=== PATIENT | female | born 1940 | race Caucasian/White ===

== ENCOUNTER 2017-03-10 18:14 | Inpatient (IN) | payer MEDICARE, OTHER ==
[~2017-03-10] VITALS: Ht 149.9 cm; Wt 59.3 kg
[2017-03-10] MEDS ORDERED: SOD CHLORIDE 0.9% 1,000 ML IV STA ×2 (18:25→23:08)
--- NOTE | 2017-03-10 18:34 | ERA ---
ER Documentation Chief Complaint Date/Time DATE: 03/10/17 TIME: 18:29 Chief Complaint HPI This is a 76-year-old female, Togolese-speaking, that presents to the emergency department brought in from [facility] and rehab with a chief complaint of changes in her mental status. Her granddaughter, Charity, is present to provide history. She indicates that the patient has appeared more confused and lethargic which began on Tuesday, 4 days prior to arrival. The patient has not been eating and has had decreased urinary output. She also stated that she was complaining of difficulty swallowing. She has had no fevers no shaking or chills. She has had black stool which has been present for several weeks. She was evaluated for the black stool for possible rectal bleeding admission [facility] but her granddaughter states that she did not receive any diagnostic imaging or colonoscopy. The granddaughter also states that the patient is normally alert awake orientated 3 but over the past 4 days has been confused as she does not recognize her granddaughter or know where she is. She has not experienced any hemoptysis or hematemesis. The patient has not complained of any chest pain or pressure and has denied a headache. She has progressed Parkinson's and therefore has difficulty ambulating at baseline. The granddaughter also indicates that the patient has a remote history of stomach carcinoma diagnosed in 2005. She had a 10 pound malignant tumor removed at [facility]. She had initially been placed on chemotherapy prior to the surgery but indicates status post surgery there has been no chemotherapy or radiation that was required ROS All systems reviewed and are negative except as per history of present illness. Medications Home Meds Reported Medications Acetaminophen* (Tylenol*) 500 Mg Tab, 1000 MG PO Q4H Y for PAIN 4-6/10, TAB 03/10/17 Acetaminophen* (Tylenol*) 325 Mg Tablet, 650 MG PO Q4H Y for MILD PAIN LEVEL 1-3 , TAB FOR FEVER 100 AND ABOVE 03/10/17 Magaldrate/Simethicone* (Mag-Al Plus Suspension*) 30 Ml Oral.susp, 30 ML PO Q4H Y for GASTROINTESTINAL UPSET, ML 03/10/17 Na Phos,M-B/Na Phos,Di-Ba (Fleet Enema Extra) 230 Ml Enema, 230 ML RC Q2D Y for PRN, ENEMA 03/10/17 Bisacodyl* (Bisacodyl*) 10 Mg Supp, 10 MG WI DAILY Y for NEEDED, SUPP 03/10/17 Magnesium Hydroxide* (Milk Of Magnesia*) 400 Mg/5 Ml Oral.susp, 30 ML PO QHS, ML 03/10/17 Docusate Sodium* (Colace*) 100 Mg Capsule, 200 MG PO QHS, #30 CAP 03/10/17 Insulin Aspart* (Novolog Insulin Pen*) 100 Unit/Ml Soln, 0 SC .SLIDING SCALE AC , EA 150-199=1 UNITS,200-249=2 UNITS,250-299=3 UNITS, 300-349=4 UNITS,ABOVE 349=5 UNITS; ABOVE 400 OR BELOW 60 CALL MD 03/10/17 Cranberry Extract (Cranberry) 425 Mg Capsule, 425 MG PO DAILY, CAP 03/10/17 Lorazepam* (Lorazepam*) 0.5 Mg Tablet, 0.5 MG PO Q6 Y for ANXIETY, TAB 03/10/17 Zolpidem Tartrate* (Ambien*) 5 Mg Tablet, 5 MG PO QHS Y for INSOMNIA, #30 TAB 03/10/17 Pantoprazole* (Protonix*) 40 Mg Tablet.dr, 40 MG PO DAILY, TAB 03/10/17 Propranolol Hcl* (Propranolol Hcl*) 10 Mg Tablet, 10 MG PO BID, TAB 03/10/17 Atorvastatin Calcium (Atorvastatin Calcium) 10 Mg Tablet, 10 MG PO QHS, #30 TAB 03/10/17 Losartan Potassium* (Losartan Potassium*) 50 Mg Tablet, 50 MG PO BID, TAB 03/10/17 Pramipexole* (Mirapex*) 1.5 Mg Tablet, 1.5 MG PO Q8H, TAB 03/10/17 Entacapone* (Comtan*) 200 Mg Tab, 200 MG PO TID, TAB 03/10/17 Allergies Allergies: Coded Allergies: No Known Allergy (Unverified , 03/10/17) Physical Exam Vitals Vital Signs Date Time Temp Pulse Resp B/P Pulse Ox O2 Delivery O2 Flow Rate FiO2 03/10/17 22:07 100.4 82 18 112/92 96 Room Air 03/10/17 19:06 100.4 92 18 97/69 94 Room Air 03/10/17 18:43 100.4 92 18 97/69 94 Physical Exam Constitutional:Well-developed. HEENT:Normocephalic. Atraumatic.Pupils were equal round reactive to light. Very dry mucous membranes.No tonsillar exudates. Neck: No nuchal rigidity. No lymphadenopathy. No posterior cervical spine tenderness or step-offs. Respiratory: Not using accessory muscles of respiration.Lungs were clear to auscultation bilaterally. No rhonchi. No rales. No wheezing. Cardiovascular: Regular rate regular rhythm.No murmurs. No rubs were appreciated.S1, S2 normal. Distal pulses are palpable 2+ bilaterally. GI: Abdomen was soft. Left lower quadrant tenderness. Non Distended. No pulsatile abdominal masses or bruits. No rebound. No guarding. Bowel sounds were present and normal. Muscle skeletal: Full range of motion the left upper extremities. Abnormal lie to the humeral head on the right and patient was unable to AB duct the right upper extremity past 90 with minimal tenderness with palpation to the right shoulder. Muscular strength 3 out of 5 in the bilateral lower extremities. No asymmetrical swelling or calf tenderness in the lower extremities. Negative Homans sign. RECTAL: No gross blood per rectum. Fecal occult blood test positive. Skin: No petechia, no purpura. No lesions on the palms or the soles of the feet. No maculopapular rash. NEURO: Patient was alert to person but not to place or time. No slurred speech. Resting tremor. Patient unable to ambulate her gait was not observed Result Diagram: 03/10/17 1845 03/10/17 1845 Results 24 hrs Laboratory Tests Test 03/10/17 18:45 White Blood Count 13.110^3/ul Red Blood Count 3.4310^6/ul Hemoglobin 9.3g/dl Hematocrit 29.1% Mean Corpuscular Volume 84.8fl Mean Corpuscular Hemoglobin 27.1pg Mean Corpuscular Hemoglobin Concent 32.0g/dl Red Cell Distribution Width 16.4% Platelet Count 60038^3/UL Mean Platelet Volume 11.0fl Neutrophils % 86.8% Lymphocytes % 6.9% Monocytes % 4.6% Eosinophils % 0.8% Basophils % 0.2% Nucleated Red Blood Cells % 0.2/100WBC Neutrophils # 11.410^3/ul Lymphocytes # 0.910^3/ul Monocytes # 0.610^3/ul Eosinophils # 0.110^3/ul Basophils # 0.010^3/ul Nucleated Red Blood Cells # 0.010^3/ul Prothrombin Time 15.1Sec Prothrombin Time Ratio 1.2 INR International Normalized Ratio 1.18 Activated Partial Thromboplast Time 36.6Sec Sodium Level 133mmol/L Potassium Level 3.9mmol/L Chloride Level 103mmol/L Carbon Dioxide Level 23mmol/L Anion Gap 11 Blood Urea Nitrogen 27mg/dl Creatinine 0.70mg/dl Glucose Level 149mg/dl Lactic Acid Level 1.0mmol/L Calcium Level 9.0mg/dl Total Bilirubin 0.4mg/dl Direct Bilirubin 0.00mg/dl Indirect Bilirubin 0.4mg/dl Aspartate Amino Transf (AST/SGOT) 12IU/L Alanine Aminotransferase (ALT/SGPT) 30IU/L Alkaline Phosphatase 84IU/L Troponin I < 0.012ng/ml Total Protein 5.4g/dl Albumin 3.2g/dl Globulin 2.20g/dl Albumin/Globulin Ratio 1.45 Amylase Level 39U/L Lipase 29U/L Current Medications Medications (Trade) Dose Ordered Sig/Marci Route PRN Reason Start Time Stop Time Status Last Admin Dose Admin Sodium Chloride (NS) 1,000 ml @ 1,000 mls/hr Q1H STAT IV 03/10/17 18:25 03/10/17 19:24 DC 03/10/17 18:55 Acetaminophen (Tylenol Tab) 1,000 mg ONCE ONCE PO 03/10/17 19:35 03/10/17 21:08 DC IV Flush 10 ml 10 ml STK-MED ONCE .ROUTE 03/10/17 20:12 03/10/17 20:13 DC 03/10/17 20:36 Sodium Chloride (NS) 100 ml @ ud STK-MED ONCE .ROUTE 03/10/17 20:12 03/10/17 20:13 DC 03/10/17 20:36 Iohexol (Omnipaque 300mg/ ml) 150 ml STK-MED ONCE .ROUTE 03/10/17 20:12 03/10/17 20:13 DC 03/10/17 20:36 Ondansetron HCl 4 mg 4 mg ER BRIDGE PRN IV NAUSEA AND/OR VOMITING 03/10/17 22:30 03/11/17 22:29 Vancomycin HCl 250 ml @ 125 mls/hr ONCE ONCE IVPB 03/10/17 23:00 03/11/17 00:59 Piperacillin Sod/ Tazobactam Sod (Zosyn 3.375gm/ 100 ml (Pmx)) 100 ml @ 200 mls/hr ONCE STAT IVPB 03/10/17 22:50 03/10/17 23:19 03/10/17 22:57 Procedures/MDM The patient presented to the emergency department with an acute and persistent change in their mental status. The differential diagnosis is diverse however reversible causes such as hypoglycemia, opiate overdose, thiamine deficiency were immediately considered. The patient was placed on a senior business development analyst, continuous pulse oximetry and IV access was established. The patients airway was secure however hypoxic events such as anemia, shock, or severe pulmonary disease were all considered as etiologies in this patients presentation. Circulation assessed with good cap refill and did not require fluids or pressure support. Finger stick for rapid glucose determined to be normal. 12 Lead EKG tracing ordered and reviewed by myself showed: Normal sinus rhythm of 86 bpm and no arrhythmia. WI interval normal. QRS duration normal. No ST segment elevation No ST segment depression. No changes consistent with acute ischemia. Given that the patient was complaining of abdominal discomfort I did obtain a CT scan of the abdomen read by the radiologist and myself which indicated the followin. Diffuse thickening of the wall involving the sigmoid colon and rectum concerning for acute proctocolitis for which correlation to diarrhea clinically is suggested. 2. Additional diffuse thickening of the visualized distal esophagus consistent with esophagitis with a small sliding hiatal hernia. 3. Bibasilar subsegmental atelectasis and tiny pleural effusions with mild cardiac enlargement. 4. Cholelithiasis without evidence of cholecystitis. 5. Extensive postoperative findings of the pelvis consistent with hysterectomy and presumably lymphadenectomy as well as bilateral salpingo-oophorectomy. 6. Extensive atherosclerotic calcification of the aorta and iliac systems. 7. Degenerative disk disease and facet arthropathy at L4-5 and L5-S1 with associated anterolisthesis at these levels. The patient was started on antibiotics for the suspected acute proctocolitis which included vancomycin and Zosyn after blood cultures have been obtained. I did obtain a 2 view radiograph of the right shoulder which indicated there was an acute anterior dislocation of the shoulder. The patient's granddaughter Charity was at the bedside and indicated that this is been present for 2 years. She stated that the patient had a rotator cuff injury with a shoulder dislocation and had not been a surgical candidate according to her granddaughter. Therefore at this time given that this was chronic I did not attempt to reduce the shoulder but the patient will undergo an orthopedic consult for possible reduction in the OR. I informed Dr. Onofre of this finding and he stated he will kindly admit the patient to the telemetry service in serious condition with an anticipated stay of greater than 2 midnights. Departure Diagnosis: Primary Impression: Altered level of consciousness Additional Impressions: Chronic dislocation of right shoulder Proctocolitis with rectal bleeding Failure to thrive Qualified Code: R62.7 - Failure to thrive in adult Condition: Serious CIARRA SILVERIO Mar 10, 2017 18:34
[2017-03-10 18:43] VITALS: Ht 149.9 cm; Wt 59.3 kg
[2017-03-10 19:10] LABS: ADD SCAN DIFF NO
[2017-03-10 19:11] LABS: BASOPHILS % 0.2 % (0.0-2.0); EOSINOPHILS # 0.1 10^3/ul (0.0-0.5); EOSINOPHILS % 0.8 % (0.0-7.0); HEMATOCRIT 29.1 % (37.0-47.0); HEMOGLOBIN 9.3 g/dl (12.0-16.0); LYMPHOCYTES # 0.9 10^3/ul (0.8-2.9); LYMPHOCYTES % 6.9 % (15.0-51.0); MEAN CORPUSCULAR HEMOGLOBIN 27.1 pg (29.0-33.0); MEAN CORPUSCULAR VOLUME 84.8 fl (82.0-101.0); MONOCYTE # 0.6 10^3/ul (0.3-0.9); MONOCYTES % 4.6 % (0.0-11.0); NEUTROPHIL # 11.4 10^3/ul (1.6-7.5); NEUTROPHILS % 86.8 % (39.0-77.0); NUCLEATED RED BLOOD CELLS% 0.2 /100WBC (0.0-0.0); PLATELET COUNT 288 10^3/UL (140-415); RED BLOOD COUNT 3.43 10^6/ul (4.20-5.40); RED CELL DISTRIBUTION WIDTH 16.4 % (11.5-14.5); WHITE BLOOD COUNT 13.1 10^3/ul (4.8-10.8)
[2017-03-10 19:32] LABS: INR 1.18; PROTIME 15.1 Sec (12.2-14.2); PT RATIO 1.2
[2017-03-10 19:33] LABS: PARTIAL THROMBOPLASTIN TIME 36.6 Sec (25.0-35.0)
[2017-03-10 19:35] LABS: ALANINE AMINOTRANSFERASE 30 IU/L (13-69); ALBUMIN 3.2 g/dl (3.3-4.9); ALBUMIN/GLOBULIN RATIO 1.45; ALKALINE PHOSPHATASE 84 IU/L (42-121); AMYLASE 39 U/L (11-123); ANION GAP 11 (8-16); ASPARTATE AMINO TRANSFERASE 12 IU/L (15-46); BILIRUBIN,INDIRECT 0.4 mg/dl (0-1.1); BILIRUBIN,TOTAL 0.4 mg/dl (0.2-1.3); BLOOD UREA NITROGEN 27 mg/dl (7-20); CARBON DIOXIDE 23 mmol/L (21-31); CHLORIDE 103 mmol/L (97-110); GLUCOSE 149 mg/dl (70-220); POTASSIUM 3.9 mmol/L (3.5-5.1); SODIUM 133 mmol/L (135-144); TOTAL PROTEIN 5.4 g/dl (6.1-8.1)
[2017-03-10] MEDS ORDERED: ACETAMINOPHEN 500 MG TAB PO ONE (19:35)
--- NOTE | 2017-03-10 19:42 | RADRPT ---
PROCEDURE: XR Chest. CLINICAL INDICATION: Chest pain. Abdominal pain and weakness TECHNIQUE: Portable AP semi - supine view of the chest was obtained. COMPARISON: None available. FINDINGS: The cardiomediastinal silhouette is mildly enlarged. The lungs are clear. There is no evidence for pleural effusion, pneumothorax or pulmonary vascular congestion. Mild dextroscoliosis of the upper thoracic spine is noted without evidence of fracture. The right humeral head is in medial to the g lenoid portion of the scapula and cannot exclude anterior glenohumeral joint dislocation.. Calcifica tion of the aorta is present. RPTAT:HJJR IMPRESSION: 1. Mild cardiac silhouette enlargement without evidence for acute intrathoracic pathology. 2. Concern for anterior glenohumeral joint dislocation of the right shoulder. Consider dedicated r ight shoulder series for further evaluation. Physician Jayjay Date Time Electronically viewed and signed by Physician Jayjay on 03/10/2017 19:42 JR/
[2017-03-10 19:49] LABS: TROPONIN-I < 0.012 ng/ml (0.00-0.12)
[2017-03-10] MEDS ORDERED: SOD CHLORIDE 0.9% 100 ML ONE (20:12)
[2017-03-10] MEDS ORDERED: IOHEXOL 300MG/ML 150 ML BTL ONE (20:12)
[2017-03-10] MEDS ORDERED: ENTA200T16 PO (21:02)
[2017-03-10] MEDS ORDERED: PRAM1.5T8 PO (21:03)
[2017-03-10] MEDS ORDERED: LOSA50TA6 PO (21:03)
[2017-03-10] MEDS ORDERED: PROP10TA6 PO (21:04)
[2017-03-10] MEDS ORDERED: ATOR10TA65 PO (21:04)
[2017-03-10] MEDS ORDERED: PANT40TA3 PO (21:05)
[2017-03-10] MEDS ORDERED: ZOLP5TAB PO (21:05)
[2017-03-10] MEDS ORDERED: LORA0.5T PO (21:06)
[2017-03-10] MEDS ORDERED: CRAN425C PO (21:07)
[2017-03-10] MEDS ORDERED: NOVO3I SC (21:10)
[2017-03-10] MEDS ORDERED: MAGN400O4 PO (21:12)
[2017-03-10] MEDS ORDERED: DOCU-144 PO (21:12)
[2017-03-10] MEDS ORDERED: BISA10SU75 PR (21:13)
[2017-03-10] MEDS ORDERED: NA P230E RC (21:14)
[2017-03-10] MEDS ORDERED: UDMYL PO (21:15)
[2017-03-10] MEDS ORDERED: ACET325T33 PO (21:17)
[2017-03-10] MEDS ORDERED: TYL500 PO (21:17)
--- NOTE | 2017-03-10 21:21 | RADRPT ---
PROCEDURE: CT abdomen and pelvis with contrast. CLINICAL INDICATION: Abdominal pain. TECHNIQUE: CT scan of the abdomen and pelvis with contrast was performed. Coronal and sagittal im ages were also reformatted. 75 cc Omnipaque-300 intravenous contrast was administered without compl ication. Total exam CTDIvol = 17.87 mGy and DLP = 902.62 mGy-cm. COMPARISON: None available. FINDINGS: Visualized lower thorax: Bilateral dependent subsegmental atelectasis is present. The visualized he art is mildly enlarged. Tiny dependent bilateral pleural effusions are noted. Liver, gallbladder, pancreas and spleen: Normal hepatic contour, attenuation in size. There is no evidence for liver mass or ductal dilatation. Calcified gallstones are present without pericholecys tic inflammation to suggest acute cholecystitis, no gallbladder hydrops is seen. No common bile sahil t dilatation is evident. The pancreas is normal. The spleen is normal, not enlarged. Adrenal glands and genitourinary system: The adrenal glands are normal bilaterally. The kidneys ar e normal in size, contour and attenuation with no evidence for masses, calculi or hydronephrosis. Sy mmetric enhancement of the kidneys is present without evidence of pyelonephritis . The ureters are unremarkable. The urinary bladder shows no abnormality. The uterus is not visualized presumably mathur rgically removed, multiple clips are seen in the pelvis and retroperitoneum. Gastrointestinal system: The visualized distal esophagus shows diffuse thickening concerning for es ophagitis with a hiatal hernia. The stomach is contracted and otherwise grossly normal. A duodenal diverticulum is present. There is no evidence of small bowel obstruction or ileus. The appendix i s not visualized.. The proximal and mid colon are unremarkable however, the distal colon and rectum have diffuse thickening from the mid sigmoid to the rectum and findings are concerning for proctocol itis (series with 3 images 115 - 140). There is some stranding of the surrounding perirectal fat.. Peritoneum, retroperitoneum, vessels and lymph nodes: The abdominal aorta is normal in caliber. Th ere is severe aortic and iliac system atherosclerotic calcification. Inferior vena cava is normal i n caliber. There is no evidence for adenopathy. The peritoneal cavity is normal with no evidence f or ascites. No pneumoperitoneum is present Osseous structures and musculoskeletal system: There is no evidence for acute osseous abnormality o r muscular pathology. Facet arthropathy with degenerative anterolisthesis at L4-5 and L5-S1 is note d with severe degenerative disk narrowing at these levels. No subcutaneous abnormalities are presen t. RPTAT:HJJR IMPRESSION: 1. Diffuse thickening of the wall involving the sigmoid colon and rectum concerning for acute procto colitis for which correlation to diarrhea clinically is suggested. 2. Additional diffuse thickening of the visualized distal esophagus consistent with esophagitis wit h a small sliding hiatal hernia. 3. Bibasilar subsegmental atelectasis and tiny pleural effusions with mild cardiac enlargement. 4. Cholelithiasis without evidence of cholecystitis. 5. Extensive postoperative findings of the pelvis consistent with hysterectomy and presumably lymph adenectomy as well as bilateral salpingo-oophorectomy. 6. Extensive atherosclerotic calcification of the aorta and iliac systems. 7. Degenerative disk disease and facet arthropathy at L4-5 and L5-S1 with associated anterolisthesi s at these levels. Physician Jayjay Date Time Electronically viewed and signed by Physician Jayjay on 03/10/2017 21:20 JR/
[2017-03-10] MEDS ORDERED: ONDANSETRON 4 MG INJ IV PRN (22:30)
[2017-03-10] MEDS ORDERED: PIPER-TAZO 3.375 GM IV (PMX) 100 ML IVPB STA (22:50)
--- NOTE | 2017-03-10 22:59 | RADRPT ---
PROCEDURE: XR Right Shoulder. CLINICAL INDICATION: Right shoulder pain. TECHNIQUE: Two views. Frontal and scapular Y-view. COMPARISON: Chest radiograph done earlier the same day. FINDINGS: There is no fracture. There is an anterior dislocation of the glenohumeral joint. The soft tissues are normal. There are degenerative changes of the acromioclavicular joint with joint space narrowing and osteoph ytes. There is no lytic or blastic lesion. There is no radiopaque foreign body. IMPRESSION: 1. Anterior dislocation of the glenohumeral joint. 2. Degenerative changes of the acromioclavicular joint. 3. Otherwise normal images of the right shoulder. Call report: A call report of the findings was made to Dr. Tan on 03/10/2017 at 1050 hours. RPTAT: QQ .Hany Mishra MD, Date Time Electronically viewed and signed by .Hany Mishra MD, on 03/10/2017 22:58 .R/
[2017-03-10] MEDS ORDERED: VANCOMYCIN 1 GM (PMX) 250 ML IVPB ONE (23:00)
[2017-03-11] VITALS (7 sets, daily range): BP systolic 70–163; BP diastolic 57–80; PULSE 74–81; RESP 18–20; TEMP 99.8
[2017-03-11] MEDS: DEXTROSE 5%-0.45% NACL 1,000 ML IV SCH ×2 (07:11→19:34)
[2017-03-11] MEDS ORDERED: AL HYDROX/MG HYDROX/SIMETH 30 ML CUP PO PRN (07:30)
[2017-03-11] MEDS: PRAMIPEXOLE 1 MG TAB PO SCH ×3 (07:30→21:57)
[2017-03-11] MEDS ORDERED: ZOLPIDEM 5 MG TAB PO PRN (07:30)
[2017-03-11] MEDS ORDERED: BISACODYL 10 MG SUPP PR PRN (07:30)
[2017-03-11] MEDS ORDERED: ONDANSETRON 4 MG INJ IV PRN (07:30)
[2017-03-11] MEDS ORDERED: ACETAMINOPHEN 500 MG TAB PO PRN (07:30)
[2017-03-11] MEDS ORDERED: NACL 0.9% 3 ML SYG IV SCH (07:30)
[2017-03-11] MEDS ORDERED: ACETAMINOPHEN 325 MG TAB PO PRN ×2 (07:30)
[2017-03-11] MEDS ORDERED: LORAZEPAM 0.5 MG TAB PO PRN (07:30)
[2017-03-11] MEDS: ENTACAPONE 200 MG TAB PO SCH ×3 (09:00→21:13)
[2017-03-11] MEDS: PROPRANOLOL 10 MG TAB PO SCH ×2 (09:00→21:00)
[2017-03-11] MEDS ORDERED: LOSARTAN 50 MG TAB PO SCH (09:00)
[2017-03-11] MEDS ORDERED: LORAZEPAM 2 MG INJ IV ONE (10:00)
[2017-03-11] MEDS ORDERED: LORAZEPAM 2 MG INJ ONE (10:01)
[2017-03-11 10:46] LABS: ADD UMIC YES; UR ASCORBIC ACID NEGATIVE (NEGATIVE); UR BACTERIA FEW /HPF (NONE SEEN); UR BILIRUBIN (Dip) NEGATIVE (NEGATIVE); UR BLOOD (Dip) NEGATIVE (NEGATIVE); UR CLARITY CLEAR (CLEAR); UR COLOR YELLOW (YELLOW); UR GLUCOSE (Dip) NEGATIVE (NEGATIVE); UR KETONES (Dip) 1+ mg/dL (NEGATIVE); UR LEUKOCYTE ESTERASE (Dip) NEGATIVE Leu/ul (NEGATIVE); UR MUCUS FEW /HPF (NONE SEEN); UR NITRITE (Dip) POSITIVE (NEGATIVE); UR RBC 14 /HPF (0-5); UR SPECIFIC GRAVITY (Dip) > 1.060 (1.003-1.030); UR TOTAL PROTEIN (Dip) NEGATIVE (NEGATIVE); UR UROBILINOGEN (Dip) NEGATIVE (NEGATIVE)
--- NOTE | 2017-03-11 11:17 | HP ---
Date/Time of Note Date/Time of Note DATE: 03/11/17 TIME: 11:09 Assessment/Plan VTE Prophylaxis VTE Prophylaxis Intervention: SCD's Lines/Catheters Urinary Cath still in place: Yes Reason Cath still needed: urinary retention Assessment/Plan Chief Complaint/Hosp Course 1. ALOC 2. possible overdose sedative meds 3. ESRD 4. HS of stomach carcinoma removal 5. Hs right shoulder dislocation 6.Hypertension 7. dyslipidemia 8. Advanced PArkinson disease 9. Proctocolitis with rectal bleeding 10.Failure to thrive Problems: Assessment/Plan 1. aDMIT TELEMETRY 2. nEUROLOGY CONSULT DR Ramos 3. DVT and GI prophylaxis 4. Review meds HPI/ROS Admit Date/Time Admit Date/Time Hx of Present Illness This is well known to me 76-year-old female was presents to the emergency room on 03/10/2017. She is a resident of [facility] re[facility] . She has ALOC. Per ER md note known that pt granddaughter indicates that the "patient has appeared more confused and lethargic which began on Tuesday, 4 days prior to arrival. The patient has not been eating and has had decreased urinary output. She also stated that she was complaining of difficulty swallowing. She has had no fevers no shaking or chills. She has had black stool which has been present for several weeks". The granddaughter also states that the patient is normally alert awake orientated 3 but over the past 4 days has been confused as she does not recognize her granddaughter or know where she is. She has not experienced any hemoptysis or hematemesis. The patient had not complained of any chest pain or pressure and had denied a headache. She is unable to ambulate. ROS Subjective hx not possible: pt non-verbal PMH/Family/Social Past Medical History Medical History: cancer Past Surgical History Past Surgical Hx: other (s/p colom carcinoma removal) Family History Significant Family History: no pertinent family hx Social History Alcohol Use: none Smoking Status: Former smoker Drug Use: none Exam/Review of Systems Vital Signs Vitals Vital Signs Date Time Temp Pulse Resp B/P Pulse Ox O2 Delivery O2 Flow Rate FiO2 03/11/17 09:43 67 17 134/73 96 Room Air 03/11/17 05:46 99.8 Exam Exam pt is in ER , laying down oh gurney. Lethargic Constitutional: non-verbal Head: atraumatic, normocephalic Eyes: icteric, nl conjunctiva, No EOMI, No PERRL, No fundi, disc, No nl lids, No nl sclera, No other ENMT: nl external ears & nose, nl lips & teeth Neck: jvd, supple, No bruits, No masses, No non-tender, No nuchal rigidity, No other, No thyromegaly Respiratory: clear to auscultation, diminished breath sounds Cardiovascular: regular rate and rhythm Gastrointestinal: ascites, rebound or guarding, soft, surgical scars, No bowel sounds, No distended, No firm, No hepatomegaly, No mass, No nl liver , spleen, No non-tender, No other, No splenomegaly, No tender Genitourinary - Female: nl external genitalia Extremities: calf tenderness, edema, No clubbing, No cyanosis, No normal pulses, No other, No palpable cord, No pitting pedal edema, No tenderness Labs Result Diagram: 03/10/17184403/10/171844 Medications Medications Current Medications Acetaminophen (Tylenol Tab) 650 mg Q4H PRN PO MILD PAIN LEVEL 1-3; Start at 07:30 Acetaminophen (Tylenol Tab) 1,000 mg Q4H PRN PO PAIN 4-6/10; Start 03/11/17 at 07:30 Atorvastatin Calcium (Lipitor) 10 mg QHS PO ; Start 03/11/17 at 21:00 Bisacodyl (Dulcolax Supp) 10 mg DAILY PRN MN NEEDED; Start 03/11/17 at 07:30 Docusate Sodium (Colace) 200 mg QHS PO ; Start 03/11/17 at 21:00 Entacapone (Comtan) 200 mg TID PO ; Start 03/11/17 at 09:00 Lorazepam (Ativan) 0.5 mg Q6H PRN PO ANXIETY; Start 03/11/17 at 07:30 Al Hydrox/Mg Hydrox/Simethicone (Mag-Al Plus) 30 ml Q4H PRN PO GASTROINTESTINAL UPSET; Start 03/11/17 at 07:30 Magnesium Hydroxide (Milk Of Mag) 30 ml QHS PO ; Start 03/11/17 at 21:00 Pramipexole (Mirapex) 1.5 mg Q8 PO ; Start 03/11/17 at 07:30 Propranolol HCl (Inderal) 10 mg BID PO ; Start 03/11/17 at 09:00 Zolpidem Tartrate 5 mg 5 mg QHS PRN PO INSOMNIA; Start 03/11/17 at 07:30 Dextrose/Sodium Chloride (D5-1/2ns) 1,000 ml @ 50 mls/hr Q20H IV Last administered on 03/11/17t 07:11; Admin Dose 50 MLS/HR; Start 03/11/17 at 07:11 Ondansetron HCl (Zofran Inj) 4 mg Q6H PRN IV NAUSEA AND/OR VOMITING; Start at 07:30 Acetaminophen (Tylenol Tab) 650 mg Q6H PRN PO PAIN LEVEL 1-3 OR FEVER; Start at 07:30 Pantoprazole (Protonix Iv) 40 mg DAILY@06 IV ; Start 03/12/17 at 06:00 Losartan Potassium (Cozaar) 50 mg BID PO ; Start 03/11/17 at 21:00 BRAYDEN BARRERA Mar 11, 2017 11:17
--- NOTE | 2017-03-11 12:24 | RADRPT ---
PROCEDURE: CT Brain without contrast. CLINICAL INDICATION: 76-year-old female with altered level of consciousness. TECHNIQUE: A CT of the brain was performed on a [employer] LightSpeed CT scanner utilizing a low do se technique with axial imaging from the skull base through the vertex without IV contrast. Multipl lou reformatted images were made. Images were reviewed on a PACS workstation. The CTDIvol is 43 m Gy and the DLP is 720 mGycm. One or more of the following dose reduction techniques were used: - Automated exposure control. - Adjustment of the mA and/or kV according to patient size. Use of iterative reconstruction technique. COMPARISON: None FINDINGS: The fourth ventricle is normal in size. The third and lateral ventricles are normal in size and con figuration. There are chronic small vessel ischemic changes in the periventricular white matter trac ts adjacent to the lateral ventricles. There are vascular calcifications in the cavernous portions of the internal carotid arteries. The visible portions of the globes and extraocular muscles are normal. The paranasal sinuses are cl ear. The mastoid air cells and internal auditory canals are normal. The bony calvarium is intact. IMPRESSION: 1. There are chronic small vessel ischemic changes in the periventricular white matter tracts adjac ent to the lateral ventricles with atherosclerotic vascular calcifications in the cavernous portions of the internal carotid arteries. 2. No intracranial mass or intracranial hemorrhage is identified. 3. Otherwise, negative CT scan of the brain without contrast. RPTAT:AAJJ Physician Minor Date Time Electronically viewed and signed by Physician Minor on 03/11/2017 12:23 MARYLIN/
--- NOTE | 2017-03-11 17:53 | CONS ---
Date/Time of Note Date/Time of Note DATE: 03/11/17 TIME: 17:52 Consultation Date/Type/Reason Admit Date/Time Reason for Consultation This is Dr. Gibson dictating infectious consultation on She Thomas, date of admission 03/10/2017 date of consultation and dictation 03/11/2017, the reason for consultation is antibiotic management. Patient is a 76-year-old female who presented to the emergency room with altered level of consciousness. The patient has not been eating and has had decreased urinary output she denies fever or chills she has had black stools which have been present for several weeks. Past problems include: 1. End-stage renal disease 2. History of colon carcinoma status post resection 3 hypertension 4 dyslipidemia 5 advanced Parkinson's disease 6 proctocolitis with rectal bleeding 7 failure to thrive. On admission white count was 13.1 H&H 9.3 and 29.1 platelet count 288,000 BUN/ creatinine 27/0.7 chest x-ray shows no acute infiltrate. CT of abdomen and pelvis with contrast shows diffuse thickening of the wall involving the sigmoid colon and rectum consistent with acute proctocolitis for which correlation to diarrhea is suggested she has extensive postoperative findings of the pelvis consistent with hysterectomy and presumably lymphadenopathy as well as BSO. Past medical history as outlined Surgical history as outlined Family history is noncontributory Social history: She does not smoke drink or abuse drugs Allergy none to penicillin sulfa or foods Medications per chart Review of systems is noncontributory On physical examination the patient is nonverbal. Vital signs are stable, she is afebrile T-max 99.8. SHEENT within normal limits Neck is supple, lymph nodes nonpalpable Chest is clear to P&A Heart without murmur or gallop Abdomen is soft nontender without organosplenomegaly masses Extremities without cyanosis clubbing or edema Rectal genital exam: Deferred Neurological evaluation: No focal neurological abnormality Impression/plan: Patient presents with altered levels of consciousness and end- stage renal disease she also has urinary retention. Patient begun on vancomycin and Zosyn in the emergency room. Cultures are pending. I want to thank Dr. Castro for asking me to see this patient in consultation. Thank you for this city driver. Past Medical History Medical History: cancer Past Surgical History Past Surgical Hx: other (s/p colom carcinoma removal) Social History Alcohol Use: none Smoking Status: Former smoker Drug Use: none Exam/Review of Systems Vital Signs Vitals Vital Signs Date Time Temp Pulse Resp B/P Pulse Ox O2 Delivery O2 Flow Rate FiO2 03/11/17 16:00 74 03/11/17 15:12 16 110/54 100 Room Air 03/11/17 05:46 99.8 Results Result Diagram: 03/10/17 1845 03/10/17 1845 Results 24 hrs Laboratory Tests Test 03/10/17 18:45 03/11/17 10:05 White Blood Count 13.1 H Red Blood Count 3.43 L Hemoglobin 9.3 L Hematocrit 29.1 L Mean Corpuscular Volume 84.8 Mean Corpuscular Hemoglobin 27.1 L Mean Corpuscular Hemoglobin Concent 32.0 Red Cell Distribution Width 16.4 H Platelet Count 288 Mean Platelet Volume 11.0 H Neutrophils % 86.8 H Lymphocytes % 6.9 L Monocytes % 4.6 Eosinophils % 0.8 Basophils % 0.2 Nucleated Red Blood Cells % 0.2 H Neutrophils # 11.4 H Lymphocytes # 0.9 Monocytes # 0.6 Eosinophils # 0.1 Basophils # 0.0 Nucleated Red Blood Cells # 0.0 Prothrombin Time 15.1 H Prothrombin Time Ratio 1.2 INR International Normalized Ratio 1.18 Activated Partial Thromboplast Time 36.6 H Sodium Level 133 L Potassium Level 3.9 Chloride Level 103 Carbon Dioxide Level 23 Anion Gap 11 Blood Urea Nitrogen 27 H Creatinine 0.70 Glucose Level 149 Lactic Acid Level 1.0 Calcium Level 9.0 Total Bilirubin 0.4 Direct Bilirubin 0.00 Indirect Bilirubin 0.4 Aspartate Amino Transf (AST/SGOT) 12 L Alanine Aminotransferase (ALT/SGPT) 30 Alkaline Phosphatase 84 Troponin I < 0.012 Total Protein 5.4 L Albumin 3.2 L Globulin 2.20 Albumin/Globulin Ratio 1.45 Amylase Level 39 Lipase 29 Urine Color YELLOW Urine Clarity CLEAR Urine pH 5.0 Urine Specific Walker > 1.060 H Urine Ketones 1+ H Urine Nitrite POSITIVE A Urine Bilirubin NEGATIVE Urine Urobilinogen NEGATIVE Urine Leukocyte Esterase NEGATIVE Urine Microscopic RBC 14 H Urine Microscopic WBC 2 Urine Bacteria FEW A Urine Mucus FEW A Urine Hemoglobin NEGATIVE Urine Glucose NEGATIVE Urine Total Protein NEGATIVE Medications Medications Current Medications Acetaminophen (Tylenol Tab) 650 mg Q4H PRN PO MILD PAIN LEVEL 1-3; Start at 07:30 Acetaminophen (Tylenol Tab) 1,000 mg Q4H PRN PO PAIN 4-6/10; Start 03/11/17 at 07:30 Atorvastatin Calcium (Lipitor) 10 mg QHS PO ; Start 03/11/17 at 21:00 Bisacodyl (Dulcolax Supp) 10 mg DAILY PRN [place] NEEDED; Start 03/11/17 at 07:30 Docusate Sodium (Colace) 200 mg QHS PO ; Start 03/11/17 at 21:00 Entacapone (Comtan) 200 mg TID PO ; Start 03/11/17 at 09:00 Lorazepam (Ativan) 0.5 mg Q6H PRN PO ANXIETY; Start 03/11/17 at 07:30 Al Hydrox/Mg Hydrox/Simethicone (Mag-Al Plus) 30 ml Q4H PRN PO GASTROINTESTINAL UPSET; Start 03/11/17 at 07:30 Magnesium Hydroxide (Milk Of Mag) 30 ml QHS PO ; Start 03/11/17 at 21:00 Pramipexole (Mirapex) 1.5 mg Q8 PO ; Start 03/11/17 at 07:30 Propranolol HCl (Inderal) 10 mg BID PO ; Start 03/11/17 at 09:00 Zolpidem Tartrate 5 mg 5 mg QHS PRN PO INSOMNIA; Start 03/11/17 at 07:30 Dextrose/Sodium Chloride (D5-1/2ns) 1,000 ml @ 50 mls/hr Q20H IV Last administered on 03/11/17t 07:11; Admin Dose 50 MLS/HR; Start 03/11/17 at 07:11 Ondansetron HCl (Zofran Inj) 4 mg Q6H PRN IV NAUSEA AND/OR VOMITING; Start at 07:30 Acetaminophen (Tylenol Tab) 650 mg Q6H PRN PO PAIN LEVEL 1-3 OR FEVER; Start at 07:30 Pantoprazole (Protonix Iv) 40 mg DAILY@06 IV ; Start 03/12/17 at 06:00 Losartan Potassium (Cozaar) 50 mg BID PO ; Start 03/11/17 at 21:00 SHANNAN PAK MD Mar 11, 2017 17:52
--- NOTE | 2017-03-11 18:37 | CONS ---
Date/Time of Note Date/Time of Note DATE: 03/11/17 TIME: 18:31 Assessment/Plan Assessment/Plan Additional Assessment/Plan 1. Anemia 2. Melena 3. History of stomach cancer/colon cancer 4. End-stage renal disease 5. Altered level of consciousness, patient is very lethargic 6. Advanced Parkinson's disease Plan PPI Neurology consultation Monitor H&H and mental status If stable will proceed with EGD Patient may also need a colonoscopy since he has a thickening of the rectum and sigmoid colon based on CT scan findings Consultation Date/Type/Reason Admit Date/Time Hx of Present Illness Patient is a 76-year-old female with a history of end-stage renal disease admitted to the hospital for altered level of consciousness, dysphagia, passing black colored stool no chest pain or shortness of breath. 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 No fever no chills all the information gathered by reviewing the chart. Patient was not in a position to give any information. She was mentally obtunded. Past Medical History Medical History: cancer Past Surgical History Past Surgical Hx: other (s/p colom carcinoma removal, surgery for stomach cancer also) Family History Significant Family History: no pertinent family hx Social History Alcohol Use: none Smoking Status: Former smoker Drug Use: none Exam/Review of Systems Vital Signs Vitals Vital Signs Date Time Temp Pulse Resp B/P Pulse Ox O2 Delivery O2 Flow Rate FiO2 03/11/17 16:00 74 03/11/17 15:12 16 110/54 100 Room Air 03/11/17 05:46 99.8 Exam ENMT: nl external ears & nose, nl lips & teeth, nl nasal mucosa & septum Neck: non-tender, supple Respiratory: clear to auscultation, normal air movement Cardiovascular: nl pulses, regular rate and rhythm Gastrointestinal: nl liver, spleen, non-tender, soft Musculoskeletal: nl extremities to inspection, nl gait and stance Extremities: normal pulses Neurological: lethargic Results Result Diagram: 03/10/17184403/10/171844 Results 24 hrs Laboratory Tests Test 03/10/17 18:45 03/11/17 10:05 White Blood Count 13.1 H Red Blood Count 3.43 L Hemoglobin 9.3 L Hematocrit 29.1 L Mean Corpuscular Volume 84.8 Mean Corpuscular Hemoglobin 27.1 L Mean Corpuscular Hemoglobin Concent 32.0 Red Cell Distribution Width 16.4 H Platelet Count 288 Mean Platelet Volume 11.0 H Neutrophils % 86.8 H Lymphocytes % 6.9 L Monocytes % 4.6 Eosinophils % 0.8 Basophils % 0.2 Nucleated Red Blood Cells % 0.2 H Neutrophils # 11.4 H Lymphocytes # 0.9 Monocytes # 0.6 Eosinophils # 0.1 Basophils # 0.0 Nucleated Red Blood Cells # 0.0 Prothrombin Time 15.1 H Prothrombin Time Ratio 1.2 INR International Normalized Ratio 1.18 Activated Partial Thromboplast Time 36.6 H Sodium Level 133 L Potassium Level 3.9 Chloride Level 103 Carbon Dioxide Level 23 Anion Gap 11 Blood Urea Nitrogen 27 H Creatinine 0.70 Glucose Level 149 Lactic Acid Level 1.0 Calcium Level 9.0 Total Bilirubin 0.4 Direct Bilirubin 0.00 Indirect Bilirubin 0.4 Aspartate Amino Transf (AST/SGOT) 12 L Alanine Aminotransferase (ALT/SGPT) 30 Alkaline Phosphatase 84 Troponin I < 0.012 Total Protein 5.4 L Albumin 3.2 L Globulin 2.20 Albumin/Globulin Ratio 1.45 Amylase Level 39 Lipase 29 Urine Color YELLOW Urine Clarity CLEAR Urine pH 5.0 Urine Specific [place] > 1.060 H Urine Ketones 1+ H Urine Nitrite POSITIVE A Urine Bilirubin NEGATIVE Urine Urobilinogen NEGATIVE Urine Leukocyte Esterase NEGATIVE Urine Microscopic RBC 14 H Urine Microscopic WBC 2 Urine Bacteria FEW A Urine Mucus FEW A Urine Hemoglobin NEGATIVE Urine Glucose NEGATIVE Urine Total Protein NEGATIVE Medications Medications Current Medications Acetaminophen (Tylenol Tab) 650 mg Q4H PRN PO MILD PAIN LEVEL 1-3; Start at 07:30 Acetaminophen (Tylenol Tab) 1,000 mg Q4H PRN PO PAIN 4-6/10; Start 03/11/17 at 07:30 Atorvastatin Calcium (Lipitor) 10 mg QHS PO ; Start 03/11/17 at 21:00 Bisacodyl (Dulcolax Supp) 10 mg DAILY PRN [place] NEEDED; Start 03/11/17 at 07:30 Docusate Sodium (Colace) 200 mg QHS PO ; Start 03/11/17 at 21:00 Entacapone (Comtan) 200 mg TID PO ; Start 03/11/17 at 09:00 Lorazepam (Ativan) 0.5 mg Q6H PRN PO ANXIETY; Start 03/11/17 at 07:30 Al Hydrox/Mg Hydrox/Simethicone (Mag-Al Plus) 30 ml Q4H PRN PO GASTROINTESTINAL UPSET; Start 03/11/17 at 07:30 Magnesium Hydroxide (Milk Of Mag) 30 ml QHS PO ; Start 03/11/17 at 21:00 Pramipexole (Mirapex) 1.5 mg Q8 PO ; Start 03/11/17 at 07:30 Propranolol HCl (Inderal) 10 mg BID PO ; Start 03/11/17 at 09:00 Zolpidem Tartrate 5 mg 5 mg QHS PRN PO INSOMNIA; Start 03/11/17 at 07:30 Dextrose/Sodium Chloride (D5-1/2ns) 1,000 ml @ 50 mls/hr Q20H IV Last administered on 03/11/17t 07:11; Admin Dose 50 MLS/HR; Start 03/11/17 at 07:11 Ondansetron HCl (Zofran Inj) 4 mg Q6H PRN IV NAUSEA AND/OR VOMITING; Start at 07:30 Acetaminophen (Tylenol Tab) 650 mg Q6H PRN PO PAIN LEVEL 1-3 OR FEVER; Start at 07:30 Pantoprazole (Protonix Iv) 40 mg DAILY@06 IV ; Start 03/12/17 at 06:00 Losartan Potassium (Cozaar) 50 mg BID PO ; Start 03/11/17 at 21:00 ROXANNE MORALES MD Mar 11, 2017 18:36
[2017-03-11] MEDS: LOSARTAN 50 MG TAB PO SCH (21:00)
[2017-03-11] MEDS: DOCUSATE SODIUM 100 MG CAP PO SCH (21:00)
[2017-03-11] MEDS: MAGNESIUM HYDROXIDE 30ML CUP PO SCH (21:00)
[2017-03-11] MEDS: ATORVASTATIN 10 MG TAB PO SCH (21:00)
[2017-03-12] VITALS (12 sets, daily range): BP systolic 114–155; BP diastolic 56–69; PULSE 62–96; RESP 17–27
[2017-03-12] MEDS ORDERED: PANTOPRAZOLE 40 MG INJ IV SCH (06:00)
[2017-03-12] MEDS: PRAMIPEXOLE 1 MG TAB PO SCH ×3 (06:00→22:00)
[2017-03-12] MEDS: ENTACAPONE 200 MG TAB PO SCH ×3 (08:41→21:00)
[2017-03-12] MEDS: LOSARTAN 50 MG TAB PO SCH ×2 (08:41→21:00)
[2017-03-12] MEDS: PROPRANOLOL 10 MG TAB PO SCH ×2 (08:41→21:00)
[2017-03-12 11:34] LABS: ADD SCAN DIFF NO
[2017-03-12 11:48] LABS: BASOPHILS % 0.3 % (0.0-2.0); EOSINOPHILS # 0.2 10^3/ul (0.0-0.5); EOSINOPHILS % 3.1 % (0.0-7.0); HEMATOCRIT 25.7 % (37.0-47.0); LYMPHOCYTES # 0.7 10^3/ul (0.8-2.9); LYMPHOCYTES % 10.7 % (15.0-51.0); MEAN CORPUSCULAR HEMOGLOBIN 26.5 pg (29.0-33.0); MEAN CORPUSCULAR HGB CONC 31.1 g/dl (32.0-37.0); MEAN CORPUSCULAR VOLUME 85.1 fl (82.0-101.0); MEAN PLATELET VOLUME 11.1 fl (7.4-10.4); MONOCYTE # 0.3 10^3/ul (0.3-0.9); MONOCYTES % 4.9 % (0.0-11.0); NEUTROPHIL # 5.1 10^3/ul (1.6-7.5); NEUTROPHILS % 80.2 % (39.0-77.0); PLATELET COUNT 276 10^3/UL (140-415); RED BLOOD COUNT 3.02 10^6/ul (4.20-5.40); RED CELL DISTRIBUTION WIDTH 16.2 % (11.5-14.5); WHITE BLOOD COUNT 6.4 10^3/ul (4.8-10.8)
[2017-03-12 12:00] LABS: CALCIUM 8.7 mg/dl (8.4-10.2); CREATININE 0.48 mg/dl (0.44-1.00); POTASSIUM 3.7 mmol/L (3.5-5.1)
--- NOTE | 2017-03-12 12:25 | CONS ---
Date/Time of Note Date/Time of Note DATE: 03/12/17 TIME: 12:22 Assessment/Plan Assessment/Plan Chief Complaint/Hosp Course Patient is a 76-year-old female with a history of end-stage renal disease admitted to the hospital for altered level of consciousness, dysphagia, passing black colored stool no chest pain or shortness of breath. No or HOSPITAL AIDE problem. No fever no chills all the information gathered by reviewing the chart. Patient was not in a position to give any information. She was mentally obtunded. Problems: Additional Assessment/Plan Additional Assessment/Plan 1. Anemia 2. Melena 3. History of stomach cancer/colon cancer 4. End-stage renal disease 5. Altered level of consciousness, patient is very lethargic 6. Advanced Parkinson's disease Plan PPI Neurology consultation Monitor H&H and mental status If stable will proceed with EGD, patient hematocrit is dropping I just got the report. It is 25. We will proceed with EGD today Consultation Date/Type/Reason Admit Date/Time Mar 10, 2017 at 22:07 Initial Consult Date 24 HR Interval Summary Free Text/Dictation Patient is more awake Constitutional: improved, no complaints Exam/Review of Systems Vital Signs Vitals Vital Signs Date Time Temp Pulse Resp B/P Pulse Ox O2 Delivery O2 Flow Rate FiO2 03/12/17 11:54 97.9 80 18 138/69 95 03/11/17 15:12 Room Air Intake and Output 03/11/17 03/11/17 03/12/17 15:00 23:00 07:00 Output Total 800 ml Balance -800 ml Exam Constitutional: alert, oriented, well developed Psych: nl mood/affect, no complaints Head: atraumatic, normocephalic Eyes: EOMI, PERRL, nl conjunctiva, nl lids, nl sclera ENMT: nl external ears & nose, nl lips & teeth, nl nasal mucosa & septum Neck: non-tender, supple Respiratory: clear to auscultation, normal air movement Cardiovascular: nl pulses, regular rate and rhythm Gastrointestinal: nl liver, spleen, non-tender, soft Musculoskeletal: nl extremities to inspection, nl gait and stance Extremities: normal pulses Neurological: HOSPITAL AIDE II-XII intact, nl mental status, nl speech, nl strength Skin: nl turgor, No rash or lesions Lymph: nl lymph nodes Results Result Diagram: 03/12/17 1111 03/12/17 1111 Results 24 hrs Laboratory Tests Test 03/12/17 11:11 White Blood Count 6.4 # Red Blood Count 3.02 L Hemoglobin 8.0 L Hematocrit 25.7 L Mean Corpuscular Volume 85.1 Mean Corpuscular Hemoglobin 26.5 L Mean Corpuscular Hemoglobin Concent 31.1 L Red Cell Distribution Width 16.2 H Platelet Count 276 Mean Platelet Volume 11.1 H Neutrophils % 80.2 H Lymphocytes % 10.7 L Monocytes % 4.9 Eosinophils % 3.1 Basophils % 0.3 Nucleated Red Blood Cells % 0.0 Neutrophils # 5.1 Lymphocytes # 0.7 L Monocytes # 0.3 Eosinophils # 0.2 Basophils # 0.0 Nucleated Red Blood Cells # 0.0 Sodium Level 139 Potassium Level 3.7 Chloride Level 103 Carbon Dioxide Level 23 Anion Gap 17 H Blood Urea Nitrogen 12 # Creatinine 0.48 Glucose Level 118 Calcium Level 8.7 Medications Medications Current Medications Acetaminophen (Tylenol Tab) 650 mg Q4H PRN PO MILD PAIN LEVEL 1-3; Start at 07:30 Acetaminophen (Tylenol Tab) 1,000 mg Q4H PRN PO PAIN 4-6/10; Start 03/11/17 at 07:30 Atorvastatin Calcium (Lipitor) 10 mg QHS PO ; Start 03/11/17 at 21:00 Bisacodyl (Dulcolax Supp) 10 mg DAILY PRN [place] NEEDED; Start 03/11/17 at 07:30 Docusate Sodium (Colace) 200 mg QHS PO ; Start 03/11/17 at 21:00 Entacapone (Comtan) 200 mg TID PO ; Start 03/11/17 at 09:00 Lorazepam (Ativan) 0.5 mg Q6H PRN PO ANXIETY; Start 03/11/17 at 07:30 Al Hydrox/Mg Hydrox/Simethicone (Mag-Al Plus) 30 ml Q4H PRN PO GASTROINTESTINAL UPSET; Start 03/11/17 at 07:30 Magnesium Hydroxide (Milk Of Mag) 30 ml QHS PO ; Start 03/11/17 at 21:00 Pramipexole (Mirapex) 1.5 mg Q8 PO ; Start 03/11/17 at 07:30 Propranolol HCl (Inderal) 10 mg BID PO ; Start 03/11/17 at 09:00 Zolpidem Tartrate 5 mg 5 mg QHS PRN PO INSOMNIA; Start 03/11/17 at 07:30 Dextrose/Sodium Chloride (D5-1/2ns) 1,000 ml @ 50 mls/hr Q20H IV Last administered on 03/11/17 19:34; Admin Dose 50 MLS/HR; Start 03/11/17 at 07:11 Ondansetron HCl (Zofran Inj) 4 mg Q6H PRN IV NAUSEA AND/OR VOMITING; Start at 07:30 Acetaminophen (Tylenol Tab) 650 mg Q6H PRN PO PAIN LEVEL 1-3 OR FEVER; Start at 07:30 Pantoprazole (Protonix Iv) 40 mg DAILY@06 IV Last administered on 03/12/17 05: 18; Admin Dose 40 MG; Start 03/12/17 at 06:00 Losartan Potassium (Cozaar) 50 mg BID PO ; Start 03/11/17 at 21:00 ROXANNE MORALES MD Mar 12, 2017 12:25
--- NOTE | 2017-03-12 14:42 | PN ---
Date/Time of Note Date/Time of Note DATE: 03/12/17 TIME: 14:39 Assessment/Plan VTE Prophylaxis VTE Prophylaxis Intervention: SCD's Lines/Catheters IV Catheter Type (from Nrs): Peripheral IV Urinary Cath still in place: Yes Reason Cath still needed: urinary retention Assessment/Plan Chief Complaint/Hosp Course 1. ALOC 2. possible overdose sedative meds 3. ESRD 4. HS of stomach carcinoma removal 5. Hs right shoulder dislocation 6.Hypertension 7. dyslipidemia 8. Advanced PArkinson disease 9. Proctocolitis with rectal bleeding 10.Failure to thrive Problems: Assessment/Plan 1. Stat swallow evaluation Subjective 24 Hr Interval Summary Subjective hx not possible: other (incoherent, does not answer the question) Gastrointestinal: pain Exam/Review of Systems Vital Signs Vitals Vital Signs Date Time Temp Pulse Resp B/P Pulse Ox O2 Delivery O2 Flow Rate FiO2 03/12/17 12:15 78 03/12/17 11:54 97.9 18 138/69 95 03/11/17 15:12 Room Air Intake and Output 03/11/17 03/11/17 03/12/17 15:00 23:00 07:00 Output Total 800 ml Balance -800 ml Exam Constitutional: other (lethargic) ENMT: nl external ears & nose, nl lips & teeth Neck: supple Respiratory: clear to auscultation Cardiovascular: regular rate and rhythm Gastrointestinal: other (painful on palpation), soft, surgical scars Results Result Diagram: 03/12/17 1111 03/12/17 1111 Results 24 hrs Laboratory Tests Test 03/12/17 11:11 White Blood Count 6.4 # Red Blood Count 3.02 L Hemoglobin 8.0 L Hematocrit 25.7 L Mean Corpuscular Volume 85.1 Mean Corpuscular Hemoglobin 26.5 L Mean Corpuscular Hemoglobin Concent 31.1 L Red Cell Distribution Width 16.2 H Platelet Count 276 Mean Platelet Volume 11.1 H Neutrophils % 80.2 H Lymphocytes % 10.7 L Monocytes % 4.9 Eosinophils % 3.1 Basophils % 0.3 Nucleated Red Blood Cells % 0.0 Neutrophils # 5.1 Lymphocytes # 0.7 L Monocytes # 0.3 Eosinophils # 0.2 Basophils # 0.0 Nucleated Red Blood Cells # 0.0 Sodium Level 139 Potassium Level 3.7 Chloride Level 103 Carbon Dioxide Level 23 Anion Gap 17 H Blood Urea Nitrogen 12 # Creatinine 0.48 Glucose Level 118 Calcium Level 8.7 Medications Medications Current Medications Acetaminophen (Tylenol Tab) 650 mg Q4H PRN PO MILD PAIN LEVEL 1-3; Start at 07:30 Acetaminophen (Tylenol Tab) 1,000 mg Q4H PRN PO PAIN 4-6/10; Start 03/11/17 at 07:30 Atorvastatin Calcium (Lipitor) 10 mg QHS PO ; Start 03/11/17 at 21:00 Bisacodyl (Dulcolax Supp) 10 mg DAILY PRN [place] NEEDED; Start 03/11/17 at 07:30 Docusate Sodium (Colace) 200 mg QHS PO ; Start 03/11/17 at 21:00 Entacapone (Comtan) 200 mg TID PO ; Start 03/11/17 at 09:00 Lorazepam (Ativan) 0.5 mg Q6H PRN PO ANXIETY; Start 03/11/17 at 07:30 Al Hydrox/Mg Hydrox/Simethicone (Mag-Al Plus) 30 ml Q4H PRN PO GASTROINTESTINAL UPSET; Start 03/11/17 at 07:30 Magnesium Hydroxide (Milk Of Mag) 30 ml QHS PO ; Start 03/11/17 at 21:00 Pramipexole (Mirapex) 1.5 mg Q8 PO ; Start 03/11/17 at 07:30 Propranolol HCl (Inderal) 10 mg BID PO ; Start 03/11/17 at 09:00 Zolpidem Tartrate 5 mg 5 mg QHS PRN PO INSOMNIA; Start 03/11/17 at 07:30 Dextrose/Sodium Chloride (D5-1/2ns) 1,000 ml @ 50 mls/hr Q20H IV Last administered on 03/11/17 19:34; Admin Dose 50 MLS/HR; Start 03/11/17 at 07:11 Ondansetron HCl (Zofran Inj) 4 mg Q6H PRN IV NAUSEA AND/OR VOMITING; Start at 07:30 Acetaminophen (Tylenol Tab) 650 mg Q6H PRN PO PAIN LEVEL 1-3 OR FEVER; Start at 07:30 Pantoprazole (Protonix Iv) 40 mg DAILY@06 IV Last administered on 03/12/17 05: 18; Admin Dose 40 MG; Start 03/12/17 at 06:00 Losartan Potassium (Cozaar) 50 mg BID PO ; Start 03/11/17 at 21:00 BRAYDEN BARRERA Mar 12, 2017 14:41
[2017-03-12] MEDS ORDERED: PROPOFOL 20 ML ONE (15:37)
[2017-03-12] MEDS: PANTOPRAZOLE 40 MG INJ IV SCH (17:48)
[2017-03-12 19:25] LABS: ADD SCAN DIFF NO
[2017-03-12 19:27] LABS: BASOPHILS % 0.2 % (0.0-2.0); EOSINOPHILS # 0.1 10^3/ul (0.0-0.5); EOSINOPHILS % 0.6 % (0.0-7.0); HEMATOCRIT 27.6 % (37.0-47.0); HEMOGLOBIN 8.7 g/dl (12.0-16.0); LYMPHOCYTES # 0.7 10^3/ul (0.8-2.9); LYMPHOCYTES % 7.9 % (15.0-51.0); MEAN CORPUSCULAR HEMOGLOBIN 26.8 pg (29.0-33.0); MEAN CORPUSCULAR HGB CONC 31.5 g/dl (32.0-37.0); MEAN CORPUSCULAR VOLUME 84.9 fl (82.0-101.0); MONOCYTE # 0.6 10^3/ul (0.3-0.9); MONOCYTES % 6.1 % (0.0-11.0); NEUTROPHIL # 7.6 10^3/ul (1.6-7.5); NEUTROPHILS % 84.8 % (39.0-77.0); PLATELET COUNT 325 10^3/UL (140-415); RED BLOOD COUNT 3.25 10^6/ul (4.20-5.40); RED CELL DISTRIBUTION WIDTH 15.9 % (11.5-14.5)
--- NOTE | 2017-03-12 20:47 | CONS ---
Date/Time of Note Date/Time of Note DATE: 03/12/17 TIME: 20:29 Assessment/Plan Assessment/Plan Chief Complaint/Hosp Course ID PROGRESS NOTE 24H INTERVAL SUMMARY POD #0=> to GI lab today for EGD/[place]? reports pending CURRENT ABX: Start Flagyl IV + Diflucan + Vano Liq PO s/p Vanco IV + Zosyn * Lethargic, VSS, NAD, no fevers * CT head 03/12: small vessel disease-Otherwise, negative CT scan of the brain without contrast. * Chart reviewed MICRO: BCx (-), Urine (-)24H ID ASSESSMENT 76 yo F w/ Advanced Parkinson's disease admit with: 1. SIRS w/leukocytosis and ALOC = likely acute toxic metabolic encephalopathy vs possible overdose sedative meds 2. Proctocolitis with rectal bleeding as evidenced by melena * CT ABD/PELVIS * 1. Diffuse thickening of the wall involving the sigmoid colon and rectum concerning for acute proctocolitis for which correlation to diarrhea clinically is suggested. 3. Distal esophagus consistent with esophagitis with a small sliding hiatal hernia. 4. History of stomach cancer/colon cancer 5. End-stage renal disease 6. Anemia 7. Cholelithiasis without evidence of cholecystitis. 8. Extensive atherosclerotic calcification of the aorta and iliac systems. 9. Degenerative disk disease and facet arthropathy at L4-5 and L5-S1 with associated anterolisthesis at these levels. 10. Hx right shoulder dislocation 11. Hypertension 12. Dyslipidemia 13. Dysphagia 14. Debility w/Failure to thrive 15. Hx of prior hysterectomy and presumably lymphadenectomy as well as bilateral salpingo-oophorectomy. CURRENT ABX: Start Flagyl IV + Diflucan + Vano Liq PO s/p Vanco IV + Zosyn ID RECOMMENDATIONS/Plan Start Flagyl IV + Diflucan + Vano Liq PO => Cover concern for proctocolitis + esophagitis Follow recs per GI POD #0=> to GI lab today for EGD/[place]? reports pending . Problems: Consultation Date/Type/Reason Admit Date/Time Mar 10, 2017 at 22:07 Initial Consult Date Exam/Review of Systems Vital Signs Vitals Vital Signs Date Time Temp Pulse Resp B/P Pulse Ox O2 Delivery O2 Flow Rate FiO2 03/12/17 19:51 98.7 98 18 125/61 96 03/12/17 16:58 Room Air Intake and Output 03/11/17 03/11/17 03/12/17 15:00 23:00 07:00 Output Total 800 ml Balance -800 ml Results Result Diagram: 03/12/17 1850 03/12/17 1111 Results 24 hrs Laboratory Tests Test 03/12/17 11:11 03/12/17 18:50 White Blood Count 6.4 # 9.0 # Red Blood Count 3.02 L 3.25 L Hemoglobin 8.0 L 8.7 L Hematocrit 25.7 L 27.6 L Mean Corpuscular Volume 85.1 84.9 Mean Corpuscular Hemoglobin 26.5 L 26.8 L Mean Corpuscular Hemoglobin Concent 31.1 L 31.5 L Red Cell Distribution Width 16.2 H 15.9 H Platelet Count 276 325 Mean Platelet Volume 11.1 H 11.0 H Neutrophils % 80.2 H 84.8 H Lymphocytes % 10.7 L 7.9 L Monocytes % 4.9 6.1 Eosinophils % 3.1 0.6 Basophils % 0.3 0.2 Nucleated Red Blood Cells % 0.0 0.0 Neutrophils # 5.1 7.6 H Lymphocytes # 0.7 L 0.7 L Monocytes # 0.3 0.6 Eosinophils # 0.2 0.1 Basophils # 0.0 0.0 Nucleated Red Blood Cells # 0.0 0.0 Sodium Level 139 Potassium Level 3.7 Chloride Level 103 Carbon Dioxide Level 23 Anion Gap 17 H Blood Urea Nitrogen 12 # Creatinine 0.48 Glucose Level 118 Calcium Level 8.7 Medications Medications Current Medications Acetaminophen (Tylenol Tab) 650 mg Q4H PRN PO MILD PAIN LEVEL 1-3; Start at 07:30 Acetaminophen (Tylenol Tab) 1,000 mg Q4H PRN PO PAIN 4-6/10; Start 03/11/17 at 07:30 Atorvastatin Calcium (Lipitor) 10 mg QHS PO ; Start 03/11/17 at 21:00 Bisacodyl (Dulcolax Supp) 10 mg DAILY PRN [place] NEEDED; Start 03/11/17 at 07:30 Docusate Sodium (Colace) 200 mg QHS PO ; Start 03/11/17 at 21:00 Entacapone (Comtan) 200 mg TID PO ; Start 03/11/17 at 09:00 Lorazepam (Ativan) 0.5 mg Q6H PRN PO ANXIETY; Start 03/11/17 at 07:30 Al Hydrox/Mg Hydrox/Simethicone (Mag-Al Plus) 30 ml Q4H PRN PO GASTROINTESTINAL UPSET; Start 03/11/17 at 07:30 Magnesium Hydroxide (Milk Of Mag) 30 ml QHS PO ; Start 03/11/17 at 21:00 Pramipexole (Mirapex) 1.5 mg Q8 PO ; Start 03/11/17 at 07:30 Propranolol HCl (Inderal) 10 mg BID PO ; Start 03/11/17 at 09:00 Zolpidem Tartrate 5 mg 5 mg QHS PRN PO INSOMNIA; Start 03/11/17 at 07:30 Dextrose/Sodium Chloride (D5-1/2ns) 1,000 ml @ 50 mls/hr Q20H IV Last administered on 03/11/17 19:34; Admin Dose 50 MLS/HR; Start 03/11/17 at 07:11 Ondansetron HCl (Zofran Inj) 4 mg Q6H PRN IV NAUSEA AND/OR VOMITING; Start at 07:30 Acetaminophen (Tylenol Tab) 650 mg Q6H PRN PO PAIN LEVEL 1-3 OR FEVER; Start at 07:30 Losartan Potassium (Cozaar) 50 mg BID PO ; Start 03/11/17 at 21:00 Pantoprazole (Protonix Iv) 40 mg BID@06,18 IV Last administered on 03/12/17 17 :48; Admin Dose 40 MG; Start 03/12/17 at 18:00 BETY CERNA NP Mar 12, 2017 20:42
[2017-03-12] MEDS: DOCUSATE SODIUM 100 MG CAP PO SCH (21:00)
[2017-03-12] MEDS: ATORVASTATIN 10 MG TAB PO SCH (21:00)
[2017-03-12] MEDS: MAGNESIUM HYDROXIDE 30ML CUP PO SCH (21:00)
[2017-03-12] MEDS: metroNIDAZOLE 500 MG/NS (PMX) 100 ML IVPB SCH (21:12)
[2017-03-12] MEDS: VANCOMYCIN HCL 250 MG/5ML POSYG PO SCH (22:00)
[2017-03-12] MEDS: FLUCONAZOLE 100 MG/NS (PMX) 50 ML IVPB SCH (22:46)
[2017-03-12] MEDS: DEXTROSE 5%-0.45% NACL 1,000 ML IV SCH (23:11)
[2017-03-13] VITALS (13 sets, daily range): BP systolic 119–143; BP diastolic 59–76; PULSE 79–88; RESP 17–19
[2017-03-13] MEDS: metroNIDAZOLE 500 MG/NS (PMX) 100 ML IVPB SCH ×3 (05:49→20:45)
[2017-03-13] MEDS: PANTOPRAZOLE 40 MG INJ IV SCH ×2 (05:49→17:18)
[2017-03-13] MEDS: PRAMIPEXOLE 1 MG TAB PO SCH ×3 (05:53→22:00)
[2017-03-13] MEDS: VANCOMYCIN HCL 250 MG/5ML POSYG PO SCH ×3 (05:53→22:00)
[2017-03-13 08:07] LABS: ADD SCAN DIFF NO
[2017-03-13 08:44] LABS: BASOPHILS % 0.3 % (0.0-2.0); EOSINOPHILS % 0.6 % (0.0-7.0); HEMATOCRIT 24.6 % (37.0-47.0); HEMOGLOBIN 7.6 g/dl (12.0-16.0); LYMPHOCYTES # 0.6 10^3/ul (0.8-2.9); LYMPHOCYTES % 9.7 % (15.0-51.0); MEAN CORPUSCULAR HEMOGLOBIN 25.9 pg (29.0-33.0); MEAN CORPUSCULAR HGB CONC 30.9 g/dl (32.0-37.0); MEAN CORPUSCULAR VOLUME 83.7 fl (82.0-101.0); MONOCYTE # 0.4 10^3/ul (0.3-0.9); MONOCYTES % 6.2 % (0.0-11.0); NEUTROPHIL # 5.4 10^3/ul (1.6-7.5); NEUTROPHILS % 82.6 % (39.0-77.0); PLATELET COUNT 296 10^3/UL (140-415); RED BLOOD COUNT 2.94 10^6/ul (4.20-5.40); RED CELL DISTRIBUTION WIDTH 16.1 % (11.5-14.5); WHITE BLOOD COUNT 6.6 10^3/ul (4.8-10.8)
[2017-03-13] MEDS: PROPRANOLOL 10 MG TAB PO SCH ×2 (09:00→21:00)
[2017-03-13] MEDS: ENTACAPONE 200 MG TAB PO SCH ×3 (09:00→21:00)
[2017-03-13] MEDS: LOSARTAN 50 MG TAB PO SCH ×2 (09:00→21:00)
[2017-03-13 09:06] LABS: CALCIUM 8.7 mg/dl (8.4-10.2); CREATININE 0.48 mg/dl (0.44-1.00); POTASSIUM 3.5 mmol/L (3.5-5.1)
--- NOTE | 2017-03-13 14:01 | CONS ---
Date/Time of Note Date/Time of Note DATE: 03/13/17 TIME: 13:59 Assessment/Plan Assessment/Plan Chief Complaint/Hosp Course Patient is a 76-year-old female with a history of end-stage renal disease admitted to the hospital for altered level of consciousness, dysphagia, passing black colored stool no chest pain or shortness of breath. 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 No fever no chills all the information gathered by reviewing the chart. Patient was not in a position to give any information. She was mentally obtunded. Problems: Additional Assessment/Plan Additional Assessment/Plan 1. Anemia 2. Melena 3. History of stomach cancer/colon cancer 4. End-stage renal disease 5. Altered level of consciousness, patient is very lethargic 6. Advanced Parkinson's disease 7. Patient had upper endoscopy yesterday which showed extensive ulceration of distal part of the esophagus Plan Continue with her double dose of PPI Monitor H and H Consultation Date/Type/Reason Admit Date/Time Mar 10, 2017 at 22:07 24 HR Interval Summary Free Text/Dictation Patient is more awake and communicating No GI bleeding Constitutional: improved, no complaints Exam/Review of Systems Vital Signs Vitals Vital Signs Date Time Temp Pulse Resp B/P Pulse Ox O2 Delivery O2 Flow Rate FiO2 03/13/17 12:16 84 03/13/17 11:41 98.7 18 128/76 96 03/12/17 16:58 Room Air Intake and Output 03/12/17 03/12/17 03/13/17 15:00 23:00 07:00 Intake Total 500 ml 150 ml Output Total 7000 ml Balance 500 ml -6850 ml Exam Constitutional: alert, oriented, well developed Psych: nl mood/affect, no complaints Head: atraumatic, normocephalic Eyes: EOMI, PERRL, nl conjunctiva, nl lids, nl sclera ENMT: nl external ears & nose, nl lips & teeth, nl nasal mucosa & septum Neck: non-tender, supple Respiratory: clear to auscultation, normal air movement Cardiovascular: nl pulses, regular rate and rhythm Gastrointestinal: nl liver, spleen, non-tender, soft Musculoskeletal: nl extremities to inspection, nl gait and stance Extremities: normal pulses Neurological: MOLDING PRESS OPERATOR II-XII intact, nl mental status, nl speech, nl strength Skin: nl turgor, No rash or lesions Lymph: nl lymph nodes Results Result Diagram: 03/13/17 0746 03/13/17 0746 Results 24 hrs Laboratory Tests Test 03/12/17 18:50 03/13/17 07:46 White Blood Count 9.0 # 6.6 # Red Blood Count 3.25 L 2.94 L Hemoglobin 8.7 L 7.6 L Hematocrit 27.6 L 24.6 L Mean Corpuscular Volume 84.9 83.7 Mean Corpuscular Hemoglobin 26.8 L 25.9 L Mean Corpuscular Hemoglobin Concent 31.5 L 30.9 L Red Cell Distribution Width 15.9 H 16.1 H Platelet Count 325 296 Mean Platelet Volume 11.0 H 11.0 H Neutrophils % 84.8 H 82.6 H Lymphocytes % 7.9 L 9.7 L Monocytes % 6.1 6.2 Eosinophils % 0.6 0.6 Basophils % 0.2 0.3 Nucleated Red Blood Cells % 0.0 0.0 Neutrophils # 7.6 H 5.4 Lymphocytes # 0.7 L 0.6 L Monocytes # 0.6 0.4 Eosinophils # 0.1 0.0 Basophils # 0.0 0.0 Nucleated Red Blood Cells # 0.0 0.0 Sodium Level 138 Potassium Level 3.5 Chloride Level 103 Carbon Dioxide Level 23 Anion Gap 16 Blood Urea Nitrogen 10 Creatinine 0.48 Glucose Level 135 Calcium Level 8.7 Medications Medications Current Medications Acetaminophen (Tylenol Tab) 650 mg Q4H PRN PO MILD PAIN LEVEL 1-3; Start at 07:30 Acetaminophen (Tylenol Tab) 1,000 mg Q4H PRN PO PAIN 4-6/10; Start 03/11/17 at 07:30 Atorvastatin Calcium (Lipitor) 10 mg QHS PO ; Start 03/11/17 at 21:00 Bisacodyl (Dulcolax Supp) 10 mg DAILY PRN [place] NEEDED; Start 03/11/17 at 07:30 Docusate Sodium (Colace) 200 mg QHS PO ; Start 03/11/17 at 21:00 Entacapone (Comtan) 200 mg TID PO ; Start 03/11/17 at 09:00 Lorazepam (Ativan) 0.5 mg Q6H PRN PO ANXIETY; Start 03/11/17 at 07:30 Al Hydrox/Mg Hydrox/Simethicone (Mag-Al Plus) 30 ml Q4H PRN PO GASTROINTESTINAL UPSET; Start 03/11/17 at 07:30 Magnesium Hydroxide (Milk Of Mag) 30 ml QHS PO ; Start 03/11/17 at 21:00 Pramipexole (Mirapex) 1.5 mg Q8 PO ; Start 03/11/17 at 07:30 Propranolol HCl (Inderal) 10 mg BID PO ; Start 03/11/17 at 09:00 Zolpidem Tartrate 5 mg 5 mg QHS PRN PO INSOMNIA; Start 03/11/17 at 07:30 Dextrose/Sodium Chloride (D5-1/2ns) 1,000 ml @ 50 mls/hr Q20H IV Last administered on 03/11/17 19:34; Admin Dose 50 MLS/HR; Start 03/11/17 at 07:11 Ondansetron HCl (Zofran Inj) 4 mg Q6H PRN IV NAUSEA AND/OR VOMITING; Start at 07:30 Acetaminophen (Tylenol Tab) 650 mg Q6H PRN PO PAIN LEVEL 1-3 OR FEVER; Start at 07:30 Losartan Potassium (Cozaar) 50 mg BID PO ; Start 03/11/17 at 21:00 Pantoprazole 40 mg 40 mg BID@06,18 IV Last administered on 03/13/17 05:49; Admin Dose 40 MG; Start 03/12/17 at 18:00 Metronidazole 100 ml @ 100 mls/hr Q8 IVPB Last administered on 03/13/17 05:49 ; Admin Dose 100 MLS/HR; Start 03/12/17 at 22:00 Fluconazole/ Sodium Chloride (Diflucan 100 Mg/ NS (Pmx)) 50 ml @ 50 mls/hr Q24H IVPB Last administered on 03/12/17 22:46; Admin Dose 50 MLS/HR; Start at 21:00 Vancomycin HCl (Vancomycin Oral Syringe) 125 mg Q8 PO ; Start 03/12/17 at 22:00 ROXANNE MORALES MD Mar 13, 2017 14:00
[2017-03-13] MEDS: DEXTROSE 5%-0.45% NACL 1,000 ML IV SCH (15:35)
--- NOTE | 2017-03-13 17:54 | PN ---
Date/Time of Note Date/Time of Note DATE: 03/13/17 TIME: 17:52 Assessment/Plan VTE Prophylaxis VTE Prophylaxis Intervention: other Lines/Catheters IV Catheter Type (from Nrs): Peripheral IV Urinary Cath still in place: Yes Reason Cath still needed: other (indicate) Assessment/Plan Chief Complaint/Hosp Course anemia shoulder dislocation chronic dr napier called gi bleed plan per gi Problems: Subjective 24 Hr Interval Summary Subjective hx not possible: other (anemia+) Exam/Review of Systems Vital Signs Vitals Vital Signs Date Time Temp Pulse Resp B/P Pulse Ox O2 Delivery O2 Flow Rate FiO2 03/13/17 16:10 79 03/13/17 15:55 99.4 18 143/68 95 03/12/17 16:58 Room Air Intake and Output 03/12/17 03/12/17 03/13/17 15:00 23:00 07:00 Intake Total 500 ml 150 ml Output Total 7000 ml Balance 500 ml -6850 ml Exam Neck: supple Respiratory: clear to auscultation Cardiovascular: regular rate and rhythm Gastrointestinal: soft Musculoskeletal: nl extremities to inspection Extremities: normal pulses Results Result Diagram: 03/13/17 0746 03/13/17 0746 Results 24 hrs Laboratory Tests Test 03/12/17 18:50 03/13/17 07:46 White Blood Count 9.0 # 6.6 # Red Blood Count 3.25 L 2.94 L Hemoglobin 8.7 L 7.6 L Hematocrit 27.6 L 24.6 L Mean Corpuscular Volume 84.9 83.7 Mean Corpuscular Hemoglobin 26.8 L 25.9 L Mean Corpuscular Hemoglobin Concent 31.5 L 30.9 L Red Cell Distribution Width 15.9 H 16.1 H Platelet Count 325 296 Mean Platelet Volume 11.0 H 11.0 H Neutrophils % 84.8 H 82.6 H Lymphocytes % 7.9 L 9.7 L Monocytes % 6.1 6.2 Eosinophils % 0.6 0.6 Basophils % 0.2 0.3 Nucleated Red Blood Cells % 0.0 0.0 Neutrophils # 7.6 H 5.4 Lymphocytes # 0.7 L 0.6 L Monocytes # 0.6 0.4 Eosinophils # 0.1 0.0 Basophils # 0.0 0.0 Nucleated Red Blood Cells # 0.0 0.0 Sodium Level 138 Potassium Level 3.5 Chloride Level 103 Carbon Dioxide Level 23 Anion Gap 16 Blood Urea Nitrogen 10 Creatinine 0.48 Glucose Level 135 Calcium Level 8.7 Medications Medications Current Medications Acetaminophen (Tylenol Tab) 650 mg Q4H PRN PO MILD PAIN LEVEL 1-3; Start at 07:30 Acetaminophen (Tylenol Tab) 1,000 mg Q4H PRN PO PAIN 4-6/10; Start 03/11/17 at 07:30 Atorvastatin Calcium (Lipitor) 10 mg QHS PO ; Start 03/11/17 at 21:00 Bisacodyl (Dulcolax Supp) 10 mg DAILY PRN [place] NEEDED; Start 03/11/17 at 07:30 Docusate Sodium (Colace) 200 mg QHS PO ; Start 03/11/17 at 21:00 Entacapone (Comtan) 200 mg TID PO ; Start 03/11/17 at 09:00 Lorazepam (Ativan) 0.5 mg Q6H PRN PO ANXIETY; Start 03/11/17 at 07:30 Al Hydrox/Mg Hydrox/Simethicone (Mag-Al Plus) 30 ml Q4H PRN PO GASTROINTESTINAL UPSET; Start 03/11/17 at 07:30 Magnesium Hydroxide (Milk Of Mag) 30 ml QHS PO ; Start 03/11/17 at 21:00 Pramipexole (Mirapex) 1.5 mg Q8 PO ; Start 03/11/17 at 07:30 Propranolol HCl (Inderal) 10 mg BID PO ; Start 03/11/17 at 09:00 Zolpidem Tartrate 5 mg 5 mg QHS PRN PO INSOMNIA; Start 03/11/17 at 07:30 Dextrose/Sodium Chloride (D5-1/2ns) 1,000 ml @ 50 mls/hr Q20H IV Last administered on 03/13/17t 15:35; Admin Dose 50 MLS/HR; Start 03/11/17 at 07:11 Ondansetron HCl (Zofran Inj) 4 mg Q6H PRN IV NAUSEA AND/OR VOMITING; Start at 07:30 Acetaminophen (Tylenol Tab) 650 mg Q6H PRN PO PAIN LEVEL 1-3 OR FEVER; Start at 07:30 Losartan Potassium (Cozaar) 50 mg BID PO ; Start 03/11/17 at 21:00 Pantoprazole 40 mg 40 mg BID@06,18 IV Last administered on 03/13/17 17:18; Admin Dose 40 MG; Start 03/12/17 at 18:00 Metronidazole 100 ml @ 100 mls/hr Q8 IVPB Last administered on 03/13/17 15:35 ; Admin Dose 100 MLS/HR; Start 03/12/17 at 22:00 Fluconazole/ Sodium Chloride (Diflucan 100 Mg/ NS (Pmx)) 50 ml @ 50 mls/hr Q24H IVPB Last administered on 03/12/17 22:46; Admin Dose 50 MLS/HR; Start at 21:00 Vancomycin HCl (Vancomycin Oral Syringe) 125 mg Q8 PO ; Start 03/12/17 at 22:00 SHANNEN VALLEJO MD Mar 13, 2017 17:54
--- NOTE | 2017-03-13 18:18 | CONS ---
Date/Time of Note Date/Time of Note DATE: 03/13/17 TIME: 18:11 Assessment/Plan Assessment/Plan Chief Complaint/Hosp Course ID PROGRESS NOTE CURRENT ABX: Flagyl IV #2 + Diflucan + Vano Liq PO s/p Vanco IV + Zosyn 24H INTERVAL SUMMARY POD #1 =>03/12/17 EGD showed extensive ulceration of distal part of the esophagus * Resting, low grade Tmax 99.+ , WBC down, VSS, NAD * Started on Flagyl IV + Vanco Liq PO for proctocolitis * Started on Diflucan for Esophagitis concern - EGD revealed esophageal ulcer * CT head 03/12: small vessel disease-Otherwise, negative CT scan of the brain without contrast. * Chart reviewed MICRO: BCx (-), Urine (-)24H ID ASSESSMENT 76 yo F w/ Advanced Parkinson's disease admit with: 1. SIRS w/leukocytosis and ALOC = likely acute toxic metabolic encephalopathy vs possible overdose sedative meds 2. Proctocolitis with rectal bleeding as evidenced by melena * CT ABD/PELVIS * 1. Diffuse thickening of the wall involving the sigmoid colon and rectum concerning for acute proctocolitis for which correlation to diarrhea clinically is suggested. 3. Distal esophagus consistent with esophagitis with a small sliding hiatal hernia. * POD #1 =>03/12/17 EGD showed extensive ulceration of distal part of the esophagus 4. History of stomach cancer/colon cancer 5. End-stage renal disease 6. Anemia 7. Cholelithiasis without evidence of cholecystitis. 8. Extensive atherosclerotic calcification of the aorta and iliac systems. 9. Degenerative disk disease and facet arthropathy at L4-5 and L5-S1 with associated anterolisthesis at these levels. 10. Right shoulder dislocation 11. Hypertension 12. Dyslipidemia 13. Dysphagia 14. Debility w/Failure to thrive 15. Hx of prior hysterectomy and presumably lymphadenectomy as well as bilateral salpingo-oophorectomy. CURRENT ABX: Flagyl IV #2 + Diflucan#2 + Vanco Liq PO s/p Vanco IV + Zosyn ID RECOMMENDATIONS/Plan Continue current ABX Await EGD biopsy r/o H.Pylori Aspiration precautions Per notes: Dr. Dye, Ortho, called for Right shoulder dislocation . Problems: Consultation Date/Type/Reason Admit Date/Time Mar 10, 2017 at 22:07 Exam/Review of Systems Vital Signs Vitals Vital Signs Date Time Temp Pulse Resp B/P Pulse Ox O2 Delivery O2 Flow Rate FiO2 03/13/17 16:10 79 03/13/17 15:55 99.4 18 143/68 95 03/12/17 16:58 Room Air Intake and Output 03/12/17 03/12/17 03/13/17 15:00 23:00 07:00 Intake Total 500 ml 150 ml Output Total 7000 ml Balance 500 ml -6850 ml Results Result Diagram: 03/13/17 0746 03/13/17 0746 Results 24 hrs Laboratory Tests Test 03/12/17 18:50 03/13/17 07:46 White Blood Count 9.0 # 6.6 # Red Blood Count 3.25 L 2.94 L Hemoglobin 8.7 L 7.6 L Hematocrit 27.6 L 24.6 L Mean Corpuscular Volume 84.9 83.7 Mean Corpuscular Hemoglobin 26.8 L 25.9 L Mean Corpuscular Hemoglobin Concent 31.5 L 30.9 L Red Cell Distribution Width 15.9 H 16.1 H Platelet Count 325 296 Mean Platelet Volume 11.0 H 11.0 H Neutrophils % 84.8 H 82.6 H Lymphocytes % 7.9 L 9.7 L Monocytes % 6.1 6.2 Eosinophils % 0.6 0.6 Basophils % 0.2 0.3 Nucleated Red Blood Cells % 0.0 0.0 Neutrophils # 7.6 H 5.4 Lymphocytes # 0.7 L 0.6 L Monocytes # 0.6 0.4 Eosinophils # 0.1 0.0 Basophils # 0.0 0.0 Nucleated Red Blood Cells # 0.0 0.0 Sodium Level 138 Potassium Level 3.5 Chloride Level 103 Carbon Dioxide Level 23 Anion Gap 16 Blood Urea Nitrogen 10 Creatinine 0.48 Glucose Level 135 Calcium Level 8.7 Medications Medications Current Medications Acetaminophen (Tylenol Tab) 650 mg Q4H PRN PO MILD PAIN LEVEL 1-3; Start at 07:30 Acetaminophen (Tylenol Tab) 1,000 mg Q4H PRN PO PAIN 4-6/10; Start 03/11/17 at 07:30 Atorvastatin Calcium (Lipitor) 10 mg QHS PO ; Start 03/11/17 at 21:00 Bisacodyl (Dulcolax Supp) 10 mg DAILY PRN [place] NEEDED; Start 03/11/17 at 07:30 Docusate Sodium (Colace) 200 mg QHS PO ; Start 03/11/17 at 21:00 Entacapone (Comtan) 200 mg TID PO ; Start 03/11/17 at 09:00 Lorazepam (Ativan) 0.5 mg Q6H PRN PO ANXIETY; Start 03/11/17 at 07:30 Al Hydrox/Mg Hydrox/Simethicone (Mag-Al Plus) 30 ml Q4H PRN PO GASTROINTESTINAL UPSET; Start 03/11/17 at 07:30 Magnesium Hydroxide (Milk Of Mag) 30 ml QHS PO ; Start 03/11/17 at 21:00 Pramipexole (Mirapex) 1.5 mg Q8 PO ; Start 03/11/17 at 07:30 Propranolol HCl (Inderal) 10 mg BID PO ; Start 03/11/17 at 09:00 Zolpidem Tartrate 5 mg 5 mg QHS PRN PO INSOMNIA; Start 03/11/17 at 07:30 Dextrose/Sodium Chloride (D5-1/2ns) 1,000 ml @ 50 mls/hr Q20H IV Last administered on 03/13/17 15:35; Admin Dose 50 MLS/HR; Start 03/11/17 at 07:11 Ondansetron HCl (Zofran Inj) 4 mg Q6H PRN IV NAUSEA AND/OR VOMITING; Start at 07:30 Acetaminophen (Tylenol Tab) 650 mg Q6H PRN PO PAIN LEVEL 1-3 OR FEVER; Start at 07:30 Losartan Potassium (Cozaar) 50 mg BID PO ; Start 03/11/17 at 21:00 Pantoprazole 40 mg 40 mg BID@06,18 IV Last administered on 03/13/17 17:18; Admin Dose 40 MG; Start 03/12/17 at 18:00 Metronidazole 100 ml @ 100 mls/hr Q8 IVPB Last administered on 03/13/17 15:35 ; Admin Dose 100 MLS/HR; Start 03/12/17 at 22:00 Fluconazole/ Sodium Chloride (Diflucan 100 Mg/ NS (Pmx)) 50 ml @ 50 mls/hr Q24H IVPB Last administered on 03/12/17t 22:46; Admin Dose 50 MLS/HR; Start at 21:00 Vancomycin HCl (Vancomycin Oral Syringe) 125 mg Q8 PO ; Start 03/12/17 at 22:00 BETY CERNA NP Mar 13, 2017 18:18
[2017-03-13] MEDS: FLUCONAZOLE 100 MG/NS (PMX) 50 ML IVPB SCH (20:45)
[2017-03-13] MEDS: MAGNESIUM HYDROXIDE 30ML CUP PO SCH (21:00)
[2017-03-13] MEDS: DOCUSATE SODIUM 100 MG CAP PO SCH (21:00)
[2017-03-13] MEDS: ATORVASTATIN 10 MG TAB PO SCH (21:00)
[2017-03-14] VITALS (11 sets, daily range): BP systolic 121–155; BP diastolic 60–84; PULSE 72–83; RESP 18–19
--- NOTE | 2017-03-14 04:09 | RADRPT ---
PROCEDURE: Chest. CLINICAL INDICATION: Chest pain. TECHNIQUE: Single frontal view of the chest was obtained. COMPARISON: 03/10/2017. FINDINGS: There is a nasogastric tube extending to the stomach. The cardiac silhouette is enlarged. The aort ic arch is calcified. There is mild bibasilar atelectasis. There is no focal consolidation, vascul ar congestion or pleural effusion. There is no pneumothorax. IMPRESSION: Nasogastric tube in place. Cardiomegaly and aortic atherosclerosis. Mild bibasilar atelectasis. .Artemio Schaefer MD, Date Time Electronically viewed and signed by .Artemio Schaefer MD, MD on 03/14/2017 04:08 .T/
[2017-03-14] MEDS: PRAMIPEXOLE 1 MG TAB PO SCH ×3 (07:04→22:00)
[2017-03-14] MEDS: metroNIDAZOLE 500 MG/NS (PMX) 100 ML IVPB SCH ×3 (07:04→22:16)
[2017-03-14] MEDS: PANTOPRAZOLE 40 MG INJ IV SCH ×2 (07:04→17:16)
[2017-03-14] MEDS: VANCOMYCIN HCL 250 MG/5ML POSYG PO SCH ×2 (07:05→14:16)
[2017-03-14] MEDS: LOSARTAN 50 MG TAB PO SCH ×2 (08:56→21:00)
[2017-03-14] MEDS: ENTACAPONE 200 MG TAB PO SCH ×3 (08:56→21:00)
[2017-03-14] MEDS: PROPRANOLOL 10 MG TAB PO SCH ×2 (08:56→21:00)
[2017-03-14 10:24] LABS: ADD SCAN DIFF NO
[2017-03-14 10:34] LABS: BASOPHILS % 0.3 % (0.0-2.0); EOSINOPHILS # 0.1 10^3/ul (0.0-0.5); EOSINOPHILS % 1.6 % (0.0-7.0); HEMOGLOBIN 9.2 g/dl (12.0-16.0); LYMPHOCYTES # 0.7 10^3/ul (0.8-2.9); LYMPHOCYTES % 11.5 % (15.0-51.0); MEAN CORPUSCULAR HEMOGLOBIN 25.6 pg (29.0-33.0); MEAN CORPUSCULAR HGB CONC 30.7 g/dl (32.0-37.0); MEAN CORPUSCULAR VOLUME 83.6 fl (82.0-101.0); MEAN PLATELET VOLUME 10.9 fl (7.4-10.4); MONOCYTE # 0.5 10^3/ul (0.3-0.9); MONOCYTES % 7.5 % (0.0-11.0); NEUTROPHIL # 4.8 10^3/ul (1.6-7.5); PLATELET COUNT 301 10^3/UL (140-415); RED BLOOD COUNT 3.59 10^6/ul (4.20-5.40); RED CELL DISTRIBUTION WIDTH 16.1 % (11.5-14.5); WHITE BLOOD COUNT 6.1 10^3/ul (4.8-10.8)
[2017-03-14] MEDS: DEXTROSE 5%-0.45% NACL 1,000 ML IV SCH (14:22)
--- NOTE | 2017-03-14 15:18 | CONS ---
Date/Time of Note Date/Time of Note DATE: 03/14/17 TIME: 15:16 Assessment/Plan Assessment/Plan Chief Complaint/Hosp Course No acute changes patient is lethargic looks comfortable. She pulled NG tube early this morning pending GI evaluation WBC 6.1 H&H 9.2 and 30 platelets 301 neutrophils 78 BUN 10 creatinine 0.48 Chest x-ray revealed mild bibasilar atelectasis Antimicrobials: Vancomycin fluconazole Flagyl Physical examination: Fragile elderly woman who is in no distress. Head atraumatic, normocephalic. Sclera nonicteric. Bugle mucosa dry. Neck is supple, trachea midline. Chest rise symmetrical, breath sounds diminished basis. Heart, S1-S2 abdomen soft bowel tones present extremities no cyanosis assessment: 1. Systemic inflammatory response syndrome with low-grade fevers and leukocytosis on admission 2. Acute proctocolitis per CT of the abdomen 3. Cholelithiasis without evidence of cholecystitis 4. Dysphagia 5. Failure to thrive 6. Encephalopathy 7. History of stomach cancer Plan: Clinically stable, DC oral Vanco, continue Flagyl and fluconazole for concern of Sidra esophagitis, follow GI recommendations, follow pathology report Discussed with staff Problems: Consultation Date/Type/Reason Admit Date/Time Mar 10, 2017 at 22:07 Initial Consult Date Type of Consultation: ID Exam/Review of Systems Vital Signs Vitals Vital Signs Date Time Temp Pulse Resp B/P Pulse Ox O2 Delivery O2 Flow Rate FiO2 03/14/17 12:21 74 03/14/17 11:55 97.9 18 130/77 95 03/12/17 16:58 Room Air Intake and Output 03/13/17 03/13/17 03/14/17 15:00 23:00 07:00 Output Total 800 ml Balance -800 ml Results Result Diagram: 03/14/17 0708 03/13/17 0746 Results 24 hrs Laboratory Tests Test 03/14/17 07:08 White Blood Count 6.1 Red Blood Count 3.59 #L Hemoglobin 9.2 #L Hematocrit 30.0 #L Mean Corpuscular Volume 83.6 Mean Corpuscular Hemoglobin 25.6 L Mean Corpuscular Hemoglobin Concent 30.7 L Red Cell Distribution Width 16.1 H Platelet Count 301 Mean Platelet Volume 10.9 H Neutrophils % 78.0 H Lymphocytes % 11.5 L Monocytes % 7.5 Eosinophils % 1.6 Basophils % 0.3 Nucleated Red Blood Cells % 0.0 Neutrophils # 4.8 Lymphocytes # 0.7 L Monocytes # 0.5 Eosinophils # 0.1 Basophils # 0.0 Nucleated Red Blood Cells # 0.0 Medications Medications Current Medications Acetaminophen (Tylenol Tab) 650 mg Q4H PRN PO MILD PAIN LEVEL 1-3; Start at 07:30 Acetaminophen (Tylenol Tab) 1,000 mg Q4H PRN PO PAIN 4-6/10; Start 03/11/17 at 07:30 Atorvastatin Calcium (Lipitor) 10 mg QHS PO ; Start 03/11/17 at 21:00 Bisacodyl (Dulcolax Supp) 10 mg DAILY PRN [place] NEEDED; Start 03/11/17 at 07:30 Docusate Sodium (Colace) 200 mg QHS PO ; Start 03/11/17 at 21:00 Entacapone (Comtan) 200 mg TID PO Last administered on 03/14/17 08:56; Admin Dose 200 MG; Start 03/11/17 at 09:00 Lorazepam (Ativan) 0.5 mg Q6H PRN PO ANXIETY; Start 03/11/17 at 07:30 Al Hydrox/Mg Hydrox/Simethicone (Mag-Al Plus) 30 ml Q4H PRN PO GASTROINTESTINAL UPSET; Start 03/11/17 at 07:30 Magnesium Hydroxide (Milk Of Mag) 30 ml QHS PO ; Start 03/11/17 at 21:00 Pramipexole (Mirapex) 1.5 mg Q8 PO Last administered on 03/14/17 07:04; Admin Dose 1.5 MG; Start 03/11/17 at 07:30 Propranolol HCl (Inderal) 10 mg BID PO Last administered on 03/14/17 08:56; Admin Dose 10 MG; Start 03/11/17 at 09:00 Zolpidem Tartrate 5 mg 5 mg QHS PRN PO INSOMNIA; Start 03/11/17 at 07:30 Dextrose/Sodium Chloride (D5-1/2ns) 1,000 ml @ 50 mls/hr Q20H IV Last administered on 03/14/17 14:22; Admin Dose 50 MLS/HR; Start 03/11/17 at 07:11 Ondansetron HCl (Zofran Inj) 4 mg Q6H PRN IV NAUSEA AND/OR VOMITING; Start at 07:30 Acetaminophen (Tylenol Tab) 650 mg Q6H PRN PO PAIN LEVEL 1-3 OR FEVER; Start at 07:30 Losartan Potassium (Cozaar) 50 mg BID PO Last administered on 03/14/17 08:56; Admin Dose 50 MG; Start 03/11/17 at 21:00 Pantoprazole 40 mg 40 mg BID@06,18 IV Last administered on 03/14/17 07:04; Admin Dose 40 MG; Start 03/12/17 at 18:00 Metronidazole 100 ml @ 100 mls/hr Q8 IVPB Last administered on 03/14/17 13:07 ; Admin Dose 100 MLS/HR; Start 03/12/17 at 22:00 Fluconazole/ Sodium Chloride (Diflucan 100 Mg/ NS (Pmx)) 50 ml @ 50 mls/hr Q24H IVPB Last administered on 03/13/17 20:45; Admin Dose 50 MLS/HR; Start at 21:00 Vancomycin HCl (Vancomycin Oral Syringe) 125 mg Q8 PO Last administered on 03/14 14:16; Admin Dose 125 MG; Start 03/12/17 at 22:00 YASHIRA TONEY NP Mar 14, 2017 15:18
--- NOTE | 2017-03-14 18:20 | CONS ---
Date/Time of Note Date/Time of Note DATE: 03/14/17 TIME: 18:19 Assessment/Plan Assessment/Plan Chief Complaint/Hosp Course Patient is a 76-year-old female with a history of end-stage renal disease admitted to the hospital for altered level of consciousness, dysphagia, passing black colored stool no chest pain or shortness of breath. No or APPROVER problem. No fever no chills all the information gathered by reviewing the chart. Patient was not in a position to give any information. She was mentally obtunded. Problems: Additional Assessment/Plan She was mentally obtunded. Problems: Additional Assessment/Plan Additional Assessment/Plan 1. Anemia 2. Melena 3. History of stomach cancer/colon cancer 4. End-stage renal disease 5. Altered level of consciousness, patient is very lethargic 6. Advanced Parkinson's disease 7. Patient had upper endoscopy yesterday which showed extensive ulceration of distal part of the esophagus 8. Dysphagia patient failed swallow study Plan Continue with her double dose of PPI Monitor H and H PEG if family agrees. Discussed with the staff Consultation Date/Type/Reason Admit Date/Time Mar 10, 2017 at 22:07 Type of Consultation: ID [id number] HR Interval Summary Subjective hx not possible: pt non-verbal Constitutional: poor po Exam/Review of Systems Vital Signs Vitals Vital Signs Date Time Temp Pulse Resp B/P Pulse Ox O2 Delivery O2 Flow Rate FiO2 03/14/17 16:19 78 03/14/17 15:37 97.9 19 139/67 94 03/12/17 16:58 Room Air Intake and Output 03/13/17 03/13/17 03/14/17 15:00 23:00 07:00 Output Total 800 ml Balance -800 ml Exam Constitutional: alert, oriented, well developed Psych: nl mood/affect, no complaints Head: atraumatic, normocephalic Eyes: EOMI, PERRL, nl conjunctiva, nl lids, nl sclera ENMT: nl external ears & nose, nl lips & teeth, nl nasal mucosa & septum Neck: non-tender, supple Respiratory: clear to auscultation, normal air movement Cardiovascular: nl pulses, regular rate and rhythm Gastrointestinal: nl liver, spleen, non-tender, soft Musculoskeletal: nl extremities to inspection, nl gait and stance Extremities: normal pulses Neurological: APPROVER II-XII intact, nl mental status, nl speech, nl strength Skin: nl turgor, No rash or lesions Lymph: nl lymph nodes Results Result Diagram: 03/14/17 0708 03/13/17 0746 Results 24 hrs Laboratory Tests Test 03/14/17 07:08 White Blood Count 6.1 Red Blood Count 3.59 #L Hemoglobin 9.2 #L Hematocrit 30.0 #L Mean Corpuscular Volume 83.6 Mean Corpuscular Hemoglobin 25.6 L Mean Corpuscular Hemoglobin Concent 30.7 L Red Cell Distribution Width 16.1 H Platelet Count 301 Mean Platelet Volume 10.9 H Neutrophils % 78.0 H Lymphocytes % 11.5 L Monocytes % 7.5 Eosinophils % 1.6 Basophils % 0.3 Nucleated Red Blood Cells % 0.0 Neutrophils # 4.8 Lymphocytes # 0.7 L Monocytes # 0.5 Eosinophils # 0.1 Basophils # 0.0 Nucleated Red Blood Cells # 0.0 Medications Medications Current Medications Acetaminophen (Tylenol Tab) 650 mg Q4H PRN PO MILD PAIN LEVEL 1-3; Start at 07:30 Acetaminophen (Tylenol Tab) 1,000 mg Q4H PRN PO PAIN 4-6/10; Start 03/11/17 at 07:30 Atorvastatin Calcium (Lipitor) 10 mg QHS PO ; Start 03/11/17 at 21:00 Bisacodyl (Dulcolax Supp) 10 mg DAILY PRN [place] NEEDED; Start 03/11/17 at 07:30 Docusate Sodium (Colace) 200 mg QHS PO ; Start 03/11/17 at 21:00 Entacapone (Comtan) 200 mg TID PO Last administered on 03/14/17t 08:56; Admin Dose 200 MG; Start 03/11/17 at 09:00 Lorazepam (Ativan) 0.5 mg Q6H PRN PO ANXIETY; Start 03/11/17 at 07:30 Al Hydrox/Mg Hydrox/Simethicone (Mag-Al Plus) 30 ml Q4H PRN PO GASTROINTESTINAL UPSET; Start 03/11/17 at 07:30 Magnesium Hydroxide (Milk Of Mag) 30 ml QHS PO ; Start 03/11/17 at 21:00 Pramipexole (Mirapex) 1.5 mg Q8 PO Last administered on 03/14/17t 07:04; Admin Dose 1.5 MG; Start 03/11/17 at 07:30 Propranolol HCl (Inderal) 10 mg BID PO Last administered on 03/14/17 08:56; Admin Dose 10 MG; Start 03/11/17 at 09:00 Zolpidem Tartrate 5 mg 5 mg QHS PRN PO INSOMNIA; Start 03/11/17 at 07:30 Dextrose/Sodium Chloride (D5-1/2ns) 1,000 ml @ 50 mls/hr Q20H IV Last administered on 03/14/17 14:22; Admin Dose 50 MLS/HR; Start 03/11/17 at 07:11 Ondansetron HCl (Zofran Inj) 4 mg Q6H PRN IV NAUSEA AND/OR VOMITING; Start at 07:30 Acetaminophen (Tylenol Tab) 650 mg Q6H PRN PO PAIN LEVEL 1-3 OR FEVER; Start at 07:30 Losartan Potassium (Cozaar) 50 mg BID PO Last administered on 03/14/17 08:56; Admin Dose 50 MG; Start 03/11/17 at 21:00 Pantoprazole 40 mg 40 mg BID@06,18 IV Last administered on 03/14/17 17:16; Admin Dose 40 MG; Start 03/12/17 at 18:00 Metronidazole 100 ml @ 100 mls/hr Q8 IVPB Last administered on 03/14/17 13:07 ; Admin Dose 100 MLS/HR; Start 03/12/17 at 22:00 Fluconazole/ Sodium Chloride (Diflucan 100 Mg/ NS (Pmx)) 50 ml @ 50 mls/hr Q24H IVPB Last administered on 03/13/17 20:45; Admin Dose 50 MLS/HR; Start at 21:00 ROXANNE MORALES MD Mar 14, 2017 18:20
[2017-03-14] MEDS: ATORVASTATIN 10 MG TAB PO SCH (21:00)
[2017-03-14] MEDS: MAGNESIUM HYDROXIDE 30ML CUP PO SCH (21:00)
[2017-03-14] MEDS: DOCUSATE SODIUM 100 MG CAP PO SCH (21:00)
--- NOTE | 2017-03-14 21:11 | PN ---
Date/Time of Note Date/Time of Note DATE: 03/14/17 TIME: 21:09 Assessment/Plan VTE Prophylaxis VTE Prophylaxis Intervention: other Lines/Catheters IV Catheter Type (from Nrsg): Saline Lock Urinary Cath still in place: Yes Reason Cath still needed: other (indicate) Assessment/Plan Chief Complaint/Hosp Course anemia shoulder dislocation chronic dr napier called aware gi bleed better poor po intake plan per gi peg soon Problems: Subjective 24 Hr Interval Summary Subjective hx not possible: other (poor po intake will need peg) Cardiovascular: no complaints Gastrointestinal: no complaints Exam/Review of Systems Vital Signs Vitals Vital Signs Date Time Temp Pulse Resp B/P Pulse Ox O2 Delivery O2 Flow Rate FiO2 03/14/17 20:42 98.3 77 18 136/60 96 03/12/17 16:58 Room Air Intake and Output 03/13/17 03/13/17 03/14/17 15:00 23:00 07:00 Output Total 800 ml Balance -800 ml Exam Respiratory: clear to auscultation Cardiovascular: regular rate and rhythm Gastrointestinal: soft Musculoskeletal: nl extremities to inspection Results Result Diagram: 03/14/17 0708 03/13/17 0746 Results 24 hrs Laboratory Tests Test 03/14/17 07:08 03/14/17 20:23 White Blood Count 6.1 Red Blood Count 3.59 #L Hemoglobin 9.2 #L Hematocrit 30.0 #L Mean Corpuscular Volume 83.6 Mean Corpuscular Hemoglobin 25.6 L Mean Corpuscular Hemoglobin Concent 30.7 L Red Cell Distribution Width 16.1 H Platelet Count 301 Mean Platelet Volume 10.9 H Neutrophils % 78.0 H Lymphocytes % 11.5 L Monocytes % 7.5 Eosinophils % 1.6 Basophils % 0.3 Nucleated Red Blood Cells % 0.0 Neutrophils # 4.8 Lymphocytes # 0.7 L Monocytes # 0.5 Eosinophils # 0.1 Basophils # 0.0 Nucleated Red Blood Cells # 0.0 Bedside Glucose 147 Medications Medications Current Medications Acetaminophen (Tylenol Tab) 650 mg Q4H PRN PO MILD PAIN LEVEL 1-3; Start at 07:30 Acetaminophen (Tylenol Tab) 1,000 mg Q4H PRN PO PAIN 4-6/10; Start 03/11/17 at 07:30 Atorvastatin Calcium (Lipitor) 10 mg QHS PO ; Start 03/11/17 at 21:00 Bisacodyl (Dulcolax Supp) 10 mg DAILY PRN [place] NEEDED; Start 03/11/17 at 07:30 Docusate Sodium (Colace) 200 mg QHS PO ; Start 03/11/17 at 21:00 Entacapone (Comtan) 200 mg TID PO Last administered on 03/14/17 08:56; Admin Dose 200 MG; Start 03/11/17 at 09:00 Lorazepam (Ativan) 0.5 mg Q6H PRN PO ANXIETY; Start 03/11/17 at 07:30 Al Hydrox/Mg Hydrox/Simethicone (Mag-Al Plus) 30 ml Q4H PRN PO GASTROINTESTINAL UPSET; Start 03/11/17 at 07:30 Magnesium Hydroxide (Milk Of Mag) 30 ml QHS PO ; Start 03/11/17 at 21:00 Pramipexole (Mirapex) 1.5 mg Q8 PO Last administered on 03/14/17 07:04; Admin Dose 1.5 MG; Start 03/11/17 at 07:30 Propranolol HCl (Inderal) 10 mg BID PO Last administered on 03/14/17 08:56; Admin Dose 10 MG; Start 03/11/17 at 09:00 Zolpidem Tartrate 5 mg 5 mg QHS PRN PO INSOMNIA; Start 03/11/17 at 07:30 Dextrose/Sodium Chloride (D5-1/2ns) 1,000 ml @ 50 mls/hr Q20H IV Last administered on 03/14/17 14:22; Admin Dose 50 MLS/HR; Start 03/11/17 at 07:11 Ondansetron HCl (Zofran Inj) 4 mg Q6H PRN IV NAUSEA AND/OR VOMITING; Start at 07:30 Acetaminophen (Tylenol Tab) 650 mg Q6H PRN PO PAIN LEVEL 1-3 OR FEVER; Start at 07:30 Losartan Potassium (Cozaar) 50 mg BID PO Last administered on 03/14/17 08:56; Admin Dose 50 MG; Start 03/11/17 at 21:00 Pantoprazole 40 mg 40 mg BID@06,18 IV Last administered on 03/14/17 17:16; Admin Dose 40 MG; Start 03/12/17 at 18:00 Metronidazole 100 ml @ 100 mls/hr Q8 IVPB Last administered on 03/14/17 13:07 ; Admin Dose 100 MLS/HR; Start 03/12/17 at 22:00 Fluconazole/ Sodium Chloride (Diflucan 100 Mg/ NS (Pmx)) 50 ml @ 50 mls/hr Q24H IVPB Last administered on 03/13/17 20:45; Admin Dose 50 MLS/HR; Start at 21:00 SHANNEN VALLEJO MD Mar 14, 2017 21:11
[2017-03-14] MEDS: FLUCONAZOLE 100 MG/NS (PMX) 50 ML IVPB SCH (22:16)
[2017-03-15] VITALS (13 sets, daily range): BP systolic 126–152; BP diastolic 59–70; PULSE 72–83; RESP 16–19
[2017-03-15] MEDS: PRAMIPEXOLE 1 MG TAB PO SCH ×3 (06:00→22:00)
[2017-03-15] MEDS: PANTOPRAZOLE 40 MG INJ IV SCH ×2 (06:52→18:16)
[2017-03-15] MEDS: metroNIDAZOLE 500 MG/NS (PMX) 100 ML IVPB SCH ×3 (06:52→23:17)
[2017-03-15] MEDS: PROPRANOLOL 10 MG TAB PO SCH ×2 (08:48→21:50)
[2017-03-15] MEDS: LOSARTAN 50 MG TAB PO SCH ×2 (08:48→21:50)
[2017-03-15] MEDS: ENTACAPONE 200 MG TAB PO SCH ×3 (08:48→21:50)
[2017-03-15] MEDS: DEXTROSE 5%-0.45% NACL 1,000 ML IV SCH (14:11)
--- NOTE | 2017-03-15 17:13 | CONS ---
Date/Time of Note Date/Time of Note DATE: 03/15/17 TIME: 17:11 Assessment/Plan Assessment/Plan Chief Complaint/Hosp Course No acute changes patient is lethargic looks comfortable. No fevers Antimicrobials: fluconazole Flagyl Physical examination: Fragile elderly woman who is in no distress. Head atraumatic, normocephalic. Sclera nonicteric. Bugle mucosa dry. Neck is supple, trachea midline. Chest rise symmetrical, breath sounds diminished basis. Heart, S1-S2 abdomen soft bowel tones present extremities no cyanosis assessment: 1. Systemic inflammatory response syndrome with low-grade fevers and leukocytosis on admission 2. Acute proctocolitis per CT of the abdomen 3. Cholelithiasis without evidence of cholecystitis 4. Dysphagia 5. Failure to thrive 6. Encephalopathy 7. History of stomach cancer Plan: Clinically stable, continue Flagyl and fluconazole for concern of Sidra esophagitis, follow GI recommendations, follow pathology report, pending PEG if family agrees Discussed with staff Problems: Consultation Date/Type/Reason Admit Date/Time Mar 10, 2017 at 22:07 Type of Consultation: ID Exam/Review of Systems Vital Signs Vitals Vital Signs Date Time Temp Pulse Resp B/P Pulse Ox O2 Delivery O2 Flow Rate FiO2 03/15/17 16:42 83 03/15/17 15:30 97.9 18 131/64 96 03/12/17 16:58 Room Air Intake and Output 03/14/17 03/14/17 03/15/17 15:00 23:00 07:00 Intake Total 100 ml 200 ml 1050 ml Output Total 1100 ml Balance 100 ml -900 ml 1050 ml Results Result Diagram: 03/14/17 0708 03/13/17 0746 Results 24 hrs Laboratory Tests Test 03/14/17 20:23 03/15/17 04:08 03/15/17 06:43 Bedside Glucose 147 120 Lab Scanned Report BLOOD TRANSFUSION Medications Medications Current Medications Acetaminophen (Tylenol Tab) 650 mg Q4H PRN PO MILD PAIN LEVEL 1-3; Start at 07:30 Acetaminophen (Tylenol Tab) 1,000 mg Q4H PRN PO PAIN 4-6/10; Start 03/11/17 at 07:30 Atorvastatin Calcium (Lipitor) 10 mg QHS PO ; Start 03/11/17 at 21:00 Bisacodyl (Dulcolax Supp) 10 mg DAILY PRN [place] NEEDED; Start 03/11/17 at 07:30 Docusate Sodium (Colace) 200 mg QHS PO ; Start 03/11/17 at 21:00 Entacapone (Comtan) 200 mg TID PO Last administered on 03/14/17 08:56; Admin Dose 200 MG; Start 03/11/17 at 09:00 Lorazepam (Ativan) 0.5 mg Q6H PRN PO ANXIETY; Start 03/11/17 at 07:30 Al Hydrox/Mg Hydrox/Simethicone (Mag-Al Plus) 30 ml Q4H PRN PO GASTROINTESTINAL UPSET; Start 03/11/17 at 07:30 Magnesium Hydroxide (Milk Of Mag) 30 ml QHS PO ; Start 03/11/17 at 21:00 Pramipexole (Mirapex) 1.5 mg Q8 PO Last administered on 03/14/17 07:04; Admin Dose 1.5 MG; Start 03/11/17 at 07:30 Propranolol HCl (Inderal) 10 mg BID PO Last administered on 03/14/17 08:56; Admin Dose 10 MG; Start 03/11/17 at 09:00 Zolpidem Tartrate 5 mg 5 mg QHS PRN PO INSOMNIA; Start 03/11/17 at 07:30 Dextrose/Sodium Chloride (D5-1/2ns) 1,000 ml @ 50 mls/hr Q20H IV Last administered on 03/15/17 14:11; Admin Dose 50 MLS/HR; Start 03/11/17 at 07:11 Ondansetron HCl (Zofran Inj) 4 mg Q6H PRN IV NAUSEA AND/OR VOMITING; Start at 07:30 Acetaminophen (Tylenol Tab) 650 mg Q6H PRN PO PAIN LEVEL 1-3 OR FEVER; Start at 07:30 Losartan Potassium (Cozaar) 50 mg BID PO Last administered on 03/14/17 08:56; Admin Dose 50 MG; Start 03/11/17 at 21:00 Pantoprazole 40 mg 40 mg BID@06,18 IV Last administered on 03/15/17 06:52; Admin Dose 40 MG; Start 03/12/17 at 18:00 Metronidazole 100 ml @ 100 mls/hr Q8 IVPB Last administered on 03/15/17 14:10 ; Admin Dose 100 MLS/HR; Start 03/12/17 at 22:00 Fluconazole/ Sodium Chloride (Diflucan 100 Mg/ NS (Pmx)) 50 ml @ 50 mls/hr Q24H IVPB Last administered on 03/14/17 22:16; Admin Dose 50 MLS/HR; Start at 21:00 YASHIRA TONYE NP Mar 15, 2017 17:12
--- NOTE | 2017-03-15 18:58 | CONS ---
Date/Time of Note Date/Time of Note DATE: 03/15/17 TIME: 18:57 Assessment/Plan Assessment/Plan Chief Complaint/Hosp Course Patient is a 76-year-old female with a history of end-stage renal disease admitted to the hospital for altered level of consciousness, dysphagia, passing black colored stool no chest pain or shortness of breath. No or INSTRUCTIONAL DESIGN TECHNOLOGIST problem. No fever no chills all the information gathered by reviewing the chart. Patient was not in a position to give any information. She was mentally obtunded. Problems: Additional Assessment/Plan Additional Assessment/Plan 1. Anemia 2. Melena 3. History of stomach cancer/colon cancer 4. End-stage renal disease 5. Altered level of consciousness, patient is very lethargic 6. Advanced Parkinson's disease 7. Patient had upper endoscopy yesterday which showed extensive ulceration of distal part of the esophagus 8. Dysphagia patient failed swallow study Plan Continue with her double dose of PPI Monitor H and H Patient passed a swallow study the resume feeding as per the speech therapist Consultation Date/Type/Reason Admit Date/Time Mar 10, 2017 at 22:07 Type of Consultation: ID [id number] HR Interval Summary Constitutional: improved Exam/Review of Systems Vital Signs Vitals Vital Signs Date Time Temp Pulse Resp B/P Pulse Ox O2 Delivery O2 Flow Rate FiO2 03/15/17 16:42 83 03/15/17 15:30 97.9 18 131/64 96 03/12/17 16:58 Room Air Intake and Output 03/14/17 03/14/17 03/15/17 15:00 23:00 07:00 Intake Total 100 ml 200 ml 1050 ml Output Total 1100 ml Balance 100 ml -900 ml 1050 ml Exam Constitutional: alert, oriented, well developed Psych: nl mood/affect, no complaints Head: atraumatic, normocephalic Eyes: EOMI, PERRL, nl conjunctiva, nl lids, nl sclera ENMT: nl external ears & nose, nl lips & teeth, nl nasal mucosa & septum Neck: non-tender, supple Respiratory: clear to auscultation, normal air movement Cardiovascular: nl pulses, regular rate and rhythm Gastrointestinal: nl liver, spleen, non-tender, soft Musculoskeletal: nl extremities to inspection, nl gait and stance Extremities: normal pulses Neurological: INSTRUCTIONAL DESIGN TECHNOLOGIST II-XII intact, nl mental status, nl speech, nl strength Skin: nl turgor, No rash or lesions Lymph: nl lymph nodes Results Result Diagram: 03/14/17 0708 03/13/17 0746 Results 24 hrs Laboratory Tests Test 03/14/17 20:23 03/15/17 04:08 03/15/17 06:43 Bedside Glucose 147 120 Lab Scanned Report BLOOD TRANSFUSION Medications Medications Current Medications Acetaminophen (Tylenol Tab) 650 mg Q4H PRN PO MILD PAIN LEVEL 1-3; Start at 07:30 Acetaminophen (Tylenol Tab) 1,000 mg Q4H PRN PO PAIN 4-6/10; Start 03/11/17 at 07:30 Atorvastatin Calcium (Lipitor) 10 mg QHS PO ; Start 03/11/17 at 21:00 Bisacodyl (Dulcolax Supp) 10 mg DAILY PRN [place] NEEDED; Start 03/11/17 at 07:30 Docusate Sodium (Colace) 200 mg QHS PO ; Start 03/11/17 at 21:00 Entacapone (Comtan) 200 mg TID PO Last administered on 03/14/17 08:56; Admin Dose 200 MG; Start 03/11/17 at 09:00 Lorazepam (Ativan) 0.5 mg Q6H PRN PO ANXIETY; Start 03/11/17 at 07:30 Al Hydrox/Mg Hydrox/Simethicone (Mag-Al Plus) 30 ml Q4H PRN PO GASTROINTESTINAL UPSET; Start 03/11/17 at 07:30 Magnesium Hydroxide (Milk Of Mag) 30 ml QHS PO ; Start 03/11/17 at 21:00 Pramipexole (Mirapex) 1.5 mg Q8 PO Last administered on 03/14/17 07:04; Admin Dose 1.5 MG; Start 03/11/17 at 07:30 Propranolol HCl (Inderal) 10 mg BID PO Last administered on 03/14/17 08:56; Admin Dose 10 MG; Start 03/11/17 at 09:00 Zolpidem Tartrate 5 mg 5 mg QHS PRN PO INSOMNIA; Start 03/11/17 at 07:30 Dextrose/Sodium Chloride (D5-1/2ns) 1,000 ml @ 50 mls/hr Q20H IV Last administered on 03/15/17 14:11; Admin Dose 50 MLS/HR; Start 03/11/17 at 07:11 Ondansetron HCl (Zofran Inj) 4 mg Q6H PRN IV NAUSEA AND/OR VOMITING; Start at 07:30 Acetaminophen (Tylenol Tab) 650 mg Q6H PRN PO PAIN LEVEL 1-3 OR FEVER; Start at 07:30 Losartan Potassium (Cozaar) 50 mg BID PO Last administered on 03/14/17 08:56; Admin Dose 50 MG; Start 03/11/17 at 21:00 Pantoprazole 40 mg 40 mg BID@06,18 IV Last administered on 03/15/17 18:16; Admin Dose 40 MG; Start 03/12/17 at 18:00 Metronidazole 100 ml @ 100 mls/hr Q8 IVPB Last administered on 03/15/17 14:10 ; Admin Dose 100 MLS/HR; Start 03/12/17 at 22:00 Fluconazole/ Sodium Chloride (Diflucan 100 Mg/ NS (Pmx)) 50 ml @ 50 mls/hr Q24H IVPB Last administered on 03/14/17 22:16; Admin Dose 50 MLS/HR; Start at 21:00 ROXANNE MORALES MD Mar 15, 2017 18:58
[2017-03-15] MEDS: FLUCONAZOLE 100 MG/NS (PMX) 50 ML IVPB SCH ×2 (21:00→22:23)
[2017-03-15] MEDS: MAGNESIUM HYDROXIDE 30ML CUP PO SCH (21:50)
[2017-03-15] MEDS: ATORVASTATIN 10 MG TAB PO SCH (21:50)
[2017-03-15] MEDS: DOCUSATE SODIUM 100 MG CAP PO SCH (21:50)
--- NOTE | 2017-03-15 23:13 | PN ---
Date/Time of Note Date/Time of Note DATE: 03/15/17 TIME: 23:12 Assessment/Plan VTE Prophylaxis VTE Prophylaxis Intervention: other Lines/Catheters IV Catheter Type (from Nrsg): Peripheral IV Urinary Cath still in place: Yes Reason Cath still needed: other (indicate) Assessment/Plan Chief Complaint/Hosp Course anemia shoulder dislocation chronic dr napier called aware gi bleed better poor po intake plan per gi peg soon ? Problems: Subjective 24 Hr Interval Summary Subjective hx not possible: other (no gi bleed) Exam/Review of Systems Vital Signs Vitals Vital Signs Date Time Temp Pulse Resp B/P Pulse Ox O2 Delivery O2 Flow Rate FiO2 03/15/17 20:17 80 03/15/17 19:47 98.0 19 126/59 93 03/12/17 16:58 Room Air Intake and Output 03/14/17 03/14/17 03/15/17 15:00 23:00 07:00 Intake Total 100 ml 200 ml 1050 ml Output Total 1100 ml Balance 100 ml -900 ml 1050 ml Exam Respiratory: clear to auscultation Cardiovascular: regular rate and rhythm Gastrointestinal: soft Musculoskeletal: nl extremities to inspection Results Result Diagram: 03/14/17 0708 03/13/17 0746 Results 24 hrs Laboratory Tests Test 03/15/17 04:08 03/15/17 06:43 Bedside Glucose 120 Lab Scanned Report BLOOD TRANSFUSION Medications Medications Current Medications Acetaminophen (Tylenol Tab) 650 mg Q4H PRN PO MILD PAIN LEVEL 1-3; Start at 07:30 Acetaminophen (Tylenol Tab) 1,000 mg Q4H PRN PO PAIN 4-6/10; Start 03/11/17 at 07:30 Atorvastatin Calcium (Lipitor) 10 mg QHS PO ; Start 03/11/17 at 21:00 Bisacodyl (Dulcolax Supp) 10 mg DAILY PRN [place] NEEDED; Start 03/11/17 at 07:30 Docusate Sodium (Colace) 200 mg QHS PO ; Start 03/11/17 at 21:00 Entacapone (Comtan) 200 mg TID PO Last administered on 03/14/17t 08:56; Admin Dose 200 MG; Start 03/11/17 at 09:00 Lorazepam (Ativan) 0.5 mg Q6H PRN PO ANXIETY; Start 03/11/17 at 07:30 Al Hydrox/Mg Hydrox/Simethicone (Mag-Al Plus) 30 ml Q4H PRN PO GASTROINTESTINAL UPSET; Start 03/11/17 at 07:30 Magnesium Hydroxide (Milk Of Mag) 30 ml QHS PO ; Start 03/11/17 at 21:00 Pramipexole (Mirapex) 1.5 mg Q8 PO Last administered on 03/14/17 07:04; Admin Dose 1.5 MG; Start 03/11/17 at 07:30 Propranolol HCl (Inderal) 10 mg BID PO Last administered on 03/14/17 08:56; Admin Dose 10 MG; Start 03/11/17 at 09:00 Zolpidem Tartrate 5 mg 5 mg QHS PRN PO INSOMNIA; Start 03/11/17 at 07:30 Dextrose/Sodium Chloride (D5-1/2ns) 1,000 ml @ 50 mls/hr Q20H IV Last administered on 03/15/17 14:11; Admin Dose 50 MLS/HR; Start 03/11/17 at 07:11 Ondansetron HCl (Zofran Inj) 4 mg Q6H PRN IV NAUSEA AND/OR VOMITING; Start at 07:30 Acetaminophen (Tylenol Tab) 650 mg Q6H PRN PO PAIN LEVEL 1-3 OR FEVER; Start at 07:30 Losartan Potassium (Cozaar) 50 mg BID PO Last administered on 03/14/17 08:56; Admin Dose 50 MG; Start 03/11/17 at 21:00 Pantoprazole 40 mg 40 mg BID@06,18 IV Last administered on 03/15/17 18:16; Admin Dose 40 MG; Start 03/12/17 at 18:00 Metronidazole 100 ml @ 100 mls/hr Q8 IVPB Last administered on 03/15/17 14:10 ; Admin Dose 100 MLS/HR; Start 03/12/17 at 22:00 Fluconazole/ Sodium Chloride (Diflucan 100 Mg/ NS (Pmx)) 50 ml @ 50 mls/hr Q24H IVPB Last administered on 03/15/17 22:23; Admin Dose 50 MLS/HR; Start at 21:00 SHANNEN VALLEJO MD Mar 15, 2017 23:13
[2017-03-16] VITALS (11 sets, daily range): BP systolic 105–143; BP diastolic 55–70; PULSE 66–80; RESP 18–20
[2017-03-16] MEDS: metroNIDAZOLE 500 MG/NS (PMX) 100 ML IVPB SCH ×3 (05:40→21:18)
[2017-03-16] MEDS: PRAMIPEXOLE 1 MG TAB PO SCH ×3 (05:40→21:18)
[2017-03-16] MEDS: DEXTROSE 5%-0.45% NACL 1,000 ML IV SCH (05:40)
[2017-03-16] MEDS: PANTOPRAZOLE 40 MG INJ IV SCH ×2 (05:40→17:56)
[2017-03-16] MEDS: ENTACAPONE 200 MG TAB PO SCH ×3 (08:52→21:03)
[2017-03-16] MEDS: PROPRANOLOL 10 MG TAB PO SCH ×2 (08:52→21:05)
[2017-03-16] MEDS: LOSARTAN 50 MG TAB PO SCH ×2 (08:52→21:04)
--- NOTE | 2017-03-16 11:55 | PQ ---
Date/Time of Note Date/Time of Note DATE: 03/16/17 TIME: 11:50 Physician Query Documentation Clarification Dear Dr. Last, A review of the medical record found a need for documentation clarification. progress note 03/15 1. Anemia 2. Melena 7. Patient had upper endoscopy yesterday which showed extensive ulceration of distal part of the esophagus Please clarify a relationship exist between ulcer of the esophagus & melena. To facilitate accurate and complete coding, please anel ( x ) the suspected diagnosis that apply: ( ) Ulcer of esophagus with bleeding ( ) Ulcer of esophagus without bleeding ( ) Others Please provide your response by clicking edit document, making your choice ( x ), click ok/save and finally click sign. You may also document your response on your progress notes. Thank you for your time. With appreciation, Aurelio Laureano RN, BSN, CCS, CCDS Clinical Special Education Resource Room Teacher Health Information Management, CDI and Coding Services [phone] Room # [id number] - [address]~ [id number] AURELIO LAUREANO Mar 16, 2017 11:55
--- NOTE | 2017-03-16 13:14 | CONS ---
Date/Time of Note Date/Time of Note DATE: 03/16/17 TIME: 13:13 Assessment/Plan Assessment/Plan Chief Complaint/Hosp Course No acute changes, more awake, looks comfortable. No fevers Antimicrobials: fluconazole Flagyl Physical examination: Fragile elderly woman who is in no distress. Head atraumatic, normocephalic. Sclera nonicteric. Bugle mucosa dry. Neck is supple, trachea midline. Chest rise symmetrical, breath sounds diminished basis. Heart, S1-S2 abdomen soft bowel tones present extremities no cyanosis assessment: 1. Systemic inflammatory response syndrome with low-grade fevers and leukocytosis on admission 2. Acute proctocolitis per CT of the abdomen 3. Cholelithiasis without evidence of cholecystitis 4. Dysphagia 5. Failure to thrive 6. Encephalopathy 7. History of stomach cancer Plan: Clinically stable, past swallow evaluation, continue Flagyl and fluconazole, follow GI recommendations, aspiration precautions Discussed with staff Problems: Consultation Date/Type/Reason Admit Date/Time Mar 10, 2017 at 22:07 Type of Consultation: ID Exam/Review of Systems Vital Signs Vitals Vital Signs Date Time Temp Pulse Resp B/P Pulse Ox O2 Delivery O2 Flow Rate FiO2 03/16/17 12:43 66 03/16/17 11:50 97.2 20 105/55 94 03/12/17 16:58 Room Air Intake and Output 03/15/17 03/15/17 03/16/17 15:00 23:00 07:00 Intake Total 950 ml 1100 ml 270 ml Output Total 450 ml 1100 ml 950 ml Balance 500 ml 0 ml -680 ml Results Result Diagram: 03/14/17 0708 03/13/17 0746 Medications Medications Current Medications Acetaminophen (Tylenol Tab) 650 mg Q4H PRN PO MILD PAIN LEVEL 1-3; Start at 07:30 Acetaminophen (Tylenol Tab) 1,000 mg Q4H PRN PO PAIN 4-6/10; Start 03/11/17 at 07:30 Atorvastatin Calcium (Lipitor) 10 mg QHS PO ; Start 03/11/17 at 21:00 Bisacodyl (Dulcolax Supp) 10 mg DAILY PRN [place] NEEDED; Start 03/11/17 at 07:30 Docusate Sodium (Colace) 200 mg QHS PO ; Start 03/11/17 at 21:00 Entacapone (Comtan) 200 mg TID PO Last administered on 03/16/17 08:52; Admin Dose 200 MG; Start 03/11/17 at 09:00 Lorazepam (Ativan) 0.5 mg Q6H PRN PO ANXIETY; Start 03/11/17 at 07:30 Al Hydrox/Mg Hydrox/Simethicone (Mag-Al Plus) 30 ml Q4H PRN PO GASTROINTESTINAL UPSET; Start 03/11/17 at 07:30 Magnesium Hydroxide (Milk Of Mag) 30 ml QHS PO ; Start 03/11/17 at 21:00 Pramipexole (Mirapex) 1.5 mg Q8 PO Last administered on 03/16/17 05:40; Admin Dose 1.5 MG; Start 03/11/17 at 07:30 Propranolol HCl (Inderal) 10 mg BID PO Last administered on 03/16/17 08:52; Admin Dose 10 MG; Start 03/11/17 at 09:00 Zolpidem Tartrate 5 mg 5 mg QHS PRN PO INSOMNIA; Start 03/11/17 at 07:30 Dextrose/Sodium Chloride (D5-1/2ns) 1,000 ml @ 50 mls/hr Q20H IV Last administered on 03/15/17 14:11; Admin Dose 50 MLS/HR; Start 03/11/17 at 07:11 Ondansetron HCl (Zofran Inj) 4 mg Q6H PRN IV NAUSEA AND/OR VOMITING; Start at 07:30 Acetaminophen (Tylenol Tab) 650 mg Q6H PRN PO PAIN LEVEL 1-3 OR FEVER; Start at 07:30 Losartan Potassium (Cozaar) 50 mg BID PO Last administered on 03/16/17 08:52; Admin Dose 50 MG; Start 03/11/17 at 21:00 Pantoprazole 40 mg 40 mg BID@06,18 IV Last administered on 03/16/17 05:40; Admin Dose 40 MG; Start 03/12/17 at 18:00 Metronidazole 100 ml @ 100 mls/hr Q8 IVPB Last administered on 03/16/17 05:40 ; Admin Dose 100 MLS/HR; Start 03/12/17 at 22:00 Fluconazole/ Sodium Chloride (Diflucan 100 Mg/ NS (Pmx)) 50 ml @ 50 mls/hr Q24H IVPB Last administered on 03/15/17t 22:23; Admin Dose 50 MLS/HR; Start at 21:00 YASHIRA TONEY NP Mar 16, 2017 13:14
--- NOTE | 2017-03-16 18:04 | CONS ---
Date/Time of Note Date/Time of Note DATE: 03/16/17 TIME: 18:03 Assessment/Plan Assessment/Plan Chief Complaint/Hosp Course Patient is a 76-year-old female with a history of end-stage renal disease admitted to the hospital for altered level of consciousness, dysphagia, passing black colored stool no chest pain or shortness of breath. 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 No fever no chills all the information gathered by reviewing the chart. Patient was not in a position to give any information. She was mentally obtunded. Problems: Additional Assessment/Plan Problems: Additional Assessment/Plan Additional Assessment/Plan 1. Anemia 2. Melena 3. History of stomach cancer/colon cancer 4. End-stage renal disease 5. Altered level of consciousness, patient is very lethargic 6. Advanced Parkinson's disease 7. Patient had upper endoscopy yesterday which showed extensive ulceration of distal part of the esophagus 8. Dysphagia patient failed swallow study Plan Continue with her double dose of PPI Monitor H and H Patient passed a swallow study the resume feeding as per the speech therapist Aspiration precaution Consultation Date/Type/Reason Admit Date/Time Mar 10, 2017 at 22:07 Type of Consultation: ID [id number] HR Interval Summary Constitutional: improved, no complaints Exam/Review of Systems Vital Signs Vitals Vital Signs Date Time Temp Pulse Resp B/P Pulse Ox O2 Delivery O2 Flow Rate FiO2 03/16/17 16:30 73 03/16/17 15:53 98.3 20 129/60 95 03/12/17 16:58 Room Air Intake and Output 03/15/17 03/15/17 03/16/17 15:00 23:00 07:00 Intake Total 950 ml 1100 ml 270 ml Output Total 450 ml 1100 ml 950 ml Balance 500 ml 0 ml -680 ml Exam Constitutional: alert, oriented, well developed Psych: nl mood/affect, no complaints Head: atraumatic, normocephalic Eyes: EOMI, PERRL, nl conjunctiva, nl lids, nl sclera ENMT: nl external ears & nose, nl lips & teeth, nl nasal mucosa & septum Neck: non-tender, supple Respiratory: clear to auscultation, normal air movement Cardiovascular: nl pulses, regular rate and rhythm Gastrointestinal: nl liver, spleen, non-tender, soft Musculoskeletal: nl extremities to inspection, nl gait and stance Extremities: normal pulses Neurological: TENNIS BALL COVER CEMENTER II-XII intact, nl mental status, nl speech, nl strength Skin: nl turgor, No rash or lesions Lymph: nl lymph nodes Results Result Diagram: 03/14/1708 03/13/17 0746 Medications Medications Current Medications Acetaminophen (Tylenol Tab) 650 mg Q4H PRN PO MILD PAIN LEVEL 1-3; Start at 07:30 Acetaminophen (Tylenol Tab) 1,000 mg Q4H PRN PO PAIN 4-6/10; Start 03/11/17 at 07:30 Atorvastatin Calcium (Lipitor) 10 mg QHS PO ; Start 03/11/17 at 21:00 Bisacodyl (Dulcolax Supp) 10 mg DAILY PRN [place] NEEDED; Start 03/11/17 at 07:30 Docusate Sodium (Colace) 200 mg QHS PO ; Start 03/11/17 at 21:00 Entacapone (Comtan) 200 mg TID PO Last administered on 03/16/17 13:10; Admin Dose 200 MG; Start 03/11/17 at 09:00 Lorazepam (Ativan) 0.5 mg Q6H PRN PO ANXIETY; Start 03/11/17 at 07:30 Al Hydrox/Mg Hydrox/Simethicone (Mag-Al Plus) 30 ml Q4H PRN PO GASTROINTESTINAL UPSET; Start 03/11/17 at 07:30 Magnesium Hydroxide (Milk Of Mag) 30 ml QHS PO ; Start 03/11/17 at 21:00 Pramipexole (Mirapex) 1.5 mg Q8 PO Last administered on 03/16/17 13:17; Admin Dose 1.5 MG; Start 03/11/17 at 07:30 Propranolol HCl (Inderal) 10 mg BID PO Last administered on 03/16/17 08:52; Admin Dose 10 MG; Start 03/11/17 at 09:00 Zolpidem Tartrate 5 mg 5 mg QHS PRN PO INSOMNIA; Start 03/11/17 at 07:30 Dextrose/Sodium Chloride (D5-1/2ns) 1,000 ml @ 50 mls/hr Q20H IV Last administered on 03/15/17 14:11; Admin Dose 50 MLS/HR; Start 03/11/17 at 07:11 Ondansetron HCl (Zofran Inj) 4 mg Q6H PRN IV NAUSEA AND/OR VOMITING; Start at 07:30 Acetaminophen (Tylenol Tab) 650 mg Q6H PRN PO PAIN LEVEL 1-3 OR FEVER; Start at 07:30 Losartan Potassium (Cozaar) 50 mg BID PO Last administered on 03/16/17 08:52; Admin Dose 50 MG; Start 03/11/17 at 21:00 Pantoprazole 40 mg 40 mg BID@06,18 IV Last administered on 03/16/17 17:56; Admin Dose 40 MG; Start 03/12/17 at 18:00 Metronidazole 100 ml @ 100 mls/hr Q8 IVPB Last administered on 03/16/17 13:17 ; Admin Dose 100 MLS/HR; Start 03/12/17 at 22:00 Fluconazole/ Sodium Chloride (Diflucan 100 Mg/ NS (Pmx)) 50 ml @ 50 mls/hr Q24H IVPB Last administered on 03/15/17 22:23; Admin Dose 50 MLS/HR; Start at 21:00 ROXANNE MORALES MD Mar 16, 2017 18:04
[2017-03-16] MEDS: DOCUSATE SODIUM 100 MG CAP PO SCH (21:03)
[2017-03-16] MEDS: MAGNESIUM HYDROXIDE 30ML CUP PO SCH (21:03)
[2017-03-16] MEDS: ATORVASTATIN 10 MG TAB PO SCH (21:04)
[2017-03-16] MEDS: FLUCONAZOLE 100 MG/NS (PMX) 50 ML IVPB SCH (21:12)
--- NOTE | 2017-03-16 22:44 | PN ---
Date/Time of Note Date/Time of Note DATE: 03/16/17 TIME: 22:43 Assessment/Plan VTE Prophylaxis VTE Prophylaxis Intervention: other Lines/Catheters IV Catheter Type (from Nrsg): Peripheral IV Urinary Cath still in place: Yes Reason Cath still needed: other (indicate) Assessment/Plan Chief Complaint/Hosp Course anemia shoulder dislocation chronic dr napier called aware gi bleed better poor po intake plan per gi po diet Problems: Subjective 24 Hr Interval Summary Gastrointestinal: no complaints Genitourinary: no complaints Exam/Review of Systems Vital Signs Vitals Vital Signs Date Time Temp Pulse Resp B/P Pulse Ox O2 Delivery O2 Flow Rate FiO2 03/16/17 20:19 75 03/16/17 19:33 97.9 18 135/63 95 03/12/17 16:58 Room Air Intake and Output 03/15/17 03/15/17 03/16/17 15:00 23:00 07:00 Intake Total 950 ml 1100 ml 270 ml Output Total 450 ml 1100 ml 950 ml Balance 500 ml 0 ml -680 ml Exam Respiratory: clear to auscultation Cardiovascular: regular rate and rhythm Gastrointestinal: soft Genitourinary - Female: nl adnexae Results Result Diagram: 03/14/17 0708 03/13/17 0746 Medications Medications Current Medications Acetaminophen (Tylenol Tab) 650 mg Q4H PRN PO MILD PAIN LEVEL 1-3; Start at 07:30 Acetaminophen (Tylenol Tab) 1,000 mg Q4H PRN PO PAIN 4-6/10; Start 03/11/17 at 07:30 Atorvastatin Calcium (Lipitor) 10 mg QHS PO Last administered on 03/16/17 21: 04; Admin Dose 10 MG; Start 03/11/17 at 21:00 Bisacodyl (Dulcolax Supp) 10 mg DAILY PRN [place] NEEDED; Start 03/11/17 at 07:30 Docusate Sodium (Colace) 200 mg QHS PO Last administered on 03/16/17 21:03; Admin Dose 200 MG; Start 03/11/17 at 21:00 Entacapone (Comtan) 200 mg TID PO Last administered on 03/16/17 21:03; Admin Dose 200 MG; Start 03/11/17 at 09:00 Lorazepam (Ativan) 0.5 mg Q6H PRN PO ANXIETY; Start 03/11/17 at 07:30 Al Hydrox/Mg Hydrox/Simethicone (Mag-Al Plus) 30 ml Q4H PRN PO GASTROINTESTINAL UPSET; Start 03/11/17 at 07:30 Magnesium Hydroxide (Milk Of Mag) 30 ml QHS PO Last administered on 03/16/17 21:03; Admin Dose 30 ML; Start 03/11/17 at 21:00 Pramipexole (Mirapex) 1.5 mg Q8 PO Last administered on 03/16/17 21:18; Admin Dose 1.5 MG; Start 03/11/17 at 07:30 Propranolol HCl (Inderal) 10 mg BID PO Last administered on 03/16/17 21:05; Admin Dose 10 MG; Start 03/11/17 at 09:00 Zolpidem Tartrate 5 mg 5 mg QHS PRN PO INSOMNIA; Start 03/11/17 at 07:30 Dextrose/Sodium Chloride (D5-1/2ns) 1,000 ml @ 50 mls/hr Q20H IV Last administered on 03/15/17 14:11; Admin Dose 50 MLS/HR; Start 03/11/17 at 07:11 Ondansetron HCl (Zofran Inj) 4 mg Q6H PRN IV NAUSEA AND/OR VOMITING; Start at 07:30 Acetaminophen (Tylenol Tab) 650 mg Q6H PRN PO PAIN LEVEL 1-3 OR FEVER; Start at 07:30 Losartan Potassium (Cozaar) 50 mg BID PO Last administered on 03/16/17 21:04; Admin Dose 50 MG; Start 03/11/17 at 21:00 Pantoprazole 40 mg 40 mg BID@06,18 IV Last administered on 03/16/17 17:56; Admin Dose 40 MG; Start 03/12/17 at 18:00 Metronidazole 100 ml @ 100 mls/hr Q8 IVPB Last administered on 03/16/17 21:18 ; Admin Dose 100 MLS/HR; Start 03/12/17 at 22:00 Fluconazole/ Sodium Chloride (Diflucan 100 Mg/ NS (Pmx)) 50 ml @ 50 mls/hr Q24H IVPB Last administered on 03/16/17 21:12; Admin Dose 50 MLS/HR; Start at 21:00 SHANNEN VALLEJO MD Mar 16, 2017 22:44
[2017-03-17] VITALS (13 sets, daily range): BP systolic 106–146; BP diastolic 52–74; PULSE 55–67; RESP 17–19
[2017-03-17] MEDS: DEXTROSE 5%-0.45% NACL 1,000 ML IV SCH ×2 (03:11→05:26)
[2017-03-17] MEDS: PRAMIPEXOLE 1 MG TAB PO SCH ×3 (05:23→21:33)
[2017-03-17] MEDS: PANTOPRAZOLE 40 MG INJ IV SCH ×2 (05:23→17:42)
[2017-03-17] MEDS: metroNIDAZOLE 500 MG/NS (PMX) 100 ML IVPB SCH ×3 (05:23→21:33)
[2017-03-17] MEDS: PROPRANOLOL 10 MG TAB PO SCH ×2 (09:00→21:00)
[2017-03-17] MEDS: ENTACAPONE 200 MG TAB PO SCH ×3 (09:05→20:14)
[2017-03-17] MEDS: LOSARTAN 50 MG TAB PO SCH ×2 (09:05→21:30)
--- NOTE | 2017-03-17 15:19 | CONS ---
Date/Time of Note Date/Time of Note DATE: 03/17/17 TIME: 15:18 Assessment/Plan Assessment/Plan Chief Complaint/Hosp Course No acute changes, looks comfortable. No fevers Antimicrobials: fluconazole Flagyl Physical examination: Fragile elderly woman who is in no distress. Head atraumatic, normocephalic. Sclera nonicteric. Bugle mucosa dry. Neck is supple, trachea midline. Chest rise symmetrical, breath sounds diminished basis. Heart, S1-S2 abdomen soft bowel tones present extremities no cyanosis assessment: 1. Systemic inflammatory response syndrome with low-grade fevers and leukocytosis on admission 2. Acute proctocolitis per CT of the abdomen 3. Cholelithiasis without evidence of cholecystitis 4. Dysphagia 5. Failure to thrive 6. Encephalopathy 7. History of stomach cancer Plan: Clinically stable, pathology revealed chronic gastritis, dc Diflucan, Flagyl for couple more days, follow GI recommendations, aspiration precautions Discussed with staff Problems: Consultation Date/Type/Reason Admit Date/Time Mar 10, 2017 at 22:07 Type of Consultation: ID Exam/Review of Systems Vital Signs Vitals Vital Signs Date Time Temp Pulse Resp B/P Pulse Ox O2 Delivery O2 Flow Rate FiO2 03/17/17 12:38 55 03/17/17 12:01 97.8 18 125/68 96 Intake and Output 03/16/17 03/16/17 03/17/17 15:00 23:00 07:00 Intake Total 1450 ml 80 ml Output Total 880 ml 400 ml Balance 570 ml -320 ml Results Result Diagram: 03/14/17 0708 03/13/17 0746 Medications Medications Current Medications Acetaminophen (Tylenol Tab) 650 mg Q4H PRN PO MILD PAIN LEVEL 1-3; Start at 07:30 Acetaminophen (Tylenol Tab) 1,000 mg Q4H PRN PO PAIN 4-6/10; Start 03/11/17 at 07:30 Atorvastatin Calcium (Lipitor) 10 mg QHS PO Last administered on 03/16/17 21: 04; Admin Dose 10 MG; Start 03/11/17 at 21:00 Bisacodyl (Dulcolax Supp) 10 mg DAILY PRN [place] NEEDED; Start 03/11/17 at 07:30 Docusate Sodium (Colace) 200 mg QHS PO Last administered on 03/16/17 21:03; Admin Dose 200 MG; Start 03/11/17 at 21:00 Entacapone (Comtan) 200 mg TID PO Last administered on 03/17/17 09:05; Admin Dose 200 MG; Start 03/11/17 at 09:00 Lorazepam (Ativan) 0.5 mg Q6H PRN PO ANXIETY; Start 03/11/17 at 07:30 Al Hydrox/Mg Hydrox/Simethicone (Mag-Al Plus) 30 ml Q4H PRN PO GASTROINTESTINAL UPSET; Start 03/11/17 at 07:30 Magnesium Hydroxide (Milk Of Mag) 30 ml QHS PO Last administered on 03/16/17 21:03; Admin Dose 30 ML; Start 03/11/17 at 21:00 Pramipexole (Mirapex) 1.5 mg Q8 PO Last administered on 03/17/17 05:23; Admin Dose 1.5 MG; Start 03/11/17 at 07:30 Propranolol HCl (Inderal) 10 mg BID PO Last administered on 03/16/17 21:05; Admin Dose 10 MG; Start 03/11/17 at 09:00 Zolpidem Tartrate 5 mg 5 mg QHS PRN PO INSOMNIA; Start 03/11/17 at 07:30 Dextrose/Sodium Chloride (D5-1/2ns) 1,000 ml @ 50 mls/hr Q20H IV Last administered on 03/17/17 05:26; Admin Dose 50 MLS/HR; Start 03/11/17 at 07:11 Ondansetron HCl (Zofran Inj) 4 mg Q6H PRN IV NAUSEA AND/OR VOMITING; Start at 07:30 Acetaminophen (Tylenol Tab) 650 mg Q6H PRN PO PAIN LEVEL 1-3 OR FEVER; Start at 07:30 Losartan Potassium (Cozaar) 50 mg BID PO Last administered on 03/17/17 09:05; Admin Dose 50 MG; Start 03/11/17 at 21:00 Pantoprazole 40 mg 40 mg BID@06,18 IV Last administered on 03/17/17 05:23; Admin Dose 40 MG; Start 03/12/17 at 18:00 Metronidazole 100 ml @ 100 mls/hr Q8 IVPB Last administered on 03/17/17 05:23 ; Admin Dose 100 MLS/HR; Start 03/12/17 at 22:00 Fluconazole/ Sodium Chloride (Diflucan 100 Mg/ NS (Pmx)) 50 ml @ 50 mls/hr Q24H IVPB Last administered on 03/16/17 21:12; Admin Dose 50 MLS/HR; Start at 21:00 YASHIRA TONEY NP Mar 17, 2017 15:19
--- NOTE | 2017-03-17 19:03 | CONS ---
Date/Time of Note Date/Time of Note DATE: 03/17/17 TIME: 19:03 Assessment/Plan Assessment/Plan Chief Complaint/Hosp Course Patient is a 76-year-old female with a history of end-stage renal disease admitted to the hospital for altered level of consciousness, dysphagia, passing black colored stool no chest pain or shortness of breath. No or OFFAL TRIMMER problem. No fever no chills all the information gathered by reviewing the chart. Patient was not in a position to give any information. She was mentally obtunded. Problems: Additional Assessment/Plan 1. Anemia 2. Melena 3. History of stomach cancer/colon cancer 4. End-stage renal disease 5. Altered level of consciousness, patient is very lethargic 6. Advanced Parkinson's disease 7. Patient had upper endoscopy yesterday which showed extensive ulceration of distal part of the esophagus 8. Dysphagia patient failed swallow study Plan Continue with her double dose of PPI Monitor H and H Patient passed a swallow study the resume feeding as per the speech therapist Aspiration precaution Consultation Date/Type/Reason Admit Date/Time Mar 10, 2017 at 22:07 Type of Consultation: ID 24 HR Interval Summary Constitutional: no complaints Exam/Review of Systems Vital Signs Vitals Vital Signs Date Time Temp Pulse Resp B/P Pulse Ox O2 Delivery O2 Flow Rate FiO2 03/17/17 16:54 63 03/17/17 16:00 98.6 18 137/74 100 Intake and Output 03/16/17 03/16/17 03/17/17 15:00 23:00 07:00 Intake Total 1450 ml 80 ml Output Total 880 ml 400 ml Balance 570 ml -320 ml Exam Constitutional: alert, oriented, well developed Psych: nl mood/affect, no complaints Head: atraumatic, normocephalic Eyes: EOMI, PERRL, nl conjunctiva, nl lids, nl sclera ENMT: nl external ears & nose, nl lips & teeth, nl nasal mucosa & septum Neck: non-tender, supple Respiratory: clear to auscultation, normal air movement Cardiovascular: nl pulses, regular rate and rhythm Gastrointestinal: nl liver, spleen, non-tender, soft Musculoskeletal: nl extremities to inspection, nl gait and stance Extremities: normal pulses Neurological: OFFAL TRIMMER II-XII intact, nl mental status, nl speech, nl strength Skin: nl turgor, No rash or lesions Lymph: nl lymph nodes Results Result Diagram: 03/14/17 0708 03/13/17 0746 Medications Medications Current Medications Acetaminophen (Tylenol Tab) 650 mg Q4H PRN PO MILD PAIN LEVEL 1-3; Start at 07:30 Acetaminophen (Tylenol Tab) 1,000 mg Q4H PRN PO PAIN 4-6/10; Start 03/11/17 at 07:30 Atorvastatin Calcium (Lipitor) 10 mg QHS PO Last administered on 03/16/17 21: 04; Admin Dose 10 MG; Start 03/11/17 at 21:00 Bisacodyl (Dulcolax Supp) 10 mg DAILY PRN [place] NEEDED; Start 03/11/17 at 07:30 Docusate Sodium (Colace) 200 mg QHS PO Last administered on 03/16/17 21:03; Admin Dose 200 MG; Start 03/11/17 at 21:00 Entacapone (Comtan) 200 mg TID PO Last administered on 03/17/17 15:34; Admin Dose 200 MG; Start 03/11/17 at 09:00 Lorazepam (Ativan) 0.5 mg Q6H PRN PO ANXIETY; Start 03/11/17 at 07:30 Al Hydrox/Mg Hydrox/Simethicone (Mag-Al Plus) 30 ml Q4H PRN PO GASTROINTESTINAL UPSET; Start 03/11/17 at 07:30 Magnesium Hydroxide (Milk Of Mag) 30 ml QHS PO Last administered on 03/16/17 21:03; Admin Dose 30 ML; Start 03/11/17 at 21:00 Pramipexole (Mirapex) 1.5 mg Q8 PO Last administered on 03/17/17 15:34; Admin Dose 1.5 MG; Start 03/11/17 at 07:30 Propranolol HCl (Inderal) 10 mg BID PO Last administered on 03/16/17 21:05; Admin Dose 10 MG; Start 03/11/17 at 09:00 Zolpidem Tartrate 5 mg 5 mg QHS PRN PO INSOMNIA; Start 03/11/17 at 07:30 Dextrose/Sodium Chloride (D5-1/2ns) 1,000 ml @ 50 mls/hr Q20H IV Last administered on 03/17/17 05:26; Admin Dose 50 MLS/HR; Start 03/11/17 at 07:11 Ondansetron HCl (Zofran Inj) 4 mg Q6H PRN IV NAUSEA AND/OR VOMITING; Start at 07:30 Acetaminophen (Tylenol Tab) 650 mg Q6H PRN PO PAIN LEVEL 1-3 OR FEVER; Start at 07:30 Losartan Potassium (Cozaar) 50 mg BID PO Last administered on 03/17/17 09:05; Admin Dose 50 MG; Start 03/11/17 at 21:00 Pantoprazole 40 mg 40 mg BID@06,18 IV Last administered on 03/17/17 17:42; Admin Dose 40 MG; Start 03/12/17 at 18:00 Metronidazole (Flagyl 500 Mg (Pmx)) 100 ml @ 100 mls/hr Q8 IVPB Last administered on 03/17/17 15:35; Admin Dose 100 MLS/HR; Start 03/12/17 at 22:00 ROXANNE MORALES MD Mar 17, 2017 19:03
[2017-03-17] MEDS: ATORVASTATIN 10 MG TAB PO SCH (20:14)
[2017-03-17] MEDS: DOCUSATE SODIUM 100 MG CAP PO SCH (20:14)
[2017-03-17] MEDS: MAGNESIUM HYDROXIDE 30ML CUP PO SCH (20:15)
--- NOTE | 2017-03-17 22:42 | PN ---
Date/Time of Note Date/Time of Note DATE: 03/17/17 TIME: 22:41 Assessment/Plan VTE Prophylaxis VTE Prophylaxis Intervention: other Lines/Catheters IV Catheter Type (from Nrsg): Peripheral IV Urinary Cath still in place: Yes Reason Cath still needed: other (indicate) Assessment/Plan Chief Complaint/Hosp Course anemia shoulder dislocation chronic dr napier called aware gi bleed better S/P EGD poor po intake plan per gi po diet Problems: Subjective 24 Hr Interval Summary Subjective hx not possible: other (POOR PO INTAKE BUT BETTER) Cardiovascular: no complaints Gastrointestinal: no complaints Genitourinary: no complaints Exam/Review of Systems Vital Signs Vitals Vital Signs Date Time Temp Pulse Resp B/P Pulse Ox O2 Delivery O2 Flow Rate FiO2 03/17/17 20:01 98.0 66 18 109/52 93 Intake and Output 03/16/17 03/16/17 03/17/17 15:00 23:00 07:00 Intake Total 1450 ml 80 ml Output Total 880 ml 400 ml Balance 570 ml -320 ml Exam Respiratory: clear to auscultation Cardiovascular: regular rate and rhythm Gastrointestinal: soft Musculoskeletal: nl extremities to inspection Extremities: normal pulses Results Result Diagram: 03/14/17 0708 03/13/17 0746 Medications Medications Current Medications Acetaminophen (Tylenol Tab) 650 mg Q4H PRN PO MILD PAIN LEVEL 1-3; Start at 07:30 Acetaminophen (Tylenol Tab) 1,000 mg Q4H PRN PO PAIN 4-6/10; Start 03/11/17 at 07:30 Atorvastatin Calcium (Lipitor) 10 mg QHS PO Last administered on 03/17/17 20: 14; Admin Dose 10 MG; Start 03/11/17 at 21:00 Bisacodyl (Dulcolax Supp) 10 mg DAILY PRN [place] NEEDED; Start 03/11/17 at 07:30 Docusate Sodium (Colace) 200 mg QHS PO Last administered on 03/17/17 20:14; Admin Dose 200 MG; Start 03/11/17 at 21:00 Entacapone (Comtan) 200 mg TID PO Last administered on 03/17/17 20:14; Admin Dose 200 MG; Start 03/11/17 at 09:00 Lorazepam (Ativan) 0.5 mg Q6H PRN PO ANXIETY; Start 03/11/17 at 07:30 Al Hydrox/Mg Hydrox/Simethicone (Mag-Al Plus) 30 ml Q4H PRN PO GASTROINTESTINAL UPSET; Start 03/11/17 at 07:30 Magnesium Hydroxide (Milk Of Mag) 30 ml QHS PO Last administered on 03/17/17 20:15; Admin Dose 30 ML; Start 03/11/17 at 21:00 Pramipexole (Mirapex) 1.5 mg Q8 PO Last administered on 03/17/17 21:33; Admin Dose 1.5 MG; Start 03/11/17 at 07:30 Propranolol HCl (Inderal) 10 mg BID PO Last administered on 03/16/17 21:05; Admin Dose 10 MG; Start 03/11/17 at 09:00 Zolpidem Tartrate 5 mg 5 mg QHS PRN PO INSOMNIA; Start 03/11/17 at 07:30 Dextrose/Sodium Chloride (D5-1/2ns) 1,000 ml @ 50 mls/hr Q20H IV Last administered on 03/17/17 05:26; Admin Dose 50 MLS/HR; Start 03/11/17 at 07:11 Ondansetron HCl (Zofran Inj) 4 mg Q6H PRN IV NAUSEA AND/OR VOMITING; Start at 07:30 Acetaminophen (Tylenol Tab) 650 mg Q6H PRN PO PAIN LEVEL 1-3 OR FEVER; Start at 07:30 Losartan Potassium (Cozaar) 50 mg BID PO Last administered on 03/17/17 21:30; Admin Dose 50 MG; Start 03/11/17 at 21:00 Pantoprazole 40 mg 40 mg BID@06,18 IV Last administered on 03/17/17 17:42; Admin Dose 40 MG; Start 03/12/17 at 18:00 Metronidazole (Flagyl 500 Mg (Pmx)) 100 ml @ 100 mls/hr Q8 IVPB Last administered on 03/17/17 21:33; Admin Dose 100 MLS/HR; Start 03/12/17 at 22:00 SHANNEN VALLEJO MD Mar 17, 2017 22:42
[2017-03-18] VITALS (7 sets, daily range): BP systolic 141–165; BP diastolic 66–67; PULSE 63–76; RESP 17–18
[2017-03-18] MEDS: DEXTROSE 5%-0.45% NACL 1,000 ML IV SCH (05:25)
[2017-03-18] MEDS: PRAMIPEXOLE 1 MG TAB PO SCH ×2 (05:26→14:00)
[2017-03-18] MEDS: metroNIDAZOLE 500 MG/NS (PMX) 100 ML IVPB SCH ×2 (05:26→14:00)
[2017-03-18] MEDS: PANTOPRAZOLE 40 MG INJ IV SCH (05:26)
--- NOTE | 2017-03-18 05:27 | GILP ---
DATE OF PROCEDURE: 03/10/2017 PROCEDURE PERFORMED: Esophagogastroduodenoscopy with biopsy. PROCEDURE PERFORMED: Kana Last MD INDICATION: A 76-year-old female undergoing this procedure for GI bleeding manifested in the form of melanotic stools. Also, drop in hematocrit with hematocrit of 40 and dropped down to 30, and now 25. The risks of the procedure, related complications, anesthetic risks and alternatives were discussed and informed consent was obtained. DESCRIPTION OF PROCEDURE: The patient was brought to the GI lab and sedated by the anesthesiologist. After optimal sedation, the scope was passed into the esophagus. The entire distal third of the esophagus was circumferentially ulcerated and had multiple capillary spots. It was not acutely bleeding. The scope was advanced further down into the stomach. The patient had a hiatal hernia about 4-5 cm. She also had a barcenas gastritis and 2 biopsies obtained to rule out H. pylori infection. The duodenum first and second part were within normal limits. Retroflexion was then done and hiatal hernia confirmed. The scope was straightened out and removed with good patient tolerance. IMPRESSION: 1. Extensive esophageal ulceration. 2. Hiatal hernia 5 cm. 3. Barcenas gastritis. 4. Normal duodenum. PLAN: Review histopathology. In the interim, double the dose of PPI, and the patient should be started on erythromycin and not Reglan given the history of Parkinson's disease. Dictated By: Kana Last MD /cassandra/marc /Document#: [id number]
[2017-03-18] MEDS: LOSARTAN 50 MG TAB PO SCH (09:25)
[2017-03-18] MEDS: ENTACAPONE 200 MG TAB PO SCH ×2 (09:26→13:00)
[2017-03-18] MEDS: PROPRANOLOL 10 MG TAB PO SCH (09:27)
--- NOTE | 2017-03-18 10:49 | PN ---
Date/Time of Note Date/Time of Note DATE: 03/18/17 TIME: 10:47 Assessment/Plan VTE Prophylaxis VTE Prophylaxis Intervention: SCD's Lines/Catheters IV Catheter Type (from Nrsg): Peripheral IV Urinary Cath still in place: Yes Reason Cath still needed: urinary retention Assessment/Plan Chief Complaint/Hosp Course 1. ALOC, better 2. Failure to thrive 3. ESRD 4. HS of stomach carcinoma removal 5. Hs right shoulder dislocation 6.Hypertension 7. dyslipidemia 8. Advanced PArkinson disease 9. Proctocolitis with rectal bleeding Problems: Assessment/Plan 1. Continue current regime 2. Discharge pending Subjective 24 Hr Interval Summary Constitutional: improved Gastrointestinal: other (hungry) Exam/Review of Systems Vital Signs Vitals Vital Signs Date Time Temp Pulse Resp B/P Pulse Ox O2 Delivery O2 Flow Rate FiO2 03/18/17 08:00 66 03/18/17 07:51 98.1 18 141/66 97 Intake and Output 03/17/17 03/17/17 03/18/17 15:00 23:00 07:00 Intake Total 220 ml 180 ml Output Total 250 ml 400 ml Balance -30 ml -220 ml Exam Constitutional: alert, oriented (name) Eyes: other (when speak does not open her eyes) ENMT: nl external ears & nose Neck: supple Results Result Diagram: 03/14/17 0708 Medications Medications Current Medications Acetaminophen (Tylenol Tab) 650 mg Q4H PRN PO MILD PAIN LEVEL 1-3 Last administered on 03/18/17 05:25; Admin Dose 650 MG; Start 03/11/17 at 07:30 Acetaminophen (Tylenol Tab) 1,000 mg Q4H PRN PO PAIN 4-6/10; Start 03/11/17 at 07:30 Atorvastatin Calcium (Lipitor) 10 mg QHS PO Last administered on 03/17/17 20: 14; Admin Dose 10 MG; Start 03/11/17 at 21:00 Bisacodyl (Dulcolax Supp) 10 mg DAILY PRN [place] NEEDED; Start 03/11/17 at 07:30 Docusate Sodium (Colace) 200 mg QHS PO Last administered on 03/17/17 20:14; Admin Dose 200 MG; Start 03/11/17 at 21:00 Entacapone (Comtan) 200 mg TID PO Last administered on 03/18/17 09:26; Admin Dose 200 MG; Start 03/11/17 at 09:00 Lorazepam (Ativan) 0.5 mg Q6H PRN PO ANXIETY; Start 03/11/17 at 07:30 Al Hydrox/Mg Hydrox/Simethicone (Mag-Al Plus) 30 ml Q4H PRN PO GASTROINTESTINAL UPSET; Start 03/11/17 at 07:30 Magnesium Hydroxide (Milk Of Mag) 30 ml QHS PO Last administered on 03/17/17 20:15; Admin Dose 30 ML; Start 03/11/17 at 21:00 Pramipexole (Mirapex) 1.5 mg Q8 PO Last administered on 03/17/17 21:33; Admin Dose 1.5 MG; Start 03/11/17 at 07:30 Propranolol HCl (Inderal) 10 mg BID PO Last administered on 03/18/17 09:27; Admin Dose 10 MG; Start 03/11/17 at 09:00 Zolpidem Tartrate 5 mg 5 mg QHS PRN PO INSOMNIA; Start 03/11/17 at 07:30 Dextrose/Sodium Chloride (D5-1/2ns) 1,000 ml @ 50 mls/hr Q20H IV Last administered on 03/18/17 05:25; Admin Dose 50 MLS/HR; Start 03/11/17 at 07:11 Ondansetron HCl (Zofran Inj) 4 mg Q6H PRN IV NAUSEA AND/OR VOMITING; Start at 07:30 Acetaminophen (Tylenol Tab) 650 mg Q6H PRN PO PAIN LEVEL 1-3 OR FEVER; Start at 07:30 Losartan Potassium (Cozaar) 50 mg BID PO Last administered on 03/18/17 09:25; Admin Dose 50 MG; Start 03/11/17 at 21:00 Pantoprazole 40 mg 40 mg BID@06,18 IV Last administered on 03/18/17 05:26; Admin Dose 40 MG; Start 03/12/17 at 18:00 Metronidazole (Flagyl 500 Mg (Pmx)) 100 ml @ 100 mls/hr Q8 IVPB Last administered on 03/18/17 05:26; Admin Dose 100 MLS/HR; Start 7/15/17 at 22:00 BRAYDEN BARRERA Mar 18, 2017 10:49
--- NOTE | 2017-03-18 11:33 | PDOCDIS ---
Discharge Instructions CONDITION Patient Condition: Stable HOME CARE INSTRUCTIONS: Diet Instructions: honey thickSpecial Diet: Pureed ACTIVITY: Activity Restrictions: Slowly Increase Activity BRAYDEN BARRERA Mar 18, 2017 11:33
--- NOTE | 2017-03-18 15:22 | CONS ---
Date/Time of Note Date/Time of Note DATE: 03/18/17 TIME: 15:22 Assessment/Plan Assessment/Plan Chief Complaint/Hosp Course No acute changes, looks comfortable. No fevers Antimicrobials: Flagyl Physical examination: Fragile elderly woman who is in no distress. Head atraumatic, normocephalic. Sclera nonicteric. Bugle mucosa dry. Neck is supple, trachea midline. Chest rise symmetrical, breath sounds diminished basis. Heart, S1-S2 abdomen soft bowel tones present extremities no cyanosis assessment: 1. Systemic inflammatory response syndrome with low-grade fevers and leukocytosis on admission 2. Acute proctocolitis per CT of the abdomen 3. Cholelithiasis without evidence of cholecystitis 4. Dysphagia 5. Failure to thrive 6. Encephalopathy 7. History of stomach cancer Plan: Clinically stable, continue Flagyl for couple more days, follow GI recommendations, aspiration precautions Discussed with staff Problems: Consultation Date/Type/Reason Admit Date/Time Mar 10, 2017 at 22:07 Type of Consultation: ID Exam/Review of Systems Vital Signs Vitals Vital Signs Date Time Temp Pulse Resp B/P Pulse Ox O2 Delivery O2 Flow Rate FiO2 03/18/17 12:29 98.1 55 18 165/66 96 Intake and Output 03/17/17 03/17/17 03/18/17 15:00 23:00 07:00 Intake Total 220 ml 180 ml Output Total 250 ml 400 ml Balance -30 ml -220 ml Results Result Diagram: 03/14/17 0708 Medications Medications Current Medications Acetaminophen (Tylenol Tab) 650 mg Q4H PRN PO MILD PAIN LEVEL 1-3 Last administered on 03/18/17 05:25; Admin Dose 650 MG; Start 03/11/17 at 07:30 Acetaminophen (Tylenol Tab) 1,000 mg Q4H PRN PO PAIN 4-6/10; Start 03/11/17 at 07:30 Atorvastatin Calcium (Lipitor) 10 mg QHS PO Last administered on 03/17/17 20: 14; Admin Dose 10 MG; Start 03/11/17 at 21:00 Bisacodyl (Dulcolax Supp) 10 mg DAILY PRN HI NEEDED; Start 03/11/17 at 07:30 Docusate Sodium (Colace) 200 mg QHS PO Last administered on 03/17/17 20:14; Admin Dose 200 MG; Start 03/11/17 at 21:00 Entacapone (Comtan) 200 mg TID PO Last administered on 03/18/17 09:26; Admin Dose 200 MG; Start 03/11/17 at 09:00 Lorazepam (Ativan) 0.5 mg Q6H PRN PO ANXIETY; Start 03/11/17 at 07:30 Al Hydrox/Mg Hydrox/Simethicone (Mag-Al Plus) 30 ml Q4H PRN PO GASTROINTESTINAL UPSET; Start 03/11/17 at 07:30 Magnesium Hydroxide (Milk Of Mag) 30 ml QHS PO Last administered on 03/17/17 20:15; Admin Dose 30 ML; Start 03/11/17 at 21:00 Pramipexole (Mirapex) 1.5 mg Q8 PO Last administered on 03/17/17 21:33; Admin Dose 1.5 MG; Start 03/11/17 at 07:30 Propranolol HCl (Inderal) 10 mg BID PO Last administered on 03/18/17 09:27; Admin Dose 10 MG; Start 03/11/17 at 09:00 Zolpidem Tartrate 5 mg 5 mg QHS PRN PO INSOMNIA; Start 03/11/17 at 07:30 Dextrose/Sodium Chloride (D5-1/2ns) 1,000 ml @ 50 mls/hr Q20H IV Last administered on 03/18/17 05:25; Admin Dose 50 MLS/HR; Start 03/11/17 at 07:11 Ondansetron HCl (Zofran Inj) 4 mg Q6H PRN IV NAUSEA AND/OR VOMITING; Start at 07:30 Acetaminophen (Tylenol Tab) 650 mg Q6H PRN PO PAIN LEVEL 1-3 OR FEVER; Start at 07:30 Losartan Potassium (Cozaar) 50 mg BID PO Last administered on 03/18/17 09:25; Admin Dose 50 MG; Start 03/11/17 at 21:00 Pantoprazole 40 mg 40 mg BID@06,18 IV Last administered on 03/18/17 05:26; Admin Dose 40 MG; Start 03/12/17 at 18:00 Metronidazole (Flagyl 500 Mg (Pmx)) 100 ml @ 100 mls/hr Q8 IVPB Last administered on 03/18/17t 05:26; Admin Dose 100 MLS/HR; Start 03/12/17 at 22:00 Hydralazine HCl (Apresoline) 10 mg Q6H PRN PO SBP above 160; Start 03/18/17 at 15:30 YASHIRA TONEY NP Mar 18, 2017 15:22
--- NOTE | 2017-03-18 17:43 | DS ---
Date/Time of Note Date/Time of Note DATE: 03/18/17 TIME: 17:39 Discharge Summary Admission/Discharge Info Admit Date/Time Mar 10, 2017 at 22:07 Discharge Date/Time Mar 18, 2017 at 15:25 Discharge Diagnosis ALOC, improvement. Gastritis, esophageal varices Patient Condition: Serious Consults Dr Last Procedures EGD Hx of Present Illness This is well known to me 76-year-old female was presents to the emergency room on 03/10/2017. She is a resident of [facility] . She has ALOC. Per ER md note known that pt granddaughter indicates that the "patient has appeared more confused and lethargic which began on Tuesday, 4 days prior to arrival. The patient has not been eating and has had decreased urinary output. She also stated that she was complaining of difficulty swallowing. She has had no fevers no shaking or chills. She has had black stool which has been present for several weeks". The granddaughter also states that the patient is normally alert awake orientated 3 but over the past 4 days has been confused as she does not recognize her granddaughter or know where she is. She has not experienced any hemoptysis or hematemesis. The patient had not complained of any chest pain or pressure and had denied a headache. She is unable to ambulate. Hospital Course No acute changes, looks comfortable. No fevers Antimicrobials: Flagyl Physical examination: Fragile elderly woman who is in no distress. Head atraumatic, normocephalic. Sclera nonicteric. Bugle mucosa dry. Neck is supple, trachea midline. Chest rise symmetrical, breath sounds diminished basis. Heart, S1-S2 abdomen soft bowel tones present extremities no cyanosis assessment: 1. Systemic inflammatory response syndrome with low-grade fevers and leukocytosis on admission 2. Acute proctocolitis per CT of the abdomen 3. Cholelithiasis without evidence of cholecystitis 4. Dysphagia 5. Failure to thrive 6. Encephalopathy 7. History of stomach cancer Plan: Clinically stable, continue Flagyl for couple more days, follow GI recommendations, aspiration precautions Discussed with staff Home Meds Reported Medications Acetaminophen* (Tylenol*) 500 Mg Tab, 1000 MG PO Q4H Y for PAIN 4-02/05, TAB 03/10/17 Acetaminophen* (Tylenol*) 325 Mg Tablet, 650 MG PO Q4H Y for MILD PAIN LEVEL 1-3 , TAB FOR FEVER 100 AND ABOVE 03/10/17 Magaldrate/Simethicone* (Mag-Al Plus Suspension*) 30 Ml Oral.susp, 30 ML PO Q4H Y for GASTROINTESTINAL UPSET, ML 03/10/17 Na Phos,M-B/Na Phos,Di-Ba (Fleet Enema Extra) 230 Ml Enema, 230 ML RC Q2D Y for PRN, ENEMA 03/10/17 Bisacodyl* (Bisacodyl*) 10 Mg Supp, 10 MG ME DAILY Y for NEEDED, SUPP 03/10/17 Magnesium Hydroxide* (Milk Of Magnesia*) 400 Mg/5 Ml Oral.susp, 30 ML PO QHS, ML 03/10/17 Docusate Sodium* (Colace*) 100 Mg Capsule, 200 MG PO QHS, #30 CAP 03/10/17 Insulin Aspart* (Novolog Insulin Pen*) 100 Unit/Ml Soln, 0 SC .SLIDING SCALE AC , EA 150-199=1 UNITS,200-249=2 UNITS,250-299=3 UNITS, 300-349=4 UNITS,ABOVE 349=5 UNITS; ABOVE 400 OR BELOW 60 CALL MD 03/10/17 Cranberry Extract (Cranberry) 425 Mg Capsule, 425 MG PO DAILY, CAP 03/10/17 Lorazepam* (Lorazepam*) 0.5 Mg Tablet, 0.5 MG PO Q6 Y for ANXIETY, TAB 03/10/17 Zolpidem Tartrate* (Ambien*) 5 Mg Tablet, 5 MG PO QHS Y for INSOMNIA, #30 TAB 03/10/17 Pantoprazole* (Protonix*) 40 Mg Tablet.dr, 40 MG PO DAILY, TAB 03/10/17 Propranolol Hcl* (Propranolol Hcl*) 10 Mg Tablet, 10 MG PO BID, TAB 03/10/17 Atorvastatin Calcium (Atorvastatin Calcium) 10 Mg Tablet, 10 MG PO QHS, #30 TAB 03/10/17 Losartan Potassium* (Losartan Potassium*) 50 Mg Tablet, 50 MG PO BID, TAB 03/10/17 Pramipexole* (Mirapex*) 1.5 Mg Tablet, 1.5 MG PO Q8H, TAB 03/10/17 Entacapone* (Comtan*) 200 Mg Tab, 200 MG PO TID, TAB 03/10/17 Primary Care Provider MD HOLLY Persaud ANNA Mar 18, 2017 17:43
== END 2017-03-18 15:25 | DRG 91 ==
LOC: E/R 18:14 → MS3 22:07 → MS4 03-11 18:45
PROVIDERS: ADMIT Internal Medicine Nephrology; ATTEND Internal Medicine Nephrology
PROC: 0DB68ZX Excision of Stomach, Via Natural or Artificial Opening Endoscopic, Diagnostic (ICD-10-PCS; principal; 2017-03-12 15:30)
PROC: 30233N1 Transfusion of Nonautologous Red Blood Cells into Peripheral Vein, Percutaneous Approach (ICD-10-PCS; 2017-03-14)
DX: G92 Toxic encephalopathy (principal); N18.6 End stage renal disease; I12.0 Hypertensive chronic kidney disease with stage 5 chronic kidney disease or end stage renal disease; R65.10 Systemic inflammatory response syndrome (SIRS) of non-infectious origin without acute organ dysfunction; I85.00 Esophageal varices without bleeding; K22.10 Ulcer of esophagus without bleeding; K62.5 Hemorrhage of anus and rectum; K92.1 Melena; G20 Parkinson's disease; Z85.028 Personal history of other malignant neoplasm of stomach; M24.411 Recurrent dislocation, right shoulder; K52.9 Noninfective gastroenteritis and colitis, unspecified; E78.5 Hyperlipidemia, unspecified; R13.10 Dysphagia, unspecified; Z85.038 Personal history of other malignant neoplasm of large intestine; D64.9 Anemia, unspecified; K29.70 Gastritis, unspecified, without bleeding; K44.9 Diaphragmatic hernia without obstruction or gangrene; T42.71XA Poisoning by unspecified antiepileptic and sedative-hypnotic drugs, accidental (unintentional), initial encounter; Y92.9 Unspecified place or not applicable; K80.20 Calculus of gallbladder without cholecystitis without obstruction
CPT/HCPCS: 36430; 70450; 71010; 74177; 80048; 80053; 81001; 82150; 82962; 83605; 83690; 84484; 85025; 85610; 85730; 86850; 86900; 86901; 86920; 87040; 87086; 88305; 88312; 92526; 92610; 93005; 96374; 96375; C9113; J1450; J2060; J2543; J3370; J7030; J7042; P9016; Q9967

== ENCOUNTER 2017-04-07 11:39 | Inpatient (IN) | payer MEDICARE, OTHER ==
[~2017-04-07] VITALS: Ht 142.2 cm; Wt 56.2 kg
[~2017-04-07 11:39] MED LIST: ACET325T33 PO; ATOR10TA65 PO; BISA10SU75 PR; CRAN425C PO; DOCU-144 PO; ENTA200T16 PO; LORA0.5T PO; LOSA50TA6 PO; MAGN400O4 PO; NA P230E RC; NOVO3I SC; PANT40TA3 PO; PRAM1.5T8 PO; PROP10TA6 PO; TYL500 PO; UDMYL PO; ZOLP5TAB PO
[2017-04-07] MEDS ORDERED: SOD CHLORIDE 0.9% 1,000 ML IV STA (12:09)
[2017-04-07 12:28] LABS: ABNORMAL IP MESSAGE 1; BASOPHILS % 0.2 % (0.0-2.0); EOSINOPHILS # 0.1 10^3/ul (0.0-0.5); EOSINOPHILS % 0.7 % (0.0-7.0); HEMATOCRIT 36.3 % (37.0-47.0); HEMOGLOBIN 11.7 g/dl (12.0-16.0); LYMPHOCYTES # 1.7 10^3/ul (0.8-2.9); LYMPHOCYTES % 11.4 % (15.0-51.0); MEAN CORPUSCULAR HEMOGLOBIN 26.5 pg (29.0-33.0); MEAN CORPUSCULAR HGB CONC 32.2 g/dl (32.0-37.0); MEAN CORPUSCULAR VOLUME 82.3 fl (82.0-101.0); MONOCYTE # 0.7 10^3/ul (0.3-0.9); MONOCYTES % 4.6 % (0.0-11.0); NEUTROPHILS % 82.5 % (39.0-77.0); PLATELET COUNT 276 10^3/UL (140-415); RED BLOOD COUNT 4.41 10^6/ul (4.20-5.40); RED CELL DISTRIBUTION WIDTH 17.5 % (11.5-14.5); WHITE BLOOD COUNT 14.5 10^3/ul (4.8-10.8)
[2017-04-07 12:31] LABS: MEAN PLATELET VOLUME 13.2 fl (7.4-10.4); POSITIVE DIFF @See below
[2017-04-07] MEDS ORDERED: SODIUM CHLORIDE 0.9% 1L BAG IV* STA (13:22)
[2017-04-07 13:36] LABS: ADD UMIC YES; UR ASCORBIC ACID NEGATIVE (NEGATIVE); UR BACTERIA MANY /HPF (NONE SEEN); UR BILIRUBIN (Dip) NEGATIVE (NEGATIVE); UR BLOOD (Dip) 1+ mg/dL (NEGATIVE); UR CLARITY SLIGHTLY CLOUDY (CLEAR); UR COLOR AMBER (YELLOW); UR GLUCOSE (Dip) NEGATIVE (NEGATIVE); UR KETONES (Dip) 2+ mg/dL (NEGATIVE); UR LEUKOCYTE ESTERASE (Dip) TRACE Leu/ul (NEGATIVE); UR MUCUS MANY /HPF (NONE SEEN); UR NITRITE (Dip) POSITIVE (NEGATIVE); UR RBC 1 /HPF (0-5); UR SPECIFIC GRAVITY (Dip) 1.028 (1.003-1.030); UR TOTAL PROTEIN (Dip) 1+ mg/dl (NEGATIVE); UR UROBILINOGEN (Dip) NEGATIVE (NEGATIVE)
--- NOTE | 2017-04-07 13:40 | RADRPT ---
PROCEDURE: CT Abdomen and Pelvis without contrast. CLINICAL INDICATION: Black stools. Decreased appetite. TECHNIQUE: CT scan of the abdomen and pelvis without contrast was performed on a multidetector hig h-resolution CT scanner. The patient was scanned without intravenous contrast. Coronal and sagittal reformatted images were obtained from the axial source images. Images were reviewed on a high-resol [employer] PACS workstation. The total exam CTDI equals 7.78 mGy and the total exam DLP equals 402.02 mGy -cm. One or more of the following dose reduction techniques were used: Automated exposure control. Adjustment of the mA and/or kV according to patient size. Use of iterative reconstruction technique. COMPARISON: CT abdomen and pelvis 03/10/2017 FINDINGS: CT abdomen: The lung bases are remarkable for bibasilar atelectasis and minimal linear pleuroparenchymal scarrin g. The heart size is enlarged without pericardial thickening or effusion. The liver is normal in size and density without focal mass or intrahepatic biliary dilatation. The spleen is normal in size and homogeneous in density. There is small to moderate hiatal hernia. The s tomach is partially collapsed, but is grossly unremarkable. The pancreas as visualized is normal. The gallbladder is remarkable for multiple calcified gallstones. There is no evidence for biliary di latation. The adrenal glands are symmetric and normal. The kidneys are symmetrically unremarkable as well. No renal calculus or obstructive uropathy or mass lesion is seen. The aorta is of normal caliber. Aortic vascular calcifications are present. There is no retroperit bailey lymphadenopathy. The hussain hepatis region is clear. The bowel and mesentery, as visualized, are equally unremarkable. CT pelvis: The small bowel loops situated within the pelvis are unremarkable. The uterus is absent. There are postsurgical changes of pelvic lymphadenectomy. The pelvic sidewalls and inguinal regions are clear . The sigmoid colon and rectum are remarkable for sigmoid diverticulosis. No mass, lymphadenopathy , or free fluid is seen. No acute inflammation is seen. The surrounding osseous structures are rem arkable for degenerative spondylosis of the spine. There is grade 1 anterolisthesis of L4 on L5 and L5 on S1 related to facet arthropathy. No osteolytic or osteoblastic lesion is detected. IMPRESSION: The evaluation of the bowel is limited due to absence of IV and oral contrast. 1. No mass, lymphadenopathy, or focal acute inflammatory process is identified. 2. Cholelithiasis without evidence of acute cholecystitis. 3. Small moderate hiatal hernia. 4. Aortoiliac atherosclerosis. 5. Hysterectomy and pelvic lymphadenectomy. 6. Cardiomegaly. RPTAT: BB .Scott Alvarado MD, Date Time Electronically viewed and signed by .Scott Alvarado MD, on 04/07/2017 13:40 .O/
[2017-04-07 13:42] LABS: INR 1.06; PROTIME 13.8 Sec (12.2-14.2); PT RATIO 1.1
[2017-04-07 13:43] LABS: PARTIAL THROMBOPLASTIN TIME 33.7 Sec (25.0-35.0)
[2017-04-07 13:46] LABS: ALANINE AMINOTRANSFERASE 21 IU/L (13-69); ALBUMIN 3.7 g/dl (3.3-4.9); ALBUMIN/GLOBULIN RATIO 1.12; ALKALINE PHOSPHATASE 114 IU/L (42-121); ANION GAP 23 (8-16); ASPARTATE AMINO TRANSFERASE 24 IU/L (15-46); BILIRUBIN,INDIRECT 0.6 mg/dl (0-1.1); BILIRUBIN,TOTAL 0.6 mg/dl (0.2-1.3); BLOOD UREA NITROGEN 25 mg/dl (7-20); CALCIUM 9.7 mg/dl (8.4-10.2); CARBON DIOXIDE 21 mmol/L (21-31); CHLORIDE 108 mmol/L (97-110); CREATININE 0.56 mg/dl (0.44-1.00); GLUCOSE 93 mg/dl (70-220); POTASSIUM 3.6 mmol/L (3.5-5.1); SODIUM 148 mmol/L (135-144)
[2017-04-07] MEDS ORDERED: CEFTRIAXONE 1 GM/50 ML (PMX) 50 ML IVPB ONE (14:00)
[2017-04-07 14:03] LABS: TROPONIN-I < 0.012 ng/ml (0.00-0.12)
--- NOTE | 2017-04-07 14:18 | ERA ---
ER Documentation Chief Complaint Date/Time DATE: 04/07/17 TIME: 14:10 Chief Complaint BLACK STOOLS AND DECREASED APPETITE FOR THE PAST 2 DAYS. NO VOMITING. HPI 76-year-old female, Azerbaijani-speaking history of severe dementia who presents with decreased appetite for the past several days. Patient presents from assisted living facility. She is full code. EMS reports that the facility noted black stools. Decreased appetite for at least 48 hours. No vomiting. The patient does have a history of diverticulosis. Remainder of HPI is dramatically limited. ROS All systems reviewed and are negative except as per history of present illness. Medications Home Meds Reported Medications Acetaminophen* (Tylenol*) 500 Mg Tab, 1000 MG PO Q4H Y for PAIN 4-02/05, TAB 03/10/17 Acetaminophen* (Tylenol*) 325 Mg Tablet, 650 MG PO Q4H Y for MILD PAIN LEVEL 1-3 , TAB FOR FEVER 100 AND ABOVE 03/10/17 Magaldrate/Simethicone* (Mag-Al Plus Suspension*) 30 Ml Oral.susp, 30 ML PO Q4H Y for GASTROINTESTINAL UPSET, ML 03/10/17 Na Phos,M-B/Na Phos,Di-Ba (Fleet Enema Extra) 230 Ml Enema, 230 ML RC Q2D Y for PRN, ENEMA 03/10/17 Bisacodyl* (Bisacodyl*) 10 Mg Supp, 10 MG VT DAILY Y for NEEDED, SUPP 03/10/17 Magnesium Hydroxide* (Milk Of Magnesia*) 400 Mg/5 Ml Oral.susp, 30 ML PO QHS, ML 03/10/17 Docusate Sodium* (Colace*) 100 Mg Capsule, 200 MG PO QHS, #30 CAP 03/10/17 Insulin Aspart* (Novolog Insulin Pen*) 100 Unit/Ml Soln, 0 SC .SLIDING SCALE AC , EA 150-199=1 UNITS,200-249=2 UNITS,250-299=3 UNITS, 300-349=4 UNITS,ABOVE 349=5 UNITS; ABOVE 400 OR BELOW 60 CALL 03/10/17 Cranberry Extract (Cranberry) 425 Mg Capsule, 425 MG PO DAILY, CAP 03/10/17 Lorazepam* (Lorazepam*) 0.5 Mg Tablet, 0.5 MG PO Q6 Y for ANXIETY, TAB 03/10/17 Zolpidem Tartrate* (Ambien*) 5 Mg Tablet, 5 MG PO QHS Y for INSOMNIA, #30 TAB 03/10/17 Pantoprazole* (Protonix*) 40 Mg Tablet.dr, 40 MG PO DAILY, TAB 03/10/17 Propranolol Hcl* (Propranolol Hcl*) 10 Mg Tablet, 10 MG PO BID, TAB 03/10/17 Atorvastatin Calcium (Atorvastatin Calcium) 10 Mg Tablet, 10 MG PO QHS, #30 TAB 03/10/17 Losartan Potassium* (Losartan Potassium*) 50 Mg Tablet, 50 MG PO BID, TAB 03/10/17 Pramipexole* (Mirapex*) 1.5 Mg Tablet, 1.5 MG PO Q8H, TAB 03/10/17 Entacapone* (Comtan*) 200 Mg Tab, 200 MG PO TID, TAB 03/10/17 Allergies Allergies: Coded Allergies: No Known Allergy (Unverified , 04/07/17) PMhx/Soc History of Surgery: Yes (COLON CA REMOVAL) Anesthesia Reaction: No (UNK) Hx Neurological Disorder: No Hx Respiratory Disorders: No Hx Cardiac Disorders: Yes (HTN, HYPERLIPIDEMIA) Hx Psychiatric Problems: Yes (ANXIETY) Hx Miscellaneous Medical Probl: Yes Hx Alcohol Use: No Hx Substance Use: No Hx Tobacco Use: No FmHx Family History: No diabetes Physical Exam Vitals Vital Signs Date Time Temp Pulse Resp B/P Pulse Ox O2 Delivery O2 Flow Rate FiO2 04/07/17 11:51 99.4 92 20 120/76 98 Physical Exam General: No significant distress Head: Normocephalic, atraumatic. Eyes: Pupils equally reactive, EOM intact ENT: Moist mucous membranes Neck: Supple, no lymphadenopathy Respiratory: Lungs clear bilaterally, no distress Cardiovascular: RRR, no murmurs, rubs, or gallops Abdominal: Soft, non-tender, non-distended, no peritoneal signs : Brown stool no melena MSK: Limited movement of all 4 extremities, no bony abnormalities Neurologic: Limited exam, and encephalopathic, limited movement of all 4 extremities Skin: No rash, no significant breakdown Psych: Unable to assess const: [] Head: Atraumatic Eyes: Normal Conjunctiva ENT: Normal External Ears, Nose and Mouth. Neck: Full range of motion..~ No meningismus. Resp: Clear to auscultation bilaterally Cardio: Regular rate and rhythm, no murmurs Abd: Soft, non tender, non distended. Normal bowel sounds Skin: No petechiae or rashes Back: No midline or flank tenderness Ext: No cyanosis, or edema Neur: Awake and alert Psych: Normal Mood and Affect Result Diagram: 04/07/17 1210 04/07/17 1245 Results 24 hrs Laboratory Tests Test 04/07/17 12:10 04/07/17 12:45 04/07/17 13:00 White Blood Count 14.510^3/ul Red Blood Count 4.4110^6/ul Hemoglobin 11.7g/dl Hematocrit 36.3% Mean Corpuscular Volume 82.3fl Mean Corpuscular Hemoglobin 26.5pg Mean Corpuscular Hemoglobin Concent 32.2g/dl Red Cell Distribution Width 17.5% Platelet Count 87445^3/UL Mean Platelet Volume 13.2fl Neutrophils % 82.5% Lymphocytes % 11.4% Monocytes % 4.6% Eosinophils % 0.7% Basophils % 0.2% Nucleated Red Blood Cells % 0.0/100WBC Neutrophils # 12.010^3/ul Lymphocytes # 1.710^3/ul Monocytes # 0.710^3/ul Eosinophils # 0.110^3/ul Basophils # 0.010^3/ul Nucleated Red Blood Cells # 0.010^3/ul Prothrombin Time 13.8Sec Prothrombin Time Ratio 1.1 INR International Normalized Ratio 1.06 Activated Partial Thromboplast Time 33.7Sec Sodium Level 148mmol/L Potassium Level 3.6mmol/L Chloride Level 108mmol/L Carbon Dioxide Level 21mmol/L Anion Gap 23 Blood Urea Nitrogen 25mg/dl Creatinine 0.56mg/dl Glucose Level 93mg/dl Calcium Level 9.7mg/dl Total Bilirubin 0.6mg/dl Direct Bilirubin 0.00mg/dl Indirect Bilirubin 0.6mg/dl Aspartate Amino Transf (AST/SGOT) 24IU/L Alanine Aminotransferase (ALT/SGPT) 21IU/L Alkaline Phosphatase 114IU/L Troponin I < 0.012ng/ml Total Protein 7.0g/dl Albumin 3.7g/dl Globulin 3.30g/dl Albumin/Globulin Ratio 1.12 Lipase 16U/L Urine Color LAITH Urine Clarity SLIGHTLY CLOUDY Urine pH 6.0 Urine Specific [place] 1.028 Urine Ketones 2+mg/dL Urine Nitrite POSITIVEmg/dL Urine Bilirubin NEGATIVEmg/dL Urine Urobilinogen NEGATIVEmg/dL Urine Leukocyte Esterase TRACELeu/ul Urine Microscopic RBC 1/HPF Urine Microscopic WBC 10/HPF Urine Bacteria MANY/HPF Urine Mucus MANY/HPF Urine Hemoglobin 1+mg/dL Urine Glucose NEGATIVEmg/dL Urine Total Protein 1+mg/dl Current Medications Medications (Trade) Dose Ordered Sig/Marci Route PRN Reason Start Time Stop Time Status Last Admin Dose Admin Sodium Chloride (NS) 1,000 ml @ 1,000 mls/hr Q1H STAT IV 04/07/17 12:09 04/07/17 13:08 DC 04/07/17 12:38 Sodium Chloride 920 ml 920 ml BOLUS OVER 2 HOURS STAT IV* 04/07/17 13:22 04/07/17 13:24 DC Ceftriaxone Sodium (Rocephin) 50 ml @ 100 mls/hr ONCE ONCE IVPB 04/07/17 14:00 04/07/17 14:29 Procedures/MDM EKG, MONITORS, & DIAGNOSTIC IMAGING: EKG: I reviewed and interpreted a 12-lead EKG. Rhythm: Normal sinus rhythm Ectopy: None Intervals: No abnormalities ST segments: No elevations or depressions T waves: No contiguous inversions Chest x-ray: I reviewed and interpreted a 1 view of the chest Mediastinum: No enlargement Cardiac silhouette: No cardiomegaly Airspace: Clear lung murphy bilaterally without evidence of pneumothorax Bones: No evidence of fracture CT abdomen and pelvis: IMPRESSION: The evaluation of the bowel is limited due to absence of IV and oral contrast. 1. No mass, lymphadenopathy, or focal acute inflammatory process is identified. 2. Cholelithiasis without evidence of acute cholecystitis. 3. Small moderate hiatal hernia. 4. Aortoiliac atherosclerosis. 5. Hysterectomy and pelvic lymphadenectomy. 6. Cardiomegaly. LAB INTERPRETATION: Leukocytosis, lactic acid pending. Urinary tract infection noted. MEDICAL DECISION MAKING: The patient presents with generalized weakness, decreased oral intake, report of black stool. However, clinical exam the patient does not have evidence of melena. Low concern for GI bleed. Benign abdominal exam. However, given the patient's age, comorbidities, limited history broad workup was initiated. ER COURSE: The patient technically has Sirs criteria with a urinary tract infection consistent with sepsis. No evidence of septic shock. 30 cc/kg bolus of saline provided. Ceftriaxone provided to treat urinary tract infection and given after blood cultures taken. The patient is stable, no indication for central line, pressors, intubation. Again, low clinical concern for GI bleed. Hemoglobin stable. I kept the patient and/or family informed of laboratory and diagnostic imaging results throughout the emergency room course. DISPOSITION PLAN: Medical surgical admission for management of sepsis, urinary tract infection CONSULTATION: Accepting care team and consultations: I discussed the current laboratory data, diagnostic imaging and emergency care provided. Admitting team: Dr. Onofre Admitting team indication: Insurance directed, primary care physician Consulting services: None required Sepsis Documentation: Patient's infectious symptoms have not stabilized and the patient is at risk of rapid decompensation. The patient will be admitted for careful hydration, antibiotic therapy, and infectious source control. SEVERE SEPSIS CRITERIA: Infectious source: Urinary tract infection End organ damage indicated by: No evidence of endorgan damage. SEPSIS MANAGEMENT Time of recognition of severe sepsis/septic shock: Patient has not met criteria for severe sepsis or septic shock at this point. 3 HOUR BUNDLE Blood cultures x 2 before broad-spectrum antibiotics: Yes 30 ml/kg NS bolus Completed Initial lactate pending Repeat lactate pending SEPTIC SHOCK ASSESSMENT: No lactic acid > 4.0 No persistent hypotension (SBP < 90 or 40 mmHg drop, MAP < 65) despite 30 mL/kg IV fluid bolus VOLUME REASSESSMENT FOR SEPTIC SHOCK: Reevaluation Time: 2:16 PM. Temperature afebrile see EMR, heart rate 87, respiratory rate 18, blood pressure 135/77, pulse ox 98 on room air Heart Regular rate & rhythm Lungs No crackles Skin Warm & dry Cap Refill Less than 2 seconds Peripheral pulses Radially present PERSISTENT HYPOTENSION TREATMENT: Comfort care No Central line Not Required Vasopressor started Not required I considered further perfusion assessment with CVP measurement, SCVO2, bedside ultrasound volume assessment, passive leg raise, trial of further fluid bolus. And proceeded with 30 ml/kg fluid bolus of NSS, broad spectrum antbiotics, and admission. CRITICAL CARE Critical care time 35 minutes Emergent fluid management while maintaining close respiratory support. Provision of immediate and broad-spectrum antibiotic therapy. Simultaneous assessment for possible sources in order to direct targeted therapy. Consideration for invasive and chemical support to prevent cardiopulmonary collapse. Critical care time is independent of procedures performed. Departure Diagnosis: Primary Impression: Sepsis Qualified Code: A41.9 - Sepsis, due to unspecified organism Additional Impressions: Urinary tract infection Qualified Code: N30.00 - Acute cystitis without hematuria Encephalopathy chronic Condition: Stable CONTRERAS TIERNEY MD Apr 07, 2017 14:18
[2017-04-07 14:19] VITALS: TEMP 98.3
[2017-04-07] MEDS ORDERED: ACETAMINOPHEN 325 MG TAB PO PRN ×2 (14:30→16:00)
[2017-04-07] MEDS ORDERED: ONDANSETRON 4 MG INJ IV PRN ×2 (14:30→16:00)
--- NOTE | 2017-04-07 15:00 | RADRPT ---
PROCEDURE: XR Chest. CLINICAL INDICATION: Abdominal Pain TECHNIQUE: Single frontal view of the chest was obtained COMPARISON: Chest x-ray 03/14/[address] abdomen/pelvis 03/10/2017 FINDINGS: The cardiac silhouette is mildly enlarged. There are atherosclerotic calcifications of the aorta. There is improved aeration of both lung bases. No pneumothorax, pleural effusion, or consolidation is identified. There is no evidence of pulmonary vascular congestion. There is S-shaped thoracolumbar scoliosis. Degenerative change of the spine are also noted. There is 1 cm rounded density projecting over the left eighth rib, not definitely seen on prior stud ies. IMPRESSION: 1. Rounded density measuring approximate 1 cm projecting over the left eighth rib, not definitely se en on prior studies. A new sclerotic rib metastasis is not excluded. Suggest dedicated left-sided ri b series for definitive localization and further characterization. 2. Decreased bibasilar atelectasis. 3. Mild cardiomegaly 4. Thoracic aortic atherosclerotic disease. 5. S-shaped thoracolumbar scoliosis. RPTAT: EE Physician Nahomi Date Time Electronically viewed and signed by Physician Nahomi on 04/07/2017 14:59 /
[2017-04-07 16:00] VITALS: BP 151/63; PULSE 85; RESP 18
[2017-04-07] MEDS ORDERED: MAGNESIUM HYDROXIDE 30ML CUP PO PRN (16:00)
[2017-04-07] MEDS ORDERED: METOCLOPRAMIDE 10 MG INJ IV PRN (16:00)
[2017-04-07] MEDS ORDERED: DOCUSATE SODIUM 100 MG CAP PO PRN (16:00)
[2017-04-07] MEDS ORDERED: NACL 0.9% 3 ML SYG IV SCH (16:00)
[2017-04-07] MEDS ORDERED: ACETAMINOPHEN 650 MG SUPP PR PRN (16:00)
[2017-04-07] MEDS ORDERED: HYDROCODONE/APAP (5/325) TAB PO PRN (16:00)
[2017-04-07 16:15] VITALS: Ht 142.2 cm; Wt 56.2 kg
[2017-04-07 19:55] VITALS: BP 134/63; RESP 18
[2017-04-07] MEDS: DEXTROSE 5%-0.45% NACL 1,000 ML IV SCH (19:57)
[2017-04-07 21:16] LABS: BASOPHILS % 0.2 % (0.0-2.0); EOSINOPHILS # 0.1 10^3/ul (0.0-0.5); EOSINOPHILS % 1.2 % (0.0-7.0); HEMOGLOBIN 10.7 g/dl (12.0-16.0); LYMPHOCYTES # 1.3 10^3/ul (0.8-2.9); LYMPHOCYTES % 10.4 % (15.0-51.0); MEAN CORPUSCULAR HEMOGLOBIN 26.2 pg (29.0-33.0); MEAN CORPUSCULAR HGB CONC 31.5 g/dl (32.0-37.0); MEAN CORPUSCULAR VOLUME 83.1 fl (82.0-101.0); MONOCYTE # 0.8 10^3/ul (0.3-0.9); MONOCYTES % 6.2 % (0.0-11.0); NEUTROPHIL # 9.8 10^3/ul (1.6-7.5); NEUTROPHILS % 81.3 % (39.0-77.0); PLATELET COUNT 248 10^3/UL (140-415); RED BLOOD COUNT 4.09 10^6/ul (4.20-5.40); RED CELL DISTRIBUTION WIDTH 17.4 % (11.5-14.5)
[2017-04-07] MEDS: DOCUSATE SODIUM 100 MG CAP PO SCH (21:30)
[2017-04-07] MEDS: ATORVASTATIN 10 MG TAB PO SCH (21:30)
[2017-04-07] MEDS: PROPRANOLOL 10 MG TAB PO SCH (22:30)
[2017-04-07] MEDS: PRAMIPEXOLE 1 MG TAB PO SCH (22:30)
[2017-04-07] MEDS: ENTACAPONE 200 MG TAB PO SCH (22:30)
[2017-04-08 02:27] VITALS: BP 111/57; RESP 18
--- NOTE | 2017-04-08 05:04 | HP ---
DATE OF ADMISSION: 04/07/2017 REASON FOR ADMISSION: 1. Black stool. 2. Failure to thrive. HISTORY OF PRESENT ILLNESS: This is a 76-year-old woman, who is a resident at [facility] with a past medical history of stomach carcinoma, history of shoulder dislocation, Parkinson's, hypertension, dyslipidemia, bronchiolitis with rectal bleeding, was sent in from [facility] for failure to thrive, black stools by the nursing staff. The patient was found to have black stools for the past 2 to 3 days. She was found to have occult blood positive. The patient was noted to have decreased p.o. intake for the last 2 days and was also noted with failure to thrive by her family members. They wanted patient to have G-tube placement and was seen by Dr. Onofre and was sent to [facility] ER. The patient is very confused on examination and does not answer appropriately. Do not know if that is the patient's baseline. In the ER the patient was found to have a heart rate of 55, afebrile, respirations 18, blood pressure 165/66. White count 14.5, hemoglobin 11.7. Sodium 148, potassium 3.6, chloride 108, BUN 25, creatinine 0.56. Urinalysis was positive for nitrites, also many bacteria, and was given a dose of Rocephin, and we were called for further management. PAST MEDICAL HISTORY: 1. History of advanced Parkinson's disease. 2. History of stomach carcinoma. 3. History of bronchiolitis. 4. Rectal bleeding. 5. Hypertension. 6. Dyslipidemia. 7. Failure to thrive. 8. Colon carcinoma. PAST SURGICAL HISTORY: None. FAMILY HISTORY: Alcohol. SOCIAL HISTORY: Alcohol none. Former smoker. Drug use none. REVIEW OF SYSTEMS: Cannot be obtained since the patient is altered. PHYSICAL EXAMINATION: VITAL SIGNS: Temperature 98.1, heart rate 55, respirations 18, blood pressure 165/66, saturation 96 percent. GENERAL: The patient is awake, however, very disoriented. Does not follow any commands. HEENT: Pupils equal, round, and reactive to light. NECK: Supple. No JVD. HEART: Regular rate. LUNGS: Clear to auscultation bilaterally. ABDOMEN: Soft, nontender. EXTREMITIES: No clubbing, cyanosis, or edema. LABORATORY DATA: White count 14.5, hemoglobin 11.7, platelet count 276. Sodium 148, potassium 3.6, bicarbonate 21, BUN 25, creatinine 0.56. MEDICATIONS: Sodium chloride 900, Rocephin 100. DIAGNOSTIC IMAGING: CT of the abdomen and pelvis. Chest x-ray, no enlargement, no cardiomegaly. EKG, no ST elevation, normal sinus rhythm. CT abdomen and pelvis, no , no acute inflammatory process, cholelithiasis without cholecystitis, moderate hiatal hernia, hysterectomy, pelvic lymphadenectomy and cardiomegaly. Urinalysis, significant and nitrate and bacteria. ASSESSMENT: This is a 76-year-old woman presenting with, 1. Black colored stool with gastrointestinal bleed. 2. Failure to thrive. 3. Dysphagia. 4. Urinary tract infection. 5. Advanced Parkinson's disease. 6. Dyslipidemia. 7. Hypertension. 8. Hyperlipidemia. PLAN: At this period of time, the patient is admitted to medical/surgical unit. The patient had no black. Hemoglobin and hematocrit seems stable. Will check serum hemoglobin and hematocrit, start the patient on Protonix. I spoke to regarding the patient's course. It was discussed with Dr. Onofre to start the patient on G-tube for feeding. It will be addressed in the morning. Will also start the patient on gentle hydration. Will start IV Rocephin for the UTI. Urine cultures will be sent. The patient can be on DVT prophylaxis due to GI bleeding, SCDs in place. The rest of the treatment will depend on the patient's hospitalization course. Dictated By: MD HALIMA Singh/cassandra/jude /Document#: [id number]
[2017-04-08] MEDS: PANTOPRAZOLE 40 MG INJ IV SCH (05:58)
[2017-04-08 06:38] LABS: BASOPHILS % 0.2 % (0.0-2.0); EOSINOPHILS # 0.2 10^3/ul (0.0-0.5); EOSINOPHILS % 1.3 % (0.0-7.0); HEMATOCRIT 31.2 % (37.0-47.0); HEMOGLOBIN 9.8 g/dl (12.0-16.0); LYMPHOCYTES # 1.3 10^3/ul (0.8-2.9); LYMPHOCYTES % 11.4 % (15.0-51.0); MEAN CORPUSCULAR HEMOGLOBIN 26.1 pg (29.0-33.0); MEAN CORPUSCULAR HGB CONC 31.4 g/dl (32.0-37.0); MEAN CORPUSCULAR VOLUME 83.2 fl (82.0-101.0); MONOCYTE # 0.7 10^3/ul (0.3-0.9); MONOCYTES % 6.4 % (0.0-11.0); NEUTROPHIL # 9.1 10^3/ul (1.6-7.5); NEUTROPHILS % 79.8 % (39.0-77.0); PLATELET COUNT 238 10^3/UL (140-415); RED BLOOD COUNT 3.75 10^6/ul (4.20-5.40); RED CELL DISTRIBUTION WIDTH 17.5 % (11.5-14.5); WHITE BLOOD COUNT 11.5 10^3/ul (4.8-10.8)
[2017-04-08 07:21] LABS: ALBUMIN 2.5 g/dl (3.3-4.9); ALBUMIN/GLOBULIN RATIO 0.89; BILIRUBIN,INDIRECT 0.3 mg/dl (0-1.1); BILIRUBIN,TOTAL 0.3 mg/dl (0.2-1.3); CALCIUM 8.7 mg/dl (8.4-10.2); CREATININE 0.48 mg/dl (0.44-1.00); TOTAL PROTEIN 5.3 g/dl (6.1-8.1)
[2017-04-08 07:41] LABS: POTASSIUM 2.9 mmol/L (3.5-5.1)
[2017-04-08 08:00] VITALS: BP 132/60; RESP 16
[2017-04-08] MEDS: PROPRANOLOL 10 MG TAB PO SCH ×2 (08:04→21:00)
[2017-04-08] MEDS: ENTACAPONE 200 MG TAB PO SCH ×3 (08:04→21:00)
[2017-04-08] MEDS: PRAMIPEXOLE 1 MG TAB PO SCH ×3 (08:05→21:00)
[2017-04-08] MEDS ORDERED: CEFTRIAXONE 1 GM INJ IVPB ONE (09:00)
[2017-04-08] MEDS: POTASSIUM CHLORIDE 250 ML IVPB SCH ×2 (09:59→14:10)
[2017-04-08] MEDS ORDERED: POTASSIUM CHLORIDE 250 ML IVPB SCH (10:00)
[2017-04-08] MEDS: DEXTROSE 5%-0.45% NACL 1,000 ML IV SCH ×2 (10:00→22:06)
--- NOTE | 2017-04-08 10:57 | PN ---
Date/Time of Note Date/Time of Note DATE: 04/08/17 TIME: 10:55 Assessment/Plan VTE Prophylaxis VTE Prophylaxis Intervention: SCD's Lines/Catheters IV Catheter Type (from Nrs): Peripheral IV Assessment/Plan Chief Complaint/Hosp Course 1. SIRS 2. History of stomach carcinoma. 3. History of bronchiolitis. 4. Rectal bleeding. 5. Hypertension, controlled. 6. Dyslipidemia. 7. Failure to thrive. 8. Colon carcinoma. 9. Advanced Parkinson's disease. 10. Anemia 11. electrolyte imbalance Problems: Assessment/Plan 1. GI consultation 2. electrolyte replacement Subjective 24 Hr Interval Summary Constitutional: no complaints, poor po Cardiovascular: no complaints Gastrointestinal: pain Exam/Review of Systems Vital Signs Vitals Vital Signs Date Time Temp Pulse Resp B/P Pulse Ox O2 Delivery O2 Flow Rate FiO2 04/08/17 08:00 97.5 85 16 132/60 97 04/07/17 16:00 Room Air Intake and Output 04/07/17 04/07/17 04/08/17 15:00 23:00 07:00 Intake Total 0 ml 630 ml Balance 0 ml 630 ml Exam closed eyes Constitutional: alert Neck: supple Respiratory: clear to auscultation Gastrointestinal: rebound or guarding Results Result Diagram: 04/08/17 0548 04/08/17 0548 Results 24 hrs Laboratory Tests Test 04/07/17 12:10 04/07/17 12:45 04/07/17 13:00 04/07/17 13:50 White Blood Count 14.5 #H Red Blood Count 4.41 # Hemoglobin 11.7 #L Hematocrit 36.3 #L Mean Corpuscular Volume 82.3 Mean Corpuscular Hemoglobin 26.5 L Mean Corpuscular Hemoglobin Concent 32.2 Red Cell Distribution Width 17.5 H Platelet Count 276 Mean Platelet Volume 13.2 #H Neutrophils % 82.5 H Lymphocytes % 11.4 L Monocytes % 4.6 Eosinophils % 0.7 Basophils % 0.2 Nucleated Red Blood Cells % 0.0 Neutrophils # 12.0 H Lymphocytes # 1.7 Monocytes # 0.7 Eosinophils # 0.1 Basophils # 0.0 Nucleated Red Blood Cells # 0.0 Prothrombin Time 13.8 Prothrombin Time Ratio 1.1 INR International Normalized Ratio 1.06 Activated Partial Thromboplast Time 33.7 Sodium Level 148 H Potassium Level 3.6 Chloride Level 108 Carbon Dioxide Level 21 Anion Gap 23 H Blood Urea Nitrogen 25 H Creatinine 0.56 Glucose Level 93 Calcium Level 9.7 Total Bilirubin 0.6 Direct Bilirubin 0.00 Indirect Bilirubin 0.6 Aspartate Amino Transf (AST/SGOT) 24 Alanine Aminotransferase (ALT/SGPT) 21 Alkaline Phosphatase 114 Troponin I < 0.012 Total Protein 7.0 Albumin 3.7 Globulin 3.30 H Albumin/Globulin Ratio 1.12 Lipase 16 L Urine Color LAITH Urine Clarity SLIGHTLY CLOUDY A Urine pH 6.0 Urine Specific [place] 1.028 Urine Ketones 2+ H Urine Nitrite POSITIVE A Urine Bilirubin NEGATIVE Urine Urobilinogen NEGATIVE Urine Leukocyte Esterase TRACE A Urine Microscopic RBC 1 Urine Microscopic WBC 10 H Urine Bacteria MANY A Urine Mucus MANY A Urine Hemoglobin 1+ H Urine Glucose NEGATIVE Urine Total Protein 1+ H Lactic Acid Level 1.1 Test 04/07/17 15:22 04/07/17 17:10 04/07/17 21:10 04/08/17 05:48 Lactic Acid Level 1.1 0.8 White Blood Count 12.0 H 11.5 H Red Blood Count 4.09 L 3.75 L Hemoglobin 10.7 L 9.8 L Hematocrit 34.0 L 31.2 L Mean Corpuscular Volume 83.1 83.2 Mean Corpuscular Hemoglobin 26.2 L 26.1 L Mean Corpuscular Hemoglobin Concent 31.5 L 31.4 L Red Cell Distribution Width 17.4 H 17.5 H Platelet Count 248 238 Mean Platelet Volume 12.0 H 13.0 H Neutrophils % 81.3 H 79.8 H Lymphocytes % 10.4 L 11.4 L Monocytes % 6.2 6.4 Eosinophils % 1.2 1.3 Basophils % 0.2 0.2 Nucleated Red Blood Cells % 0.0 0.0 Neutrophils # 9.8 H 9.1 H Lymphocytes # 1.3 1.3 Monocytes # 0.8 0.7 Eosinophils # 0.1 0.2 Basophils # 0.0 0.0 Nucleated Red Blood Cells # 0.0 0.0 Sodium Level 144 Potassium Level 2.9 *L Chloride Level 108 Carbon Dioxide Level 25 Anion Gap 14 # Blood Urea Nitrogen 15 # Creatinine 0.48 Glucose Level 154 Calcium Level 8.7 Total Bilirubin 0.3 Direct Bilirubin 0.00 Indirect Bilirubin 0.3 Aspartate Amino Transf (AST/SGOT) 12 L Alanine Aminotransferase (ALT/SGPT) 21 Alkaline Phosphatase 79 Total Protein 5.3 #L Albumin 2.5 #L Globulin 2.80 Albumin/Globulin Ratio 0.89 Medications Medications Current Medications Dextrose/Sodium Chloride (D5-1/2ns) 1,000 ml @ 70 mls/hr [id number] IV Last administered on 04/08/17t 10:00; Admin Dose 70 MLS/HR; Start 04/07/17 at 17:30 Ondansetron HCl (Zofran Inj) 4 mg Q6H PRN IV NAUSEA AND/OR VOMITING; Start 06/14 at 16:00 Metoclopramide HCl (Reglan) 10 mg Q6H PRN IV NAUSEA AND/OR VOMITING; Start 06/14 at 16:00 Acetaminophen (Tylenol Tab) 650 mg Q6H PRN PO PAIN LEVEL 1-3 OR FEVER; Start at 16:00 Acetaminophen (Tylenol Supp) 650 mg Q6H PRN [place] PAIN LEVEL 1-3 OR FEVER; Start 04/07/17 at 16:00 Acetaminophen/ Hydrocodone Bitart ([place] (5/325)) 1 tab Q6H PRN PO MODERATE PAIN LEVEL 4-6; Start 04/07/17 at 16:00 Magnesium Hydroxide (Milk Of Mag) 30 ml DAILY PRN PO CONSTIPATION; Start at 16:00 Pantoprazole 40 mg 40 mg DAILY@06 IV Last administered on 04/08/17t 05:58; Admin Dose 40 MG; Start 04/08/17 at 06:00 Ceftriaxone Sodium (Rocephin) 50 ml @ 100 mls/hr Q24H IVPB ; Start 04/08/17 at 14:00 Atorvastatin Calcium (Lipitor) 10 mg QHS PO ; Start 04/07/17 at 21:30 Docusate Sodium (Colace) 200 mg QHS PO ; Start 04/07/17 at 21:30 Entacapone (Comtan) 200 mg TID PO ; Start 04/07/17 at 22:30 Pramipexole (Mirapex) 1.5 mg TID PO ; Start 04/07/17 at 22:30 Propranolol HCl 10 mg 10 mg BID PO ; Start 04/07/17 at 22:30 Potassium Chloride (KCl 40 MEQ/250 ML NS) 250 ml @ 62.5 mls/hr Q4H IVPB Last administered on 04/08/17t 09:59; Admin Dose 62.5 MLS/HR; Start 04/08/17 at 10:30 ; Stop 04/08/17 at 18:29 BRAYDEN BARRERA Apr 08, 2017 10:57
[2017-04-08 12:19] LABS: BASOPHILS % 0.3 % (0.0-2.0); EOSINOPHILS # 0.1 10^3/ul (0.0-0.5); EOSINOPHILS % 1.3 % (0.0-7.0); HEMATOCRIT 32.2 % (37.0-47.0); HEMOGLOBIN 10.1 g/dl (12.0-16.0); LYMPHOCYTES % 9.4 % (15.0-51.0); MEAN CORPUSCULAR HEMOGLOBIN 26.1 pg (29.0-33.0); MEAN CORPUSCULAR HGB CONC 31.4 g/dl (32.0-37.0); MEAN CORPUSCULAR VOLUME 83.2 fl (82.0-101.0); MEAN PLATELET VOLUME 11.7 fl (7.4-10.4); MONOCYTE # 0.5 10^3/ul (0.3-0.9); MONOCYTES % 5.1 % (0.0-11.0); NEUTROPHIL # 8.7 10^3/ul (1.6-7.5); PLATELET COUNT 240 10^3/UL (140-415); RED BLOOD COUNT 3.87 10^6/ul (4.20-5.40); RED CELL DISTRIBUTION WIDTH 17.5 % (11.5-14.5); WHITE BLOOD COUNT 10.5 10^3/ul (4.8-10.8)
--- NOTE | 2017-04-08 12:47 | CONS ---
Date/Time of Note Date/Time of Note DATE: 04/08/17 TIME: 12:46 Consultation Date/Type/Reason Admit Date/Time Apr 07, 2017 at 14:26 Date of Consultation: Apr 08, 2017 Type of Consultation: ID Reason for Consultation Antibiotic management Constitutional: no complaints, poor po Cardiovascular: no complaints Gastrointestinal: pain Past Surgical History Past Surgical Hx: other Social History Smoking Status: Never smoker Exam/Review of Systems Vital Signs Vitals Vital Signs Date Time Temp Pulse Resp B/P Pulse Ox O2 Delivery O2 Flow Rate FiO2 04/08/17 08:00 97.5 85 16 132/60 97 04/07/17 16:00 Room Air Intake and Output 04/07/17 04/07/17 04/08/17 15:00 23:00 07:00 Intake Total 0 ml 630 ml Balance 0 ml 630 ml Results Result Diagram: 04/08/17 1205 04/08/17 0548 Results 24 hrs Laboratory Tests Test 04/07/17 13:00 04/07/17 13:50 04/07/17 15:22 04/07/17 17:10 Urine Color LAITH Urine Clarity SLIGHTLY CLOUDY A Urine pH 6.0 Urine Specific [place] 1.028 Urine Ketones 2+ H Urine Nitrite POSITIVE A Urine Bilirubin NEGATIVE Urine Urobilinogen NEGATIVE Urine Leukocyte Esterase TRACE A Urine Microscopic RBC 1 Urine Microscopic WBC 10 H Urine Bacteria MANY A Urine Mucus MANY A Urine Hemoglobin 1+ H Urine Glucose NEGATIVE Urine Total Protein 1+ H Lactic Acid Level 1.1 1.1 0.8 Test 04/07/17 21:10 04/08/17 05:48 04/08/17 12:05 White Blood Count 12.0 H 11.5 H 10.5 Red Blood Count 4.09 L 3.75 L 3.87 L Hemoglobin 10.7 L 9.8 L 10.1 L Hematocrit 34.0 L 31.2 L 32.2 L Mean Corpuscular Volume 83.1 83.2 83.2 Mean Corpuscular Hemoglobin 26.2 L 26.1 L 26.1 L Mean Corpuscular Hemoglobin Concent 31.5 L 31.4 L 31.4 L Red Cell Distribution Width 17.4 H 17.5 H 17.5 H Platelet Count 248 238 240 Mean Platelet Volume 12.0 H 13.0 H 11.7 H Neutrophils % 81.3 H 79.8 H 83.0 H Lymphocytes % 10.4 L 11.4 L 9.4 L Monocytes % 6.2 6.4 5.1 Eosinophils % 1.2 1.3 1.3 Basophils % 0.2 0.2 0.3 Nucleated Red Blood Cells % 0.0 0.0 0.0 Neutrophils # 9.8 H 9.1 H 8.7 H Lymphocytes # 1.3 1.3 1.0 Monocytes # 0.8 0.7 0.5 Eosinophils # 0.1 0.2 0.1 Basophils # 0.0 0.0 0.0 Nucleated Red Blood Cells # 0.0 0.0 0.0 Sodium Level 144 Potassium Level 2.9 *L Chloride Level 108 Carbon Dioxide Level 25 Anion Gap 14 # Blood Urea Nitrogen 15 # Creatinine 0.48 Glucose Level 154 Calcium Level 8.7 Total Bilirubin 0.3 Direct Bilirubin 0.00 Indirect Bilirubin 0.3 Aspartate Amino Transf (AST/SGOT) 12 L Alanine Aminotransferase (ALT/SGPT) 21 Alkaline Phosphatase 79 Total Protein 5.3 #L Albumin 2.5 #L Globulin 2.80 Albumin/Globulin Ratio 0.89 Medications Medications Current Medications Dextrose/Sodium Chloride (D5-1/2ns) 1,000 ml @ 70 mls/hr [id number] IV Last administered on 04/08/17t 10:00; Admin Dose 70 MLS/HR; Start 04/07/17 at 17:30 Ondansetron HCl (Zofran Inj) 4 mg Q6H PRN IV NAUSEA AND/OR VOMITING; Start 06/14 at 16:00 Metoclopramide HCl (Reglan) 10 mg Q6H PRN IV NAUSEA AND/OR VOMITING; Start 06/14 at 16:00 Acetaminophen (Tylenol Tab) 650 mg Q6H PRN PO PAIN LEVEL 1-3 OR FEVER; Start at 16:00 Acetaminophen (Tylenol Supp) 650 mg Q6H PRN [place] PAIN LEVEL 1-3 OR FEVER; Start 04/07/17 at 16:00 Acetaminophen/ Hydrocodone Bitart ([place] (5/325)) 1 tab Q6H PRN PO MODERATE PAIN LEVEL 4-6; Start 04/07/17 at 16:00 Magnesium Hydroxide (Milk Of Mag) 30 ml DAILY PRN PO CONSTIPATION; Start at 16:00 Pantoprazole 40 mg 40 mg DAILY@06 IV Last administered on 04/08/17 05:58; Admin Dose 40 MG; Start 04/08/17 at 06:00 Ceftriaxone Sodium (Rocephin) 50 ml @ 100 mls/hr Q24H IVPB ; Start 04/08/17 at 14:00 Atorvastatin Calcium (Lipitor) 10 mg QHS PO ; Start 04/07/17 at 21:30 Docusate Sodium (Colace) 200 mg QHS PO ; Start 04/07/17 at 21:30 Entacapone (Comtan) 200 mg TID PO ; Start 04/07/17 at 22:30 Pramipexole (Mirapex) 1.5 mg TID PO ; Start 04/07/17 at 22:30 Propranolol HCl 10 mg 10 mg BID PO ; Start 04/07/17 at 22:30 Potassium Chloride (KCl 40 MEQ/250 ML NS) 250 ml @ 62.5 mls/hr Q4H IVPB Last administered on 04/08/17 09:59; Admin Dose 62.5 MLS/HR; Start 04/08/17 at 10:30 ; Stop 04/08/17 at 18:29 SHANNAN PAK MD Apr 08, 2017 12:47
[2017-04-08] MEDS ORDERED: VANCOMYCIN 1 GM in NS 250 ML IVPB SCH (13:30)
[2017-04-08] MEDS ORDERED: VANCOMYCIN IV PER PHARMACY XX SCH (13:30)
[2017-04-08] MEDS ORDERED: CEFTRIAXONE 1 GM/NS 50 ML IVPB SCH (14:00)
[2017-04-08 14:22] VITALS: BP 136/68; RESP 16
[2017-04-08] MEDS: CEFEPIME 1GM/50 ML (PMX) 50 ML IVPB SCH (16:43)
[2017-04-08] MEDS: metroNIDAZOLE 500 MG/NS (PMX) 100 ML IVPB SCH ×2 (17:43→23:46)
[2017-04-08] MEDS: VANCOMYCIN HCL 250 MG/5ML POSYG PO SCH ×2 (17:47→23:02)
[2017-04-08 20:00] VITALS: BP 123/90; RESP 18
[2017-04-08] MEDS: DOCUSATE SODIUM 100 MG CAP PO SCH (21:00)
[2017-04-08] MEDS: ATORVASTATIN 10 MG TAB PO SCH (21:00)
--- NOTE | 2017-04-08 21:38 | CONS ---
Date/Time of Note Date/Time of Note DATE: 04/08/17 TIME: 21:35 Assessment/Plan Assessment/Plan Additional Assessment/Plan 1. History of advanced Parkinson's disease. 2. History of stomach carcinoma. 3. History of bronchiolitis. 4. Rectal bleeding. 5. Hypertension. 6. Dyslipidemia. 7. Failure to thrive. 8. Colon carcinoma 9.c difficile colitis 10 UTI 11.encephalopathy Plan Po Vancomycin PPI EGD and PEG ON Tuesday Consultation Date/Type/Reason Admit Date/Time Apr 07, 2017 at 14:26 Initial Consult Date 04/08/17 Type of Consultation: ID [id number] HR Interval Summary Constitutional: no complaints Exam/Review of Systems Vital Signs Vitals Vital Signs Date Time Temp Pulse Resp B/P Pulse Ox O2 Delivery O2 Flow Rate FiO2 04/08/17 14:22 97.7 86 16 136/68 96 04/07/17 16:00 Room Air Intake and Output 04/07/17 04/07/17 04/08/17 15:00 23:00 07:00 Intake Total 0 ml 630 ml Balance 0 ml 630 ml Exam Constitutional: alert, oriented, well developed Psych: nl mood/affect, no complaints Head: atraumatic, normocephalic Eyes: EOMI, PERRL, nl conjunctiva, nl lids, nl sclera ENMT: nl external ears & nose, nl lips & teeth, nl nasal mucosa & septum Neck: non-tender, supple Respiratory: clear to auscultation, normal air movement Cardiovascular: nl pulses, regular rate and rhythm Gastrointestinal: nl liver, spleen, non-tender, soft Musculoskeletal: nl extremities to inspection, nl gait and stance Extremities: normal pulses Neurological: PAVER LAYER II-XII intact, nl mental status, nl speech, nl strength Skin: nl turgor, No rash or lesions Lymph: nl lymph nodes Results Result Diagram: 04/08/17 1205 04/08/17 0548 Results 24 hrs Laboratory Tests Test 04/08/17 05:48 04/08/17 12:05 White Blood Count 11.5 H 10.5 Red Blood Count 3.75 L 3.87 L Hemoglobin 9.8 L 10.1 L Hematocrit 31.2 L 32.2 L Mean Corpuscular Volume 83.2 83.2 Mean Corpuscular Hemoglobin 26.1 L 26.1 L Mean Corpuscular Hemoglobin Concent 31.4 L 31.4 L Red Cell Distribution Width 17.5 H 17.5 H Platelet Count 238 240 Mean Platelet Volume 13.0 H 11.7 H Neutrophils % 79.8 H 83.0 H Lymphocytes % 11.4 L 9.4 L Monocytes % 6.4 5.1 Eosinophils % 1.3 1.3 Basophils % 0.2 0.3 Nucleated Red Blood Cells % 0.0 0.0 Neutrophils # 9.1 H 8.7 H Lymphocytes # 1.3 1.0 Monocytes # 0.7 0.5 Eosinophils # 0.2 0.1 Basophils # 0.0 0.0 Nucleated Red Blood Cells # 0.0 0.0 Sodium Level 144 Potassium Level 2.9 *L Chloride Level 108 Carbon Dioxide Level 25 Anion Gap 14 # Blood Urea Nitrogen 15 # Creatinine 0.48 Glucose Level 154 Calcium Level 8.7 Total Bilirubin 0.3 Direct Bilirubin 0.00 Indirect Bilirubin 0.3 Aspartate Amino Transf (AST/SGOT) 12 L Alanine Aminotransferase (ALT/SGPT) 21 Alkaline Phosphatase 79 Total Protein 5.3 #L Albumin 2.5 #L Globulin 2.80 Albumin/Globulin Ratio 0.89 Medications Medications Current Medications Dextrose/Sodium Chloride (D5-1/2ns) 1,000 ml @ 70 mls/hr [id number] IV Last administered on 04/08/17t 10:00; Admin Dose 70 MLS/HR; Start 04/07/17 at 17:30 Ondansetron HCl (Zofran Inj) 4 mg Q6H PRN IV NAUSEA AND/OR VOMITING; Start 06/14 at 16:00 Metoclopramide HCl (Reglan) 10 mg Q6H PRN IV NAUSEA AND/OR VOMITING; Start 06/14 at 16:00 Acetaminophen (Tylenol Tab) 650 mg Q6H PRN PO PAIN LEVEL 1-3 OR FEVER; Start at 16:00 Acetaminophen (Tylenol Supp) 650 mg Q6H PRN [place] PAIN LEVEL 1-3 OR FEVER; Start 04/07/17 at 16:00 Acetaminophen/ Hydrocodone Bitart ([place] (5/325)) 1 tab Q6H PRN PO MODERATE PAIN LEVEL 4-6; Start 04/07/17 at 16:00 Magnesium Hydroxide (Milk Of Mag) 30 ml DAILY PRN PO CONSTIPATION; Start at 16:00 Pantoprazole (Protonix Iv) 40 mg DAILY@06 IV Last administered on 04/08/17 05: 58; Admin Dose 40 MG; Start 04/08/17 at 06:00 Atorvastatin Calcium (Lipitor) 10 mg QHS PO ; Start 04/07/17 at 21:30 Docusate Sodium (Colace) 200 mg QHS PO ; Start 04/07/17 at 21:30 Entacapone (Comtan) 200 mg TID PO ; Start 04/07/17 at 22:30 Pramipexole (Mirapex) 1.5 mg TID PO ; Start 04/07/17 at 22:30 Propranolol HCl 10 mg 10 mg BID PO ; Start 04/07/17 at 22:30 Cefepime HCl 50 ml @ 100 mls/hr Q12H IVPB Last administered on 04/08/17 16:43 ; Admin Dose 100 MLS/HR; Start 04/08/17 at 14:00 Vancomycin HCl 100 ml @ 100 mls/hr Q12H IVPB ; Start 04/09/17 at 03:00 Metronidazole (Flagyl 500 Mg (Pmx)) 100 ml @ 100 mls/hr Q8 IVPB Last administered on 04/08/17 17:43; Admin Dose 100 MLS/HR; Start 04/08/17 at 15:00 Vancomycin HCl (Vancomycin Oral Syringe) 125 mg Q6 PO ; Start 04/08/17 at 18:00 ROXANNE MORALES MD Apr 08, 2017 21:38
--- NOTE | 2017-04-08 22:36 | CONS ---
DATE OF ADMISSION: 04/07/2017 DATE OF CONSULTATION: 04/08/2017 REASON FOR CONSULTATION: Antibiotic management. HISTORY OF PRESENT ILLNESS: She Thomas is a 76-year-old female, who comes in with black tarry stools and decreased appetite. PROBLEMS: 1. Severe dementia. 2. Diverticulosis. 3. GI bleed. 4. History of colon cancer, status post surgery with removal of the cancer. 5. Hypertension. 6. Hyperlipidemia. 7. Anxiety. LABORATORY AND DIAGNOSTIC STUDIES: On admission, white count was 14.5, H and H 11.7 and 36.3, and platelet count 276,000. Today, white count is 10.5. BUN and creatinine is 15/0.48. Potassium is low at 2.9. Her urine positive for nitrite, trace leukocyte esterase, 10 white cells per high-powered field. Chest x-ray shows a rounded density measuring approximately 1 cm projecting over the left 8th rib. New sclerotic rib metastasis is not excluded. Suggest dedicated left-sided rib series for definitive localization and further characterization. Decreased bibasilar atelectasis, mild cardiomegaly, thoracic aortic atherosclerotic disease, and S shaped thoracolumbar scoliosis. CT scan of the abdomen and pelvis shows no mass, lymphadenopathy or focal acute inflammatory process. Cholelithiasis without evidence of acute cholecystitis. Small moderate hiatal hernia. Hysterectomy and pelvic lymphadenectomy. Cardiomegaly. Her urine shows greater than 10 gram-negative rods. Patient is currently on ceftriaxone. PAST MEDICAL HISTORY: Operations as outlined. FAMILY HISTORY: Noncontributory. SOCIAL HISTORY: She does not smoke, drink, or abuse drugs. ALLERGIES: NONE TO PENICILLIN, SULFA, OR FOODS. MEDICATION: Per chart. REVIEW OF SYSTEMS: As per HPI. PHYSICAL EXAMINATION: GENERAL APPEARANCE: The patient is an elderly appearing female with advanced Parkinson disease and dementia. SKIN: Without generalized rash. HEENT: Within normal limits. NECK: Supple. Lymph nodes nonpalpable. CHEST: Decreased breath sounds at the bases. HEART: Without murmur or gallop. ABDOMEN: Soft, nontender, without organosplenomegaly or masses. EXTREMITIES: Without cyanosis, clubbing, or edema. RECTAL AND GENITAL: Exam is deferred. NEUROLOGICAL: Patient has dementia and Parkinson disease. IMPRESSION AND PLAN: Patient with urinary tract infection. We should change the ceftriaxone to cefepime. I will dictate my findings to Dr. Onofre. Dictated By: Arthur Naranjo MD JD/cassandra/niurka /Document#: [id number]
[2017-04-09] MEDS: CEFEPIME 1GM/50 ML (PMX) 50 ML IVPB SCH ×2 (02:28→14:11)
[2017-04-09] MEDS: VANCOMYCIN 500MG/NS (PMX) 100 ML IVPB SCH ×2 (03:27→16:24)
[2017-04-09] MEDS: metroNIDAZOLE 500 MG/NS (PMX) 100 ML IVPB SCH ×3 (05:43→21:11)
[2017-04-09] MEDS: PANTOPRAZOLE 40 MG INJ IV SCH (05:44)
[2017-04-09] MEDS: DEXTROSE 5%-0.45% NACL 1,000 ML IV SCH (05:48)
[2017-04-09] MEDS: VANCOMYCIN HCL 250 MG/5ML POSYG PO SCH ×3 (05:50→17:17)
[2017-04-09 07:02] LABS: CALCIUM 8.8 mg/dl (8.4-10.2); CREATININE 0.42 mg/dl (0.44-1.00); POTASSIUM 3.8 mmol/L (3.5-5.1)
[2017-04-09 08:00] VITALS: BP 136/59; RESP 20
[2017-04-09] MEDS: PRAMIPEXOLE 1 MG TAB PO SCH ×3 (08:36→21:00)
[2017-04-09] MEDS: ENTACAPONE 200 MG TAB PO SCH ×3 (08:36→21:00)
[2017-04-09] MEDS: PROPRANOLOL 10 MG TAB PO SCH ×2 (08:36→21:00)
--- NOTE | 2017-04-09 10:32 | PN ---
Date/Time of Note Date/Time of Note DATE: 04/09/17 TIME: 10:31 Assessment/Plan VTE Prophylaxis VTE Prophylaxis Intervention: SCD's Lines/Catheters IV Catheter Type (from Nrs): Peripheral IV Assessment/Plan Chief Complaint/Hosp Course 1. SIRS 2. History of stomach carcinoma. 3. History of bronchiolitis. 4. Rectal bleeding. 5. Hypertension, controlled. 6. Dyslipidemia. 7. Failure to thrive. 8. Colon carcinoma. 9. Advanced Parkinson's disease. 10. Anemia 11. electrolyte imbalance Problems: Assessment/Plan 1. continue tube feeding 2. per GI further work up Subjective 24 Hr Interval Summary Constitutional: poor po Respiratory: no complaints Cardiovascular: no complaints Gastrointestinal: blood, constipation, decreased appetite, diarrhea, flatus, nausea, no complaints, other, pain, passing stool, vomiting Musculoskeletal: back pain Exam/Review of Systems Vital Signs Vitals Vital Signs Date Time Temp Pulse Resp B/P Pulse Ox O2 Delivery O2 Flow Rate FiO2 04/09/17 08:00 97.6 76 20 136/59 99 04/07/17 16:00 Room Air Intake and Output 04/08/17 04/08/17 04/09/17 15:00 23:00 07:00 Intake Total 600 ml 587.5 ml 1350 ml Balance 600 ml 587.5 ml 1350 ml Exam with the closed eyes Constitutional: alert ENMT: nl external ears & nose Neck: supple Respiratory: diminished breath sounds Gastrointestinal: other (gt), soft Results Result Diagram: 04/08/17 1205 04/09/17 0550 Results 24 hrs Laboratory Tests Test 04/08/17 12:05 04/09/17 05:50 White Blood Count 10.5 Red Blood Count 3.87 L Hemoglobin 10.1 L Hematocrit 32.2 L Mean Corpuscular Volume 83.2 Mean Corpuscular Hemoglobin 26.1 L Mean Corpuscular Hemoglobin Concent 31.4 L Red Cell Distribution Width 17.5 H Platelet Count 240 Mean Platelet Volume 11.7 H Neutrophils % 83.0 H Lymphocytes % 9.4 L Monocytes % 5.1 Eosinophils % 1.3 Basophils % 0.3 Nucleated Red Blood Cells % 0.0 Neutrophils # 8.7 H Lymphocytes # 1.0 Monocytes # 0.5 Eosinophils # 0.1 Basophils # 0.0 Nucleated Red Blood Cells # 0.0 Sodium Level 143 Potassium Level 3.8 Chloride Level 108 Carbon Dioxide Level 23 Anion Gap 16 Blood Urea Nitrogen 5 #L Creatinine 0.42 L Glucose Level 122 Calcium Level 8.8 Medications Medications Current Medications Dextrose/Sodium Chloride (D5-1/2ns) 1,000 ml @ 70 mls/hr [id number] IV Last administered on 04/09/17 05:48; Admin Dose 70 MLS/HR; Start 04/07/17 at 17:30 Ondansetron HCl (Zofran Inj) 4 mg Q6H PRN IV NAUSEA AND/OR VOMITING; Start 06/14 at 16:00 Metoclopramide HCl (Reglan) 10 mg Q6H PRN IV NAUSEA AND/OR VOMITING; Start 06/14 at 16:00 Acetaminophen (Tylenol Tab) 650 mg Q6H PRN PO PAIN LEVEL 1-3 OR FEVER; Start at 16:00 Acetaminophen (Tylenol Supp) 650 mg Q6H PRN [place] PAIN LEVEL 1-3 OR FEVER; Start 04/07/17 at 16:00 Acetaminophen/ Hydrocodone Bitart ([place] (5/325)) 1 tab Q6H PRN PO MODERATE PAIN LEVEL 4-6; Start 04/07/17 at 16:00 Magnesium Hydroxide (Milk Of Mag) 30 ml DAILY PRN PO CONSTIPATION; Start at 16:00 Pantoprazole (Protonix Iv) 40 mg DAILY@06 IV Last administered on 04/09/17 05: 44; Admin Dose 40 MG; Start 04/08/17 at 06:00 Atorvastatin Calcium (Lipitor) 10 mg QHS PO ; Start 04/07/17 at 21:30 Docusate Sodium (Colace) 200 mg QHS PO ; Start 04/07/17 at 21:30 Entacapone (Comtan) 200 mg TID PO ; Start 04/07/17 at 22:30 Pramipexole (Mirapex) 1.5 mg TID PO ; Start 04/07/17 at 22:30 Propranolol HCl 10 mg 10 mg BID PO ; Start 04/07/17 at 22:30 Cefepime HCl 50 ml @ 100 mls/hr Q12H IVPB Last administered on 04/09/17 02:28 ; Admin Dose 100 MLS/HR; Start 04/08/17 at 14:00 Vancomycin HCl 100 ml @ 100 mls/hr Q12H IVPB Last administered on 04/09/17 03 :27; Admin Dose 100 MLS/HR; Start 04/09/17 at 03:00 Metronidazole (Flagyl 500 Mg (Pmx)) 100 ml @ 100 mls/hr Q8 IVPB Last administered on 04/09/17 05:43; Admin Dose 100 MLS/HR; Start 04/08/17 at 15:00 Vancomycin HCl (Vancomycin Oral Syringe) 125 mg Q6 PO ; Start 04/08/17 at 18:00 Miscellaneous Information (*Rx Drug Level Order Reminder*) VANCOMYCIN TROUGH AT 0200 ONCE ONCE XX ; Start 04/10/17 at 02:00; Stop 04/10/17 at 02:01 BRAYDEN BARRERA Apr 09, 2017 10:32
[2017-04-09 14:00] VITALS: BP 131/69; RESP 19
[2017-04-09 20:45] VITALS: BP 131/73; RESP 19
[2017-04-09] MEDS: DOCUSATE SODIUM 100 MG CAP PO SCH (21:00)
[2017-04-09] MEDS: ATORVASTATIN 10 MG TAB PO SCH (21:00)
--- NOTE | 2017-04-09 23:19 | CONS ---
Date/Time of Note Date/Time of Note DATE: 04/09/17 TIME: 23:14 Assessment/Plan Assessment/Plan Chief Complaint/Hosp Course Impression 1. History of advanced Parkinson's disease. 2. History of stomach carcinoma. 3. History of bronchiolitis. 4. Rectal bleeding. 5. Hypertension. 6. Dyslipidemia. 7. Failure to thrive. 8. Colon carcinoma 9.c difficile colitis 10 UTI 11.encephalopathy Plan Po Vancomycin PPI EGD and PEG ON Tuesday Problems: Consultation Date/Type/Reason Admit Date/Time Apr 07, 2017 at 14:26 Initial Consult Date 04/08/17 Type of Consultation: GI 24 HR Interval Summary Free Text/Dictation reduced appetite, no n/v Exam/Review of Systems Vital Signs Vitals Vital Signs Date Time Temp Pulse Resp B/P Pulse Ox O2 Delivery O2 Flow Rate FiO2 04/09/17 20:45 98.7 86 19 131/73 97 04/07/17 16:00 Room Air Intake and Output 04/08/17 04/08/17 04/09/17 15:00 23:00 07:00 Intake Total 600 ml 650.0 ml 1350 ml Balance 600 ml 650.0 ml 1350 ml Exam Head: atraumatic, normocephalic Eyes: EOMI, nl conjunctiva, nl lids ENMT: nl external ears & nose, nl lips & teeth, nl nasal mucosa & septum Neck: non-tender, supple Respiratory: clear to auscultation Cardiovascular: nl pulses, regular rate and rhythm Gastrointestinal: bowel sounds, non-tender, soft Results Result Diagram: 04/08/17 1205 04/09/17 0550 Results 24 hrs Laboratory Tests Test 04/09/17 05:50 Sodium Level 143 Potassium Level 3.8 Chloride Level 108 Carbon Dioxide Level 23 Anion Gap 16 Blood Urea Nitrogen 5 #L Creatinine 0.42 L Glucose Level 122 Calcium Level 8.8 Medications Medications Current Medications Dextrose/Sodium Chloride (D5-1/2ns) 1,000 ml @ 70 mls/hr [id number] IV Last administered on 04/09/17t 05:48; Admin Dose 70 MLS/HR; Start 04/07/17 at 17:30 Ondansetron HCl (Zofran Inj) 4 mg Q6H PRN IV NAUSEA AND/OR VOMITING; Start 06/14 at 16:00 Metoclopramide HCl (Reglan) 10 mg Q6H PRN IV NAUSEA AND/OR VOMITING; Start 06/14 at 16:00 Acetaminophen (Tylenol Tab) 650 mg Q6H PRN PO PAIN LEVEL 1-3 OR FEVER; Start at 16:00 Acetaminophen (Tylenol Supp) 650 mg Q6H PRN [place] PAIN LEVEL 1-3 OR FEVER; Start 04/07/17 at 16:00 Acetaminophen/ Hydrocodone Bitart ([place] (5/325)) 1 tab Q6H PRN PO MODERATE PAIN LEVEL 4-6; Start 04/07/17 at 16:00 Magnesium Hydroxide (Milk Of Mag) 30 ml DAILY PRN PO CONSTIPATION; Start at 16:00 Pantoprazole (Protonix Iv) 40 mg DAILY@06 IV Last administered on 04/09/17 05: 44; Admin Dose 40 MG; Start 04/08/17 at 06:00 Atorvastatin Calcium (Lipitor) 10 mg QHS PO ; Start 04/07/17 at 21:30 Docusate Sodium (Colace) 200 mg QHS PO ; Start 04/07/17 at 21:30 Entacapone (Comtan) 200 mg TID PO ; Start 04/07/17 at 22:30 Pramipexole (Mirapex) 1.5 mg TID PO ; Start 04/07/17 at 22:30 Propranolol HCl 10 mg 10 mg BID PO ; Start 04/07/17 at 22:30 Cefepime HCl 50 ml @ 100 mls/hr Q12H IVPB Last administered on 04/09/17 14:11 ; Admin Dose 100 MLS/HR; Start 04/08/17 at 14:00 Vancomycin HCl 100 ml @ 100 mls/hr Q12H IVPB Last administered on 04/09/17 16 :24; Admin Dose 100 MLS/HR; Start 04/09/17 at 03:00 Metronidazole (Flagyl 500 Mg (Pmx)) 100 ml @ 100 mls/hr Q8 IVPB Last administered on 04/09/17 21:11; Admin Dose 100 MLS/HR; Start 04/08/17 at 15:00 Vancomycin HCl (Vancomycin Oral Syringe) 125 mg Q6 PO ; Start 04/08/17 at 18:00 Miscellaneous Information (*Rx Drug Level Order Reminder*) VANCOMYCIN TROUGH AT 0200 ONCE ONCE XX ; Start 04/10/17 at 02:00; Stop 04/10/17 at 02:01 TAMIA MIRANDA MD Apr 09, 2017 23:19
--- NOTE | 2017-04-10 01:29 | PN ---
DATE: 04/09/2017 SUBJECTIVE DATA: No acute events overnight. Patient is lethargic, lying comfortably in bed. Afebrile. LABORATORY AND DIAGNOSTIC DATA: No CBC today. BUN 5, creatinine 0.42. MICROBIOLOGY: Stool for C diff on admission came back positive, blood culture growing gram-positive cocci in pairs and clusters on April 07, repeat blood cultures negative. Urine culture growing E coli. ANTIMICROBIALS: IV oral vancomycin, Flagyl, cefepime. OBJECTIVE DATA: GENERAL: This is a fragile, chronically ill-appearing, elderly woman who is in no distress. HEENT: Head is atraumatic, normocephalic. Sclerae anicteric. Buccal mucosa dry. NECK: Supple. RESPIRATORY: Chest rise symmetrical. Breath sounds diminished at the bases. HEART: S1, S2. ABDOMEN: Soft. Bowel sounds present. EXTREMITIES: Without cyanosis. ASSESSMENT: 1. Clostridium difficile colitis. 2. Urinary tract infection. 3. Bacteremia, rule out contaminated specimen. 4. Severe dementia. 5. History of colon cancer, status post surgical intervention with a questionable radiographic finding of metastasis as per chest x-ray that revealed a rounded density over the left 8th rib. 6. Failure to thrive. PLAN: The patient remains on appropriate antimicrobials. She is being seen by Gastroenterology. Plan for PEG tube placement. We will follow up final cultures. Dictated By: Naty Elaine NP /[email or web address] /Document#: [id number]
[2017-04-10] MEDS: CEFEPIME 1GM/50 ML (PMX) 50 ML IVPB SCH ×2 (01:55→13:14)
[2017-04-10] MEDS: DEXTROSE 5%-0.45% NACL 1,000 ML IV SCH ×2 (01:55→17:00)
[2017-04-10 02:00] VITALS: BP 137/77; RESP 19
[2017-04-10] MEDS: VANCOMYCIN 500MG/NS (PMX) 100 ML IVPB SCH (03:13)
[2017-04-10] MEDS: VANCOMYCIN HCL 250 MG/5ML POSYG PO SCH ×4 (05:07→17:43)
[2017-04-10] MEDS: metroNIDAZOLE 500 MG/NS (PMX) 100 ML IVPB SCH ×3 (05:15→21:59)
[2017-04-10] MEDS: PANTOPRAZOLE 40 MG INJ IV SCH (05:15)
[2017-04-10] MEDS: ENTACAPONE 200 MG TAB PO SCH ×4 (08:13→21:58)
[2017-04-10] MEDS: PRAMIPEXOLE 1 MG TAB PO SCH ×4 (08:13→21:58)
[2017-04-10] MEDS: PROPRANOLOL 10 MG TAB PO SCH ×3 (08:13→21:59)
[2017-04-10 09:06] VITALS: BP 145/72; RESP 18
[2017-04-10 10:21] LABS: HEMATOCRIT 32.5 % (37.0-47.0); HEMOGLOBIN 10.4 g/dl (12.0-16.0)
[2017-04-10] MEDS: morphine 2 MG INJ IV PRN ×2 (11:49→18:32)
[2017-04-10 15:04] VITALS: BP 130/63; RESP 20
--- NOTE | 2017-04-10 15:28 | CONS ---
Date/Time of Note Date/Time of Note DATE: 04/10/17 TIME: 15:27 Assessment/Plan Assessment/Plan Chief Complaint/Hosp Course Impression 1. History of advanced Parkinson's disease. 2. History of stomach carcinoma. 3. History of bronchiolitis. 4. Rectal bleeding. 5. Hypertension. 6. Dyslipidemia. 7. Failure to thrive. 8. Colon carcinoma 9. c difficile colitis 10 UTI 11.encephalopathy Plan Po Vancomycin PPI EGD and PEG ON Tuesday to be done by Dr. Last Problems: Consultation Date/Type/Reason Admit Date/Time Apr 07, 2017 at 14:26 Initial Consult Date 04/08/17 Type of Consultation: GI 24 HR Interval Summary Free Text/Dictation appears comfortable, no n/v Exam/Review of Systems Vital Signs Vitals Vital Signs Date Time Temp Pulse Resp B/P Pulse Ox O2 Delivery O2 Flow Rate FiO2 04/10/17 15:04 97.9 87 20 130/63 95 04/07/17 16:00 Room Air Intake and Output 04/09/17 04/09/17 04/10/17 15:00 23:00 07:00 Intake Total 50 ml 850 ml 100 ml Balance 50 ml 850 ml 100 ml Exam Psych: nl mood/affect, no complaints Head: atraumatic, normocephalic Eyes: EOMI, nl conjunctiva, nl lids ENMT: nl external ears & nose, nl lips & teeth, nl nasal mucosa & septum Neck: non-tender, supple Respiratory: clear to auscultation, normal air movement Cardiovascular: nl pulses, regular rate and rhythm Gastrointestinal: bowel sounds, non-tender, soft Results Result Diagram: 04/10/17 0957 04/09/17 0550 Results 24 hrs Laboratory Tests Test 04/10/17 01:50 04/10/17 09:57 Vancomycin Level Trough 7.5 L Hemoglobin 10.4 L Hematocrit 32.5 L Medications Medications Current Medications Dextrose/Sodium Chloride (D5-1/2ns) 1,000 ml @ 70 mls/hr [id number] IV Last administered on 04/10/17t 01:55; Admin Dose 70 MLS/HR; Start 04/07/17 at 17:30 Ondansetron HCl (Zofran Inj) 4 mg Q6H PRN IV NAUSEA AND/OR VOMITING; Start 06/14 at 16:00 Metoclopramide HCl (Reglan) 10 mg Q6H PRN IV NAUSEA AND/OR VOMITING; Start 06/14 at 16:00 Acetaminophen (Tylenol Tab) 650 mg Q6H PRN PO PAIN LEVEL 1-3 OR FEVER; Start at 16:00 Acetaminophen (Tylenol Supp) 650 mg Q6H PRN [place] PAIN LEVEL 1-3 OR FEVER; Start 04/07/17 at 16:00 Acetaminophen/ Hydrocodone Bitart ([place] (5/325)) 1 tab Q6H PRN PO MODERATE PAIN LEVEL 4-6; Start 04/07/17 at 16:00 Magnesium Hydroxide (Milk Of Mag) 30 ml DAILY PRN PO CONSTIPATION; Start at 16:00 Pantoprazole (Protonix Iv) 40 mg DAILY@06 IV Last administered on 04/10/17 05: 15; Admin Dose 40 MG; Start 04/08/17 at 06:00 Atorvastatin Calcium (Lipitor) 10 mg QHS PO ; Start 04/07/17 at 21:30 Docusate Sodium (Colace) 200 mg QHS PO ; Start 04/07/17 at 21:30 Entacapone (Comtan) 200 mg TID PO ; Start 04/07/17 at 22:30 Pramipexole (Mirapex) 1.5 mg TID PO ; Start 04/07/17 at 22:30 Propranolol HCl 10 mg 10 mg BID PO ; Start 04/07/17 at 22:30 Cefepime HCl 50 ml @ 100 mls/hr Q12H IVPB Last administered on 04/10/17 13:14 ; Admin Dose 100 MLS/HR; Start 04/08/17 at 14:00 Metronidazole (Flagyl 500 Mg (Pmx)) 100 ml @ 100 mls/hr Q8 IVPB Last administered on 04/10/17 14:07; Admin Dose 100 MLS/HR; Start 04/08/17 at 15:00 Vancomycin HCl 125 mg 125 mg Q6 PO ; Start 04/08/17 at 18:00 Vancomycin HCl/ Sodium Chloride (Vancocin/NS) 150 ml @ 75 mls/hr Q12H IVPB ; Start 04/10/17 at 15:00 Morphine Sulfate (morphine) 1 mg Q4H PRN IV PAIN Last administered on 11:49; Admin Dose 1 MG; Start 04/10/17 at 10:00 TAMIA MIRANDA MD Apr 10, 2017 15:28
[2017-04-10] MEDS ORDERED: CEFAZOLIN 1 GM/50 ML (PMX) 50 ML IVPB SCH (15:30)
[2017-04-10] MEDS: VANCOMYCIN 750 MG in SOD CHLORIDE 0.9% 150 ML IVPB SCH (15:37)
--- NOTE | 2017-04-10 17:09 | PN ---
Date/Time of Note Date/Time of Note DATE: 04/10/17 TIME: 17:07 Assessment/Plan VTE Prophylaxis VTE Prophylaxis Intervention: other Lines/Catheters IV Catheter Type (from Nrsg): Peripheral IV Assessment/Plan Chief Complaint/Hosp Course SEPSIS CDIFF ANEMIA PARKINSON DIS GI BLEED HX CAD PLAN PER ID ANTIBIOTIC Problems: Subjective 24 Hr Interval Summary Respiratory: no complaints Cardiovascular: no complaints Gastrointestinal: No diarrhea Exam/Review of Systems Vital Signs Vitals Vital Signs Date Time Temp Pulse Resp B/P Pulse Ox O2 Delivery O2 Flow Rate FiO2 04/10/17 15:04 97.9 87 20 130/63 95 04/07/17 16:00 Room Air Intake and Output 04/09/17 04/09/17 04/10/17 15:00 23:00 07:00 Intake Total 50 ml 850 ml 100 ml Balance 50 ml 850 ml 100 ml Exam Neck: supple Respiratory: clear to auscultation Cardiovascular: regular rate and rhythm Gastrointestinal: bowel sounds (+), soft Musculoskeletal: nl extremities to inspection Extremities: normal pulses Results Result Diagram: 04/10/17 0957 04/09/17 0550 Results 24 hrs Laboratory Tests Test 04/10/17 01:50 04/10/17 09:57 Vancomycin Level Trough 7.5 L Hemoglobin 10.4 L Hematocrit 32.5 L Medications Medications Current Medications Dextrose/Sodium Chloride (D5-1/2ns) 1,000 ml @ 70 mls/hr [id number] IV Last administered on 04/10/17t 01:55; Admin Dose 70 MLS/HR; Start 04/07/17 at 17:30 Ondansetron HCl (Zofran Inj) 4 mg Q6H PRN IV NAUSEA AND/OR VOMITING; Start 06/14 at 16:00 Metoclopramide HCl (Reglan) 10 mg Q6H PRN IV NAUSEA AND/OR VOMITING; Start 06/14 at 16:00 Acetaminophen (Tylenol Tab) 650 mg Q6H PRN PO PAIN LEVEL 1-3 OR FEVER; Start at 16:00 Acetaminophen (Tylenol Supp) 650 mg Q6H PRN [place] PAIN LEVEL 1-3 OR FEVER; Start 04/07/17 at 16:00 Acetaminophen/ Hydrocodone Bitart ([place] (5/325)) 1 tab Q6H PRN PO MODERATE PAIN LEVEL 4-6; Start 04/07/17 at 16:00 Magnesium Hydroxide (Milk Of Mag) 30 ml DAILY PRN PO CONSTIPATION; Start at 16:00 Pantoprazole (Protonix Iv) 40 mg DAILY@06 IV Last administered on 04/10/17 05: 15; Admin Dose 40 MG; Start 04/08/17 at 06:00 Atorvastatin Calcium (Lipitor) 10 mg QHS PO ; Start 04/07/17 at 21:30 Docusate Sodium (Colace) 200 mg QHS PO ; Start 04/07/17 at 21:30 Entacapone (Comtan) 200 mg TID PO ; Start 04/07/17 at 22:30 Pramipexole (Mirapex) 1.5 mg TID PO ; Start 04/07/17 at 22:30 Propranolol HCl 10 mg 10 mg BID PO ; Start 04/07/17 at 22:30 Cefepime HCl 50 ml @ 100 mls/hr Q12H IVPB Last administered on 04/10/17 13:14 ; Admin Dose 100 MLS/HR; Start 04/08/17 at 14:00 Metronidazole (Flagyl 500 Mg (Pmx)) 100 ml @ 100 mls/hr Q8 IVPB Last administered on 04/10/17 14:07; Admin Dose 100 MLS/HR; Start 04/08/17 at 15:00 Vancomycin HCl 125 mg 125 mg Q6 PO ; Start 04/08/17 at 18:00 Vancomycin HCl/ Sodium Chloride (Vancocin/NS) 150 ml @ 75 mls/hr Q12H IVPB Last administered on 04/10/17 15:37; Admin Dose 75 MLS/HR; Start 04/10/17 at 15 :00 Morphine Sulfate (morphine) 1 mg Q4H PRN IV PAIN Last administered on 11:49; Admin Dose 1 MG; Start 04/10/17 at 10:00 SHANNEN VALLEJO MD Apr 10, 2017 17:08
[2017-04-10] MEDS: CEFTRIAXONE 1 GM/50 ML (PMX) 50 ML IVPB SCH (17:43)
[2017-04-10 20:45] VITALS: BP 145/77; RESP 18
[2017-04-10] MEDS: DOCUSATE SODIUM 100 MG CAP PO SCH ×2 (21:00→21:58)
[2017-04-10] MEDS: ATORVASTATIN 10 MG TAB PO SCH ×2 (21:00→21:58)
[2017-04-11] MEDS: DEXTROSE 5%-0.45% NACL 1,000 ML IV SCH (01:15)
[2017-04-11] MEDS: VANCOMYCIN 750 MG in SOD CHLORIDE 0.9% 150 ML IVPB SCH ×2 (02:46→16:31)
[2017-04-11 03:03] VITALS: BP 140/74; RESP 18
[2017-04-11 05:37] LABS: BASOPHILS % 0.4 % (0.0-2.0); EOSINOPHILS # 0.1 10^3/ul (0.0-0.5); HEMOGLOBIN 10.5 g/dl (12.0-16.0); LYMPHOCYTES # 0.6 10^3/ul (0.8-2.9); LYMPHOCYTES % 12.5 % (15.0-51.0); MEAN CORPUSCULAR HEMOGLOBIN 25.5 pg (29.0-33.0); MEAN CORPUSCULAR HGB CONC 31.8 g/dl (32.0-37.0); MEAN CORPUSCULAR VOLUME 80.1 fl (82.0-101.0); MEAN PLATELET VOLUME 12.4 fl (7.4-10.4); MONOCYTE # 0.4 10^3/ul (0.3-0.9); MONOCYTES % 8.6 % (0.0-11.0); NEUTROPHIL # 3.9 10^3/ul (1.6-7.5); NEUTROPHILS % 75.9 % (39.0-77.0); PLATELET COUNT 277 10^3/UL (140-415); RED BLOOD COUNT 4.12 10^6/ul (4.20-5.40); RED CELL DISTRIBUTION WIDTH 17.1 % (11.5-14.5); WHITE BLOOD COUNT 5.1 10^3/ul (4.8-10.8)
[2017-04-11] MEDS: metroNIDAZOLE 500 MG/NS (PMX) 100 ML IVPB SCH ×3 (05:45→22:05)
[2017-04-11] MEDS: PANTOPRAZOLE 40 MG INJ IV SCH (05:45)
[2017-04-11 05:55] LABS: INR 1.3; PROTIME 16.3 Sec (12.2-14.2); PT RATIO 1.3
[2017-04-11 05:59] LABS: CREATININE 0.46 mg/dl (0.44-1.00)
[2017-04-11] MEDS: VANCOMYCIN HCL 250 MG/5ML POSYG PO SCH ×5 (06:00→23:32)
[2017-04-11 08:23] VITALS: BP 119/65; RESP 19
[2017-04-11] MEDS: PRAMIPEXOLE 1 MG TAB PO SCH ×3 (09:00→21:00)
[2017-04-11] MEDS: PROPRANOLOL 10 MG TAB PO SCH ×2 (09:00→21:00)
[2017-04-11] MEDS: ENTACAPONE 200 MG TAB PO SCH ×3 (09:00→21:00)
[2017-04-11 10:26] LABS: HEMATOCRIT 32.4 % (37.0-47.0); HEMOGLOBIN 10.5 g/dl (12.0-16.0)
[2017-04-11] MEDS: LORAZEPAM 2 MG INJ IV PRN (11:50)
[2017-04-11 14:28] VITALS: BP 95/40; RESP 19
--- NOTE | 2017-04-11 15:39 | CONS ---
Date/Time of Note Date/Time of Note DATE: 04/11/17 TIME: 15:38 Assessment/Plan Assessment/Plan Additional Assessment/Plan Chief Complaint/Hosp Course Impression 1. History of advanced Parkinson's disease. 2. History of stomach carcinoma. 3. History of bronchiolitis. 4. Rectal bleeding. 5. Hypertension. 6. Dyslipidemia. 7. Failure to thrive. 8. Colon carcinoma 9. c difficile colitis 10 UTI 11.encephalopathy Plan Po Vancomycin PPI EGD and PEG ON Tuesday, GI lab could not accommodate today Patient is scheduled for PEG tomorrow Consultation Date/Type/Reason Admit Date/Time Apr 07, 2017 at 14:26 Initial Consult Date 04/08/17 Type of Consultation: GI 24 HR Interval Summary Subjective hx not possible: pt non-verbal Exam/Review of Systems Vital Signs Vitals Vital Signs Date Time Temp Pulse Resp B/P Pulse Ox O2 Delivery O2 Flow Rate FiO2 04/11/17 14:28 99.1 69 19 95/40 97 04/07/17 16:00 Room Air Intake and Output 04/10/17 04/10/17 04/11/17 15:00 23:00 07:00 Intake Total 50 ml 400 ml 1460 ml Balance 50 ml 400 ml 1460 ml Exam Constitutional: alert, oriented, well developed Psych: nl mood/affect, no complaints Head: atraumatic, normocephalic Eyes: EOMI, PERRL, nl conjunctiva, nl lids, nl sclera ENMT: nl external ears & nose, nl lips & teeth, nl nasal mucosa & septum Neck: non-tender, supple Respiratory: clear to auscultation, normal air movement Cardiovascular: nl pulses, regular rate and rhythm Gastrointestinal: nl liver, spleen, non-tender, soft Musculoskeletal: nl extremities to inspection, nl gait and stance Extremities: normal pulses Neurological: [employer] II-XII intact, nl mental status, nl speech, nl strength Skin: nl turgor, No rash or lesions Lymph: nl lymph nodes Results Result Diagram: 04/11/17 0925 04/11/17 0435 Results 24 hrs Laboratory Tests Test 04/11/17 04:35 04/11/17 04:36 04/11/17 09:25 White Blood Count 5.1 # Red Blood Count 4.12 L Hemoglobin 10.5 L 10.5 L Hematocrit 33.0 L 32.4 L Mean Corpuscular Volume 80.1 L Mean Corpuscular Hemoglobin 25.5 L Mean Corpuscular Hemoglobin Concent 31.8 L Red Cell Distribution Width 17.1 H Platelet Count 277 Mean Platelet Volume 12.4 H Neutrophils % 75.9 Lymphocytes % 12.5 L Monocytes % 8.6 Eosinophils % 1.0 Basophils % 0.4 Nucleated Red Blood Cells % 0.0 Neutrophils # 3.9 Lymphocytes # 0.6 L Monocytes # 0.4 Eosinophils # 0.1 Basophils # 0.0 Nucleated Red Blood Cells # 0.0 Blood Urea Nitrogen 2 L Creatinine 0.46 Prothrombin Time 16.3 H Prothrombin Time Ratio 1.3 INR International Normalized Ratio 1.30 Activated Partial Thromboplast Time 33.0 Medications Medications Current Medications Dextrose/Sodium Chloride (D5-1/2ns) 1,000 ml @ 70 mls/hr [id number] IV Last administered on 04/11/17 01:15; Admin Dose 70 MLS/HR; Start 04/07/17 at 17:30 Ondansetron HCl (Zofran Inj) 4 mg Q6H PRN IV NAUSEA AND/OR VOMITING; Start 06/14 at 16:00 Metoclopramide HCl (Reglan) 10 mg Q6H PRN IV NAUSEA AND/OR VOMITING; Start 06/14 at 16:00 Acetaminophen (Tylenol Tab) 650 mg Q6H PRN PO PAIN LEVEL 1-3 OR FEVER; Start at 16:00 Acetaminophen (Tylenol Supp) 650 mg Q6H PRN [place] PAIN LEVEL 1-3 OR FEVER; Start 04/07/17 at 16:00 Acetaminophen/ Hydrocodone Bitart ([place] (5/325)) 1 tab Q6H PRN PO MODERATE PAIN LEVEL 4-6; Start 04/07/17 at 16:00 Magnesium Hydroxide (Milk Of Mag) 30 ml DAILY PRN PO CONSTIPATION; Start at 16:00 Pantoprazole (Protonix Iv) 40 mg DAILY@06 IV Last administered on 04/11/17 05: 45; Admin Dose 40 MG; Start 04/08/17 at 06:00 Atorvastatin Calcium (Lipitor) 10 mg QHS PO ; Start 04/07/17 at 21:30 Docusate Sodium (Colace) 200 mg QHS PO ; Start 04/07/17 at 21:30 Entacapone (Comtan) 200 mg TID PO ; Start 04/07/17 at 22:30 Pramipexole (Mirapex) 1.5 mg TID PO ; Start 04/07/17 at 22:30 Propranolol HCl 10 mg 10 mg BID PO ; Start 04/07/17 at 22:30 Metronidazole (Flagyl 500 Mg (Pmx)) 100 ml @ 100 mls/hr Q8 IVPB Last administered on 04/11/17 15:05; Admin Dose 100 MLS/HR; Start 04/08/17 at 15:00 Vancomycin HCl 125 mg 125 mg Q6 PO ; Start 04/08/17 at 18:00 Vancomycin HCl/ Sodium Chloride (Vancocin/NS) 150 ml @ 75 mls/hr Q12H IVPB Last administered on 04/11/17 02:46; Admin Dose 75 MLS/HR; Start 04/10/17 at 15 :00 Morphine Sulfate 1 mg 1 mg Q4H PRN IV PAIN Last administered on 04/10/17 18:32 ; Admin Dose 1 MG; Start 04/10/17 at 10:00 Ceftriaxone Sodium (Rocephin) 50 ml @ 100 mls/hr Q24H IVPB Last administered on 04/10/17 17:43; Admin Dose 100 MLS/HR; Start 04/10/17 at 17:30 Lorazepam (Ativan) 0.5 mg BID PRN IV anxiety Last administered on 04/11/17 11: 50; Admin Dose 0.5 MG; Start 04/11/17 at 12:00 Miscellaneous Information (*Rx Drug Level Order Reminder*) ONCE ONCE XX ; Start 04/12/17 at 14:00; Stop 04/12/17 at 14:01 ROXANNE MORALES MD Apr 11, 2017 15:39
[2017-04-11] MEDS: CEFTRIAXONE 1 GM/50 ML (PMX) 50 ML IVPB SCH (18:40)
--- NOTE | 2017-04-11 19:25 | PN ---
Date/Time of Note Date/Time of Note DATE: 04/11/17 TIME: 19:24 Assessment/Plan VTE Prophylaxis VTE Prophylaxis Intervention: other Lines/Catheters IV Catheter Type (from Nrs): Peripheral IV Assessment/Plan Chief Complaint/Hosp Course SEPSIS CDIFF ANEMIA PARKINSON DIS uti GI BLEED HX CAD PLAN PER ID ANTIBIOTIC peg soon ppn Problems: Subjective 24 Hr Interval Summary Cardiovascular: no complaints Gastrointestinal: no complaints, No diarrhea Exam/Review of Systems Vital Signs Vitals Vital Signs Date Time Temp Pulse Resp B/P Pulse Ox O2 Delivery O2 Flow Rate FiO2 04/11/17 14:28 99.1 69 19 95/40 97 04/07/17 16:00 Room Air Intake and Output 04/10/17 04/10/17 04/11/17 15:00 23:00 07:00 Intake Total 50 ml 400 ml 1460 ml Balance 50 ml 400 ml 1460 ml Exam Respiratory: clear to auscultation Cardiovascular: regular rate and rhythm Gastrointestinal: soft Musculoskeletal: nl extremities to inspection Extremities: normal pulses Results Result Diagram: 04/11/17 0925 04/11/17 0435 Results 24 hrs Laboratory Tests Test 04/11/17 04:35 04/11/17 04:36 04/11/17 09:25 White Blood Count 5.1 # Red Blood Count 4.12 L Hemoglobin 10.5 L 10.5 L Hematocrit 33.0 L 32.4 L Mean Corpuscular Volume 80.1 L Mean Corpuscular Hemoglobin 25.5 L Mean Corpuscular Hemoglobin Concent 31.8 L Red Cell Distribution Width 17.1 H Platelet Count 277 Mean Platelet Volume 12.4 H Neutrophils % 75.9 Lymphocytes % 12.5 L Monocytes % 8.6 Eosinophils % 1.0 Basophils % 0.4 Nucleated Red Blood Cells % 0.0 Neutrophils # 3.9 Lymphocytes # 0.6 L Monocytes # 0.4 Eosinophils # 0.1 Basophils # 0.0 Nucleated Red Blood Cells # 0.0 Blood Urea Nitrogen 2 L Creatinine 0.46 Prothrombin Time 16.3 H Prothrombin Time Ratio 1.3 INR International Normalized Ratio 1.30 Activated Partial Thromboplast Time 33.0 Medications Medications Current Medications Dextrose/Sodium Chloride (D5-1/2ns) 1,000 ml @ 70 mls/hr [id number] IV Last administered on 04/11/17t 01:15; Admin Dose 70 MLS/HR; Start 04/07/17 at 17:30 Ondansetron HCl (Zofran Inj) 4 mg Q6H PRN IV NAUSEA AND/OR VOMITING; Start 06/14 at 16:00 Metoclopramide HCl (Reglan) 10 mg Q6H PRN IV NAUSEA AND/OR VOMITING; Start 06/14 at 16:00 Acetaminophen (Tylenol Tab) 650 mg Q6H PRN PO PAIN LEVEL 1-3 OR FEVER; Start at 16:00 Acetaminophen (Tylenol Supp) 650 mg Q6H PRN [place] PAIN LEVEL 1-3 OR FEVER; Start 04/07/17 at 16:00 Acetaminophen/ Hydrocodone Bitart ([place] (5/325)) 1 tab Q6H PRN PO MODERATE PAIN LEVEL 4-6; Start 04/07/17 at 16:00 Magnesium Hydroxide (Milk Of Mag) 30 ml DAILY PRN PO CONSTIPATION; Start at 16:00 Pantoprazole (Protonix Iv) 40 mg DAILY@06 IV Last administered on 04/11/17 05: 45; Admin Dose 40 MG; Start 04/08/17 at 06:00 Atorvastatin Calcium (Lipitor) 10 mg QHS PO ; Start 04/07/17 at 21:30 Docusate Sodium (Colace) 200 mg QHS PO ; Start 04/07/17 at 21:30 Entacapone (Comtan) 200 mg TID PO ; Start 04/07/17 at 22:30 Pramipexole (Mirapex) 1.5 mg TID PO ; Start 04/07/17 at 22:30 Propranolol HCl 10 mg 10 mg BID PO ; Start 04/07/17 at 22:30 Metronidazole (Flagyl 500 Mg (Pmx)) 100 ml @ 100 mls/hr Q8 IVPB Last administered on 04/11/17 15:05; Admin Dose 100 MLS/HR; Start 04/08/17 at 15:00 Vancomycin HCl 125 mg 125 mg Q6 PO ; Start 04/08/17 at 18:00 Vancomycin HCl/ Sodium Chloride (Vancocin/NS) 150 ml @ 75 mls/hr Q12H IVPB Last administered on 04/11/17 16:31; Admin Dose 75 MLS/HR; Start 04/10/17 at 15 :00 Morphine Sulfate 1 mg 1 mg Q4H PRN IV PAIN Last administered on 04/10/17 18:32 ; Admin Dose 1 MG; Start 04/10/17 at 10:00 Ceftriaxone Sodium (Rocephin) 50 ml @ 100 mls/hr Q24H IVPB Last administered on 04/11/17 18:40; Admin Dose 100 MLS/HR; Start 04/10/17 at 17:30 Lorazepam (Ativan) 0.5 mg BID PRN IV anxiety Last administered on 04/11/17 11: 50; Admin Dose 0.5 MG; Start 04/11/17 at 12:00 Miscellaneous Information (*Rx Drug Level Order Reminder*) ONCE ONCE XX ; Start 04/12/17 at 14:00; Stop 04/12/17 at 14:01 SHANNEN VALLEJO MD Apr 11, 2017 19:25
[2017-04-11] MEDS: ACCU-CHEK XX SCH (21:00)
[2017-04-11] MEDS: ATORVASTATIN 10 MG TAB PO SCH (21:00)
[2017-04-11] MEDS: DOCUSATE SODIUM 100 MG CAP PO SCH (21:00)
[2017-04-11 21:07] VITALS: BP 148/64; RESP 22
[2017-04-11] MEDS: TPN 1,000 ML IV SCH (23:01)
[2017-04-11] MEDS: FAT EMULSION 20% 500 ML IV SCH (23:02)
[2017-04-12] VITALS (11 sets, daily range): BP systolic 108–148; BP diastolic 42–75; PULSE 17–72; RESP 15–23
[2017-04-12] MEDS: ACCU-CHEK XX SCH ×6 (01:00→21:00)
--- NOTE | 2017-04-12 04:16 | PN ---
DATE: 04/11/2017 INFECTIOUS DISEASE PROGRESS NOTE SUBJECTIVE DATA: No acute events overnight per report. The patient is sleeping, arousable. She is confused. She is in no distress. No fevers. LABORATORY AND DIAGNOSTIC DATA: WBC 5.1, hemoglobin 10.5, hematocrit 32.4, platelets 277; no shift, no bounce. BUN 5, creatinine 0.42. Blood culture on admission grew coag-negative staph species. Repeat blood culture negative. Nares swab negative. Urine culture grew E coli, susceptible to all antibiotics. ANTIMICROBIALS: Ceftriaxone, vancomycin, Flagyl, oral vancomycin. OBJECTIVE DATA: GENERAL: Fragile elderly woman in no distress. HEENT: Head atraumatic, normocephalic. Sclerae anicteric. Buccal mucosa dry. NECK: Supple. CHEST: Rise symmetrical. Breath sounds diminished at the bases. HEART: S1, S2. ABDOMEN: Soft. Bowel sounds present. EXTREMITIES: Without cyanosis. ASSESSMENT: 1. Clostridium difficile colitis. 2. Coagulase-negative staphylococcal bacteremia. Possible contaminant. 3. Urinary tract infection. 4. History of colon cancer. 5. Failure to thrive. PLAN: The patient remains stable. Pending PEG placement. Continue present care, antibiotics, anti-aspiration measures. Anticipate discharge on oral vancomycin for 2 weeks and Levaquin for 5 more days. Dictated By: Hira Elaine NP /cassandra/mando /Document#: [id number]
[2017-04-12] MEDS: VANCOMYCIN 750 MG in SOD CHLORIDE 0.9% 150 ML IVPB SCH ×2 (04:18→16:09)
[2017-04-12] MEDS: VANCOMYCIN HCL 250 MG/5ML POSYG PO SCH ×4 (05:24→23:26)
[2017-04-12] MEDS: PANTOPRAZOLE 40 MG INJ IV SCH ×2 (05:50→21:24)
[2017-04-12] MEDS: metroNIDAZOLE 500 MG/NS (PMX) 100 ML IVPB SCH ×3 (06:56→21:22)
[2017-04-12 07:03] LABS: HEMOGLOBIN 10.6 g/dl (12.0-16.0)
[2017-04-12 07:22] LABS: CALCIUM 8.9 mg/dl (8.4-10.2); CREATININE 0.5 mg/dl (0.44-1.00); MAGNESIUM 1.6 mg/dl (1.7-2.5); PHOSPHORUS 2.4 mg/dl (2.5-4.9); POTASSIUM 3.7 mmol/L (3.5-5.1)
--- NOTE | 2017-04-12 07:59 | PQ ---
Date/Time of Note Date/Time of Note DATE: 04/12/17 TIME: 07:[address] Onofre, Please clarify if the following diagnosis: ----------->Sepsis ( documented in progress note 04/10 & ER note) + WBC = 14.5 (adm) w/ UTI Was: ( ) Present on admission ( ) Not present on admission ( ) Clinically undetermined Please provide your response by clicking edit document, making your choice ( x ), click ok/save and finally click sign. You may also document your response on your progress notes. Thank you for your time. Aurelio Laureano RN, BSN, CCS, CCDS Clinical [employer] Health Information Management, CDI and Coding Services [phone] Room # 1525 - Coding [address]~ [address] AURELIO LAUREANO Apr 12, 2017 07:59
--- NOTE | 2017-04-12 08:09 | PQ ---
Date/Time of Note Date/Time of Note DATE: 04/12/17 TIME: 08:[address] Cooper, A review of the medical record found a need for documentation clarification. Encephalopathy -- documented in progress note & ER note + UTI ( & sepsis documented in ER/ attending) Please specify the diagnosis being treated. To facilitate accurate and complete coding, please anel ( x ) the suspected diagnosis that apply: ( ) metabolic encephalopathy ( ) toxic encephalopathy ( ) Others Please provide your response by clicking edit document, making your choice ( x ), click ok/save and finally click sign. You may also document your response on your progress notes. Thank you for your time. With appreciation, Aurelio Laureano RN, BSN, CCS, CCDS Clinical Quantitative Consultant Health Information Management, CDI and Coding Services [phone] Room # 1525 - Coding [address]~ [address] AURELIO LAUREANO Apr 12, 2017 08:09
[2017-04-12] MEDS: PROPRANOLOL 10 MG TAB PO SCH ×2 (08:47→21:00)
[2017-04-12] MEDS: ENTACAPONE 200 MG TAB PO SCH ×3 (08:47→21:00)
[2017-04-12] MEDS: PRAMIPEXOLE 1 MG TAB PO SCH ×3 (08:47→21:00)
--- NOTE | 2017-04-12 09:02 | PN ---
DATE: 04/10/2017 SUBJECTIVE DATA: No acute changes. The patient is lying comfortably in bed. She is minimally communicative and afebrile. Blood culture on admission grew coag-negative staph species. Repeat blood cultures negative. Urine culture grew E coli. Antimicrobials: IV vancomycin, oral vancomycin, Flagyl and cefepime. PHYSICAL EXAMINATION: Well-developed, fragile, chronically ill- appearing, elderly woman who is in no distress. HEENT: Head atraumatic, normocephalic. Sclerae anicteric. Buccal mucosa dry. NECK: Supple. Trachea midline. CHEST: Chest rise symmetric. Breath sounds diminished at the bases. HEART: S1, S2. ABDOMEN: Soft, bowel sounds present. EXTREMITIES: Without cyanosis. ASSESSMENT: 1. Escherichia coli urinary tract infection. 2. Coag-negative Staphylococcus bacteremia, likely contaminated specimen. 3. Clostridium difficile colitis. 4. History of colon cancer. 5. Failure to thrive. 6. Encephalopathy. PLAN: The patient remains stable. We are going to change cefepime to Rocephin. Continue vancomycin for now. Continue management as per primary team and consultants. Pending EGD with PEG placement tomorrow. Dictated By: Hira Elaine NP /cassandra/ellis /Document#: [id number]
[2017-04-12] MEDS ORDERED: PROPOFOL 40 ML ONE (11:10)
[2017-04-12] MEDS ORDERED: LIDOCAINE 2% (SDV) 5 ML INJ ONE (11:10)
[2017-04-12] MEDS ORDERED: CEFAZOLIN 1 GM/50 ML (PMX) 50 ML IVPB ONE (11:10)
--- NOTE | 2017-04-12 12:28 | OPPN ---
Date/Time of Note Date/Time of Note DATE: 04/12/17 TIME: 12:27 Operative Report Preoperative Diagnosis Dysphagia, GI bleeding Postoperative Diagnosis Dysphagia GI bleeding Operation/Procedure Performed PEG Provider: ROXANNE MORALES MD Estimated blood loss: 0 - 10 ml's Transfusion Required: no Specimen: none Grafts/Implants: none Complications: no ROXANNE MORALES MD Apr 12, 2017 12:28
--- NOTE | 2017-04-12 12:36 | GILP ---
DATE OF PROCEDURE: 04/12/2017 PROCEDURE PERFORMED: EGD with PEG tube. INDICATION FOR PROCEDURE: The patient is a 70-year-old female with a history of Parkinson's disease failed swallow study. She also had melanotic stool. The purpose is to evaluate the upper GI tract to find out the source of bleeding. I also performed a PEG at the same time. The risks of the procedure related complications, anesthetic risk and alternatives was understood by the granddaughter and informed consent was obtained. DESCRIPTION OF PROCEDURE: The patient was brought to the GI lab and placed in a supine position. She was given Ancef prior to the procedure. After optimal sedation the scope was passed with much ease into the esophagus. The entire distal and midportion of the esophagus was ulcerated circumferentially. This was an extensive ulceration with a friable mucosa. The scope was advanced further down into duodenum, the 1st and 2nd part appeared normal. No ulcer was seen. No ulcer or bleeding point was identified in the stomach. By transillumination and digital palpation technique the appropriate site was chosen on the anterior abdominal wall. The site was sterilized with chlorhexidine solution, 2 percent xylocaine instilled by safe method. A small incision was made and through that incision a trocar and stylet was placed into stomach. The stylet was removed. Through the hollow tip of the catheter a blue string was passed which was made with transendoscopically passed snare and pulled out through the mouth, and the procedure was completed by modified Ponsky technique. The patient was rescoped, there was bleeding from the esophageal ulcer due to the bumper rubbing against it. We waited for 5 minute and the bleeding had stopped. The patient may have lost 5 to 10 mL of blood. On retro the hiatal hernia also was confirmed. The scope was straightened out and removed with good patient tolerance. IMPRESSION: 1. Extensive esophageal ulceration involving the distal 1/3 of the esophagus and also part of the midportion of the esophagus. 2. PEG done successfully. PLAN: Double the dose of PPI for esophageal ulceration, abdominal binder and will resume feeding after 6 hours. Dictated By: Kana Last MD /cassandra/dc /Document#: [id number] CC: Kana Last MD; Declan Onofre MD;*End*
[2017-04-12] MEDS: TPN 1,000 ML IV SCH (14:21)
--- NOTE | 2017-04-12 16:56 | CONS ---
Date/Time of Note Date/Time of Note DATE: 04/12/17 TIME: 16:54 Assessment/Plan Assessment/Plan Chief Complaint/Hosp Course SUBJECTIVE DATA: No acute changes. No fevers. Blood culture on admission grew coag-negative staph species. Repeat blood cultures negative. Urine culture grew E coli. Antimicrobials: IV vancomycin, oral vancomycin, Flagyl and Rocephin PHYSICAL EXAMINATION: Well-developed, fragile, chronically ill- appearing, elderly woman who is in no distress. HEENT: Head atraumatic, normocephalic. Sclerae anicteric. Buccal mucosa dry. NECK: Supple. Trachea midline. CHEST: Chest rise symmetric. Breath sounds diminished at the bases. HEART: S1, S2. ABDOMEN: Soft, bowel sounds present. EXTREMITIES: Without cyanosis. ASSESSMENT: 1. Escherichia coli urinary tract infection. 2. Coag-negative Staphylococcus bacteremia, likely contaminated specimen. 3. Clostridium difficile colitis. 4. History of colon cancer. 5. Failure to thrive. 6. Encephalopathy. PLAN: The patient remains stable. Continue abx, pending PEG Problems: Consultation Date/Type/Reason Admit Date/Time Apr 07, 2017 at 14:26 Initial Consult Date 04/08/17 Type of Consultation: ID Exam/Review of Systems Vital Signs Vitals Vital Signs Date Time Temp Pulse Resp B/P Pulse Ox O2 Delivery O2 Flow Rate FiO2 04/12/17 12:13 72 21 148/61 100 Nasal Cannula 04/12/17 11:50 97.8 04/12/17 11:48 2.0 Intake and Output 04/11/17 04/11/17 04/12/17 14:59 22:59 06:59 Intake Total 300 ml 796 ml Balance 300 ml 796 ml Results Result Diagram: 04/12/17 0549 04/12/17 0549 Results 24 hrs Laboratory Tests Test 04/12/17 02:21 04/12/17 05:49 04/12/17 05:56 04/12/17 08:56 Bedside Glucose 145 164 161 Hemoglobin 10.6 L Hematocrit 33.0 L Sodium Level 137 Potassium Level 3.7 Chloride Level 107 Carbon Dioxide Level 24 Anion Gap 10 Blood Urea Nitrogen 5 L Creatinine 0.50 Glucose Level 277 H Calcium Level 8.9 Phosphorus Level 2.4 L Magnesium Level 1.6 L Test 04/12/17 13:50 04/12/17 13:51 Bedside Glucose 165 Vancomycin Level Trough 10.8 Medications Medications Current Medications Ondansetron HCl (Zofran Inj) 4 mg Q6H PRN IV NAUSEA AND/OR VOMITING; Start 06/14 at 16:00 Metoclopramide HCl (Reglan) 10 mg Q6H PRN IV NAUSEA AND/OR VOMITING; Start 06/14 at 16:00 Acetaminophen (Tylenol Tab) 650 mg Q6H PRN [place] PAIN LEVEL 1-3 OR FEVER; Start at 16:00 Acetaminophen (Tylenol Supp) 650 mg Q6H PRN [place] PAIN LEVEL 1-3 OR FEVER; Start 04/07/17 at 16:00 Acetaminophen/ Hydrocodone Bitart ([place] (5/325)) 1 tab Q6H PRN PO MODERATE PAIN LEVEL 4-6; Start 04/07/17 at 16:00 Magnesium Hydroxide (Milk Of Mag) 30 ml DAILY PRN PO CONSTIPATION; Start at 16:00 Atorvastatin Calcium (Lipitor) 10 mg QHS PO ; Start 04/07/17 at 21:30 Docusate Sodium (Colace) 200 mg QHS PO ; Start 04/07/17 at 21:30 Entacapone (Comtan) 200 mg TID PO ; Start 04/07/17 at 22:30 Pramipexole (Mirapex) 1.5 mg TID PO ; Start 04/07/17 at 22:30 Propranolol HCl 10 mg 10 mg BID PO ; Start 04/07/17 at 22:30 Metronidazole (Flagyl 500 Mg (Pmx)) 100 ml @ 100 mls/hr Q8 IVPB Last administered on 04/12/17 14:21; Admin Dose 100 MLS/HR; Start 04/08/17 at 15:00 Vancomycin HCl 125 mg 125 mg Q6 PO ; Start 04/08/17 at 18:00 Vancomycin HCl/ Sodium Chloride (Vancocin/NS) 150 ml @ 75 mls/hr Q12H IVPB Last administered on 04/12/17 16:09; Admin Dose 75 MLS/HR; Start 04/10/17 at 15 :00 Morphine Sulfate 1 mg 1 mg Q4H PRN IV PAIN Last administered on 04/10/17 18:32 ; Admin Dose 1 MG; Start 04/10/17 at 10:00 Ceftriaxone Sodium (Rocephin) 50 ml @ 100 mls/hr Q24H IVPB Last administered on 04/11/17 18:40; Admin Dose 100 MLS/HR; Start 04/10/17 at 17:30 Lorazepam (Ativan) 0.5 mg BID PRN IV anxiety Last administered on 04/11/17 11: 50; Admin Dose 0.5 MG; Start 04/11/17 at 12:00 Diagnostic Test (Pha) 1 ea 1 ea Q4 XX Last administered on 04/12/17 09:01; Admin Dose 1 EA; Start 04/11/17 at 21:00 Total Parenteral Nutrition 1,000 ml @ 70 mls/hr [id number] IV Last administered on 04/12/17 14:21; Admin Dose 70 MLS/HR; Start 04/11/17 at 21:00 Fat Emulsion Intravenous (Liposyn Ii 20%) 500 ml @ 21 mls/hr [id number] IV Last administered on 04/11/17 23:02; Admin Dose 21 MLS/HR; Start 04/11/17 at 21:00 Pantoprazole (Protonix Iv) 40 mg BID IV ; Start 04/12/17 at 21:00 YASHIRA TONEY NP Apr 12, 2017 16:56
[2017-04-12] MEDS: CEFTRIAXONE 1 GM/50 ML (PMX) 50 ML IVPB SCH (18:29)
[2017-04-12] MEDS: ATORVASTATIN 10 MG TAB PO SCH (21:00)
[2017-04-12] MEDS: DOCUSATE SODIUM 100 MG CAP PO SCH (21:00)
--- NOTE | 2017-04-12 23:19 | PN ---
Date/Time of Note Date/Time of Note DATE: 04/12/17 TIME: 23:18 Assessment/Plan VTE Prophylaxis VTE Prophylaxis Intervention: other Lines/Catheters IV Catheter Type (from Nrsg): Peripheral IV Assessment/Plan Chief Complaint/Hosp Course SEPSIS CDIFF ANEMIA PARKINSON DIS uti GI BLEED HX CAD PLAN PER ID ANTIBIOTIC peg soon ppn po diet Problems: Subjective 24 Hr Interval Summary Respiratory: No pleuritic pain, No shortness of breath Gastrointestinal: no complaints Genitourinary: no complaints Exam/Review of Systems Vital Signs Vitals Vital Signs Date Time Temp Pulse Resp B/P Pulse Ox O2 Delivery O2 Flow Rate FiO2 04/12/17 20:01 98.2 79 22 143/75 99 04/12/17 12:13 Nasal Cannula 04/12/17 11:48 2.0 Intake and Output 04/11/17 04/11/17 04/12/17 15:00 23:00 07:00 Intake Total 400 ml 696 ml Balance 400 ml 696 ml Exam Eyes: nl conjunctiva Neck: supple Respiratory: clear to auscultation Cardiovascular: regular rate and rhythm Musculoskeletal: nl extremities to inspection Extremities: normal pulses Results Result Diagram: 04/12/17 0549 04/12/17 0549 Results 24 hrs Laboratory Tests Test 04/12/17 02:21 04/12/17 05:49 04/12/17 05:56 04/12/17 08:56 Bedside Glucose 145 164 161 Hemoglobin 10.6 L Hematocrit 33.0 L Sodium Level 137 Potassium Level 3.7 Chloride Level 107 Carbon Dioxide Level 24 Anion Gap 10 Blood Urea Nitrogen 5 L Creatinine 0.50 Glucose Level 277 H Calcium Level 8.9 Phosphorus Level 2.4 L Magnesium Level 1.6 L Test 04/12/17 13:50 04/12/17 13:51 04/12/17 17:21 04/12/17 21:28 Bedside Glucose 165 188 186 Vancomycin Level Trough 10.8 Medications Medications Current Medications Ondansetron HCl (Zofran Inj) 4 mg Q6H PRN IV NAUSEA AND/OR VOMITING; Start 06/14 at 16:00 Metoclopramide HCl (Reglan) 10 mg Q6H PRN IV NAUSEA AND/OR VOMITING; Start 06/14 at 16:00 Acetaminophen (Tylenol Tab) 650 mg Q6H PRN PO PAIN LEVEL 1-3 OR FEVER; Start at 16:00 Acetaminophen (Tylenol Supp) 650 mg Q6H PRN [place] PAIN LEVEL 1-3 OR FEVER; Start 04/07/17 at 16:00 Acetaminophen/ Hydrocodone Bitart ([place] (5/325)) 1 tab Q6H PRN PO MODERATE PAIN LEVEL 4-6; Start 04/07/17 at 16:00 Magnesium Hydroxide (Milk Of Mag) 30 ml DAILY PRN PO CONSTIPATION; Start at 16:00 Atorvastatin Calcium (Lipitor) 10 mg QHS PO ; Start 04/07/17 at 21:30 Docusate Sodium (Colace) 200 mg QHS PO ; Start 04/07/17 at 21:30 Entacapone (Comtan) 200 mg TID PO ; Start 04/07/17 at 22:30 Pramipexole (Mirapex) 1.5 mg TID PO ; Start 04/07/17 at 22:30 Propranolol HCl 10 mg 10 mg BID PO ; Start 04/07/17 at 22:30 Metronidazole (Flagyl 500 Mg (Pmx)) 100 ml @ 100 mls/hr Q8 IVPB Last administered on 04/12/17 21:22; Admin Dose 100 MLS/HR; Start 04/08/17 at 15:00 Vancomycin HCl 125 mg 125 mg Q6 PO ; Start 04/08/17 at 18:00 Vancomycin HCl/ Sodium Chloride (Vancocin/NS) 150 ml @ 75 mls/hr Q12H IVPB Last administered on 04/12/17 16:09; Admin Dose 75 MLS/HR; Start 04/10/17 at 15 :00 Morphine Sulfate 1 mg 1 mg Q4H PRN IV PAIN Last administered on 04/10/17 18:32 ; Admin Dose 1 MG; Start 04/10/17 at 10:00 Ceftriaxone Sodium (Rocephin) 50 ml @ 100 mls/hr Q24H IVPB Last administered on 04/12/17 18:29; Admin Dose 100 MLS/HR; Start 04/10/17 at 17:30 Lorazepam (Ativan) 0.5 mg BID PRN IV anxiety Last administered on 04/11/17 11: 50; Admin Dose 0.5 MG; Start 04/11/17 at 12:00 Diagnostic Test (Pha) 1 ea 1 ea Q4 XX Last administered on 04/12/17 17:23; Admin Dose 1 EA; Start 04/11/17 at 21:00 Total Parenteral Nutrition 1,000 ml @ 70 mls/hr [id number] IV Last administered on 04/12/17 14:21; Admin Dose 70 MLS/HR; Start 04/11/17 at 21:00 Fat Emulsion Intravenous (Liposyn Ii 20%) 500 ml @ 21 mls/hr [id number] IV Last administered on 04/11/17 23:02; Admin Dose 21 MLS/HR; Start 04/11/17 at 21:00 Pantoprazole (Protonix Iv) 40 mg BID IV Last administered on 04/12/17 21:24; Admin Dose 40 MG; Start 04/12/17 at 21:00 SHANNEN VALLEJO MD Apr 12, 2017 23:19
[2017-04-12] MEDS: FAT EMULSION 20% 500 ML IV SCH (23:27)
[2017-04-13] MEDS: ACCU-CHEK XX SCH ×3 (01:19→09:27)
[2017-04-13 02:48] VITALS: BP 140/68; RESP 19
[2017-04-13] MEDS: VANCOMYCIN 750 MG in SOD CHLORIDE 0.9% 150 ML IVPB SCH ×2 (03:37→15:29)
[2017-04-13] MEDS: TPN 1,000 ML IV SCH ×2 (04:56→15:54)
[2017-04-13] MEDS: VANCOMYCIN HCL 250 MG/5ML POSYG PO SCH (05:43)
[2017-04-13] MEDS: metroNIDAZOLE 500 MG/NS (PMX) 100 ML IVPB SCH ×2 (05:47→13:03)
[2017-04-13 08:37] VITALS: BP 149/72; RESP 16
[2017-04-13] MEDS ORDERED: MAGNESIUM HYDROXIDE 30ML CUP GTB PRN (09:00)
[2017-04-13] MEDS: PANTOPRAZOLE 40 MG INJ IV SCH ×2 (09:23→20:53)
[2017-04-13] MEDS ORDERED: HYDROCODONE/APAP (5/325) TAB GTB PRN (10:00)
[2017-04-13] MEDS ORDERED: ACETAMINOPHEN 325 MG TAB GTB PRN (10:00)
[2017-04-13] MEDS: ENTACAPONE 200 MG TAB GTB SCH ×3 (10:11→20:51)
[2017-04-13] MEDS: PRAMIPEXOLE 1 MG TAB GTB SCH ×3 (10:11→20:53)
[2017-04-13] MEDS: PROPRANOLOL 10 MG TAB GTB SCH ×2 (10:22→20:52)
[2017-04-13] MEDS: LORAZEPAM 2 MG INJ IV PRN (10:24)
[2017-04-13] MEDS: VANCOMYCIN HCL 250 MG/5ML POSYG GTB SCH ×3 (12:48→23:56)
[2017-04-13 14:57] VITALS: BP 120/63; RESP 16
--- NOTE | 2017-04-13 16:40 | CONS ---
Date/Time of Note Date/Time of Note DATE: 04/13/17 TIME: 16:38 Assessment/Plan Assessment/Plan Chief Complaint/Hosp Course SUBJECTIVE DATA: No acute changes. No fevers. Started on TF, family at bedside , nad Blood culture on admission grew coag-negative staph species. Repeat blood cultures negative. Urine culture grew E coli. Antimicrobials: IV vancomycin, oral vancomycin, Flagyl and Rocephin PHYSICAL EXAMINATION: Well-developed, fragile, chronically ill- appearing, elderly woman who is in no distress. HEENT: Head atraumatic, normocephalic. Sclerae anicteric. Buccal mucosa dry. NECK: Supple. Trachea midline. CHEST: Chest rise symmetric. Breath sounds diminished at the bases. HEART: S1, S2. ABDOMEN: Soft, bowel sounds present. EXTREMITIES: Without cyanosis. ASSESSMENT: 1. S/p E. coli urinary tract infection. 2. Coag-negative Staphylococcus bacteremia, likely contaminated specimen. 3. Clostridium difficile colitis. 4. History of colon cancer. 5. Failure to thrive. 6. Encephalopathy. PLAN: The patient remains stable. Continue PO Vanco, dc other abx, continue aspiration precautions DW staff Problems: Consultation Date/Type/Reason Admit Date/Time Apr 07, 2017 at 14:26 Initial Consult Date 04/08/17 Type of Consultation: ID Exam/Review of Systems Vital Signs Vitals Vital Signs Date Time Temp Pulse Resp B/P Pulse Ox O2 Delivery O2 Flow Rate FiO2 04/13/17 14:57 98.1 66 16 120/63 94 04/12/17 12:13 Nasal Cannula 04/12/17 11:48 2.0 Intake and Output 04/12/17 04/12/17 04/13/17 15:00 23:00 07:00 Intake Total 650 ml 652 ml 1876 ml Balance 650 ml 652 ml 1876 ml Results Result Diagram: 04/12/17 0549 04/12/17 0549 Results 24 hrs Laboratory Tests Test 04/12/17 17:21 04/12/17 21:28 04/13/17 01:18 04/13/17 05:06 Bedside Glucose 188 186 160 132 Test 04/13/17 09:27 04/13/17 16:33 Bedside Glucose 207 191 Medications Medications Current Medications Ondansetron HCl (Zofran Inj) 4 mg Q6H PRN IV NAUSEA AND/OR VOMITING; Start 06/14 at 16:00 Metoclopramide HCl (Reglan) 10 mg Q6H PRN IV NAUSEA AND/OR VOMITING; Start 06/14 at 16:00 Acetaminophen (Tylenol Supp) 650 mg Q6H PRN [place] PAIN LEVEL 1-3 OR FEVER; Start 04/07/17 at 16:00 Docusate Sodium 200 mg 200 mg QHS PO ; Start 04/07/17 at 21:30 Metronidazole 100 ml @ 100 mls/hr Q8 IVPB Last administered on 04/13/17 13:03 ; Admin Dose 100 MLS/HR; Start 04/08/17 at 15:00 Vancomycin HCl/ Sodium Chloride (Vancocin/NS) 150 ml @ 75 mls/hr Q12H IVPB Last administered on 04/13/17 15:29; Admin Dose 75 MLS/HR; Start 04/10/17 at 15 :00 Morphine Sulfate 1 mg 1 mg Q4H PRN IV PAIN Last administered on 04/10/17 18:32 ; Admin Dose 1 MG; Start 04/10/17 at 10:00 Ceftriaxone Sodium (Rocephin) 50 ml @ 100 mls/hr Q24H IVPB Last administered on 04/12/17 18:29; Admin Dose 100 MLS/HR; Start 04/10/17 at 17:30 Lorazepam 0.5 mg 0.5 mg BID PRN IV anxiety Last administered on 04/13/17 10:24 ; Admin Dose 0.5 MG; Start 04/11/17 at 12:00 Total Parenteral Nutrition 1,000 ml @ 70 mls/hr [id number] IV Last administered on 04/13/17 04:56; Admin Dose 70 MLS/HR; Start 04/11/17 at 21:00 Fat Emulsion Intravenous (Liposyn Ii 20%) 500 ml @ 21 mls/hr [id number] IV Last administered on 04/12/17 23:27; Admin Dose 21 MLS/HR; Start 04/11/17 at 21:00 Pantoprazole (Protonix Iv) 40 mg BID IV Last administered on 04/13/17 09:23; Admin Dose 40 MG; Start 04/12/17 at 21:00 Acetaminophen (Tylenol Tab) 650 mg Q6H PRN [place] PAIN LEVEL 1-3 OR FEVER; Start 04/13/17 at 10:00 Atorvastatin Calcium (Lipitor) 10 mg QHS GTB ; Start 04/13/17 at 21:00 Entacapone (Comtan) 200 mg TID GTB Last administered on 04/13/17 12:49; Admin Dose 200 MG; Start 04/13/17 at 09:00 Acetaminophen/ Hydrocodone Bitart ([place] (5/325)) 1 tab Q6H PRN GTB MODERATE PAIN LEVEL 4-6; Start 04/13/17 at 10:00 Magnesium Hydroxide (Milk Of Mag) 30 ml DAILY PRN GTB CONSTIPATION; Start 04/13 at 09:00 Pramipexole (Mirapex) 1.5 mg TID GTB Last administered on 04/13/17 12:49; Admin Dose 1.5 MG; Start 04/13/17 at 09:00 Propranolol HCl (Inderal) 10 mg BID GTB Last administered on 04/13/17 10:22; Admin Dose 10 MG; Start 04/13/17 at 09:00 Vancomycin HCl (Vancomycin Oral Syringe) 125 mg Q6 GTB Last administered on 12:48; Admin Dose 125 MG; Start 04/13/17 at 12:00 Diagnostic Test (Pha) (Accu-Chek) 1 ea Q6 XX ; Start 04/13/17 at 18:00 YASHIRA TONEY NP Apr 13, 2017 16:39
[2017-04-13] MEDS ORDERED: FAT EMULSION 20% 500 ML IV SCH (17:30)
[2017-04-13] MEDS ORDERED: ACCU-CHEK XX SCH (18:00)
--- NOTE | 2017-04-13 19:46 | CONS ---
Date/Time of Note Date/Time of Note DATE: 04/13/17 TIME: 19:45 Assessment/Plan Assessment/Plan Additional Assessment/Plan Chief Complaint/Hosp Course Impression 1. History of advanced Parkinson's disease. 2. History of stomach carcinoma. 3. History of bronchiolitis. 4. Rectal bleeding. 5. Hypertension. 6. Dyslipidemia. 7. Failure to thrive. 8. Colon carcinoma 9. c difficile colitis 10 UTI 11.encephalopathy 12. Status post PEG, patient is tolerating feeding Plan Po Vancomycin PPI Increase feeding as per dietitian recommendation Consultation Date/Type/Reason Admit Date/Time Apr 07, 2017 at 14:26 Initial Consult Date 04/08/17 Type of Consultation: ID [id number] HR Interval Summary Subjective hx not possible: pt non-verbal Constitutional: improved Exam/Review of Systems Vital Signs Vitals Vital Signs Date Time Temp Pulse Resp B/P Pulse Ox O2 Delivery O2 Flow Rate FiO2 04/13/17 14:57 98.1 66 16 120/63 94 04/12/17 12:13 Nasal Cannula 04/12/17 11:48 2.0 Intake and Output 04/12/17 04/12/17 04/13/17 15:00 23:00 07:00 Intake Total 650 ml 652 ml 1876 ml Balance 650 ml 652 ml 1876 ml Exam Constitutional: alert, oriented, well developed Psych: nl mood/affect, no complaints Head: atraumatic, normocephalic Eyes: EOMI, PERRL, nl conjunctiva, nl lids, nl sclera ENMT: nl external ears & nose, nl lips & teeth, nl nasal mucosa & septum Neck: non-tender, supple Respiratory: clear to auscultation, normal air movement Cardiovascular: nl pulses, regular rate and rhythm Gastrointestinal: nl liver, spleen, non-tender, soft Musculoskeletal: nl extremities to inspection, nl gait and stance Extremities: normal pulses Neurological: [employer] II-XII intact, nl mental status, nl speech, nl strength Skin: nl turgor, No rash or lesions Lymph: nl lymph nodes Results Result Diagram: 04/12/17 0549 04/12/17 0549 Results 24 hrs Laboratory Tests Test 04/12/17 21:28 04/13/17 01:18 04/13/17 05:06 04/13/17 09:27 Bedside Glucose 186 160 132 207 Test 04/13/17 16:33 Bedside Glucose 191 Medications Medications Current Medications Ondansetron HCl (Zofran Inj) 4 mg Q6H PRN IV NAUSEA AND/OR VOMITING; Start 06/14 at 16:00 Metoclopramide HCl (Reglan) 10 mg Q6H PRN IV NAUSEA AND/OR VOMITING; Start 06/14 at 16:00 Acetaminophen (Tylenol Supp) 650 mg Q6H PRN [place] PAIN LEVEL 1-3 OR FEVER; Start 04/07/17 at 16:00 Docusate Sodium (Colace) 200 mg QHS PO ; Start 04/07/17 at 21:30 Morphine Sulfate (morphine) 1 mg Q4H PRN IV PAIN Last administered on 18:32; Admin Dose 1 MG; Start 04/10/17 at 10:00 Lorazepam (Ativan) 0.5 mg BID PRN IV anxiety Last administered on 04/13/17 10: 24; Admin Dose 0.5 MG; Start 04/11/17 at 12:00 Pantoprazole (Protonix Iv) 40 mg BID IV Last administered on 04/13/17 09:23; Admin Dose 40 MG; Start 04/12/17 at 21:00 Acetaminophen (Tylenol Tab) 650 mg Q6H PRN GTB PAIN LEVEL 1-3 OR FEVER; Start 04/13/17 at 10:00 Atorvastatin Calcium (Lipitor) 10 mg QHS GTB ; Start 04/13/17 at 21:00 Entacapone (Comtan) 200 mg TID GTB Last administered on 04/13/17 12:49; Admin Dose 200 MG; Start 04/13/17 at 09:00 Acetaminophen/ Hydrocodone Bitart ([place] (5/325)) 1 tab Q6H PRN GTB MODERATE PAIN LEVEL 4-6; Start 04/13/17 at 10:00 Magnesium Hydroxide (Milk Of Mag) 30 ml DAILY PRN GTB CONSTIPATION; Start 04/13 at 09:00 Pramipexole (Mirapex) 1.5 mg TID GTB Last administered on 04/13/17 12:49; Admin Dose 1.5 MG; Start 04/13/17 at 09:00 Propranolol HCl (Inderal) 10 mg BID GTB Last administered on 04/13/17 10:22; Admin Dose 10 MG; Start 04/13/17 at 09:00 Vancomycin HCl (Vancomycin Oral Syringe) 125 mg Q6 GTB Last administered on t 18:29; Admin Dose 125 MG; Start 04/13/17 at 12:00 ROXANNE MORALES MD Apr 13, 2017 19:45
[2017-04-13] MEDS: ATORVASTATIN 10 MG TAB GTB SCH (20:52)
[2017-04-13] MEDS: DOCUSATE SODIUM 100 MG CAP PO SCH (20:53)
[2017-04-13 21:05] VITALS: BP 129/86; RESP 18
--- NOTE | 2017-04-13 21:05 | PN ---
Date/Time of Note Date/Time of Note DATE: 04/13/17 TIME: 21:04 Assessment/Plan VTE Prophylaxis VTE Prophylaxis Intervention: other Lines/Catheters IV Catheter Type (from Nrsg): Peripheral IV Assessment/Plan Chief Complaint/Hosp Course SEPSIS CDIFF ANEMIA PARKINSON DIS uti GI BLEED HX CAD PLAN PER ID ANTIBIOTIC peg soon ppn po diet snf soon Problems: Subjective 24 Hr Interval Summary Cardiovascular: no complaints Gastrointestinal: no complaints, other (peg+) Exam/Review of Systems Vital Signs Vitals Vital Signs Date Time Temp Pulse Resp B/P Pulse Ox O2 Delivery O2 Flow Rate FiO2 04/13/17 14:57 98.1 66 16 120/63 94 04/12/17 12:13 Nasal Cannula 04/12/17 11:48 2.0 Intake and Output 04/12/17 04/12/17 04/13/17 15:00 23:00 07:00 Intake Total 650 ml 652 ml 1876 ml Balance 650 ml 652 ml 1876 ml Exam Respiratory: clear to auscultation Cardiovascular: regular rate and rhythm Gastrointestinal: soft Genitourinary - Female: nl adnexae Musculoskeletal: nl extremities to inspection Results Result Diagram: 04/12/17 0549 04/12/17 0549 Results 24 hrs Laboratory Tests Test 04/12/17 21:28 04/13/17 01:18 04/13/17 05:06 04/13/17 09:27 Bedside Glucose 186 160 132 207 Test 04/13/17 16:33 Bedside Glucose 191 Medications Medications Current Medications Ondansetron HCl (Zofran Inj) 4 mg Q6H PRN IV NAUSEA AND/OR VOMITING; Start 06/14 at 16:00 Metoclopramide HCl (Reglan) 10 mg Q6H PRN IV NAUSEA AND/OR VOMITING; Start 06/14 at 16:00 Acetaminophen (Tylenol Supp) 650 mg Q6H PRN [place] PAIN LEVEL 1-3 OR FEVER; Start 04/07/17 at 16:00 Docusate Sodium (Colace) 200 mg QHS PO ; Start 04/07/17 at 21:30 Morphine Sulfate (morphine) 1 mg Q4H PRN IV PAIN Last administered on t 18:32; Admin Dose 1 MG; Start 04/10/17 at 10:00 Lorazepam (Ativan) 0.5 mg BID PRN IV anxiety Last administered on 04/13/17 10: 24; Admin Dose 0.5 MG; Start 04/11/17 at 12:00 Pantoprazole (Protonix Iv) 40 mg BID IV Last administered on 04/13/17 09:23; Admin Dose 40 MG; Start 04/12/17 at 21:00 Acetaminophen (Tylenol Tab) 650 mg Q6H PRN GTB PAIN LEVEL 1-3 OR FEVER; Start 04/13/17 at 10:00 Atorvastatin Calcium (Lipitor) 10 mg QHS GTB ; Start 04/13/17 at 21:00 Entacapone (Comtan) 200 mg TID GTB Last administered on 04/13/17 12:49; Admin Dose 200 MG; Start 04/13/17 at 09:00 Acetaminophen/ Hydrocodone Bitart ([place] (5/325)) 1 tab Q6H PRN GTB MODERATE PAIN LEVEL 4-6; Start 04/13/17 at 10:00 Magnesium Hydroxide (Milk Of Mag) 30 ml DAILY PRN GTB CONSTIPATION; Start 04/13 at 09:00 Pramipexole (Mirapex) 1.5 mg TID GTB Last administered on 04/13/17 12:49; Admin Dose 1.5 MG; Start 04/13/17 at 09:00 Propranolol HCl (Inderal) 10 mg BID GTB Last administered on 04/13/17 10:22; Admin Dose 10 MG; Start 04/13/17 at 09:00 Vancomycin HCl (Vancomycin Oral Syringe) 125 mg Q6 GTB Last administered on 18:29; Admin Dose 125 MG; Start 04/13/17 at 12:00 SHANNEN VALLEJO MD Apr 13, 2017 21:05
[2017-04-14 02:24] VITALS: BP 121/71; RESP 16
[2017-04-14] MEDS: VANCOMYCIN HCL 250 MG/5ML POSYG GTB SCH ×3 (06:05→17:57)
[2017-04-14 06:30] LABS: CALCIUM 8.7 mg/dl (8.4-10.2); CREATININE 0.45 mg/dl (0.44-1.00); MAGNESIUM 1.8 mg/dl (1.7-2.5); PHOSPHORUS 2.6 mg/dl (2.5-4.9); POTASSIUM 3.8 mmol/L (3.5-5.1)
[2017-04-14 07:37] VITALS: BP 97/47; RESP 18
[2017-04-14] MEDS: PROPRANOLOL 10 MG TAB GTB SCH ×2 (09:00→20:35)
[2017-04-14] MEDS: PRAMIPEXOLE 1 MG TAB GTB SCH ×3 (09:45→20:32)
[2017-04-14] MEDS: PANTOPRAZOLE 40 MG INJ IV SCH ×2 (09:45→20:35)
[2017-04-14] MEDS: ENTACAPONE 200 MG TAB GTB SCH ×3 (09:45→20:31)
--- NOTE | 2017-04-14 11:54 | PDOCDIS ---
Discharge Instructions CONDITION Patient Condition: Stable HOME CARE INSTRUCTIONS: Special Diet: gtube feeding ACTIVITY: Activity Restrictions: Slowly Increase Activity FOLLOW UP/APPOINTMENTS Follow-up Plan f/u dr vallejo [address] fleming 1 wk SHANNEN VALLEJO MD Apr 14, 2017 11:54
[2017-04-14] MEDS ORDERED: PANT40VI7 IV (11:58)
[2017-04-14] MEDS ORDERED: Metoclopramide IV (11:58)
[2017-04-14] MEDS ORDERED: Vancomycin Oral Syringe GTB (11:58)
[2017-04-14] MEDS ORDERED: ATOR10TA65 GTB (11:58)
[2017-04-14] MEDS ORDERED: ONDA4VIA2 IV (11:58)
[2017-04-14] MEDS ORDERED: HYDR-3498 GTB (11:58)
--- NOTE | 2017-04-14 14:35 | CONS ---
Date/Time of Note Date/Time of Note DATE: 04/14/17 TIME: 14:34 Assessment/Plan Assessment/Plan Chief Complaint/Hosp Course SUBJECTIVE DATA: No acute changes. No fevers. Tolerating TF Blood culture on admission grew coag-negative staph species. Repeat blood cultures negative. Urine culture grew E coli. Antimicrobials: IV vancomycin, oral vancomycin, Flagyl and Rocephin PHYSICAL EXAMINATION: Well-developed, fragile, chronically ill- appearing, elderly woman who is in no distress. HEENT: Head atraumatic, normocephalic. Sclerae anicteric. Buccal mucosa dry. NECK: Supple. Trachea midline. CHEST: Chest rise symmetric. Breath sounds diminished at the bases. HEART: S1, S2. ABDOMEN: Soft, bowel sounds present. EXTREMITIES: Without cyanosis. ASSESSMENT: 1. S/p E. coli urinary tract infection. 2. Coag-negative Staphylococcus bacteremia, likely contaminated specimen. 3. Clostridium difficile colitis. 4. History of colon cancer. 5. Failure to thrive. 6. Encephalopathy. PLAN: The patient remains stable. Continue PO Vanco, continue aspiration precautions DW staff Problems: Consultation Date/Type/Reason Admit Date/Time Apr 07, 2017 at 14:26 Initial Consult Date 04/08/17 Type of Consultation: ID Exam/Review of Systems Vital Signs Vitals Vital Signs Date Time Temp Pulse Resp B/P Pulse Ox O2 Delivery O2 Flow Rate FiO2 04/14/17 07:37 98.1 67 18 97/47 98 04/12/17 12:13 Nasal Cannula 04/12/17 11:48 2.0 Intake and Output 04/13/17 04/13/17 04/14/17 15:00 23:00 07:00 Intake Total 100 ml 1242 ml 450 ml Balance 100 ml 1242 ml 450 ml Results Result Diagram: 04/12/17 0549 04/14/17 0435 Results 24 hrs Laboratory Tests Test 04/13/17 16:33 04/14/17 04:35 04/14/17 08:00 Bedside Glucose 191 152 Sodium Level 141 Potassium Level 3.8 Chloride Level 103 Carbon Dioxide Level 27 Anion Gap 15 Blood Urea Nitrogen 13 Creatinine 0.45 Glucose Level 113 # Calcium Level 8.7 Phosphorus Level 2.6 Magnesium Level 1.8 Medications Medications Current Medications Ondansetron HCl (Zofran Inj) 4 mg Q6H PRN IV NAUSEA AND/OR VOMITING Last administered on 04/14/17 05:01; Admin Dose 4 MG; Start 04/07/17 at 16:00 Metoclopramide HCl (Reglan) 10 mg Q6H PRN IV NAUSEA AND/OR VOMITING; Start 06/14 at 16:00 Acetaminophen (Tylenol Supp) 650 mg Q6H PRN [place] PAIN LEVEL 1-3 OR FEVER; Start 04/07/17 at 16:00 Docusate Sodium (Colace) 200 mg QHS PO Last administered on 04/13/17 20:53; Admin Dose 200 MG; Start 04/07/17 at 21:30 Morphine Sulfate (morphine) 1 mg Q4H PRN IV PAIN Last administered on 18:32; Admin Dose 1 MG; Start 04/10/17 at 10:00 Lorazepam (Ativan) 0.5 mg BID PRN IV anxiety Last administered on 04/13/17 10: 24; Admin Dose 0.5 MG; Start 04/11/17 at 12:00 Pantoprazole (Protonix Iv) 40 mg BID IV Last administered on 04/14/17 09:45; Admin Dose 40 MG; Start 04/12/17 at 21:00 Acetaminophen (Tylenol Tab) 650 mg Q6H PRN GTB PAIN LEVEL 1-3 OR FEVER; Start 04/13/17 at 10:00 Atorvastatin Calcium (Lipitor) 10 mg QHS GTB Last administered on 04/13/17 20: 52; Admin Dose 10 MG; Start 04/13/17 at 21:00 Entacapone (Comtan) 200 mg TID GTB Last administered on 04/14/17 12:20; Admin Dose 200 MG; Start 04/13/17 at 09:00 Acetaminophen/ Hydrocodone Bitart ([facility] (5/325)) 1 tab Q6H PRN GTB MODERATE PAIN LEVEL 4-6; Start 04/13/17 at 10:00 Magnesium Hydroxide (Milk Of Mag) 30 ml DAILY PRN GTB CONSTIPATION; Start 04/13 at 09:00 Pramipexole (Mirapex) 1.5 mg TID GTB Last administered on 04/14/17 12:19; Admin Dose 1.5 MG; Start 04/13/17 at 09:00 Propranolol HCl (Inderal) 10 mg BID GTB Last administered on 04/13/17 20:52; Admin Dose 10 MG; Start 04/13/17 at 09:00 Vancomycin HCl (Vancomycin Oral Syringe) 125 mg Q6 GTB Last administered on 12:23; Admin Dose 125 MG; Start 04/13/17 at 12:00 YASHIRA TONEY NP Apr 14, 2017 14:34
[2017-04-14 15:36] VITALS: BP 131/59; RESP 20
--- NOTE | 2017-04-14 18:24 | CONS ---
Date/Time of Note Date/Time of Note DATE: 04/14/17 TIME: 18:22 Assessment/Plan Assessment/Plan Additional Assessment/Plan Chief Complaint/Hosp Course Impression 1. History of advanced Parkinson's disease. 2. History of stomach carcinoma. 3. History of bronchiolitis. 4. Rectal bleeding. 5. Hypertension. 6. Dyslipidemia. 7. Failure to thrive. 8. Colon carcinoma 9. c difficile colitis 10 UTI 11.encephalopathy 12. Status post PEG, patient is tolerating feeding 13 for ground colored emesis, from extensive esophagitis Plan Po Vancomycin PPI Increase feeding as per dietitian recommendation Will start. Patient on erythromycin. Patient is not a candidate for Reglan given the history of Parkinson's disease. Reduce the feeding Consultation Date/Type/Reason Admit Date/Time Apr 07, 2017 at 14:26 Initial Consult Date 04/08/17 Type of Consultation: ID [id number] HR Interval Summary Free Text/Dictation Patient had a coffee-ground colored emesis Exam/Review of Systems Vital Signs Vitals Vital Signs Date Time Temp Pulse Resp B/P Pulse Ox O2 Delivery O2 Flow Rate FiO2 04/14/17 15:36 97.9 71 20 131/59 96 04/12/17 12:13 Nasal Cannula 04/12/17 11:48 2.0 Intake and Output 04/13/17 04/13/17 04/14/17 15:00 23:00 07:00 Intake Total 100 ml 1242 ml 450 ml Balance 100 ml 1242 ml 450 ml Exam Constitutional: alert, oriented, well developed Psych: nl mood/affect, no complaints Head: atraumatic, normocephalic Eyes: EOMI, PERRL, nl conjunctiva, nl lids, nl sclera ENMT: nl external ears & nose, nl lips & teeth, nl nasal mucosa & septum Neck: non-tender, supple Respiratory: clear to auscultation, normal air movement Cardiovascular: nl pulses, regular rate and rhythm Gastrointestinal: nl liver, spleen, non-tender, soft Musculoskeletal: nl extremities to inspection, nl gait and stance Extremities: normal pulses Neurological: TOBACCO CONDITIONER II-XII intact, nl mental status, nl speech, nl strength Skin: nl turgor, No rash or lesions Lymph: nl lymph nodes Results Result Diagram: 04/12/17 0549 04/14/17 0435 Results 24 hrs Laboratory Tests Test 04/14/17 04:35 04/14/17 08:00 Sodium Level 141 Potassium Level 3.8 Chloride Level 103 Carbon Dioxide Level 27 Anion Gap 15 Blood Urea Nitrogen 13 Creatinine 0.45 Glucose Level 113 # Calcium Level 8.7 Phosphorus Level 2.6 Magnesium Level 1.8 Bedside Glucose 152 Medications Medications Current Medications Ondansetron HCl (Zofran Inj) 4 mg Q6H PRN IV NAUSEA AND/OR VOMITING Last administered on 04/14/17 05:01; Admin Dose 4 MG; Start 04/07/17 at 16:00 Metoclopramide HCl (Reglan) 10 mg Q6H PRN IV NAUSEA AND/OR VOMITING; Start 06/14 at 16:00 Acetaminophen (Tylenol Supp) 650 mg Q6H PRN [place] PAIN LEVEL 1-3 OR FEVER; Start 04/07/17 at 16:00 Docusate Sodium (Colace) 200 mg QHS PO Last administered on 04/13/17 20:53; Admin Dose 200 MG; Start 04/07/17 at 21:30 Morphine Sulfate (morphine) 1 mg Q4H PRN IV PAIN Last administered on 18:32; Admin Dose 1 MG; Start 04/10/17 at 10:00 Lorazepam (Ativan) 0.5 mg BID PRN IV anxiety Last administered on 04/13/17 10: 24; Admin Dose 0.5 MG; Start 04/11/17 at 12:00 Pantoprazole (Protonix Iv) 40 mg BID IV Last administered on 04/14/17 09:45; Admin Dose 40 MG; Start 04/12/17 at 21:00 Acetaminophen (Tylenol Tab) 650 mg Q6H PRN GTB PAIN LEVEL 1-3 OR FEVER; Start 04/13/17 at 10:00 Atorvastatin Calcium (Lipitor) 10 mg QHS GTB Last administered on 04/13/17 20: 52; Admin Dose 10 MG; Start 04/13/17 at 21:00 Entacapone (Comtan) 200 mg TID GTB Last administered on 04/14/17 12:20; Admin Dose 200 MG; Start 04/13/17 at 09:00 Acetaminophen/ Hydrocodone Bitart ([place] (5/325)) 1 tab Q6H PRN GTB MODERATE PAIN LEVEL 4-6; Start 04/13/17 at 10:00 Magnesium Hydroxide (Milk Of Mag) 30 ml DAILY PRN GTB CONSTIPATION; Start 04/13 at 09:00 Pramipexole (Mirapex) 1.5 mg TID GTB Last administered on 04/14/17 12:19; Admin Dose 1.5 MG; Start 04/13/17 at 09:00 Propranolol HCl (Inderal) 10 mg BID GTB Last administered on 04/13/17 20:52; Admin Dose 10 MG; Start 04/13/17 at 09:00 Vancomycin HCl (Vancomycin Oral Syringe) 125 mg Q6 GTB Last administered on 17:57; Admin Dose 125 MG; Start 04/13/17 at 12:00 Erythromycin Ethylsuccinate (E.e.s (Ped)) 250 mg TID GTB ; Start 04/14/17 at 21: 00 ROXANNE MORALES MD Apr 14, 2017 18:23
--- NOTE | 2017-04-14 18:42 | PN ---
Date/Time of Note Date/Time of Note DATE: 04/14/17 TIME: 18:41 Assessment/Plan VTE Prophylaxis VTE Prophylaxis Intervention: other Lines/Catheters IV Catheter Type (from Nrsg): Peripheral IV Assessment/Plan Chief Complaint/Hosp Course SEPSIS CDIFF ANEMIA PARKINSON DIS uti GI BLEED HX CAD PLAN PER ID ANTIBIOTIC peg peg feeding snf soon Problems: Subjective 24 Hr Interval Summary Subjective hx not possible: other (s/p gi bleed hold dc) Exam/Review of Systems Vital Signs Vitals Vital Signs Date Time Temp Pulse Resp B/P Pulse Ox O2 Delivery O2 Flow Rate FiO2 04/14/17 15:36 97.9 71 20 131/59 96 04/12/17 12:13 Nasal Cannula 04/12/17 11:48 2.0 Intake and Output 04/13/17 04/13/17 04/14/17 15:00 23:00 07:00 Intake Total 100 ml 1242 ml 450 ml Balance 100 ml 1242 ml 450 ml Exam Neck: supple Respiratory: clear to auscultation Cardiovascular: regular rate and rhythm Gastrointestinal: soft Musculoskeletal: nl extremities to inspection Extremities: normal pulses Results Result Diagram: 04/12/17 0549 04/14/17 0435 Results 24 hrs Laboratory Tests Test 04/14/17 04:35 04/14/17 08:00 Sodium Level 141 Potassium Level 3.8 Chloride Level 103 Carbon Dioxide Level 27 Anion Gap 15 Blood Urea Nitrogen 13 Creatinine 0.45 Glucose Level 113 # Calcium Level 8.7 Phosphorus Level 2.6 Magnesium Level 1.8 Bedside Glucose 152 Medications Medications Current Medications Ondansetron HCl (Zofran Inj) 4 mg Q6H PRN IV NAUSEA AND/OR VOMITING Last administered on 04/14/17 05:01; Admin Dose 4 MG; Start 04/07/17 at 16:00 Metoclopramide HCl (Reglan) 10 mg Q6H PRN IV NAUSEA AND/OR VOMITING; Start 06/14 at 16:00 Acetaminophen (Tylenol Supp) 650 mg Q6H PRN [place] PAIN LEVEL 1-3 OR FEVER; Start 04/07/17 at 16:00 Docusate Sodium (Colace) 200 mg QHS PO Last administered on 04/13/17 20:53; Admin Dose 200 MG; Start 04/07/17 at 21:30 Morphine Sulfate (morphine) 1 mg Q4H PRN IV PAIN Last administered on 18:32; Admin Dose 1 MG; Start 04/10/17 at 10:00 Lorazepam (Ativan) 0.5 mg BID PRN IV anxiety Last administered on 04/13/17 10: 24; Admin Dose 0.5 MG; Start 04/11/17 at 12:00 Pantoprazole (Protonix Iv) 40 mg BID IV Last administered on 04/14/17 09:45; Admin Dose 40 MG; Start 04/12/17 at 21:00 Acetaminophen (Tylenol Tab) 650 mg Q6H PRN GTB PAIN LEVEL 1-3 OR FEVER; Start 04/13/17 at 10:00 Atorvastatin Calcium (Lipitor) 10 mg QHS GTB Last administered on 04/13/17 20: 52; Admin Dose 10 MG; Start 04/13/17 at 21:00 Entacapone (Comtan) 200 mg TID GTB Last administered on 04/14/17 12:20; Admin Dose 200 MG; Start 04/13/17 at 09:00 Acetaminophen/ Hydrocodone Bitart ([place] (5/325)) 1 tab Q6H PRN GTB MODERATE PAIN LEVEL 4-6; Start 04/13/17 at 10:00 Magnesium Hydroxide (Milk Of Mag) 30 ml DAILY PRN GTB CONSTIPATION; Start 04/13 at 09:00 Pramipexole (Mirapex) 1.5 mg TID GTB Last administered on 04/14/17 12:19; Admin Dose 1.5 MG; Start 04/13/17 at 09:00 Propranolol HCl (Inderal) 10 mg BID GTB Last administered on 04/13/17 20:52; Admin Dose 10 MG; Start 04/13/17 at 09:00 Vancomycin HCl (Vancomycin Oral Syringe) 125 mg Q6 GTB Last administered on 17:57; Admin Dose 125 MG; Start 04/13/17 at 12:00 Erythromycin Ethylsuccinate (E.e.s (Ped)) 250 mg TID GTB ; Start 04/14/17 at 21: 00 SHANNEN VALLEJO MD Apr 14, 2017 18:42
[2017-04-14] MEDS: DOCUSATE SODIUM 100 MG CAP PO SCH (20:31)
[2017-04-14] MEDS: ATORVASTATIN 10 MG TAB GTB SCH (20:32)
[2017-04-14] MEDS: ERYTHROMYCIN ETHYL SUCC (80 MG/ML PO SYG) GTB SCH (20:34)
[2017-04-14 21:00] VITALS: BP 124/69; RESP 18
[2017-04-14] MEDS ORDERED: ERYTHROMYCIN LACTOBIONATE 250 MG in SOD CHLORIDE 0.9% 100 ML IVPB SCH (21:00)
[2017-04-15] MEDS: VANCOMYCIN HCL 250 MG/5ML POSYG GTB SCH ×4 (00:43→18:45)
[2017-04-15 02:48] VITALS: BP 110/50; RESP 19
[2017-04-15 06:25] LABS: BASOPHILS % 0.6 % (0.0-2.0); EOSINOPHILS # 0.3 10^3/ul (0.0-0.5); EOSINOPHILS % 3.5 % (0.0-7.0); HEMATOCRIT 31.4 % (37.0-47.0); HEMOGLOBIN 9.9 g/dl (12.0-16.0); LYMPHOCYTES % 14.3 % (15.0-51.0); MEAN CORPUSCULAR HEMOGLOBIN 25.9 pg (29.0-33.0); MEAN CORPUSCULAR HGB CONC 31.5 g/dl (32.0-37.0); MEAN CORPUSCULAR VOLUME 82.2 fl (82.0-101.0); MEAN PLATELET VOLUME 12.3 fl (7.4-10.4); MONOCYTE # 0.6 10^3/ul (0.3-0.9); MONOCYTES % 8.4 % (0.0-11.0); NEUTROPHILS % 72.2 % (39.0-77.0); PLATELET COUNT 225 10^3/UL (140-415); RED BLOOD COUNT 3.82 10^6/ul (4.20-5.40); RED CELL DISTRIBUTION WIDTH 17.5 % (11.5-14.5); WHITE BLOOD COUNT 7.1 10^3/ul (4.8-10.8)
[2017-04-15] MEDS: PROPRANOLOL 10 MG TAB GTB SCH (09:00)
[2017-04-15] MEDS: ERYTHROMYCIN ETHYL SUCC (80 MG/ML PO SYG) GTB SCH ×2 (09:00→12:40)
[2017-04-15] MEDS: PANTOPRAZOLE 40 MG INJ IV SCH (09:00)
[2017-04-15] MEDS: ENTACAPONE 200 MG TAB GTB SCH ×2 (09:01→12:41)
[2017-04-15] MEDS: PRAMIPEXOLE 1 MG TAB GTB SCH ×2 (09:01→12:41)
[2017-04-15 09:38] VITALS: BP 147/81; RESP 22
--- NOTE | 2017-04-15 11:41 | CONS ---
Date/Time of Note Date/Time of Note DATE: 04/15/17 TIME: 11:40 Assessment/Plan Assessment/Plan Chief Complaint/Hosp Course SUBJECTIVE DATA: No acute changes. No fevers. looks comfortable. Tolerating TF Blood culture on admission grew coag-negative staph species. Repeat blood cultures negative. Urine culture grew E coli. Antimicrobials: Oral vancomycin, Erythromycin PHYSICAL EXAMINATION: Well-developed, fragile, chronically ill- appearing, elderly woman who is in no distress. HEENT: Head atraumatic, normocephalic. Sclerae anicteric. Buccal mucosa dry. NECK: Supple. Trachea midline. CHEST: Chest rise symmetric. Breath sounds diminished at the bases. HEART: S1, S2. ABDOMEN: Soft, bowel sounds present. EXTREMITIES: Without cyanosis. ASSESSMENT: 1. S/p E. coli urinary tract infection. 2. Coag-negative Staphylococcus bacteremia, likely contaminated specimen. 3. Clostridium difficile colitis. 4. History of colon cancer. 5. Failure to thrive. 6. Encephalopathy. PLAN: The patient remains stable. Continue PO Vanco, continue aspiration precautions, started on Erythromycin for GI rec-s DW staff Problems: Consultation Date/Type/Reason Admit Date/Time Apr 07, 2017 at 14:26 Initial Consult Date 04/08/17 Type of Consultation: ID Exam/Review of Systems Vital Signs Vitals Vital Signs Date Time Temp Pulse Resp B/P Pulse Ox O2 Delivery O2 Flow Rate FiO2 04/15/17 09:38 98.2 75 22 147/81 96 04/12/17 12:13 Nasal Cannula 04/12/17 11:48 2.0 Intake and Output 04/14/17 04/14/17 04/15/17 15:00 23:00 07:00 Intake Total 300 ml 560 ml Balance 300 ml 560 ml Results Result Diagram: 04/15/17 0517 04/14/17 0435 Results 24 hrs Laboratory Tests Test 04/15/17 05:17 White Blood Count 7.1 # Red Blood Count 3.82 L Hemoglobin 9.9 L Hematocrit 31.4 L Mean Corpuscular Volume 82.2 Mean Corpuscular Hemoglobin 25.9 L Mean Corpuscular Hemoglobin Concent 31.5 L Red Cell Distribution Width 17.5 H Platelet Count 225 Mean Platelet Volume 12.3 H Neutrophils % 72.2 Lymphocytes % 14.3 L Monocytes % 8.4 Eosinophils % 3.5 Basophils % 0.6 Nucleated Red Blood Cells % 0.0 Neutrophils # (Manual) 5 Lymphocytes # 1.0 Monocytes # 0.6 Eosinophils # 0.3 Basophils # 0.0 Nucleated Red Blood Cells # 0.0 Medications Medications Current Medications Ondansetron HCl (Zofran Inj) 4 mg Q6H PRN IV NAUSEA AND/OR VOMITING Last administered on 04/14/17 05:01; Admin Dose 4 MG; Start 04/07/17 at 16:00 Metoclopramide HCl (Reglan) 10 mg Q6H PRN IV NAUSEA AND/OR VOMITING; Start 06/14 at 16:00 Acetaminophen (Tylenol Supp) 650 mg Q6H PRN [place] PAIN LEVEL 1-3 OR FEVER; Start 04/07/17 at 16:00 Docusate Sodium (Colace) 200 mg QHS PO Last administered on 04/14/17 20:31; Admin Dose 200 MG; Start 04/07/17 at 21:30 Morphine Sulfate (morphine) 1 mg Q4H PRN IV PAIN Last administered on 18:32; Admin Dose 1 MG; Start 04/10/17 at 10:00 Lorazepam (Ativan) 0.5 mg BID PRN IV anxiety Last administered on 04/13/17 10: 24; Admin Dose 0.5 MG; Start 04/11/17 at 12:00 Pantoprazole (Protonix Iv) 40 mg BID IV Last administered on 04/15/17 09:00; Admin Dose 40 MG; Start 04/12/17 at 21:00 Acetaminophen (Tylenol Tab) 650 mg Q6H PRN GTB PAIN LEVEL 1-3 OR FEVER; Start 04/13/17 at 10:00 Atorvastatin Calcium (Lipitor) 10 mg QHS GTB Last administered on 04/14/17 20: 32; Admin Dose 10 MG; Start 04/13/17 at 21:00 Entacapone (Comtan) 200 mg TID GTB Last administered on 04/15/17 09:01; Admin Dose 200 MG; Start 04/13/17 at 09:00 Acetaminophen/ Hydrocodone Bitart ([place] (5/325)) 1 tab Q6H PRN GTB MODERATE PAIN LEVEL 4-6; Start 04/13/17 at 10:00 Magnesium Hydroxide (Milk Of Mag) 30 ml DAILY PRN GTB CONSTIPATION; Start 04/13 at 09:00 Pramipexole (Mirapex) 1.5 mg TID GTB Last administered on 04/15/17 09:01; Admin Dose 1.5 MG; Start 04/13/17 at 09:00 Propranolol HCl (Inderal) 10 mg BID GTB Last administered on 04/15/17 09:00; Admin Dose 10 MG; Start 04/13/17 at 09:00 Vancomycin HCl (Vancomycin Oral Syringe) 125 mg Q6 GTB Last administered on 05:05; Admin Dose 125 MG; Start 04/13/17 at 12:00 Erythromycin Ethylsuccinate (E.e.s (Ped)) 250 mg TID GTB Last administered on 09:00; Admin Dose 250 MG; Start 04/14/17 at 21:00 YASHIRA TONEY NP Apr 15, 2017 11:41
--- NOTE | 2017-04-15 13:33 | PN ---
Date/Time of Note Date/Time of Note DATE: 04/15/17 TIME: 13:31 Assessment/Plan VTE Prophylaxis VTE Prophylaxis Intervention: anti-embolic stocking Lines/Catheters IV Catheter Type (from Nrsg): [place] Assessment/Plan Chief Complaint/Hosp Course 1. SIRS 2. History of stomach carcinoma. 3. History of bronchiolitis. 4. Rectal bleeding. 5. Hypertension, controlled. 6. Dyslipidemia. 7. Failure to thrive. 8. Colon carcinoma. 9. Advanced Parkinson's disease. 10. Anemia 11. electrolyte imbalance Problems: Assessment/Plan 1. Discharge to SNF Subjective 24 Hr Interval Summary Subjective hx not possible: pt non-verbal (appears sleeeping) Exam/Review of Systems Vital Signs Vitals Vital Signs Date Time Temp Pulse Resp B/P Pulse Ox O2 Delivery O2 Flow Rate FiO2 04/15/17 09:38 98.2 75 22 147/81 96 04/12/17 12:13 Nasal Cannula 04/12/17 11:48 2.0 Intake and Output 04/14/17 04/14/17 04/15/17 15:00 23:00 07:00 Intake Total 300 ml 560 ml Balance 300 ml 560 ml Exam Neck: supple Respiratory: diminished breath sounds Cardiovascular: regular rate and rhythm Gastrointestinal: other (G tube), soft Results Result Diagram: 04/15/17 0517 04/14/17 0435 Results 24 hrs Laboratory Tests Test 04/15/17 05:17 White Blood Count 7.1 # Red Blood Count 3.82 L Hemoglobin 9.9 L Hematocrit 31.4 L Mean Corpuscular Volume 82.2 Mean Corpuscular Hemoglobin 25.9 L Mean Corpuscular Hemoglobin Concent 31.5 L Red Cell Distribution Width 17.5 H Platelet Count 225 Mean Platelet Volume 12.3 H Neutrophils % 72.2 Lymphocytes % 14.3 L Monocytes % 8.4 Eosinophils % 3.5 Basophils % 0.6 Nucleated Red Blood Cells % 0.0 Neutrophils # (Manual) 5 Lymphocytes # 1.0 Monocytes # 0.6 Eosinophils # 0.3 Basophils # 0.0 Nucleated Red Blood Cells # 0.0 Medications Medications Current Medications Ondansetron HCl (Zofran Inj) 4 mg Q6H PRN IV NAUSEA AND/OR VOMITING Last administered on 04/14/17t 05:01; Admin Dose 4 MG; Start 04/07/17 at 16:00 Metoclopramide HCl (Reglan) 10 mg Q6H PRN IV NAUSEA AND/OR VOMITING; Start 06/14 at 16:00 Acetaminophen (Tylenol Supp) 650 mg Q6H PRN [place] PAIN LEVEL 1-3 OR FEVER; Start 04/07/17 at 16:00 Docusate Sodium (Colace) 200 mg QHS PO Last administered on 04/14/17 20:31; Admin Dose 200 MG; Start 04/07/17 at 21:30 Morphine Sulfate (morphine) 1 mg Q4H PRN IV PAIN Last administered on 18:32; Admin Dose 1 MG; Start 04/10/17 at 10:00 Lorazepam (Ativan) 0.5 mg BID PRN IV anxiety Last administered on 04/13/17 10: 24; Admin Dose 0.5 MG; Start 04/11/17 at 12:00 Pantoprazole (Protonix Iv) 40 mg BID IV Last administered on 04/15/17 09:00; Admin Dose 40 MG; Start 04/12/17 at 21:00 Acetaminophen (Tylenol Tab) 650 mg Q6H PRN GTB PAIN LEVEL 1-3 OR FEVER; Start 04/13/17 at 10:00 Atorvastatin Calcium (Lipitor) 10 mg QHS GTB Last administered on 04/14/17 20: 32; Admin Dose 10 MG; Start 04/13/17 at 21:00 Entacapone (Comtan) 200 mg TID GTB Last administered on 04/15/17 12:41; Admin Dose 200 MG; Start 04/13/17 at 09:00 Acetaminophen/ Hydrocodone Bitart ([place] (5/325)) 1 tab Q6H PRN GTB MODERATE PAIN LEVEL 4-6; Start 04/13/17 at 10:00 Magnesium Hydroxide (Milk Of Mag) 30 ml DAILY PRN GTB CONSTIPATION; Start 04/13 at 09:00 Pramipexole (Mirapex) 1.5 mg TID GTB Last administered on 04/15/17 12:41; Admin Dose 1.5 MG; Start 04/13/17 at 09:00 Propranolol HCl (Inderal) 10 mg BID GTB Last administered on 04/15/17 09:00; Admin Dose 10 MG; Start 04/13/17 at 09:00 Vancomycin HCl (Vancomycin Oral Syringe) 125 mg Q6 GTB Last administered on 12:41; Admin Dose 125 MG; Start 04/13/17 at 12:00 Erythromycin Ethylsuccinate (E.e.s (Ped)) 250 mg TID GTB Last administered on 12:40; Admin Dose 250 MG; Start 04/14/17 at 21:00 BRAYDEN BARRERA Apr 15, 2017 13:33
[2017-04-15 16:31] VITALS: BP 131/66; RESP 20
--- NOTE | 2017-04-15 20:45 | CONS ---
Date/Time of Note Date/Time of Note DATE: 04/15/17 TIME: 20:44 Assessment/Plan Assessment/Plan Additional Assessment/Plan Impression 1. History of advanced Parkinson's disease. 2. History of stomach carcinoma. 3. History of bronchiolitis. 4. Rectal bleeding. 5. Hypertension. 6. Dyslipidemia. 7. Failure to thrive. 8. Colon carcinoma 9. c difficile colitis 10 UTI 11.encephalopathy 12. Status post PEG, patient is tolerating feeding 13 coffee ground colored emesis, from extensive esophagitis Plan Po Vancomycin PPI Increase feeding as per dietitian recommendation Will start. Patient on erythromycin. Patient is not a candidate for Reglan given the history of Parkinson's disease. Reduce the feeding No further vomiting or bleeding and patient can be discharged. Discussed with Dr. Onofre. And was seen by me before discharge Consultation Date/Type/Reason Admit Date/Time Apr 07, 2017 at 14:26 Initial Consult Date 04/08/17 Type of Consultation: ID [id number] HR Interval Summary Free Text/Dictation As per the staff no vomiting no bleeding Exam/Review of Systems Vital Signs Vitals Vital Signs Date Time Temp Pulse Resp B/P Pulse Ox O2 Delivery O2 Flow Rate FiO2 04/15/17 16:31 97.8 74 20 131/66 96 04/12/17 12:13 Nasal Cannula 04/12/17 11:48 2.0 Intake and Output 04/14/17 04/14/17 04/15/17 15:00 23:00 07:00 Intake Total 300 ml 560 ml Balance 300 ml 560 ml Exam Constitutional: alert, oriented, well developed Psych: nl mood/affect, no complaints Head: atraumatic, normocephalic Eyes: EOMI, PERRL, nl conjunctiva, nl lids, nl sclera ENMT: nl external ears & nose, nl lips & teeth, nl nasal mucosa & septum Neck: non-tender, supple Respiratory: clear to auscultation, normal air movement Cardiovascular: nl pulses, regular rate and rhythm Gastrointestinal: nl liver, spleen, non-tender, soft Musculoskeletal: nl extremities to inspection, nl gait and stance Extremities: normal pulses Neurological: ROVING WEIGHT GAUGER II-XII intact, nl mental status, nl speech, nl strength Skin: nl turgor, No rash or lesions Lymph: nl lymph nodes Results Result Diagram: 04/15/17 0517 04/14/17 0435 Results 24 hrs Laboratory Tests Test 04/15/17 05:17 White Blood Count 7.1 # Red Blood Count 3.82 L Hemoglobin 9.9 L Hematocrit 31.4 L Mean Corpuscular Volume 82.2 Mean Corpuscular Hemoglobin 25.9 L Mean Corpuscular Hemoglobin Concent 31.5 L Red Cell Distribution Width 17.5 H Platelet Count 225 Mean Platelet Volume 12.3 H Neutrophils % 72.2 Lymphocytes % 14.3 L Monocytes % 8.4 Eosinophils % 3.5 Basophils % 0.6 Nucleated Red Blood Cells % 0.0 Neutrophils # (Manual) 5 Lymphocytes # 1.0 Monocytes # 0.6 Eosinophils # 0.3 Basophils # 0.0 Nucleated Red Blood Cells # 0.0 ROXANNE MORALES MD Apr 15, 2017 20:45
--- NOTE | 2017-04-17 19:41 | DS ---
Date/Time of Note Date/Time of Note DATE: 04/17/17 TIME: 19:38 Discharge Summary Admission/Discharge Info Admit Date/Time Apr 07, 2017 at 14:26 Discharge Date/Time Apr 15, 2017 at 19:57 Discharge Diagnosis GI bleed, dysphagia Patient Condition: Stable Consults DR Last Procedures EGD with GT placement Hx of Present Illness pt was admitted with GI blleed. She has an extensive history of colon cancer, s/ p removal. Pt is retirement resident, she failed swallow evaluation. PEG tube was placed for feeding, no more GI bleeding found and pt is transferred back to retirement Hospital Course SUBJECTIVE DATA: No acute changes. No fevers. looks comfortable. Tolerating TF Blood culture on admission grew coag-negative staph species. Repeat blood cultures negative. Urine culture grew E coli. Antimicrobials: Oral vancomycin, Erythromycin PHYSICAL EXAMINATION: Well-developed, fragile, chronically ill- appearing, elderly woman who is in no distress. HEENT: Head atraumatic, normocephalic. Sclerae anicteric. Buccal mucosa dry. NECK: Supple. Trachea midline. CHEST: Chest rise symmetric. Breath sounds diminished at the bases. HEART: S1, S2. ABDOMEN: Soft, bowel sounds present. EXTREMITIES: Without cyanosis. ASSESSMENT: 1. S/p E. coli urinary tract infection. 2. Coag-negative Staphylococcus bacteremia, likely contaminated specimen. 3. Clostridium difficile colitis. 4. History of colon cancer. 5. Failure to thrive. 6. Encephalopathy. PLAN: The patient remains stable. Continue PO Vanco, continue aspiration precautions, started on Erythromycin for GI rec-s staff Home Meds Active Scripts Pantoprazole* (Protonix* IV) 40 Mg Soln, 40 MG IV BID for 60 Days Prov:SHANNEN VALLEJO MD 04/14/17 Ondansetron Hcl* (Ondansetron Hcl* Inj) 4 Mg/2 Ml Vial, 4 MG IV Q6H Y for NAUSEA AND/OR VOMITING for 10 Days, VIAL Prov:SHANNEN VALLEJO MD 04/14/17 [Metoclopramide] 5 MG/ML SOLN No Conflict Check, 10 MG IV Q6H Y for NAUSEA AND/ OR VOMITING for 7 Days Prov:SHANNEN VALLEJO MD 04/14/17 Hydrocodone Bit-Acetaminophen (Hydrocodone Bit-APAP) 5-325MG Tablet, 1 TAB GTB Q6H Y for MODERATE PAIN LEVEL 4-6 for 7 Days, TAB Prov:SHANNEN VALLEJO MD 04/14/17 Atorvastatin (Atorvastatin) 10 Mg Tablet, 10 MG GTB QHS for 7 Days, TAB Prov:SHANNEN VALLEJO MD 04/14/17 [Vancomycin Oral Syringe] 50 MG/ML SOLN No Conflict Check, 125 MG GTB Q6 for 14 Days Prov:SHANNEN VALLEJO MD 04/14/17 Reported Medications Acetaminophen* (Tylenol*) 500 Mg Tab, 1000 MG PO Q4H Y for PAIN 4-6, TAB 03/10/17 Magaldrate/Simethicone* (Mag-Al Plus Suspension*) 30 Ml Oral.susp, 30 ML PO Q4H Y for GASTROINTESTINAL UPSET, ML 03/10/17 Cranberry Extract (Cranberry) 425 Mg Capsule, 425 MG PO DAILY, CAP 03/10/17 Lorazepam* (Lorazepam*) 0.5 Mg Tablet, 0.5 MG PO Q6 Y for ANXIETY, TAB 03/10/17 Zolpidem Tartrate* (Ambien*) 5 Mg Tablet, 5 MG PO QHS Y for INSOMNIA, #30 TAB 03/10/17 Propranolol Hcl* (Propranolol Hcl*) 10 Mg Tablet, 10 MG PO BID, TAB 03/10/17 Atorvastatin Calcium (Atorvastatin Calcium) 10 Mg Tablet, 10 MG PO QHS, #30 TAB 03/10/17 Pramipexole* (Mirapex*) 1.5 Mg Tablet, 1.5 MG PO Q8H, TAB 03/10/17 Entacapone* (Comtan*) 200 Mg Tab, 200 MG PO TID, TAB 03/10/17 Discontinued Reported Medications Acetaminophen* (Tylenol*) 325 Mg Tablet, 650 MG PO Q4H Y for MILD PAIN LEVEL 1-3 , TAB FOR FEVER 100 AND ABOVE 03/10/17 Na Phos,M-B/Na Phos,Di-Ba (Fleet Enema Extra) 230 Ml Enema, 230 ML RC Q2D Y for PRN, ENEMA 03/10/17 Bisacodyl* (Bisacodyl*) 10 Mg Supp, 10 MG SD DAILY Y for NEEDED, SUPP 03/10/17 Magnesium Hydroxide* (Milk Of Magnesia*) 400 Mg/5 Ml Oral.susp, 30 ML PO QHS, ML 03/10/17 Docusate Sodium* (Colace*) 100 Mg Capsule, 200 MG PO QHS, #30 CAP 03/10/17 Insulin Aspart* (Novolog Insulin Pen*) 100 Unit/Ml Soln, 0 SC .SLIDING SCALE AC , EA 150-199=1 UNITS,200-249=2 UNITS,250-299=3 UNITS, 300-349=4 UNITS,ABOVE 349=5 UNITS; ABOVE 400 OR BELOW 60 CALL 03/10/17 Pantoprazole* (Protonix*) 40 Mg Tablet.dr, 40 MG PO DAILY, TAB 03/10/17 Losartan Potassium* (Losartan Potassium*) 50 Mg Tablet, 50 MG PO BID, TAB 03/10/17 Primary Care Provider MD HOLLY Persaud ANNA Apr 17, 2017 19:41
== END 2017-04-15 19:57 | DRG 871 ==
LOC: E/R 11:39 → MS3 14:26 → PP2 18:41
PROVIDERS: ADMIT Internal Medicine Nephrology; ATTEND Internal Medicine Nephrology
PROC: 0DH63UZ Insertion of Feeding Device into Stomach, Percutaneous Approach (ICD-10-PCS; principal; 2017-04-12 12:00)
DX: A41.9 Sepsis, unspecified organism (principal); G93.41 Metabolic encephalopathy; A04.7 Enterocolitis due to Clostridium difficile; R13.10 Dysphagia, unspecified; K22.10 Ulcer of esophagus without bleeding; E87.8 Other disorders of electrolyte and fluid balance, not elsewhere classified; N39.0 Urinary tract infection, site not specified; K92.2 Gastrointestinal hemorrhage, unspecified; G20 Parkinson's disease; F02.80 Dementia in other diseases classified elsewhere, unspecified severity, without behavioral disturbance, psychotic disturbance, mood disturbance, and anxiety; I10 Essential (primary) hypertension; R62.7 Adult failure to thrive; E78.5 Hyperlipidemia, unspecified; D64.9 Anemia, unspecified; B96.20 Unspecified Escherichia coli [E. coli] as the cause of diseases classified elsewhere; F32.9 Major depressive disorder, single episode, unspecified; F41.9 Anxiety disorder, unspecified; F20.9 Schizophrenia, unspecified; R63.0 Anorexia; Z68.27 Body mass index [BMI] 27.0-27.9, adult; Z85.038 Personal history of other malignant neoplasm of large intestine; Z85.028 Personal history of other malignant neoplasm of stomach; Z87.891 Personal history of nicotine dependence
CPT/HCPCS: 71010; 74176; 80048; 80053; 80202; 81001; 82270; 82565; 82962; 83605; 83690; 83735; 84100; 84484; 84520; 85014; 85018; 85025; 85610; 85730; 87040; 87075; 87081; 87086; 93005; 96374; A4310; C9113; J0690; J0692; J0696; J2060; J2270; J2405; J3370; J3480; J7030; J7042

== ENCOUNTER 2019-01-24 05:08 | Inpatient (IN) | payer MEDICARE, OTHER ==
[~2019-01-24] VITALS: Ht 160 cm; Wt 55.0 kg
[2019-01-24] VITALS (34 sets, daily range): BP systolic 44–154; BP diastolic 21–83; PULSE 84–170; RESP 5–40; Ht 160 cm; Wt 55.0 kg
[~2019-01-24 05:08] MED LIST changes: -ACET325T33 PO; +ATOR10TA65 GTB; -BISA10SU75 PR; -CRAN425C PO; +CRAN425C6 PO; -DOCU-144 PO; +HYDR-3601 GTB; -LOSA50TA6 PO; -MAGN400O4 PO; +Metoclopramide IV; -NA P230E RC; -NOVO3I SC; +ONDA4VIA6 IV; -PANT40TA3 PO; +PANT40VI7 IV; +Vancomycin Oral Syringe GTB
[2019-01-24] MEDS ORDERED: CEFEPIME 2GM/50 ML (PMX) 50 ML IVPB STA (05:16)
[2019-01-24] MEDS ORDERED: ACETAMINOPHEN 650 MG SUPP PR ONE (05:30)
[2019-01-24] MEDS ORDERED: SOD CHLORIDE 0.9% IV ONE (05:30)
[2019-01-24] MEDS ORDERED: VANCOMYCIN 1 GM (PMX) 250 ML IVPB ONE (05:30)
[2019-01-24] MEDS ORDERED: ALBUTEROL 0.083% (NEB) 2.5 MG/3 ML AMP HHN ONE (05:40)
[2019-01-24] MEDS ORDERED: IPRATROPIUM (NEB) 0.5 MG/2.5 ML AMP HHN ONE (06:00)
[2019-01-24] MEDS ORDERED: MIDAZOLAM (DRIP) 50 mg/50 mL 50 ML IV STA (06:27)
[2019-01-24] MEDS ORDERED: SUCCINYLCHOLINE CHLORIDE 100 MG/5 ML SYG IV ONE ×2 (06:30→07:00)
[2019-01-24] MEDS ORDERED: FENTAnyl (DRIP) 1000 mcg/100mL 100 ML IV ONE (06:30)
[2019-01-24] MEDS ORDERED: ETOMIDATE 20 MG INJ IV ONE (06:30)
[2019-01-24] MEDS ORDERED: ASPIRIN 300 MG SUPP PR ONE (06:30)
[2019-01-24] MEDS ORDERED: NORepinephrine 8MG/250 ML (PMX 250 ML IV STA (06:38)
[2019-01-24] MEDS ORDERED: SOD CHLORIDE 0.9% 1,000 ML IV ONE ×2 (07:30→12:30)
[2019-01-24] MEDS ORDERED: SOD CHLORIDE 0.9% 1,000 ML IV SCH ×2 (07:32→12:30)
[2019-01-24] MEDS ORDERED: AMIODARONE 150MG/D5W BOLUS IV* STA (07:34)
[2019-01-24] MEDS ORDERED: LORA-441 GTB (07:43)
[2019-01-24] MEDS ORDERED: ESCI5TAB GTB (07:43)
[2019-01-24] MEDS ORDERED: PRAM1.5T8 GTB (07:44)
[2019-01-24] MEDS ORDERED: NOVO3I SC (07:47)
[2019-01-24] MEDS ORDERED: INSU100I27 SQ (07:49)
[2019-01-24] MEDS ORDERED: ACET-2047 GTB ×2 (07:53→07:55)
[2019-01-24] MEDS ORDERED: ACET-141 GTB ×2 (07:53)
[2019-01-24] MEDS ORDERED: HYDR-4011 GTB (07:54)
--- NOTE | 2019-01-24 07:59 | ERD ---
ER Documentation Chief Complaint Chief Complaint ems called for GT bleeding; diaphoretic, hypotenisive, tachycardic HPI Patient is a 78-year-old female who presents for low blood pressure and fever. Please note the history and physical exam is limited secondary to the patient's altered mental status. The patient was brought in by ambulance. The patient came from [facility]. The patient is a full code. Upon review of old medical records this is the patient's third visit to the ER since 2017. ROS All systems reviewed and are negative except as per history of present illness. Medications Home Meds Reported Medications Acetaminophen* (Acetaminophen*) 650 Mg Tablet, 650 MG GTB Q4 PRN for FEVER GREATER THAN 100.6, #30 TAB 01/24/19 Hydrocodone/Acetaminophen ([place] 5-325 Tablet) 1 Each Tablet, 1 EACH GTB Q4 PRN for SEVERE PAIN LEVEL 7-10, TAB 01/24/19 Acetaminophen* (Acetaminophen*) 650 Mg Tablet, 650 MG GTB Q4 PRN for MILD PAIN LEVEL 1-3, #30 TAB 01/24/19 Acetaminophen* (Acetaminophen*) 500 MG Extra Strength Tablet, 1000 MG GTB Q4H PRN for MODERATE PAIN LEVEL 4-6, TAB 01/24/19 Acetaminophen* (Acetaminophen*) 500 MG Extra Strength Tablet, 1000 MG GTB BID PRN for GENERAL BODY PAIN, TAB 01/24/19 Insulin Detemir (Levemir Flextouch) 100 Unit/1 Ml Insuln.pen, 10 UNIT SQ BID, EA 01/24/19 Insulin Aspart* (Novolog Insulin Pen*) 100 Unit/Ml Soln, 0 SC .SLIDING SCALE AC, EA 150-199 = 2 UNITS 200-249 = 3 UNITS 250-299 = 5 UNITS 300 - 349 = 7 UNITS GREATER THAN 349 GIVE 10 UNITS NOTIFY MD IF BELOW 70 OR ABOVE 400 01/24/19 Pramipexole* (Mirapex*) 1.5 Mg Tablet, 1.5 MG GTB TID, TAB 01/24/19 Escitalopram Oxalate* (Lexapro*) 5 Mg Tablet, 5 MG GTB DAILY, #30 TAB 01/24/19 Lorazepam* (Ativan*) 0.5 Mg Tablet, 0.25 MG GTB BID PRN for ANXIETY, #30 TAB 01/24/19 Discontinued Reported Medications Acetaminophen* (Tylenol*) 500 Mg Tab, 1000 MG PO Q4H PRN for PAIN 4-6/10, TAB 03/10/17 Magaldrate/Simethicone* (Mag-Al Plus Suspension*) 30 Ml Oral.susp, 30 ML PO Q4H PRN for GASTROINTESTINAL UPSET, ML 03/10/17 Cranberry Extract (Cranberry) 425 Mg Capsule, 425 MG PO DAILY, CAP 03/10/17 Lorazepam* (Lorazepam*) 0.5 Mg Tablet, 0.5 MG PO Q6 PRN for ANXIETY, TAB 03/10/17 Zolpidem Tartrate* (Ambien*) 5 Mg Tablet, 5 MG PO QHS PRN for INSOMNIA, #30 TAB 03/10/17 Propranolol Hcl* (Propranolol Hcl*) 10 Mg Tablet, 10 MG PO BID, TAB 03/10/17 Atorvastatin Calcium (Atorvastatin Calcium) 10 Mg Tablet, 10 MG PO QHS, #30 TAB 03/10/17 Pramipexole* (Mirapex*) 1.5 Mg Tablet, 1.5 MG PO Q8H, TAB 03/10/17 Entacapone* (Comtan*) 200 Mg Tab, 200 MG PO TID, TAB 03/10/17 Discontinued Scripts Pantoprazole* (Protonix* IV) 40 Mg Soln, 40 MG IV BID for 60 Days Prov:SHANNEN VALLEJO MD 04/14/17 Ondansetron Hcl* (Ondansetron Hcl* Inj) 4 Mg/2 Ml Vial, 4 MG IV Q6H PRN for NAUSEA AND/OR VOMITING for 10 Days, VIAL Prov:SHANNEN VALLEJO MD 04/14/17 [Metoclopramide] 5 MG/ML SOLN No Conflict Check, 10 MG IV Q6H PRN for NAUSEA AND/OR VOMITING for 7 Days Prov:SHANNEN VALLEJO MD 04/14/17 Hydrocodone Bit-Acetaminophen (Hydrocodone Bit-APAP) 5-325MG Tablet, 1 TAB GTB Q6H PRN for MODERATE PAIN LEVEL 4-6 for 7 Days, TAB Prov:SHANNEN VALLEJO MD 04/14/17 Atorvastatin (Atorvastatin) 10 Mg Tablet, 10 MG GTB QHS for 7 Days, TAB Prov:SHANNEN VALLEJO MD 04/14/17 [Vancomycin Oral Syringe] 50 MG/ML SOLN No Conflict Check, 125 MG GTB Q6 for 14 Days Prov:SHANNEN VALLEJO MD 04/14/17 Allergies Allergies: Coded Allergies: No Known Allergy (Unverified , 01/24/19) PMhx/Soc History of Surgery: Yes (hysterectomy, GT placement) Anesthesia Reaction: No Hx Neurological Disorder: Yes (Parkinson's, Encepholopathy, Dementia,Parkinsons) Hx Respiratory Disorders: Yes (Hx of SOB, Atelectasis) Hx Cardiac Disorders: No (CAD, Hyperlipidemia, Cardiomegaly, HTN) Hx Psychiatric Problems: Yes (Major Depression, Anxiety, Schizophrenia) Hx Miscellaneous Medical Probl: Yes (acute kideny failure.H pylori,dyspha june,acute pancreatitis,anemia,hypernatr) Hx Alcohol Use: No Hx Substance Use: No Hx Tobacco Use: No Smoking Status: Unknown if ever smoked FmHx Unable to obtain Physical Exam Vitals Vital Signs Date Temp Pulse Resp B/P (MAP) Pulse Ox O2 O2 Flow FiO2 Time Delivery Rate 01/24/19 102.0 108 18 61/41 (48) 62 [place] 07:04 l Ventilato r 01/24/19 110 20 60 [place] 06:45 l Ventilato r 01/24/19 112 22 60 [place] 06:30 l Ventilato r 01/24/19 113 16 100 06:30 01/24/19 115 30 78/44 (55) 100 Non 06:00 Rebreathe r 01/24/19 113 34 100 Non 15.0 100 05:46 Rebreathe r Mask 01/24/19 100 15.0 100 05:46 01/24/19 103.0 05:42 01/24/19 109 30 73/41 (52) 100 Non 05:30 Rebreathe r 01/24/19 Non 05:20 Rebreathe r 01/24/19 111 35 84/52 (63) 100 Non 05:15 Rebreathe r 01/24/19 103.2 113 36 84/56 (65) 99 05:15 Physical Exam Const: Critically ill Head: Atraumatic Eyes: Normal Conjunctiva ENT: Normal External Ears, Nose and Mouth. Neck: Full range of motion. No meningismus. Resp: Tachypnea in the 40s with shallow respirations Cardio: Tachycardia Abd: Soft, non tender, non distended. Normal bowel sounds Skin: Diaphoresis Back: No midline or flank tenderness Ext: No cyanosis, or edema Neur: Altered Result Diagram: 01/24/19 0520 01/24/19 0520 Results 24 hrs Laboratory Tests Test 01/24/19 05:12 01/24/19 05:20 01/24/19 05:21 01/24/19 05:24 Bedside Glucose 549 mg/dL White Blood 13.6 10^3/ul Count Red Blood Count 4.73 10^6/ul Hemoglobin 14.5 g/dl Hematocrit 49.8 % Mean Corpuscular 105.3 fl Volume Mean Corpuscular 30.7 pg Hemoglobin Mean Corpuscular 29.1 g/dl Hemoglobin Nisa nt Red Cell 15.7 % Distribution Width Platelet Count 91 10^3/UL Mean Platelet fl Volume Immature 0.800 % Granulocytes % Neutrophils % 86.5 % Lymphocytes % 8.5 % Monocytes % 3.8 % Eosinophils % 0.0 % Basophils % 0.4 % Nucleated Red 0.7 /100WBC Blood Cells % Immature 0.110 10^3/ul Granulocytes # Neutrophils # 11.7 10^3/ul Lymphocytes # 1.2 10^3/ul Monocytes # 0.5 10^3/ul Eosinophils # 0.0 10^3/ul Basophils # 0.1 10^3/ul Nucleated Red 0.1 10^3/ul Blood Cells # Prothrombin Time 15.0 Sec Prothrombin Time 1.2 Ratio INR 1.17 International Normalized Ratio Activated 33.8 Sec Partial Thrombop last Time Urine Color LAITH Urine Clarity CLOUDY Urine pH 5.0 Urine Specific 1.025 [place] Urine Ketones TRACE mg/dL Urine Nitrite NEGATIVE mg/dL Urine Bilirubin NEGATIVE mg/dL Urine 1+ mg/dL Urobilinogen Urine Leukocyte NEGATIVE Kaushal/ul Esterase Urine 4 /HPF Microscopic RBC Urine 6 /HPF Microscopic WBC Urine Squamous FEW /HPF Epithelial Cells Urine Amorphous MODERATE /HPF Crystals Urine Hemoglobin NEGATIVE mg/dL Urine Glucose 1+ mg/dL Urine Total NEGATIVE mg/dl Protein Sodium Level 156 mmol/L Potassium Level 4.4 mmol/L Chloride Level 117 mmol/L Carbon Dioxide 28 mmol/L Level Anion Gap 11 Blood Urea 134 mg/dl Nitrogen Creatinine 1.76 mg/dl Est Glomerular mL/min Filtrat Rate mL/min Glucose Level 613 mg/dl Calcium Level 9.9 mg/dl Total Bilirubin 0.6 mg/dl Direct Bilirubin 0.00 mg/dl Indirect 0.6 mg/dl Bilirubin Aspartate Amino 569 IU/L Transf (AST/SGOT ) Alanine 985 IU/L Aminotransferase (ALT/SGPT) Alkaline 104 IU/L Phosphatase Troponin I 0.164 ng/ml Total Protein 5.6 g/dl Albumin 3.2 g/dl Globulin 2.40 g/dl Albumin/Globulin 1.33 Ratio POC Venous 4.1 mmol/L Lactate Blood Gas Blood arterial Specimen Source Arterial Blood 01/24/2019 5:23: Date Drawn 24 AM Arterial Blood 7.332 pH (Temp corrected) Arterial Blood 39.3 mmhg pCO2 (Temp correct) Arterial Blood 197.6 mmHG pO2 (Temp corrected) Arterial Blood 20.3 mmol/L HCO3 Arterial Blood -5.1 mmol/L Base Excess Arterial Blood 98.9 mmHG Oxygen Saturatio n Arias Test ACCEPTAB Arterial Blood Right Radial Gas Puncture Site Arterial 0 % Blood Carboxyhem oglobin Arterial Blood 0.6 % Methemoglobin Blood Gas A-a O2 476.1 mmHg Differential Oxyhemoglobin 98.3 % Percent Blood Gas 37.0 C Temperature Blood Gas MASK - NRB Modality FiO2 100.0 % Blood Gas MG Notified Whom Blood Gas 01/24/2019 5:28: Notified Time 58 AM Test 01/24/19 05:57 01/24/19 06:27 01/24/19 07:56 01/24/19 07:57 Bedside Urine pH 5.0 (LAB) Bedside Urine 1+ Protein (LAB) Bedside Urine Negative Glucose (UA) Bedside Urine 1+ Ketones (LAB) Bedside Urine Negative Blood Bedside Urine Negative Nitrite (LAB) Bedside Urine Negative Leukocyte Estera se (L Blood Gas Blood arterial Specimen Source Arterial Blood 01/24/2019 7:44: Date Drawn 11 AM Arterial Blood 6.888 pH (Temp corrected) Arterial Blood 94.7 mmhg pCO2 (Temp correct) Arterial Blood 52.2 mmHG pO2 (Temp corrected) Arterial Blood 17.6 mmol/L HCO3 Arterial Blood -16.9 mmol/L Base Excess Arterial Blood 62.0 mmHG Oxygen Saturatio n Arias Test ACCEPTAB Arterial Blood Right Radial Gas Puncture Site Arterial 0.3 % Blood Carboxyhem oglobin Arterial Blood 0.4 % Methemoglobin Blood Gas A-a O2 566.1 mmHg Differential Oxyhemoglobin 61.6 % Percent Blood Gas 37.0 C Temperature Blood Gas 16.0 Respiration Rate Blood Gas Actual 16 Respiration Rate Blood Gas VENT - AC Modality FiO2 100.0 % Blood Gas Tidal 400.0 mL Volume Blood Gas Low 5.0 cmH2O PEEP Setting Blood Gas MD MARGARITA Critical Value Read Back Blood Gas KS Notified Whom Blood Gas 01/24/2019 7:52: Notified Time 20 AM Bedside Glucose 177 mg/dL 173 mg/dL Current Medications Medications Dose Sig/Marci Start Time Status Last (Trade) Ordered Route PRN Stop Time Admin Dose Reason Admin Sodium 1,590 ml @ BOLUS X1 01/24/19 DC 01/24/19 Chloride 1,590 mls/hr ONCE IV 05:30 05:43 01/24/19 06:29 650 mg ONCE ONCE 01/24/19 DC 01/24/19 Acetaminophen CO 05:30 05:42 (Tylenol 01/24/19 05:31 Supp) Cefepime HCl 50 ml @ ONCE STAT 01/24/19 DC 01/24/19 100 mls/hr IVPB 05:16 05:39 01/24/19 05:45 Vancomycin 250 ml @ ONCE ONCE 01/24/19 DC 01/24/19 HCl 125 mls/hr IVPB 05:30 05:51 01/24/19 07:29 Albuterol 5 mg ONCE ONCE 01/24/19 DC 01/24/19 (Proventil HHN 05:40 05:45 0.083% (Neb)) 01/24/19 05:41 Ipratropium 0.5 mg ONCE ONCE 01/24/19 DC 01/24/19 [place] HHN 06:00 05:45 (Atrovent 01/24/19 06:01 0.02% (Neb)) Aspirin 300 mg ONCE ONCE 01/24/19 DC (Aspirin) CO 06:30 01/24/19 06:31 Etomidate 20 mg ONCE ONCE 01/24/19 DC 01/24/19 (Amidate) IV 06:30 06:56 01/24/19 06:31 150 mg ONCE ONCE 01/24/19 DC 01/24/19 Succinylcholi IV 06:30 06:56 ne Chloride 01/24/19 06:31 (Anectine Syringe) Midazolam 50 ml @ 3 ONCE STAT 01/24/19 HCl mls/hr IV 06:27 01/24/19 23:06 Fentanyl 100 ml @ 5 CONTINUOUS 01/24/19 mls/hr DRIP ONCE 06:30 IV 01/25/19 02:29 250 ml @ ONCE STAT 01/24/19 01/24/19 Norepinephrin 7.5 mls/hr IV 06:38 06:55 e 01/25/19 15:57 Sodium 1,000 ml @ Q1H ONCE 01/24/19 Chloride 1,000 mls/hr IV 07:30 01/24/19 08:29 Amiodarone 100 ml ONCE STAT 01/24/19 DC HCl IV* 07:34 (Cordarone 01/24/19 07:36 150mg/ D5W Bolus) Amiodarone 500 ml @ 0 Q0M IV 01/24/19 HCl 900 mls/hr 08:00 mg/Dextrose Amiodarone 500 ml @ 0 Q0M IV 01/24/19 HCl 900 mls/hr 08:00 mg/Dextrose Sodium 1,000 ml @ [id number] IV 01/24/19 Chloride 80 mls/hr 07:32 Ondansetron 4 mg Q6H PRN 01/24/19 HCl (Zofran IV NAUSEA 08:00 Inj) AND/OR VOMITING Albuterol 2.5 mg Q2H RESP 01/24/19 (Proventil THERAPY PRN 08:00 0.083% (Neb)) NEB SHORTNESS OF BREATH Ipratropium 0.5 mg Q2H RESP 01/24/19 [place] THERAPY PRN 08:00 (Atrovent NEB 0.02% SHORTNESS OF (Neb)) BREATH 650 mg Q6H PRN 01/24/19 Acetaminophen PO PAIN 08:00 (Tylenol LEVEL 1-3 OR Liquid) FEVER Docusate 100 mg Q12H PRN 01/24/19 Sodium PO 08:00 (Colace) CONSTIPATION Bisacodyl 5 mg DAILY PRN 01/24/19 (Dulcolax) PO 08:00 CONSTIPATION 40 mg DAILY@06 01/25/19 Pantoprazole IV 06:00 (Protonix Iv) 250 ml @ TITRATE IV 01/24/19 Norepinephrin 1.875 mls/ 08:00 e hr 250 ml @ TITRATE IV 01/24/19 Phenylephrine 75 mls/hr 08:00 HCl Vancomycin VANCOMYCIN PER 01/24/19 HCl (Vanco PER PHARMACY PROTOCOL XX 08:00 Iv Per Pharmacy) Cefepime HCl 50 ml @ Q24H IVPB 01/25/19 100 mls/hr 05:00 Procedures/MDM EKG 1 read by me: Rate/Rhythm: Tachycardia at a rate of 109 Intervals: Normal Impression: Sinus tachycardia EKG 2 read by me: Rate/Rhythm: Tachycardia in the 140s Intervals: Normal Impression: Sinus tachycardia Endotracheal Intubation by me: Pre assessment performed. Pre-oxygenation performed with 100% oxygen RSI: Performed w/o complication or hypoxic events. Medications as ordered. Blade: MAC 4 video laryngoscope ET Tube: 7.5 cm Depth: 23 cm at the lip Intubation confirmed by colorimetric CO2, equal breath sounds, quiet over the stomach. Chest X-ray 1V Interpreted by me: 2 cm below the sabino ET tube. White out of the left lung likely from right mainstem intubation. Respiratory therapy has been instructed to withdraw the ET tube by 2 cm. Chest x-ray will be redone. Central Line Placement by me: Patient consented, sterilely draped, full prep, gown, glove, mask, time out performed. I initially attempted a right femoral central line under ultrasound guidance but there was resistance so this was aborted. I then attempted a left subclavian central line but there was resistance at this site was aborted. I then attempted a left internal jugular central line which was successful. Anesthesia: 1% lidocaine locally Location: Left internal jugular Device: Multiple lumen Technique: Seldinger technique. Secured with suture. Results: Venous return from all ports with easy saline flush. No complications. Guide wire retrieved and disposed of. ED Ultrasound: Central line placed by me using concurrent ultrasound guidance. Real time image archived in the medical record confirms vascular anatomy. This x-ray shows successful placement of the left internal jugular central line. Sepsis Documentation: Patient's infectious symptoms have not stabilized and the patient is at risk of rapid decompensation. The patient will be admitted for careful hydration, antibiotic therapy, and infectious source control. SEVERE SEPSIS CRITERIA: Infectious source: Cystitis End organ damage indicated by: Lactate greater than 2 SEPSIS MANAGEMENT Time of recognition of sepsis: 520. Time of recognition of severe sepsis: 520. Time of recognition of septic shock: 520. 3 HOUR BUNDLE Blood cultures x 2 before broad-spectrum antibiotics: Yes 30 ml/kg NS bolus completed Initial lactate 4.1 Repeat lactate pending SEPTIC SHOCK ASSESSMENT: Yes lactic acid > 4.0 Yes Persistent hypotension (SBP < 90 or 40 mmHg drop, MAP < 65) despite 30 mL/kg IV fluid bolus VOLUME REASSESSMENT FOR SEPTIC SHOCK: Reevaluation Time: 07 Temp 102.0, BP 61/41, HR 108, RR 18, Pox 100% Heart tachycardic rate Lungs no crackles Skin warm & dry Cap Refill less than 2 seconds Peripheral pulses radially present PERSISTENT HYPOTENSION TREATMENT: Comfort care no Central line left internal jugular Vasopressor started levophed I considered further perfusion assessment with CVP measurement, SCVO2, bedside ultrasound volume assessment, passive leg raise, trial of further fluid bolus. And proceeded with 30 ml/kg fluid bolus of NSS, broad spectrum antibiotics, and admission. The patient is a patient of Dr. Vallejo but unfortunately he is out on medical leave and is patient will be admitted to the hospitalist team at this time. I spoke with Dr. Kitchen for admission to the intensive care unit. CRITICAL CARE Critical care time 45 minutes Emergent fluid management while maintaining close respiratory support. Provision of immediate and broad-spectrum antibiotic therapy. Simultaneous assessment for possible sources in order to direct targeted therapy. Consideration for invasive and chemical support to prevent cardiopulmonary collapse. Critical care time is independent of procedures performed. Departure Diagnosis: Primary Impression: Cardiac arrest Additional Impressions: Septic shock Respiratory failure Chronicity: acute Respiratory failure complication: hypoxia Qualified Codes: J96.01 - Acute respiratory failure with hypoxia Hypotension Hypotension type: unspecified hypotension type Qualified Codes: I95.9 - Hypotension, unspecified Condition: Critical KATINA HER MD January 24, 2019 07:59
[2019-01-24] MEDS ORDERED: VANCOMYCIN IV PER PHARMACY XX SCH (08:00)
[2019-01-24] MEDS ORDERED: NORepinephrine 8MG/250 ML (PMX 250 ML IV SCH (08:00)
[2019-01-24] MEDS ORDERED: IPRATROPIUM (NEB) 0.5 MG/2.5 ML AMP NEB PRN (08:00)
[2019-01-24] MEDS ORDERED: BISACODYL (EC) 5 MG TAB PO PRN (08:00)
[2019-01-24] MEDS ORDERED: AMIODARONE 900 MG in DEXTROSE 5% 482 ML IV SCH ×4 (08:00)
[2019-01-24] MEDS ORDERED: DOCUSATE SODIUM 100 MG CAP PO PRN (08:00)
[2019-01-24] MEDS ORDERED: ALBUTEROL 0.083% (NEB) 2.5 MG/3 ML AMP NEB PRN (08:00)
[2019-01-24] MEDS ORDERED: ONDANSETRON 4 MG INJ IV PRN (08:00)
[2019-01-24] MEDS ORDERED: ACETAMINOPHEN 650MG/20.3ML CUP PO PRN (08:00)
[2019-01-24] MEDS ORDERED: ASCO500C7 G-TUBE (08:06)
[2019-01-24] MEDS ORDERED: MVI GTB (08:08)
[2019-01-24] MEDS ORDERED: CRAN425C6 GTB (08:08)
[2019-01-24] MEDS ORDERED: CRAN3875 JT (08:09)
[2019-01-24] MEDS ORDERED: MAGN400O19 GTB (08:10)
[2019-01-24] MEDS ORDERED: DOCU-144 GTB (08:10)
[2019-01-24] MEDS ORDERED: BISA10SU55 RC (08:11)
[2019-01-24] MEDS ORDERED: NA P133E10 RC (08:12)
[2019-01-24] MEDS ORDERED: VASOPRESSIN 60 UNIT in SOD CHLORIDE 0.9% 57 ML IV STA (08:30)
[2019-01-24] MEDS ORDERED: HYDROCORTISONE 100 MG INJ IV ONE ×2 (08:30→12:30)
[2019-01-24] MEDS ORDERED: PHENYLephrine 20MG IN 250 ML 250 ML IV SCH (09:00)
[2019-01-24] MEDS: PHENYLephrine 20MG IN 250 ML 250 ML IV SCH ×4 (09:22→12:30)
--- NOTE | 2019-01-24 11:29 | HP ---
Date/Time of Note Date/Time of Note DATE: 01/24/19 TIME: 11:29 Assessment/Plan VTE Prophylaxis Pharmacological prophylaxis: NA/contraindicated Pharm contraindication: thrombocytopenia Lines/Catheters IV [facility] Saline Lock Urinary Cath still in place: No Assessment/Plan Hospital Course 78-year-old female sent from halfway for low blood pressure and fever managed as follows: 1. Severe sepsis with septic shock secondary to #2 2. Possible pneumonia, right-sided 3. Probable urinary tract infection 4. Acute respiratory failure now ventilator dependent secondary to #1 5. History of chronic dysphagia failure to try status post G-tube placement and now maintained on G-tube feeds 6. Severe hyperglycemia with metabolic acidosis (HONK?) 7. Acute renal insufficiency likely secondary to severe dehydration 8. Hypernatremia also likely secondary to severe dehydration 9. Acute transaminitis likely related to shock 10. Elevated troponin likely type II NSTEMI from sepsis with septic shock 11. Thrombocytopenia Plan: -Patient will be admitted to the intensive care unit, maintained on pressor support, IV fluids and ventilator support. -Insulin drip, hbaic, bicarb drip -Trevizo cultures including respiratory cultures -Trend troponins and lactic acid, 2D echo -Cardiology, Nephrology and pulmonary consultations -discuss goals of care with family -Close ICU monitoring on micromanagement Overall prognosis is guarded Further interventions per clinical course Result Diagram: 01/24/19 0520 01/24/19 0520 Results 24hrs Laboratory Tests Test 01/24/19 05:12 01/24/19 05:20 01/24/19 05:21 01/24/19 05:24 Bedside Glucose 549 *H White Blood 13.6 #H Count Red Blood Count 4.73 # Hemoglobin 14.5 # Hematocrit 49.8 #H Mean Corpuscular 105.3 #H Volume Mean Corpuscular 30.7 Hemoglobin Mean Corpuscular 29.1 L Hemoglobin Nisa nt Red Cell 15.7 H Distribution Width Platelet Count 91 #L Mean Platelet Volume Immature 0.800 H Granulocytes % Neutrophils % 86.5 H Lymphocytes % 8.5 L Monocytes % 3.8 Eosinophils % 0.0 Basophils % 0.4 Nucleated Red 0.7 H Blood Cells % Immature 0.110 H Granulocytes # Neutrophils # 11.7 H Lymphocytes # 1.2 Monocytes # 0.5 Eosinophils # 0.0 Basophils # 0.1 Nucleated Red 0.1 H Blood Cells # Prothrombin Time 15.0 H Prothrombin Time 1.2 Ratio INR 1.17 International Normalized Ratio Activated 33.8 Partial Thrombop last Time Urine Color LAITH Urine Clarity CLOUDY A Urine pH 5.0 Urine Specific 1.025 [place] Urine Ketones TRACE A Urine Nitrite NEGATIVE Urine Bilirubin NEGATIVE Urine 1+ H Urobilinogen Urine Leukocyte NEGATIVE Esterase Urine 4 Microscopic RBC Urine 6 H Microscopic WBC Urine Squamous FEW Epithelial Cells Urine Amorphous MODERATE Crystals Urine Hemoglobin NEGATIVE Urine Glucose 1+ H Urine Total NEGATIVE Protein Sodium Level 156 H Potassium Level 4.4 Chloride Level 117 H Carbon Dioxide 28 Level Anion Gap 11 Blood Urea 134 H Nitrogen Creatinine 1.76 H Est Glomerular Filtrat Rate mL/min Glucose Level 613 *H Calcium Level 9.9 Total Bilirubin 0.6 Direct Bilirubin 0.00 Indirect 0.6 Bilirubin Aspartate Amino 569 H Transf (AST/SGOT ) Alanine 985 H Aminotransferase (ALT/SGPT) Alkaline 104 Phosphatase Troponin I 0.164 *H Total Protein 5.6 L Albumin 3.2 L Globulin 2.40 Albumin/Globulin 1.33 Ratio POC Venous 4.1 *H Lactate Blood Gas Blood arterial Specimen Source Arterial Blood 01/24/2019 5:23: Date Drawn 24 AM Arterial Blood 7.332 L pH (Temp corrected) Arterial Blood 39.3 pCO2 (Temp correct) Arterial Blood 197.6 H pO2 (Temp corrected) Arterial Blood 20.3 L HCO3 Arterial Blood -5.1 L Base Excess Arterial Blood 98.9 Oxygen Saturatio n Ari[place] Test ACCEPTAB Arterial Blood Right Radial Gas Puncture Site Arterial 0 Blood Carboxyhem oglobin Arterial Blood 0.6 Methemoglobin Blood Gas A-a O2 476.1 H Differential Oxyhemoglobin 98.3 Percent Blood Gas 37.0 Temperature Blood Gas MASK - NRB Modality FiO2 100.0 Blood Gas MG Notified Whom Blood Gas 01/24/2019 5:28: Notified Time 58 AM Test 01/24/19 05:57 01/24/19 06:27 01/24/19 07:39 01/24/19 07:56 Bedside Urine pH 5.0 (LAB) Bedside Urine 1+ H Protein (LAB) Bedside Urine Negative Glucose (UA) Bedside Urine 1+ H Ketones (LAB) Bedside Urine Negative Blood Bedside Urine Negative Nitrite (LAB) Bedside Urine Negative Leukocyte Estera se (L Blood Gas Blood arterial Specimen Source Arterial Blood 01/24/2019 7:44: Date Drawn 11 AM Arterial Blood 6.888 *L pH (Temp corrected) Arterial Blood 94.7 *H pCO2 (Temp correct) Arterial Blood 52.2 *L pO2 (Temp corrected) Arterial Blood 17.6 L HCO3 Arterial Blood -16.9 L Base Excess Arterial Blood 62.0 L Oxygen Saturatio n Ari[place] Test ACCEPTAB Arterial Blood Right Radial Gas Puncture Site Arterial 0.3 Blood Carboxyhem oglobin Arterial Blood 0.4 Methemoglobin Blood Gas A-a O2 566.1 H Differential Oxyhemoglobin 61.6 L Percent Blood Gas 37.0 Temperature Blood Gas 16.0 Respiration Rate Blood Gas Actual 16 Respiration Rate Blood Gas VENT - AC Modality FiO2 100.0 Blood Gas Tidal 400.0 Volume Blood Gas Low 5.0 PEEP Setting Blood Gas B.MD TAINA Critical Value Read Back Blood Gas KS Notified Whom Blood Gas 01/24/2019 7:52: Notified Time 20 AM Lactic Acid 9.4 *H Level Bedside Glucose 177 Test 01/24/19 07:57 01/24/19 10:06 Bedside Glucose 173 Lactic Acid Pending Level HPI/ROS Admit Date/Time Admit Date/Time January 24, 2019 at 06:41 Hx of Present Illness At this time unfortunately history is unobtainable from patient and there is no family at the bedside, but this is an 78-year-old female who was [facility] from [facility] and per ER notes she was sent for low blood pressure and fever. Her last hospitalization in this facility was back in March 2017 and at that time she had been seen for GI bleed with dysphagia and underwent EGD and a G-tube was placed. From that discharge summary, the patient has a history of C. difficile colitis, colon cancer, failure to thrive and encephalopathy. At this time unfortunately apparently she decompensated in the emergency room and required endotracheal intubation and initiation of pressor support for severe sepsis. A central line was also placed for pressor. At this time we are admitting to the intensive care unit for continued management. . ROS Subjective hx not possible: pt critical status PMH/Family/Social Past Medical History 1. Chronic dementia plus or minus Parkinson's 2. Chronic encephalopathy 3. Dyslipidemia 4. Hypertension 5. Depression 6. Dysphagia status post G-tube placement 7. Hysterectomy Medications Current Medications Midazolam HCl 50 ml @ 3 mls/hr ONCE STAT IV ; Start 01/24/19 at 06:27; Stop 01/24/19 at 23:06 Fentanyl 100 ml @ 5 mls/hr CONTINUOUS DRIP ONCE IV ; Start 01/24/19 at 06:30; Stop 01/25/19 at 02:29 Norepinephrine 250 ml @ 7.5 mls/hr ONCE STAT IV Last administered on 01/24/19at 06:55; Admin Dose 11.25 MLS/HR; Start 01/24/19 at 06:38; Stop 01/25/19 at 15:57 Amiodarone HCl 900 mg/Dextrose 500 ml @ 0 mls/hr Q0M IV ; Start 01/24/19 at 08:00 Amiodarone HCl 900 mg/Dextrose 500 ml @ 0 mls/hr Q0M IV ; Start 01/24/19 at 08:00 Sodium Chloride 1,000 ml @ 80 mls/hr [id number] IV ; Start 01/24/19 at 07:32 Ondansetron HCl (Zofran Inj) 4 mg Q6H PRN IV NAUSEA AND/OR VOMITING; Start 01/24/19 at 08:00 Albuterol (Proventil 0.083% (Neb)) 2.5 mg Q2H RESP THERAPY PRN NEB SHORTNESS OF BREATH; Start 01/24/19 at 08:00 Ipratropium [place] (Atrovent 0.02% (Neb)) 0.5 mg Q2H RESP THERAPY PRN NEB SHORTNESS OF BREATH; Start 01/24/19 at 08:00 Acetaminophen (Tylenol Liquid) 650 mg Q6H PRN PO PAIN LEVEL 1-3 OR FEVER; Start 01/24/19 at 08:00 Docusate Sodium (Colace) 100 mg Q12H PRN PO CONSTIPATION; Start 01/24/19 at 08:00 Bisacodyl (Dulcolax) 5 mg DAILY PRN PO CONSTIPATION; Start 01/24/19 at 08:00 Pantoprazole (Protonix Iv) 40 mg DAILY@06 IV ; Start 01/25/19 at 06:00 Norepinephrine 250 ml @ 1.875 mls/ hr TITRATE IV ; Start 01/24/19 at 08:00 Phenylephrine HCl 250 ml @ 75 mls/hr TITRATE IV Last administered on 01/24/19at 09:22; Admin Dose 75 MLS/HR; Start 01/24/19 at 08:00 Vancomycin HCl (Vanco Iv Per Pharmacy) VANCOMYCIN PER PHARMACY PER PROTOCOL XX ; Start 01/24/19 at 08:00 Cefepime HCl 50 ml @ 100 mls/hr Q24H IVPB ; Start 01/25/19 at 05:00 Vasopressin 60 unit/Sodium Chloride 60 ml @ 2.4 mls/hr ONCE STAT IV Last administered on 01/24/19at 09:03; Admin Dose 2.4 MLS/HR; Start 01/24/19 at 08:30; Stop 01/25/19 at 09:29 Phenylephrine HCl 250 ml @ 75 mls/hr TITRATE IV ; Start 01/24/19 at 09:00 Coded Allergies: No Known Allergy (Unverified , 01/24/19) Past Surgical History Past Surgical Hx: other Family History Significant Family History: no pertinent family hx Social History Smoking Status: Unknown if ever smoked Exam/Review of Systems Vital Signs Vitals Vital Signs Date Temp Pulse Resp B/P (MAP) Pulse Ox O2 O2 Flow FiO2 Time Delivery Rate 01/24/19 102.0 98 16 85/46 (59) 100 [place] 09:30 l Ventilato r 01/24/19 100 07:55 01/24/19 15.0 05:46 Exam Exam GENERAL: Intubated and comfortably sedated HEENT: Intubated, Vent settings noted LUNGS: diffusely diminished and coarse BS HEART: S1, S2. No murmur, gallops or rubs. Tachycardic ABDOMEN: Soft, non distended, Normoactive bowel sounds. GENITOURINARY: Normal female external genitalia, Finn to bedside drainage EXTREMITIES: Mild 1+ nonpitting edema bilaterally, also some hand edema bilaterally NEUROLOGIC: The patient is currently sedated. . Additional Comments PROCEDURE: XR Chest. CLINICAL INDICATION: Shortness of breath, intubation TECHNIQUE: Single frontal radiograph of the chest. 8:04 AM COMPARISON: DR VAUGHN 01/24/2019 5:17 AM FINDINGS: Tip of endotracheal tube 0.7 cm above the sabino. Left-sided central line unchanged. Increased infiltrates throughout the left lung concerning for multifocal pneumonia. No pleural effusion. No pneumothorax. Heart size is magnified. Vascular calcifications of the aorta are present compatible with atherosclerosis. IMPRESSION: Tip of endotracheal tube 0.7 cm above the sabino. Increased infiltrates throughout the left lung concerning for multifocal pneumonia. RPTAT: AADD .Justice Olea MD, MD Date Time Electronically viewed and signed by .Justice Olea MD, MD on 01/24/2019 08:22 .B/ CC: KATINA HER MD [phone] ___ EKG showed sinus tachycardia ANNA SOLIS January 24, 2019 11:29
[2019-01-24] MEDS ORDERED: SODIUM CHLORIDE 0.45% 500 ML BAG IV* ONE (12:00)
[2019-01-24] MEDS ORDERED: SOD CHLORIDE 0.45% 1,000 ML IV SCH (12:00)
[2019-01-24] MEDS ORDERED: INSULIN HUMAN REGULAR 100 UNIT in SOD CHLORIDE 0.9% 99 ML IV SCH (12:00)
[2019-01-24] MEDS ORDERED: ACETAMINOPHEN 325 MG TAB GTB PRN (12:00)
[2019-01-24] MEDS ORDERED: DEXTROSE 50% 50 ML SYRINGE IV PRN ×2 (12:00)
[2019-01-24] MEDS ORDERED: ALBUMIN HUMAN 25% 100 ML IV ONE (12:00)
--- NOTE | 2019-01-24 12:16 | QN ---
Documentation Comment SEEN AND EXAMINED RENAL CONSULT DICATTED MAG HARP MD January 24, 2019 12:16
[2019-01-24] MEDS ORDERED: NA BICARBONATE 8.4% 50 ML SYG ONE (12:27)
[2019-01-24] MEDS ORDERED: NA BICARBONATE 8.4% 50 ML SYG IV ONE (12:30)
[2019-01-24] MEDS ORDERED: HYDROCORTISONE 250 MG INJ IV ONE (12:30)
[2019-01-24] MEDS ORDERED: MULTIVITAMINS THERAPEUTIC TAB GTB SCH (12:30)
[2019-01-24] MEDS ORDERED: DOCUSATE SODIUM 10 MG/ML (10ML CUP) GTB SCH (12:30)
[2019-01-24] MEDS ORDERED: ASCORBIC ACID 500 MG TAB GTB SCH (12:30)
[2019-01-24] MEDS: ACCU-CHEK XX SCH ×6 (12:33→17:00)
[2019-01-24] MEDS ORDERED: INSULIN REGULAR, HUMAN 100 UNIT/1 ML 3ML VIAL IV ONE (13:00)
--- NOTE | 2019-01-24 13:43 | CONS ---
DATE OF ADMISSION: 01/24/2019 DATE OF CONSULTATION: TYPE OF CONSULTATION: Pulmonary. REASON FOR CONSULTATION: Ventilator management. Thank you, Dr. Solis, for this consultation. HISTORY OF PRESENT ILLNESS: This is an unfortunate 78-year-old lady transferred from alf facility for respiratory distress, hypotension and possible GI bleed. The patient required emergent intubation and initiation of central line and vasopressor support. Few further details are availabl e. PAST MEDICAL HISTORY: Per chart. ALLERGIES: NONE. SOCIAL HISTORY: Nonsmoker, no alcohol, no history of drug use. FAMILY HISTORY: Noncontributory. SYSTEMS REVIEW: A 12-point review of systems is currently unable to perform. PHYSICAL EXAMINATION: GENERAL: Frail elderly lady on mechanical ventilation, evidence of coffee-ground emesis on oropharyn x. VITAL SIGNS: Temperature 102, pulse is 99, blood pressure 86/46, O2 saturation 96% on FiO2 of 100%. NECK: Supple. No JVD or lymphadenopathy. CARDIAC: S1, S2. No added sounds or murmurs. CHEST: Diminished air entry bilaterally. ABDOMEN: Soft, nontender. No guarding or rebound. EXTREMITIES: No cyanosis, clubbing or edema. NEUROLOGIC: Generalized weakness. LABORATORY DATA: ABG: pH 7.68, pCO2 of 94, pO2 of 52. Lactic acid was 9. INR was 1.17. Chemistry : Sodium 156, potassium 4.4, BUN 134, creatinine 1.76. AST and ALT are elevated. DIAGNOSTIC DATA: Chest x-ray was reviewed, which showed elevated right hemidiaphragm, questionable s houlder dislocations. IMPRESSION AND PLAN: 1. Gastrointestinal bleed. 2. Septic shock. 3. Possible aspiration pneumonia. 4. History of questionable dementia. 5. Incomplete data. The patient will require: 1. Vasopressor support. 2. Proton pump inhibitor. 3. Antibiotics. 4. Mechanical ventilation. 5. Establish goals of care and code status with family. Dictated By: KWASI GREENE MD SV/STEPHANIE Conf#: [id number] DID#: [id number] CC: ANNA SOLIS MD; MAG HARP; KATINA LANIER DO;*EndCC*
--- NOTE | 2019-01-24 13:47 | CONS ---
Assessment/Plan Assessment/Plan Hospital Course (Demo Recall) Shock likely secondary to sepsis Hypotension on IV pressors Mildly elevated troponin Vent dependent respiratory failure Acute kidney injury -Patient with hypotension, altered mental status and presumed shock secondary to sepsis -Continue IV pressor to maintain SBP greater than 90 and/or map above 60 -Antibiotics as per infectious disease -Troponins are mildly elevated, this likely secondary to current medical state, given thrombocytopenia, would hold off on aspirin at the current time, given hypotension, no beta-keenan at the current time, given abnormal LFTs, no statin therapy at the current time -We will check echocardiogram, monitor serial cardiac enzymes -In discussion with family at bedside, they are considering terminal extubation and comfort measures Consultation Date/Type/Reason Admit Date/Time January 24, 2019 at 06:41 Type of Consult Cardiology Reason for Consultation Elevated troponin Date/Time of Note DATE: 01/24/19 TIME: 13:42 Hx of Present Illness This is an 78-year-old female with multiple medical problems who was transferred from senior care secondary to low blood pressure and worsening mental status. As per the family, patient has been having issues of infection of the past few weeks. She was hospitalized his outside facility with possible UTI as well as pneumonia. Patient with progressive worsening respiratory status and hypotensi on requiring intubation and IV pressors in the ICU. Baseline patient does have dementia but does recognize people intermittently and answers questions. 12 point review of systems was performed with all pertinent positives and negatives mentioned above and all else is negative information obtained from medical chart and family bedside Past Medical History Dementia Medical History: diabetes, high cholesterol Home Meds Reported Medications Na Phos,M-B/Na Phos,Di-Ba (ENEMA [id number]) 133 Ml Enema, 133 ML RC EVERY 2 DAYS PRN for CONSTIPATION, ENEMA 01/24/19 Bisacodyl (Dulcolax) 10 Mg Supp.rect, 10 MG RC DAILY PRN for CONSTIPATION, SUPP.RECT 01/24/19 Magnesium Hydroxide* (Milk Of Magnesia*) 400 Mg/5 Ml Oral.susp, 30 ML GTB DAILY, ML 01/24/19 Docusate Sodium* (Colace*) 100 Mg Capsule, 200 MG GTB DAILY, #30 CAP 01/24/19 Cran/Vitc/Mannose/Inulin/Brom (Uti-Stat Liquid) 3,875 Mg/30 Ml Liquid, 3875 MG JT DAILY 01/24/19 Cranberry Extract (Cranberry) 425 Mg Capsule, 425 MG GTB DAILY, CAP 01/24/19 Multivitamins (MVI ADULT) 10 Ml Soln, 5 ML GTB DAILY 01/24/19 Ascorbic Acid* (Vitamin C*) 500 Mg Capsule.sa, 500 MG G-TUBE DAILY, CAP 01/24/19 Acetaminophen* (Acetaminophen*) 650 Mg Tablet, 650 MG GTB Q4 PRN for FEVER GREATER THAN 100.6, #30 TAB 01/24/19 Hydrocodone/Acetaminophen ([place] 5-325 Tablet) 1 Each Tablet, 1 EACH GTB Q4 PRN for SEVERE PAIN LEVEL 7-10, TAB 01/24/19 Acetaminophen* (Acetaminophen*) 650 Mg Tablet, 650 MG GTB Q4 PRN for MILD PAIN LEVEL 1-3, #30 TAB 01/24/19 Acetaminophen* (Acetaminophen*) 500 MG Extra Strength Tablet, 1000 MG GTB Q4H PRN for MODERATE PAIN LEVEL 4-6, TAB 01/24/19 Acetaminophen* (Acetaminophen*) 500 MG Extra Strength Tablet, 1000 MG GTB BID PRN for GENERAL BODY PAIN, TAB 01/24/19 Insulin Detemir (Levemir Flextouch) 100 Unit/1 Ml Insuln.pen, 10 UNIT SQ BID, EA 01/24/19 Insulin Aspart* (Novolog Insulin Pen*) 100 Unit/Ml Soln, 0 SC .SLIDING SCALE AC, EA 150-199 = 2 UNITS 200-249 = 3 UNITS 250-299 = 5 UNITS 300 - 349 = 7 UNITS GREATER THAN 349 GIVE 10 UNITS NOTIFY MD IF BELOW 70 OR ABOVE 400 01/24/19 Pramipexole* (Mirapex*) 1.5 Mg Tablet, 1.5 MG GTB TID, TAB 01/24/19 Escitalopram Oxalate* (Lexapro*) 5 Mg Tablet, 5 MG GTB DAILY, #30 TAB 01/24/19 Lorazepam* (Ativan*) 0.5 Mg Tablet, 0.25 MG GTB BID PRN for ANXIETY, #30 TAB 01/24/19 Discontinued Reported Medications Acetaminophen* (Tylenol*) 500 Mg Tab, 1000 MG PO Q4H PRN for PAIN 4-02/05, TAB 03/10/17 Magaldrate/Simethicone* (Mag-Al Plus Suspension*) 30 Ml Oral.susp, 30 ML PO Q4H PRN for GASTROINTESTINAL UPSET, ML 03/10/17 Cranberry Extract (Cranberry) 425 Mg Capsule, 425 MG PO DAILY, CAP 03/10/17 Lorazepam* (Lorazepam*) 0.5 Mg Tablet, 0.5 MG PO Q6 PRN for ANXIETY, TAB 03/10/17 Zolpidem Tartrate* (Ambien*) 5 Mg Tablet, 5 MG PO QHS PRN for INSOMNIA, #30 TAB 03/10/17 Propranolol Hcl* (Propranolol Hcl*) 10 Mg Tablet, 10 MG PO BID, TAB 03/10/17 Atorvastatin Calcium (Atorvastatin Calcium) 10 Mg Tablet, 10 MG PO QHS, #30 TAB 03/10/17 Pramipexole* (Mirapex*) 1.5 Mg Tablet, 1.5 MG PO Q8H, TAB 03/10/17 Entacapone* (Comtan*) 200 Mg Tab, 200 MG PO TID, TAB 03/10/17 Discontinued Scripts Pantoprazole* (Protonix* IV) 40 Mg Soln, 40 MG IV BID for 60 Days Prov:SHANNEN VALLEJO MD 04/14/17 Ondansetron Hcl* (Ondansetron Hcl* Inj) 4 Mg/2 Ml Vial, 4 MG IV Q6H PRN for NAUSEA AND/OR VOMITING for 10 Days, VIAL Prov:SHANNEN VALLEJO MD 04/14/17 [Metoclopramide] 5 MG/ML SOLN No Conflict Check, 10 MG IV Q6H PRN for NAUSEA AND /OR VOMITING for 7 Days Prov:SHANNEN VALLEJO MD 04/14/17 Hydrocodone Bit-Acetaminophen (Hydrocodone Bit-APAP) 5-325MG Tablet, 1 TAB GTB Q6H PRN for MODERATE PAIN LEVEL 4-6 for 7 Days, TAB Prov:SHANNEN VALLEJO MD 04/14/17 Atorvastatin (Atorvastatin) 10 Mg Tablet, 10 MG GTB QHS for 7 Days, TAB Prov:SHANNEN VALLEJO MD 04/14/17 [Vancomycin Oral Syringe] 50 MG/ML SOLN No Conflict Check, 125 MG GTB Q6 for 14 Days Prov:SHANNEN VALLEJO MD 04/14/17 Medications Current Medications Midazolam HCl 50 ml @ 3 mls/hr ONCE STAT IV ; Start 01/24/19 at 06:27; Stop 01/24/19 at 23:06 Fentanyl 100 ml @ 5 mls/hr CONTINUOUS DRIP ONCE IV ; Start 01/24/19 at 06:30; Stop 01/25/19 at 02:29 Amiodarone HCl 900 mg/Dextrose 500 ml @ 0 mls/hr Q0M IV ; Start 01/24/19 at 08:00 Ondansetron HCl (Zofran Inj) 4 mg Q6H PRN IV NAUSEA AND/OR VOMITING; Start 01/24/19 at 08:00 Albuterol (Proventil 0.083% (Neb)) 2.5 mg Q2H RESP THERAPY PRN NEB SHORTNESS OF BREATH; Start 01/24/19 at 08:00 Ipratropium [place] (Atrovent 0.02% (Neb)) 0.5 mg Q2H RESP THERAPY PRN NEB SHORTNESS OF BREATH; Start 01/24/19 at 08:00 Acetaminophen (Tylenol Liquid) 650 mg Q6H PRN PO PAIN LEVEL 1-3 OR FEVER; Start 01/24/19 at 08:00 Docusate Sodium (Colace) 100 mg Q12H PRN PO CONSTIPATION; Start 01/24/19 at 08:00 Bisacodyl (Dulcolax) 5 mg DAILY PRN PO CONSTIPATION; Start 01/24/19 at 08:00 Pantoprazole (Protonix Iv) 40 mg DAILY@06 IV ; Start 01/25/19 at 06:00 Norepinephrine 250 ml @ 1.875 mls/ hr TITRATE IV ; Start 01/24/19 at 08:00 Phenylephrine HCl 250 ml @ 75 mls/hr TITRATE IV Last administered on 01/24/19at 09:22; Admin Dose 75 MLS/HR; Start 01/24/19 at 08:00 Vancomycin HCl (Vanco Iv Per Pharmacy) VANCOMYCIN PER PHARMACY PER PROTOCOL XX ; Start 01/24/19 at 08:00 Cefepime HCl 50 ml @ 100 mls/hr Q24H IVPB ; Start 01/25/19 at 05:00 Vasopressin 60 unit/Sodium Chloride 60 ml @ 2.4 mls/hr ONCE STAT IV Last administered on 01/24/19at 09:03; Admin Dose 2.4 MLS/HR; Start 01/24/19 at 08:30; Stop 01/25/19 at 09:29 Diagnostic Test (Pha) (Accu-Chek) 1 ea Q1H XX Last administered on 01/24/19at 13:09; Admin Dose 1 EA; Start 01/24/19 at 12:00 Insulin Human Regular 100 unit/ Sodium Chloride 100 ml @ 0 mls/hr PER PROTOCOL IV ; Start 01/24/19 at 12:00 Miscellaneous Information (* Miscellaneous Pharmacy Order) Treatment of Hypoglycemia: 1.BG 51... Per protocol XX ; Start 01/24/19 at 12:00 Dextrose (D50w Syringe) 25 ml Q15M PRN IV .DECREASED GLUCOSE; Start 01/24/19 at 12:00 Dextrose (D50w Syringe) 50 ml Q15M PRN IV .DECREASED GLUCOSE; Start 01/24/19 at 12:00 Acetaminophen (Tylenol Tab) 650 mg Q6H PRN GTB FEVER GREATER THAN 100.6; Start 01/24/19 at 12:00 Ascorbic Acid (Vitamin C) 500 mg DAILY GTB ; Start 01/24/19 at 12:30 Docusate Sodium (Colace Liquid Cup) 200 mg DAILY GTB ; Start 01/24/19 at 12:30 Multivitamins Therapeutic (Theragran) 1 tab DAILY GTB ; Start 01/24/19 at 12:30 Sodium Chloride 1,000 ml @ 100 mls/hr Q10H IV Last administered on 01/24/19at 13:08; Admin Dose 100 MLS/HR; Start 01/24/19 at 12:30 Sodium Bicarbonate 100 meq/Sodium Chloride 1,100 ml @ 100 mls/hr Q11H IV ; Start 01/24/19 at 14:00 Allergies: Coded Allergies: No Known Allergy (Unverified , 01/24/19) Past Surgical History Past Surgical Hx: other Social History Smoking Status: Unknown if ever smoked Exam/Review of Systems Vital Signs Vitals Vital Signs Date Temp Pulse Resp B/P (MAP) Pulse Ox O2 O2 Flow FiO2 Time Delivery Rate 01/24/19 102.0 98 16 85/46 (59) 100 [place] 09:30 l Ventilato r 01/24/19 100 07:55 01/24/19 15.0 05:46 Exam Exam Intubated and sedated, no response to verbal stimuli, family members at bedside Head: normocephalic ENMT: intubated Respiratory: other (Coarse breath sounds bilaterally, no wheezing) Cardiovascular: regular rate and rhythm (S1-S2 heard) Gastrointestinal: soft, bowel sounds, other (No grimacing with palpation) Extremities: edema Labs Result Diagram: 01/24/19 0520 01/24/19 1006 Results 24hrs Laboratory Tests Test 01/24/19 05:12 01/24/19 05:20 01/24/19 05:21 01/24/19 05:24 Bedside Glucose 549 *H White Blood 13.6 #H Count Red Blood Count 4.73 # Hemoglobin 14.5 # Hematocrit 49.8 #H Mean Corpuscular 105.3 #H Volume Mean Corpuscular 30.7 Hemoglobin Mean Corpuscular 29.1 L Hemoglobin Nisa nt Red Cell 15.7 H Distribution Width Platelet Count 91 #L Mean Platelet Volume Immature 0.800 H Granulocytes % Neutrophils % 86.5 H Lymphocytes % 8.5 L Monocytes % 3.8 Eosinophils % 0.0 Basophils % 0.4 Nucleated Red 0.7 H Blood Cells % Immature 0.110 H Granulocytes # Neutrophils # 11.7 H Lymphocytes # 1.2 Monocytes # 0.5 Eosinophils # 0.0 Basophils # 0.1 Nucleated Red 0.1 H Blood Cells # Prothrombin Time 15.0 H Prothrombin Time 1.2 Ratio INR 1.17 International Normalized Ratio Activated 33.8 Partial Thrombop last Time Urine Color LAITH Urine Clarity CLOUDY A Urine pH 5.0 Urine Specific 1.025 [place] Urine Ketones TRACE A Urine Nitrite NEGATIVE Urine Bilirubin NEGATIVE Urine 1+ H Urobilinogen Urine Leukocyte NEGATIVE Esterase Urine 4 Microscopic RBC Urine 6 H Microscopic WBC Urine Squamous FEW Epithelial Cells Urine Amorphous MODERATE Crystals Urine Hemoglobin NEGATIVE Urine Glucose 1+ H Urine Total NEGATIVE Protein Sodium Level 156 H Potassium Level 4.4 Chloride Level 117 H Carbon Dioxide 28 Level Anion Gap 11 Blood Urea 134 H Nitrogen Creatinine 1.76 H Est Glomerular Filtrat Rate mL/min Glucose Level 613 *H Calcium Level 9.9 Total Bilirubin 0.6 Direct Bilirubin 0.00 Indirect 0.6 Bilirubin Aspartate Amino 569 H Transf (AST/SGOT ) Alanine 985 H Aminotransferase (ALT/SGPT) Alkaline 104 Phosphatase Troponin I 0.164 *H Total Protein 5.6 L Albumin 3.2 L Globulin 2.40 Albumin/Globulin 1.33 Ratio POC Venous 4.1 *H Lactate Blood Gas Blood arterial Specimen Source Arterial Blood 01/24/2019 5:23: Date Drawn 24 AM Arterial Blood 7.332 L pH (Temp corrected) Arterial Blood 39.3 pCO2 (Temp correct) Arterial Blood 197.6 H pO2 (Temp corrected) Arterial Blood 20.3 L HCO3 Arterial Blood -5.1 L Base Excess Arterial Blood 98.9 Oxygen Saturatio n Arias Test ACCEPTAB Arterial Blood Right Radial Gas Puncture Site Arterial 0 Blood Carboxyhem oglobin Arterial Blood 0.6 Methemoglobin Blood Gas A-a O2 476.1 H Differential Oxyhemoglobin 98.3 Percent Blood Gas 37.0 Temperature Blood Gas MASK - NRB Modality FiO2 100.0 Blood Gas MG Notified Whom Blood Gas 01/24/2019 5:28: Notified Time 58 AM Test 01/24/19 05:57 01/24/19 06:27 01/24/19 07:39 01/24/19 07:56 Bedside Urine pH 5.0 (LAB) Bedside Urine 1+ H Protein (LAB) Bedside Urine Negative Glucose (UA) Bedside Urine 1+ H Ketones (LAB) Bedside Urine Negative Blood Bedside Urine Negative Nitrite (LAB) Bedside Urine Negative Leukocyte Estera se (L Blood Gas Blood arterial Specimen Source Arterial Blood 01/24/2019 7:44: Date Drawn 11 AM Arterial Blood 6.888 *L pH (Temp corrected) Arterial Blood 94.7 *H pCO2 (Temp correct) Arterial Blood 52.2 *L pO2 (Temp corrected) Arterial Blood 17.6 L HCO3 Arterial Blood -16.9 L Base Excess Arterial Blood 62.0 L Oxygen Saturatio n Arias Test ACCEPTAB Arterial Blood Right Radial Gas Puncture Site Arterial 0.3 Blood Carboxyhem oglobin Arterial Blood 0.4 Methemoglobin Blood Gas A-a O2 566.1 H Differential Oxyhemoglobin 61.6 L Percent Blood Gas 37.0 Temperature Blood Gas 16.0 Respiration Rate Blood Gas Actual 16 Respiration Rate Blood Gas VENT - AC Modality FiO2 100.0 Blood Gas Tidal 400.0 Volume Blood Gas Low 5.0 PEEP Setting Blood Gas MD MARGARITA Critical Value Read Back Blood Gas KS Notified Whom Blood Gas 01/24/2019 7:52: Notified Time 20 AM Lactic Acid 9.4 *H Level Bedside Glucose 177 Test 01/24/19 07:57 01/24/19 10:06 01/24/19 11:43 01/24/19 11:45 Bedside Glucose 173 Sodium Level 157 H Potassium Level 4.4 Chloride Level 125 H Carbon Dioxide 14 #L Level Anion Gap 18 #H Blood Urea 122 H Nitrogen Creatinine 1.73 H Est Glomerular Filtrat Rate mL/min Glucose Level 587 *H Lactic Acid 11.2 *H Level Calcium Level 7.7 L Creatine Kinase 114 Creatine Kinase 2.4 Index Creatinine 2.75 H Kinase MB (Mass) Troponin I 0.417 *H Blood Gas Blood arterial Specimen Source Arterial Blood 01/24/2019 11:40 Date Drawn :40 AM Arterial Blood 7.066 *L pH (Temp corrected) Arterial Blood 40.4 pCO2 (Temp correct) Arterial Blood 89.2 pO2 (Temp corrected) Arterial Blood 11.3 L HCO3 Arterial Blood -18.2 L Base Excess Arterial Blood 93.9 L Oxygen Saturatio n Arias Test ACCEPTAB Arterial Blood Right Radial Gas Puncture Site Arterial 0.3 Blood Carboxyhem oglobin Arterial Blood 0.3 Methemoglobin Blood Gas A-a O2 583.4 H Differential Oxyhemoglobin 93.3 Percent Blood Gas 37.0 Temperature Blood Gas 20.0 Respiration Rate Blood Gas Actual 23 Respiration Rate Blood Gas VENT - AC Modality FiO2 100.0 Blood Gas Tidal 450.0 Volume Blood Gas YABEL RN Critical Value Read Back Blood Gas TM Notified Whom Blood Gas 01/24/2019 11:54 Notified Time :25 AM Test 01/24/19 12:39 01/24/19 13:19 Bedside Glucose 510 *H 456 *H Imaging Imaging ECG demonstrates sinus tachycardia at 109 bpm, QRS 68 ms, inferior and ante rolateral Q waves, nonspecific ST abnormalities Medications Medications Current Medications Midazolam HCl 50 ml @ 3 mls/hr ONCE STAT IV ; Start 01/24/19 at 06:27; Stop 01/24/19 at 23:06 Fentanyl 100 ml @ 5 mls/hr CONTINUOUS DRIP ONCE IV ; Start 01/24/19 at 06:30; Stop 01/25/19 at 02:29 Amiodarone HCl 900 mg/Dextrose 500 ml @ 0 mls/hr Q0M IV ; Start 01/24/19 at 08:00 Ondansetron HCl (Zofran Inj) 4 mg Q6H PRN IV NAUSEA AND/OR VOMITING; Start 01/24/19 at 08:00 Albuterol (Proventil 0.083% (Neb)) 2.5 mg Q2H RESP THERAPY PRN NEB SHORTNESS OF BREATH; Start 01/24/19 at 08:00 Ipratropium [place] (Atrovent 0.02% (Neb)) 0.5 mg Q2H RESP THERAPY PRN NEB SHORTNESS OF BREATH; Start 01/24/19 at 08:00 Acetaminophen (Tylenol Liquid) 650 mg Q6H PRN PO PAIN LEVEL 1-3 OR FEVER; Start 01/24/19 at 08:00 Docusate Sodium (Colace) 100 mg Q12H PRN PO CONSTIPATION; Start 01/24/19 at 08:00 Bisacodyl (Dulcolax) 5 mg DAILY PRN PO CONSTIPATION; Start 01/24/19 at 08:00 Pantoprazole (Protonix Iv) 40 mg DAILY@06 IV ; Start 01/25/19 at 06:00 Norepinephrine 250 ml @ 1.875 mls/ hr TITRATE IV ; Start 01/24/19 at 08:00 Phenylephrine HCl 250 ml @ 75 mls/hr TITRATE IV Last administered on 01/24/19at 09:22; Admin Dose 75 MLS/HR; Start 01/24/19 at 08:00 Vancomycin HCl (Vanco Iv Per Pharmacy) VANCOMYCIN PER PHARMACY PER PROTOCOL XX ; Start 01/24/19 at 08:00 Cefepime HCl 50 ml @ 100 mls/hr Q24H IVPB ; Start 01/25/19 at 05:00 Vasopressin 60 unit/Sodium Chloride 60 ml @ 2.4 mls/hr ONCE STAT IV Last administered on 01/24/19at 09:03; Admin Dose 2.4 MLS/HR; Start 01/24/19 at 08:30; Stop 01/25/19 at 09:29 Diagnostic Test (Pha) (Accu-Chek) 1 ea Q1H XX Last administered on 01/24/19at 13:09; Admin Dose 1 EA; Start 01/24/19 at 12:00 Insulin Human Regular 100 unit/ Sodium Chloride 100 ml @ 0 mls/hr PER PROTOCOL IV ; Start 01/24/19 at 12:00 Miscellaneous Information (* Miscellaneous Pharmacy Order) Treatment of Hypoglycemia: 1.BG 51... Per protocol XX ; Start 01/24/19 at 12:00 Dextrose (D50w Syringe) 25 ml Q15M PRN IV .DECREASED GLUCOSE; Start 01/24/19 at 12:00 Dextrose (D50w Syringe) 50 ml Q15M PRN IV .DECREASED GLUCOSE; Start 01/24/19 at 12:00 Acetaminophen (Tylenol Tab) 650 mg Q6H PRN GTB FEVER GREATER THAN 100.6; Start 01/24/19 at 12:00 Ascorbic Acid (Vitamin C) 500 mg DAILY GTB ; Start 01/24/19 at 12:30 Docusate Sodium (Colace Liquid Cup) 200 mg DAILY GTB ; Start 01/24/19 at 12:30 Multivitamins Therapeutic (Theragran) 1 tab DAILY GTB ; Start 01/24/19 at 12:30 Sodium Chloride 1,000 ml @ 100 mls/hr Q10H IV Last administered on 01/24/19at 13:08; Admin Dose 100 MLS/HR; Start 01/24/19 at 12:30 Sodium Bicarbonate 100 meq/Sodium Chloride 1,100 ml @ 100 mls/hr Q11H IV ; Start 01/24/19 at 14:00 Fritz Reaves DO January 24, 2019 13:47
[2019-01-24] MEDS ORDERED: SODIUM BICARBONATE (IV ADD) 100 MEQ in SOD CHLORIDE 0.45% 1,000 ML IV SCH (14:00)
--- NOTE | 2019-01-24 14:52 | CONS ---
Assessment/Plan Assessment/Plan Hospital Course 78 yo F with multiple comorbidities who was transferred to ICU following a cardiac arrest. Now s/p ROSC. TTM was deferred. She is noted to be protractedly encephalopathic... for which neurology is consulted. The clinical picture is most concerning for a hypoxic-ischemic encephalopathy in the context of cardiac arrest. An acute encephalopathy is additionally considered. Subclinical seizures are additionally considered. CXR suggests multifocal pneumonia. P: CTH without contrast for further characterization EEG to exclude subclinical seizures Cont medical management per primary Limit sedating medications where possible Will follow clinically, to recommend neurologic studies, as necessary Consultation Date/Type/Reason Admit Date/Time January 24, 2019 at 06:41 Type of Consult Neurology Reason for Consultation ams s/p cardiac arrest Requesting Provider: ANNA SOLIS Date/Time of Note DATE: 01/24/19 TIME: 14:52 Hx of Present Illness The pt is currently unable to contribute a hx. She reportedly coded twice in the ED. ROSC was obtained and the pt was intubated, started on pressors and transferred to the ICU. It is elsewhere noted: Hx of Present Illness At this time unfortunately history is unobtainable from patient and there is no family at the bedside, but this is an 78-year-old female who was sent [facility] us from [facility] and per ER notes she was sent for low blood pressure and fever. Her last hospitalization in this facility was back in March 2017 and at that time she had been seen for GI bleed with dysphagia and underwent EGD and a G-tube was placed. From that discharge summary, the patient has a history of C. difficile colitis, colon cancer, failure to thrive and encephalopathy. At this time unfortunately apparently she decompensated in the emergency room and required endotracheal intubation and initiation of pressor support for severe sepsis. A central line was also placed for pressor. At this time we are admitting to the intensive care unit for continued management. . Subjective hx not possible: pt non-verbal, pt critical, pt critical status Exam/Review of Systems Exam Vitals Vital Signs Date Temp Pulse Resp B/P (MAP) Pulse Ox O2 O2 Flow FiO2 Time Delivery Rate 01/24/19 90 12:00 01/24/19 27 100 100 09:45 01/24/19 102.0 85/46 (59) Mechanica 09:30 l Ventilato r 01/24/19 15.0 05:46 Exam PE: Gen Appearance: No Apparent Distress HEENT: Intubated Cardiovascular: ST; on multiple pressors Abdomen: Soft Extremities: Dry NE: The patient was comatose. Cranial nerve examination was limited by mental status. Pupils were equal and reactive to light. There was no afferent pupillary defect. Funduscopic examination was limited. Face was grossly symmetric, w/ present corneal and cough reflexes. Tone was normal. Muscle bulk was normal. I did not see fasciculations. The patient did not withdraw to noxious stimulation. Coordination and gait testing was limited by mental status. Arm and leg reflexes were symmetric. Low's sign was absent. Plantar responses were mute. Results Result Diagram: 01/24/19 0520 01/24/19 1006 Results 24hrs Laboratory Tests Test 01/24/19 05:12 01/24/19 05:20 01/24/19 05:21 01/24/19 05:24 Bedside Glucose 549 *H White Blood 13.6 #H Count Red Blood Count 4.73 # Hemoglobin 14.5 # Hematocrit 49.8 #H Mean Corpuscular 105.3 #H Volume Mean Corpuscular 30.7 Hemoglobin Mean Corpuscular 29.1 L Hemoglobin Nisa nt Red Cell 15.7 H Distribution Width Platelet Count 91 #L Mean Platelet Volume Immature 0.800 H Granulocytes % Neutrophils % 86.5 H Lymphocytes % 8.5 L Monocytes % 3.8 Eosinophils % 0.0 Basophils % 0.4 Nucleated Red 0.7 H Blood Cells % Immature 0.110 H Granulocytes # Neutrophils # 11.7 H Lymphocytes # 1.2 Monocytes # 0.5 Eosinophils # 0.0 Basophils # 0.1 Nucleated Red 0.1 H Blood Cells # Prothrombin Time 15.0 H Prothrombin Time 1.2 Ratio INR 1.17 International Normalized Ratio Activated 33.8 Partial Thrombop last Time Urine Color LAITH Urine Clarity CLOUDY A Urine pH 5.0 Urine Specific 1.025 Yantis Urine Ketones TRACE A Urine Nitrite NEGATIVE Urine Bilirubin NEGATIVE Urine 1+ H Urobilinogen Urine Leukocyte NEGATIVE Esterase Urine 4 Microscopic RBC Urine 6 H Microscopic WBC Urine Squamous FEW Epithelial Cells Urine Amorphous MODERATE Crystals Urine Hemoglobin NEGATIVE Urine Glucose 1+ H Urine Total NEGATIVE Protein Sodium Level 156 H Potassium Level 4.4 Chloride Level 117 H Carbon Dioxide 28 Level Anion Gap 11 Blood Urea 134 H Nitrogen Creatinine 1.76 H Est Glomerular Filtrat Rate mL/min Glucose Level 613 *H Calcium Level 9.9 Total Bilirubin 0.6 Direct Bilirubin 0.00 Indirect 0.6 Bilirubin Aspartate Amino 569 H Transf (AST/SGOT ) Alanine 985 H Aminotransferase (ALT/SGPT) Alkaline 104 Phosphatase Troponin I 0.164 *H Total Protein 5.6 L Albumin 3.2 L Globulin 2.40 Albumin/Globulin 1.33 Ratio POC Venous 4.1 *H Lactate Blood Gas Blood arterial Specimen Source Arterial Blood 01/24/2019 5:23: Date Drawn 24 AM Arterial Blood 7.332 L pH (Temp corrected) Arterial Blood 39.3 pCO2 (Temp correct) Arterial Blood 197.6 H pO2 (Temp corrected) Arterial Blood 20.3 L HCO3 Arterial Blood -5.1 L Base Excess Arterial Blood 98.9 Oxygen Saturatio n Arias Test ACCEPTAB Arterial Blood Right Radial Gas Puncture Site Arterial 0 Blood Carboxyhem oglobin Arterial Blood 0.6 Methemoglobin Blood Gas A-a O2 476.1 H Differential Oxyhemoglobin 98.3 Percent Blood Gas 37.0 Temperature Blood Gas MASK - NRB Modality FiO2 100.0 Blood Gas MG Notified Whom Blood Gas 01/24/2019 5:28: Notified Time 58 AM Test 01/24/19 05:57 01/24/19 06:27 01/24/19 07:39 01/24/19 07:56 Bedside Urine pH 5.0 (LAB) Bedside Urine 1+ H Protein (LAB) Bedside Urine Negative Glucose (UA) Bedside Urine 1+ H Ketones (LAB) Bedside Urine Negative Blood Bedside Urine Negative Nitrite (LAB) Bedside Urine Negative Leukocyte Estera se (L Blood Gas Blood arterial Specimen Source Arterial Blood 01/24/2019 7:44: Date Drawn 11 AM Arterial Blood 6.888 *L pH (Temp corrected) Arterial Blood 94.7 *H pCO2 (Temp correct) Arterial Blood 52.2 *L pO2 (Temp corrected) Arterial Blood 17.6 L HCO3 Arterial Blood -16.9 L Base Excess Arterial Blood 62.0 L Oxygen Saturatio n Arias Test ACCEPTAB Arterial Blood Right Radial Gas Puncture Site Arterial 0.3 Blood Carboxyhem oglobin Arterial Blood 0.4 Methemoglobin Blood Gas A-a O2 566.1 H Differential Oxyhemoglobin 61.6 L Percent Blood Gas 37.0 Temperature Blood Gas 16.0 Respiration Rate Blood Gas Actual 16 Respiration Rate Blood Gas VENT - AC Modality FiO2 100.0 Blood Gas Tidal 400.0 Volume Blood Gas Low 5.0 PEEP Setting Blood Gas MD MARGARITA Critical Value Read Back Blood Gas KS Notified Whom Blood Gas 01/24/2019 7:52: Notified Time 20 AM Lactic Acid 9.4 *H Level Bedside Glucose 177 Test 01/24/19 07:57 01/24/19 10:06 01/24/19 11:43 01/24/19 11:45 Bedside Glucose 173 Sodium Level 157 H Potassium Level 4.4 Chloride Level 125 H Carbon Dioxide 14 #L Level Anion Gap 18 #H Blood Urea 122 H Nitrogen Creatinine 1.73 H Est Glomerular Filtrat Rate mL/min Glucose Level 587 *H Lactic Acid 11.2 *H Level Calcium Level 7.7 L Creatine Kinase 114 Creatine Kinase 2.4 Index Creatinine 2.75 H Kinase MB (Mass) Troponin I 0.417 *H Blood Gas Blood arterial Specimen Source Arterial Blood 01/24/2019 11:40 Date Drawn :40 AM Arterial Blood 7.066 *L pH (Temp corrected) Arterial Blood 40.4 pCO2 (Temp correct) Arterial Blood 89.2 pO2 (Temp corrected) Arterial Blood 11.3 L HCO3 Arterial Blood -18.2 L Base Excess Arterial Blood 93.9 L Oxygen Saturatio n Arias Test ACCEPTAB Arterial Blood Right Radial Gas Puncture Site Arterial 0.3 Blood Carboxyhem oglobin Arterial Blood 0.3 Methemoglobin Blood Gas A-a O2 583.4 H Differential Oxyhemoglobin 93.3 Percent Blood Gas 37.0 Temperature Blood Gas 20.0 Respiration Rate Blood Gas Actual 23 Respiration Rate Blood Gas VENT - AC Modality FiO2 100.0 Blood Gas Tidal 450.0 Volume Blood Gas DOROTHEA PATEL Critical Value Read Back Blood Gas TM Notified Whom Blood Gas 01/24/2019 11:54 Notified Time :25 AM Test 01/24/19 12:39 01/24/19 13:19 Bedside Glucose 510 *H 456 *H Medications Medication Current Medications Midazolam HCl 50 ml @ 3 mls/hr ONCE STAT IV ; Start 01/24/19 at 06:27; Stop 01/24/19 at 23:06 Fentanyl 100 ml @ 5 mls/hr CONTINUOUS DRIP ONCE IV ; Start 01/24/19 at 06:30; Stop 01/25/19 at 02:29 Amiodarone HCl 900 mg/Dextrose 500 ml @ 0 mls/hr Q0M IV ; Start 01/24/19 at 08:00 Ondansetron HCl (Zofran Inj) 4 mg Q6H PRN IV NAUSEA AND/OR VOMITING; Start 01/24/19 at 08:00 Albuterol (Proventil 0.083% (Neb)) 2.5 mg Q2H RESP THERAPY PRN NEB SHORTNESS OF BREATH; Start 01/24/19 at 08:00 Ipratropium [place] (Atrovent 0.02% (Neb)) 0.5 mg Q2H RESP THERAPY PRN NEB SHORTNESS OF BREATH; Start 01/24/19 at 08:00 Acetaminophen (Tylenol Liquid) 650 mg Q6H PRN PO PAIN LEVEL 1-3 OR FEVER; Start 01/24/19 at 08:00 Docusate Sodium (Colace) 100 mg Q12H PRN PO CONSTIPATION; Start 01/24/19 at 08:00 Bisacodyl (Dulcolax) 5 mg DAILY PRN PO CONSTIPATION; Start 01/24/19 at 08:00 Pantoprazole (Protonix Iv) 40 mg DAILY@06 IV ; Start 01/25/19 at 06:00 Norepinephrine 250 ml @ 1.875 mls/ hr TITRATE IV ; Start 01/24/19 at 08:00 Vancomycin HCl (Vanco Iv Per Pharmacy) VANCOMYCIN PER PHARMACY PER PROTOCOL XX ; Start 01/24/19 at 08:00 Cefepime HCl 50 ml @ 100 mls/hr Q24H IVPB ; Start 01/25/19 at 05:00 Diagnostic Test (Pha) (Accu-Chek) 1 ea Q1H XX Last administered on 01/24/19at 13:09; Admin Dose 1 EA; Start 01/24/19 at 12:00 Insulin Human Regular 100 unit/ Sodium Chloride 100 ml @ 0 mls/hr PER PROTOCOL IV ; Start 01/24/19 at 12:00 Miscellaneous Information (* Miscellaneous Pharmacy Order) Treatment of Hypoglycemia: 1.BG 51... Per protocol XX ; Start 01/24/19 at 12:00 Dextrose (D50w Syringe) 25 ml Q15M PRN IV .DECREASED GLUCOSE; Start 01/24/19 at 12:00 Dextrose (D50w Syringe) 50 ml Q15M PRN IV .DECREASED GLUCOSE; Start 01/24/19 at 12:00 Acetaminophen (Tylenol Tab) 650 mg Q6H PRN GTB FEVER GREATER THAN 100.6; Start 01/24/19 at 12:00 Ascorbic Acid (Vitamin C) 500 mg DAILY GTB ; Start 01/24/19 at 12:30 Docusate Sodium (Colace Liquid Cup) 200 mg DAILY GTB ; Start 01/24/19 at 12:30 Multivitamins Therapeutic (Theragran) 1 tab DAILY GTB ; Start 01/24/19 at 12:30 Sodium Chloride 1,000 ml @ 100 mls/hr Q10H IV Last administered on 01/24/19at 13:08; Admin Dose 100 MLS/HR; Start 01/24/19 at 12:30 Sodium Bicarbonate 100 meq/Sodium Chloride 1,100 ml @ 100 mls/hr Q11H IV ; Start 01/24/19 at 14:00 Phenylephrine HCl 80 mg/Dextrose 250 ml @ 18.75 mls/ hr TITRATE IV ; Start 01/24/19 at 15:00 Vasopressin 60 unit/Sodium Chloride 60 ml @ 0 mls/hr Q12H IV ; Start 01/24/19 at 15:00 Past Medical History reviewed Home Meds Reported Medications Na Phos,M-B/Na Phos,Di-Ba (ENEMA [id number]) 133 Ml Enema, 133 ML RC EVERY 2 DAYS PRN for CONSTIPATION, ENEMA 01/24/19 Bisacodyl (Dulcolax) 10 Mg Supp.rect, 10 MG RC DAILY PRN for CONSTIPATION, SUPP.RECT 01/24/19 Magnesium Hydroxide* (Milk Of Magnesia*) 400 Mg/5 Ml Oral.susp, 30 ML GTB DAILY, ML 01/24/19 Docusate Sodium* (Colace*) 100 Mg Capsule, 200 MG GTB DAILY, #30 CAP 01/24/19 Cran/Vitc/Mannose/Inulin/Brom (Uti-Stat Liquid) 3,875 Mg/30 Ml Liquid, 3875 MG JT DAILY 01/24/19 Cranberry Extract (Cranberry) 425 Mg Capsule, 425 MG GTB DAILY, CAP 01/24/19 Multivitamins (MVI ADULT) 10 Ml Soln, 5 ML GTB DAILY 01/24/19 Ascorbic Acid* (Vitamin C*) 500 Mg Capsule.sa, 500 MG G-TUBE DAILY, CAP 01/24/19 Acetaminophen* (Acetaminophen*) 650 Mg Tablet, 650 MG GTB Q4 PRN for FEVER GREATER THAN 100.6, #30 TAB 01/24/19 Hydrocodone/Acetaminophen ([place] 5-325 Tablet) 1 Each Tablet, 1 EACH GTB Q4 PRN for SEVERE PAIN LEVEL 7-10, TAB 01/24/19 Acetaminophen* (Acetaminophen*) 650 Mg Tablet, 650 MG GTB Q4 PRN for MILD PAIN LEVEL 1-3, #30 TAB 01/24/19 Acetaminophen* (Acetaminophen*) 500 MG Extra Strength Tablet, 1000 MG GTB Q4H PRN for MODERATE PAIN LEVEL 4-6, TAB 01/24/19 Acetaminophen* (Acetaminophen*) 500 MG Extra Strength Tablet, 1000 MG GTB BID PRN for GENERAL BODY PAIN, TAB 01/24/19 Insulin Detemir (Levemir Flextouch) 100 Unit/1 Ml Insuln.pen, 10 UNIT SQ BID, EA 01/24/19 Insulin Aspart* (Novolog Insulin Pen*) 100 Unit/Ml Soln, 0 SC .SLIDING SCALE AC, EA 150-199 = 2 UNITS 200-249 = 3 UNITS 250-299 = 5 UNITS 300 - 349 = 7 UNITS GREATER THAN 349 GIVE 10 UNITS NOTIFY MD IF BELOW 70 OR ABOVE 400 01/24/19 Pramipexole* (Mirapex*) 1.5 Mg Tablet, 1.5 MG GTB TID, TAB 01/24/19 Escitalopram Oxalate* (Lexapro*) 5 Mg Tablet, 5 MG GTB DAILY, #30 TAB 01/24/19 Lorazepam* (Ativan*) 0.5 Mg Tablet, 0.25 MG GTB BID PRN for ANXIETY, #30 TAB 01/24/19 Discontinued Reported Medications Acetaminophen* (Tylenol*) 500 Mg Tab, 1000 MG PO Q4H PRN for PAIN 4-6, TAB 03/10/17 Magaldrate/Simethicone* (Mag-Al Plus Suspension*) 30 Ml Oral.susp, 30 ML PO Q4H PRN for GASTROINTESTINAL UPSET, ML 03/10/17 Cranberry Extract (Cranberry) 425 Mg Capsule, 425 MG PO DAILY, CAP 03/10/17 Lorazepam* (Lorazepam*) 0.5 Mg Tablet, 0.5 MG PO Q6 PRN for ANXIETY, TAB 03/10/17 Zolpidem Tartrate* (Ambien*) 5 Mg Tablet, 5 MG PO QHS PRN for INSOMNIA, #30 TAB 03/10/17 Propranolol Hcl* (Propranolol Hcl*) 10 Mg Tablet, 10 MG PO BID, TAB 03/10/17 Atorvastatin Calcium (Atorvastatin Calcium) 10 Mg Tablet, 10 MG PO QHS, #30 TAB 03/10/17 Pramipexole* (Mirapex*) 1.5 Mg Tablet, 1.5 MG PO Q8H, TAB 03/10/17 Entacapone* (Comtan*) 200 Mg Tab, 200 MG PO TID, TAB 03/10/17 Discontinued Scripts Pantoprazole* (Protonix* IV) 40 Mg Soln, 40 MG IV BID for 60 Days Prov:SHANNEN VALLEJO MD 04/14/17 Ondansetron Hcl* (Ondansetron Hcl* Inj) 4 Mg/2 Ml Vial, 4 MG IV Q6H PRN for NAUSEA AND/OR VOMITING for 10 Days, VIAL Prov:SHANNEN VALLEJO MD 04/14/17 [Metoclopramide] 5 MG/ML SOLN No Conflict Check, 10 MG IV Q6H PRN for NAUSEA AND/OR VOMITING for 7 Days Prov:SHANNEN VALLEJO MD 04/14/17 Hydrocodone Bit-Acetaminophen (Hydrocodone Bit-APAP) 5-325MG Tablet, 1 TAB GTB Q6H PRN for MODERATE PAIN LEVEL 4-6 for 7 Days, TAB Prov:SHANNEN VALLEJO MD 04/14/17 Atorvastatin (Atorvastatin) 10 Mg Tablet, 10 MG GTB QHS for 7 Days, TAB Prov:SHANNEN VALLEJO MD 04/14/17 [Vancomycin Oral Syringe] 50 MG/ML SOLN No Conflict Check, 125 MG GTB Q6 for 14 Days Prov:SHANNEN VALLEJO MD 04/14/17 Medications Current Medications Midazolam HCl 50 ml @ 3 mls/hr ONCE STAT IV ; Start 01/24/19 at 06:27; Stop 01/24/19 at 23:06 Fentanyl 100 ml @ 5 mls/hr CONTINUOUS DRIP ONCE IV ; Start 01/24/19 at 06:30; Stop 01/25/19 at 02:29 Amiodarone HCl 900 mg/Dextrose 500 ml @ 0 mls/hr Q0M IV ; Start 01/24/19 at 08:00 Ondansetron HCl (Zofran Inj) 4 mg Q6H PRN IV NAUSEA AND/OR VOMITING; Start 01/24/19 at 08:00 Albuterol (Proventil 0.083% (Neb)) 2.5 mg Q2H RESP THERAPY PRN NEB SHORTNESS OF BREATH; Start 01/24/19 at 08:00 Ipratropium [place] (Atrovent 0.02% (Neb)) 0.5 mg Q2H RESP THERAPY PRN NEB SHORTNESS OF BREATH; Start 01/24/19 at 08:00 Acetaminophen (Tylenol Liquid) 650 mg Q6H PRN PO PAIN LEVEL 1-3 OR FEVER; Start 01/24/19 at 08:00 Docusate Sodium (Colace) 100 mg Q12H PRN PO CONSTIPATION; Start 01/24/19 at 08:00 Bisacodyl (Dulcolax) 5 mg DAILY PRN PO CONSTIPATION; Start 01/24/19 at 08:00 Pantoprazole (Protonix Iv) 40 mg DAILY@06 IV ; Start 01/25/19 at 06:00 Norepinephrine 250 ml @ 1.875 mls/ hr TITRATE IV ; Start 01/24/19 at 08:00 Vancomycin HCl (Vanco Iv Per Pharmacy) VANCOMYCIN PER PHARMACY PER PROTOCOL XX ; Start 01/24/19 at 08:00 Cefepime HCl 50 ml @ 100 mls/hr Q24H IVPB ; Start 01/25/19 at 05:00 Diagnostic Test (Pha) (Accu-Chek) 1 ea Q1H XX Last administered on 01/24/19at 13:09; Admin Dose 1 EA; Start 01/24/19 at 12:00 Insulin Human Regular 100 unit/ Sodium Chloride 100 ml @ 0 mls/hr PER PROTOCOL IV ; Start 01/24/19 at 12:00 Miscellaneous Information (* Miscellaneous Pharmacy Order) Treatment of Hypoglycemia: 1.BG 51... Per protocol XX ; Start 01/24/19 at 12:00 Dextrose (D50w Syringe) 25 ml Q15M PRN IV .DECREASED GLUCOSE; Start 01/24/19 at 12:00 Dextrose (D50w Syringe) 50 ml Q15M PRN IV .DECREASED GLUCOSE; Start 01/24/19 at 12:00 Acetaminophen (Tylenol Tab) 650 mg Q6H PRN GTB FEVER GREATER THAN 100.6; Start 01/24/19 at 12:00 Ascorbic Acid (Vitamin C) 500 mg DAILY GTB ; Start 01/24/19 at 12:30 Docusate Sodium (Colace Liquid Cup) 200 mg DAILY GTB ; Start 01/24/19 at 12:30 Multivitamins Therapeutic (Theragran) 1 tab DAILY GTB ; Start 01/24/19 at 12:30 Sodium Chloride 1,000 ml @ 100 mls/hr Q10H IV Last administered on 01/24/19at 13:08; Admin Dose 100 MLS/HR; Start 01/24/19 at 12:30 Sodium Bicarbonate 100 meq/Sodium Chloride 1,100 ml @ 100 mls/hr Q11H IV ; Start 01/24/19 at 14:00 Phenylephrine HCl 80 mg/Dextrose 250 ml @ 18.75 mls/ hr TITRATE IV ; Start 01/24/19 at 15:00 Vasopressin 60 unit/Sodium Chloride 60 ml @ 0 mls/hr Q12H IV ; Start 01/24/19 at 15:00 Allergies: Coded Allergies: No Known Allergy (Unverified , 01/24/19) Past Surgical History reviewed Past Surgical Hx: other Social History reviewed Smoking Status: Unknown if ever smoked MAYNOR ALMONTE NP January 24, 2019 14:52
[2019-01-24] MEDS ORDERED: VASOPRESSIN IV SCH (15:00)
[2019-01-24] MEDS ORDERED: SOD CHLORIDE 0.45% IV SCH (15:00)
[2019-01-24] MEDS ORDERED: PHENYLephrine 80 MG in DEXTROSE 5% 242 ML IV SCH (15:00)
--- NOTE | 2019-01-24 15:35 | CONS ---
DATE OF ADMISSION: 01/24/2019 DATE OF CONSULTATION: TYPE OF CONSULTATION: Renal. REASON FOR CONSULTATION: Renal failure. HISTORY OF PRESENTING ILLNESS: This is an 78-year-old female with a past medical history of hyponatr emia, history of Parkinson disease, pneumonia, dysphagia status post G-tube placement, Helicobacter p ylori, hypertension, type 2 diabetes, who presented to us from [facility] due to fever, desatur ation and low blood pressure. The patient was admitted last in 03/2017. She had a GI bleed with dys phagia, had a G-tube placed. The patient had been staying in [facility]. The patient was noted to have acute onset of fever, desaturation and was sent to the hospital for furthe r evaluation. On arrival to ED, the patient's blood pressure was 84/56, heart rate was 113. The pat ient was very tachypneic. Initial ABG showed pH of 7.32, pCO2 of 39, bicarbonate of 20. Labs showed white count of 13.6, hemoglobin 14.5, platelet count 91, glucose 613, BUN of 134, creatinine 1.76, s odium 156, chloride 117. The patient was having fevers of 103. The patient was very tachypneic in r espiratory rate of 40s. The patient also went into code blue and was coded twice in the ER. First o ne was at 7:31, went into asystole and the second one went into PEA. The patient was also intubated for respiratory failure airway protection. Also, she had a central line and was started on pressors. Currently, the patient is intubated. History is obtained from the chart. PAST MEDICAL HISTORY: 1. Diabetes. 2. Hypertension. 3. Hyperlipidemia. 4. Parkinson's disease. 5. History of pneumonia. 6. History of dysphagia, status post G-tube. 7. History of pancreatitis. 8. History of Helicobacter pylori. 9. History of dementia. 10. History of GI bleeding in the past. ALLERGIES: NO KNOWN DRUG ALLERGIES. SOCIAL HISTORY: Unobtainable. FAMILY HISTORY: Unobtainable as the patient is intubated. MEDICATIONS AT [facility]: 1. Hydrocodone for pain. 2. Tylenol No. 3. 3. NovoLog FlexPen. 4. Detemir 10. 5. Lexapro 5. 6. Multivitamin. 7. Zinc sulfate. 8. Iron sulfate. PHYSICAL EXAMINATION: VITAL SIGNS: Currently, temperature was 103, blood pressure 85/46 currently on 3 pressors, heart rat e is 114, saturating 100% on mechanical ventilator. GENERAL: The patient is intubated. HEENT: Pupils are sluggish to respond. NECK: Supple. HEART: Tachycardic. LUNGS: Decreased breath sounds bilaterally. ABDOMEN: Soft, nontender. G-tube in place. EXTREMITIES: No clubbing, cyanosis or edema. The patient has multiple decubitus ulcers, which are p resent. LABORATORY DATA: Show white count of 13.6, hemoglobin 14.5, platelet count 91. Sodium 156, BUN of 1 34, creatinine 1.76, glucose of 613. The patient's last labs on 01/14/2019 showed white count of 6.9 , hemoglobin 13.9, platelet count 136. Sodium of 145, potassium 4.1, chloride of 108, bicarbonate of 28, BUN was 29 and creatinine 0.50. ABG last was pH 6.88, pCO2 of 94, pO2 of 52. Lactic acid was 9 .4. AST of 569, ALT of 985, alkaline phosphatase 104, total bilirubin 0.6, albumin 3.2. UA showed t race ketones, 1+ urobilinogen, 6 WBCs. DIAGNOSTIC DATA: Initial chest x-ray showed chronic dislocation of the right shoulder, elevated righ t hemidiaphragm atelectasis, atherosclerosis. ASSESSMENT AND PLAN: This is an 78-year-old female who presented with: 1. Septic shock with fevers, hypotension, source likely pneumonia right sided/urinary tract infectio n/multiple decubitus ulcers. 2. Respiratory failure, currently intubated. 3. Acute renal failure with baseline creatinine of 0.50, likely secondary due to septic shock. 4. Hypernatremia, likely secondary to hepatitis, sepsis, dehydration. 5. Severe hyperglycemia without diabetic ketoacidosis. 6. Lactic acidosis likely secondary to renal failure, sepsis. 7. Elevated troponin could be secondary to renal failure, status post code blue. 8. Status post code blue with asystole, pulseless electrical activity arrest. 9. History of hypertension, currently hypotensive. 10. Parkinson's. 11. Dysphagia status post G-tube. 12. Dementia. PLAN: At this period of time, the patient is admitted to ICU. The patient is critically ill. The p atient has already received 3 liters of NS bolus. Continue the patient on NS. The patient is alread y started on broad spectrum IV antibiotics. The patient is on insulin drip. We will repeat the ABG labs. We will also give some IV bicarbonate. We will also give the patient IV steroids. The patien t is also on amiodarone drip. I recommend cardiology consultation and echo, ID consultation. The bianka ahuja's condition is very poor. The rest of the treatment will depend on the patient's hospitalizati on course. Dictated By: MAG VARGHESE/STEPHANIE Conf#: [id number] DID#: [id number] CC: ANNA SOLIS MD; KATINA LANIER DO;*End*
--- NOTE | 2019-01-24 17:33 | CONS ---
DATE OF ADMISSION: 01/24/2019 DATE OF CONSULTATION: 01/24/2019 TYPE OF CONSULTATION: Infectious Disease. REASON FOR CONSULTATION: Antibiotic management. HISTORY OF PRESENT ILLNESS: She Thomas is an 78-year-old female who [facility] with ____ bleeding, diaphoresis, hypotension and tachycardia. Her past problems inc lude: 1. Parkinson disease. 2. Encephalopathy and dementia of Parkinson disease. 3. Hysterectomy. 4. G-tube placement. 5. Shortness of breath and atelectasis. 6. Coronary artery disease. 7. Hyperlipidemia. 8. Hypertension. 9. Major depression, anxiety and schizophrenia. 10. Acute renal failure. 11. H. pylori. 12. Dysphagia. 13. Acute pancreatitis in the past. 14. Anemia. 15. Hypernatremia. On admission, temperature was 103.2. She was noted to be critically ill. PAST MEDICAL HISTORY: Operations as outlined. FAMILY HISTORY: Noncontributory. SOCIAL HISTORY: She does not smoke, drink or abuse drugs. ALLERGIES: NONE TO PENICILLIN, SULFA OR FOODS. MEDICATIONS: Per chart. REVIEW OF SYSTEMS: Noncontributory. PHYSICAL EXAMINATION: VITAL SIGNS: Temperature 103.2. GENERAL: The patient is critically ill. She is intubated on a respirator. She has an ET tube, G-tu be and I believe a Finn catheter as well as a central line. HEENT: Within normal limits. NECK: Supple. LYMPH NODES: None palpable. CHEST: Decreased breath sounds at the bases with tachypnea and shallow respirations. HEART: Tachycardia. ABDOMEN: Soft, nontender. EXTREMITIES: Without cyanosis, clubbing, or edema. RECTAL AND GENITAL: Deferred. NEUROLOGIC: No focal neurological abnormality. LABORATORY DATA: White count 13.6, H and H 14.5 and 49.8, platelet count 91,000. BUN and creatinine 134/1.76, glucose 613, severe hyperglycemia and sodium 156, so she is hypernatremic as well. Chest x-ray shows elevated right hemidiaphragm and atelectasis, possible right shoulder dislocation. She h as infiltrates throughout the lung concerning for multifocal pneumonia. The patient was started on cefepime. She is on vasopressin. The family is considering making her no code and have called in a private wealth advisor. We will continue her on supportive care until they make a decisio n. I will dictate my findings to the hospitalist. Dictated By: SHANNAN PAK MD, JD/STEPHANIE Conf#: [id number] DID#: [id number]
[2019-01-24] MEDS ORDERED: morphine (DRIP) 100 MG/100 ML 100 ML IV SCH (20:00)
--- NOTE | 2019-01-24 22:04 | RADRPT ---
Echocardiogram Report Patient Name: KAMAR SKINNERPatient ID: [id number] : 1940 (78y 4m)Study Date: 01/24/2019 1:53:48 PM Gender: FAccession #: [id number] Tech: Derik [facility] Location: [address] Ref.Physician: MAG HARP Height(Cm): BSA: Weight(Kg): Quality: Technically Difficult StudyOrder Physician: MAG HARP Account #: Procedures: Echocardiographic Report: Transthoracic echocardiogram with complete 2D, M-Mode, and doppler examination. Indications: Evaluate Left Ventricular function. Measurements: 2D/M Mode Doppler Measurement Value Normal Range Measurement Value Normal Range LVIDd 2D 2.8 [ 3.8 - 5.2 ] cm AV Peak Laron 1.5 [ 100.0 - 170.0 ] cm/sec LVIDs 2D 2.5 [ 2.2 - 3.5 ] cm AV Peak PG 9.0 [ 2.0 - 9.0 ] mmHg LVPWd 2D 1.5 [ 0.6 - 0.9 ] cm LVOT Peak Laron 1.0 [ 70.0 - 110.0 ] cm/sec IVSd 2D 1.6 [ 0.6 - 0.9 ] cm LVOT Peak PG 4.0 [ 2.0 - 6.0 ] mmHg AoR Diam 2D 3.1 [ 2.3 - 3.1 ] cm MV E Peak Laron 0.4 [ 60.0 - 130.0 ] cm/sec EDV 2D 28.3 [ 46.0 - 106.0 ] ml MV A Peak Laron 0.6 [ 100.0 - 120.0 ] cm/sec ESV 2D 22.5 [ 14.0 - 42.0 ] ml MV E/A 0.6 [ 0.8 - 1.5 ] ratio EF 2D 20.5 [ 54.0 - 74.0 ] percent MV Decel Time 169 [ 104 - 258 ] msec LA Dimen 2D 3.4 [ 2.7 - 3.8 ] cm Lat E` Laron 0.0 [ 10.0 - 15.0 ] cm/sec Lateral E/E` 8.4 [ 1.0 - 2.0 ] ratio MV E/A 0.6 [ 0.8 - 1.5 ] ratio TR Peak Laron 2.9 [ 100.0 - 280.0 ] cm/sec TR Peak PG 34.0 mmHg RVSP 37.0 [ 10.0 - 36.0 ] mmHg Findings: Left Ventricle: Lower limits of normal systolic function. Normal left ventricular cavity size. Moderate concentric left ventricular hypertrophy. Mild global left ventricular systolic dysfunction. Ejection fraction is visually estimated at 40-45 %. Tissue Doppler/Mitral Doppler indices are consistent with impaired relaxation (Stage I diastolic dysfunction). Right Ventricle: Normal right ventricular size. Normal right ventricular systolic function. Left Atrium: The left atrium is normal in size. Right Atrium: The right atrium is normal in size. Mitral Valve: Mild mitral leaflet calcification. Mild mitral annular calcification. Trace mitral regurgitation. Aortic Valve: No hemodynamically significant aortic stenosis by doppler. Aortic cusps appear mildly calcified. Mild aortic valve regurgitation. Tricuspid Valve: Normal appearance of the tricuspid valve. The estimated Peak RVSP is 37 mmHg. There is mild tricuspid regurgitation. Pericardium: Normal pericardium with no significant pericardial effusion. Left pleural effusion seen. Aorta: Ascending aorta is dilated. Ascending Aorta 3.90 cm. IVC: Normal size and normal respiratory collapse consistent with normal right atrial pressure. Conclusions: Lower limits of normal systolic function. Normal left ventricular cavity size. Moderate concentric left ventricular hypertrophy. Mild global left ventricular systolic dysfunction. Ejection fraction is visually estimated at 40-45 %. Tissue Doppler/Mitral Doppler indices are consistent with impaired relaxation (Stage I diastolic dysfunction). Mild mitral leaflet calcification. Mild mitral annular calcification. Trace mitral regurgitation. No hemodynamically significant aortic stenosis by doppler. Aortic cusps appear mildly calcified. Mild aortic valve regurgitation. Normal appearance of the tricuspid valve. The estimated Peak RVSP is 37 mmHg. There is mild tricuspid regurgitation. Electronically Signed By: Ez Arce 2019-01-24 22:03:38 PDT
[2019-01-25] VITALS (13 sets, daily range): BP systolic 43; BP diastolic 31; PULSE 0–140; RESP 0–7
[2019-01-25] MEDS ORDERED: EPINEPHrine 0.1 MG/ML SYG ONE
[2019-01-25] MEDS ORDERED: CEFEPIME 1GM/50 ML (PMX) 50 ML IVPB SCH (05:00)
[2019-01-25] MEDS ORDERED: PANTOPRAZOLE 40 MG INJ IV SCH (06:00)
--- NOTE | 2019-01-26 23:26 | DES ---
Date/Time of Note Date/Time of Note DATE: 01/26/19 TIME: 23:24 Discharge/ Summary Admission/Discharge Info Admit Date/Time January 24, 2019 at 06:41 Date/Time January 25, 2019 I was pronounced at 1:56 AM Final Diagnosis 78-year-old female sent from skilled nursing for low blood pressure and fever managed as follows: 1. Severe sepsis with septic shock secondary to #2 2. Pneumonia, right-sided 3. Probable urinary tract infection 4. Acute respiratory failure now ventilator dependent secondary to #1 5. History of chronic dysphagia failure to try status post G-tube placement and now maintained on G-tube feeds 6. Severe hyperglycemia with metabolic acidosis (HONK?) 7. Acute renal insufficiency likely secondary to severe dehydration 8. Hypernatremia also likely secondary to severe dehydration 9. Acute transaminitis likely related to shock 10. Elevated troponin likely type II NSTEMI from sepsis with septic shock 11. Thrombocytopenia . Preliminary Cause of Severe sepsis with septic shock and multiorgan failure . Admit History Per admitting MD At this time unfortunately history is unobtainable from patient and there is no family at the bedside, but this is an 78-year-old female who was [facility] and per ER notes she was sent for low blood pressure and fever. Her last hospitalization in this facility was back in March 2017 and at that time she had been seen for GI bleed with dysphagia and underwent EGD and a G-tube was placed. From that discharge summary, the patient has a history of C. difficile colitis, colon cancer, failure to thrive and encephalopathy. At this time unfortunately apparently she decompensated in the emergency room and required endotracheal intubation and initiation of pressor support for severe sepsis. A central line was also placed for pressor. At this time we are admitting to the intensive care unit for continued management. . Hospital Course 78-year-old female sent from skilled nursing with low blood pressure and fever managed for severe sepsis with septic shock secondary to pneumonia urinary tract infection now complicated with respiratory failure and ventilator dependence. Patient was also with severe hypernatremic dehydration and demand ischemia from sepsis with shock. She was also with severe hyperglycemia with metabolic acidosis. Patient did not do well and was requiring pressor support. Eventually family opted for terminal extubation. Apparently the patient had been declining for quite some time and the family had been considering hospice care on an outpatient basis. Patient eventually passed after she was terminally extubated January 25, 2019 I was pronounced at 1:56 AM. . ANNA SOLIS January 26, 2019 23:26
== END 2019-01-25 01:56 | disposition expired | DRG 871 ==
LOC: E/R 05:08 → ICU 06:41
PROVIDERS: ADMIT Internal Medicine; ATTEND Family Medicine
PROC: 5A12012 Performance of Cardiac Output, Single, Manual (ICD-10-PCS; principal; 2019-01-24)
PROC: 5A1935Z Respiratory Ventilation, Less than 24 Consecutive Hours (ICD-10-PCS; 2019-01-24)
PROC: 5A2204Z Restoration of Cardiac Rhythm, Single (ICD-10-PCS; 2019-01-24)
PROC: 0BH17EZ Insertion of Endotracheal Airway into Trachea, Via Natural or Artificial Opening (ICD-10-PCS; 2019-01-24)
PROC: 02HV33Z Insertion of Infusion Device into Superior Vena Cava, Percutaneous Approach (ICD-10-PCS; 2019-01-24)
DX: A41.9 Sepsis, unspecified organism (principal); J18.9 Pneumonia, unspecified organism; R65.21 Severe sepsis with septic shock; I21.A1 Myocardial infarction type 2; J96.01 Acute respiratory failure with hypoxia; N39.0 Urinary tract infection, site not specified; E87.2 Acidosis; N17.9 Acute kidney failure, unspecified; E87.0 Hyperosmolality and hypernatremia; G93.40 Encephalopathy, unspecified; D69.6 Thrombocytopenia, unspecified; E86.0 Dehydration; E78.5 Hyperlipidemia, unspecified; E11.65 Type 2 diabetes mellitus with hyperglycemia; G20 Parkinson's disease; F02.80 Dementia in other diseases classified elsewhere, unspecified severity, without behavioral disturbance, psychotic disturbance, mood disturbance, and anxiety; I10 Essential (primary) hypertension; I46.9 Cardiac arrest, cause unspecified; L89.159 Pressure ulcer of sacral region, unspecified stage; R13.10 Dysphagia, unspecified; R74.0 Nonspecific elevation of levels of transaminase and lactic acid dehydrogenase [LDH]; Z93.1 Gastrostomy status; Z79.4 Long term (current) use of insulin
CPT/HCPCS: 31500; 36600; 71045; 80048; 80053; 81001; 81003; 82550; 82553; 82803; 82962; 83605; 84484; 85025; 85610; 85730; 87070; 87086; 92950; 93005; 93306; 94002; 94664; 95819; 96374; 96375; J0171; J0282; J0692; J1720; J1815; J2250; J2270; J2370; J3010; J3370; J7030; J7060; J7070; P9047